=== PATIENT | female | born 1935 | race American Indian/Alaskan Native ===

== ENCOUNTER 2017-04-27 02:06 | Inpatient (IN) | payer MEDICARE, BC ==
--- NOTE | 2017-04-27 03:01 | ED PDOC ---
Arrival/HPI - General Chief Complaint: Syncope Time Seen by Provider: 04/27/17 02:50 Historian: Patient - History of Present Illness Narrative History of Present Illness (Text): 04/27/17 03:00 Estella Elizabeth is an 81 year old female, whose past medical history includes hypertension, diabetes, hypothyroidism, hyperlipidemia, and vertigo, who presents to the Emergency department brought in by EMS complaining of near- syncope tonight. Patient states she got up tonight when she began feeling near- syncopal and very dizzy. Patient states she fell and landed on her buttocks. Patient denies any fever, chills, chest pain, shortness of breath, headache, vision changes, focal neurological deficits, nausea, vomiting, diarrhea, back pain, neck pain, or any other complaints. PMD: Dr. Giles Time/Duration: Other (tonight) Symptom Onset: Gradual Symptom Course: Unchanged Activities at Onset: Rest, Light Context: Home Past Medical History - Provider Review Nursing Documentation Reviewed: Yes - Past History Past History: Non-Contributing - Infectious Disease Hx of Infectious Diseases: None - Tetanus Immunization Tetanus Immunization: Unknown - Reproductive Menopause: Yes - Cardiac Hx Hypertension: Yes - Pulmonary Hx Respiratory Disorders: No - Neurological Hx Neurological Disorder: Yes (SYNCOPE) Hx Dizziness: Yes - HEENT Hx HEENT Disorder: Yes (reading glasses) Hx Cataracts: Yes (b/l sx) Hx Glaucoma: Yes - Renal Hx Renal Disorder: No - Endocrine/Metabolic Hx Diabetes Mellitus Type 2: Yes Hx Hypothyroidism: Yes - Hematological/Oncological Hx Blood Disorders: No - Integumentary Hx Dermatological Disorder: No - Musculoskeletal/Rheumatological Hx Arthritis: Yes Hx Falls: Yes (2014) Hx Fractures: Yes (r hip fx, right shoulder 2014) Hx Unsteady Gait: Yes (walker) - Gastrointestinal Hx Gastrointestinal Disorders: Yes (constipation, hemorrhoids) Hx Gastroesophageal Reflux: Yes - Genitourinary/Gynecological Hx Genitourinary Disorders: Yes - Psychiatric Hx Psychophysiologic Disorder: No Hx Substance Use: No Other/Comment: ex-smoker - Surgical History Hx Appendectomy: Yes Hx Cardiac Catheterization: Yes Hx Hysterectomy: Yes Hx Orthopedic Surgery: Yes Other/Comment: r shoulder fx with sx, r hip fx with sx - Anesthesia Hx Anesthesia Reactions: No - Suicidal Assessment Feels Threatened In Home Enviroment: No Family/Social History - Physician Review Nursing Documentation Reviewed: Yes Family/Social History: No Known Family HX Smoking Status: Former Smoker Hx Alcohol Use: No Hx Substance Use: No Hx Substance Use Treatment: No Allergies/Home Meds Allergies/Adverse Reactions: Allergies No Known Allergies Allergy (Verified 12/21/15 15:53) Home Medications: Home Meds Medication Instructions Recorded Confirmed Isosorbide Mononitrate [Imdur] 60 mg PO DAILY 03/11/13 04/27/17 Pravastatin Sodium 80 mg PO DAILY 07/10/13 04/27/17 Losartan [Cozaar] 100 mg PO DAILY 05/28/14 04/27/17 Insulin Human (NPH)/Regular 30 units SC BID 07/20/14 04/27/17 [Novolin 70/30 (70/30 units/ml) 10 ml] cloNIDine 0.3 mg/24 hr 1 patch TOP QWK 07/20/14 04/27/17 [catapres-TTS3 0.3 mg/24 hr] Esomeprazole Magnesium [Nexium] 40 mg PO DAILY 11/14/14 04/27/17 Methimazole [Tapazole] 5 mg PO DAILY 11/14/14 04/27/17 Alprazolam 0.5 mg PO DAILY 12/21/15 04/27/17 Ascorbic Acid [C-500] 500 mg PO BID 12/21/15 04/27/17 Bisacodyl [Dulcolax] 5 mg PO HS PRN 12/21/15 04/27/17 Carvedilol [Coreg] 25 mg PO BID 12/21/15 04/27/17 Diltiazem HCl [Diltiazem 24Hr Cd] 240 mg PO DAILY 12/21/15 04/27/17 Docusate Sodium [Move It Along] 200 mg PO DAILY 12/21/15 04/27/17 Ezetimibe [Zetia] 10 mg PO DAILY 12/21/15 04/27/17 Hydralazine HCl 50 mg PO TID 12/21/15 04/27/17 Latanoprost [Xalatan] 1 drop OP DAILY 12/21/15 04/27/17 Metoclopramide HCl [Reglan] 5 mg PO QID 12/21/15 04/27/17 Review of Systems - Physician Review All systems were reviewed & negative as marked: Yes - Review of Systems Constitutional: Normal. absent: Fevers Eyes: Normal ENT: Normal Respiratory: Normal. absent: SOB, Cough Cardiovascular: Other (+near-syncopal). absent: Chest Pain Gastrointestinal: Normal Genitourinary Female: Normal. absent: Dysuria, Frequency, Hematuria, Urine Output Changes Musculoskeletal: Normal. absent: Back Pain, Neck Pain Skin: Normal. absent: Rash Neurological: Dizziness. absent: Headache, Focal Weakness, Gait Changes, Speech Changes Endocrine: Normal Hemo/Lymphatic: Normal Psychiatric: Normal Physical Exam Vital Signs Reviewed: Yes Vital Signs Temp Pulse Resp BP Pulse Ox 04/27/17 02:41 98 F 81 20 135/57 L 98 Temperature: Afebrile Blood Pressure: Normal Pulse: Regular Respiratory Rate: Normal Appearance: Positive for: Well-Appearing, Non-Toxic, Comfortable Pain Distress: None Mental Status: Positive for: Alert and Oriented X 3 - Systems Exam Head: Present: Atraumatic, Normocephalic Pupils: Present: PERRL Extroacular Muscles: Present: EOMI Conjunctiva: Present: Normal Ears: Present: Normal, NORMAL TM, Normal Canal. No: Erythema, TM Bulging, Fluid , TM Perf Mouth: Present: Moist Mucous Membranes Pharnyx: Present: Normal. No: ERYTHEMA, EXUDATE, TONSILS ENLARGED, Peritonsilar Swelling, Uvular Deviation, Strider, Soft Palate/Uvular Edema Nose (External): Present: Atraumatic Nose (Internal): Present: Normal Inspection Neck: Present: Normal Range of Motion. No: Meningeal Signs, MIDLINE TENDERNESS , Paraspinal Tenderness Respiratory/Chest: Present: Clear to Auscultation, Good Air Exchange. No: Respiratory Distress, Accessory Muscle Use Cardiovascular: Present: Regular Rate and Rhythm, Normal S1, S2. No: Murmurs Abdomen: Present: Normal Bowel Sounds. No: Tenderness, Distention, Peritoneal Signs Back: Present: Normal Inspection. No: CVA Tenderness, Midline Tenderness, Paraspinal Tenderness Upper Extremity: Present: Normal Inspection, Normal ROM, NORMAL PULSES, Neurovascularly Intact, Capillary Refill < 2s. No: Cyanosis, Edema, Tenderness , Swelling, Erythema, Temperature Abnormalties, Deformity Lower Extremity: Present: Normal Inspection, NORMAL PULSES, Normal ROM, Neurovascularly Intact, Capillary Refill < 2 s. No: Edema, Cyanosis, Tenderness , Swelling, Erythema, Deformity Neurological: Present: GCS=15, CN II-XII Intact, Speech Normal, Motor Func Grossly Intact, Normal Sensory Function, Normal Cerebellar Funct Skin: Present: Warm, Dry, Normal Color. No: Rashes Psychiatric: Present: Alert, Oriented x 3, Normal Insight, Normal Concentration Medical Decision Making ED Course and Treatment: 04/27/17 03:00 Impression: 81 year old female complaining of near-syncope and dizziness. Differential Diagnosis include but are not limited to: near-syncope Plan: -- CT Head w/o contrast -- EKG -- Chest X-ray -- Labs, cardiac enzymes -- Reassess and disposition Prior Visits: Notes and results from previous visits were reviewed. Progress Notes: Reviewed EKG, NSR at 78 bpm. Non-specific T wave changes. 04/27/17 04:44 Reviewed radiology, CT Head shows: No acute intracranial findings. Nonacute findings as above. 04/27/17 05:18 Reviewed Chest X-ray, shows no acute processes. 04/27/17 05:[address] Giles, who is aware and agrees with plan. Accepts pt in to her service. Pt will go to Telemetry observation for near-synope. - Lab Interpretations Lab Results: 04/27/17 03:20 Lab Results 04/27/17 03:20: WBC 11.3 H D, RBC 3.01 L, Hgb 9.6 L, Hct 27.5 L, MCV 91.4, MCH 31.9, MCHC 34.9, RDW 12.6, Plt Count 253, MPV 9.4 04/27/17 03:20: PT 11.8, INR 1.09 H, APTT 28.5 I have reviewed the lab results: Yes - RAD Interpretation Narrative RAD Interpretations (Text): CT Head shows: Brain: Mild volume loss. Mild chronic small vessel white matter ischemic change. No acute hemorrhage. No acute infarct. Ventricles: No hydrocephalus. Bones/joints: Unremarkable. No acute fracture. Soft tissues: Unremarkable. Vasculature: Calcification in the wall the distal internal carotid arteries. Sinuses: Unremarkable as visualized. No acute sinusitis. Mastoid air cells: Unremarkable as visualized. No mastoid effusion. Orbits: Bilateral proptosis. IMPRESSION: No acute intracranial findings. Nonacute findings as above. Radiology Orders: 04/27/17 02:50 HEAD W/O CONTRAST [CT] Stat CHEST PORTABLE [RAD] Stat Shear Helper: ED Physician, Radiologist - EKG Interpretation Interpreted by ED Physician: Yes Type: 12 lead EKG - Scribe Statement The provider has reviewed the documentation as recorded by the Abhishekibcierra Garcia All medical record entries made by the Abhishekibe were at my direction and personally dictated by me. I have reviewed the chart and agree that the record accurately reflects my personal performance of the history, physical exam, medical decision making, and the department course for this patient. I have also personally directed, reviewed, and agree with the discharge instructions and disposition. Disposition/Present on Arrival - Present on Arrival Any Indicators Present on Arrival: No History of DVT/PE: No History of Uncontrolled Diabetes: No Urinary Catheter: No History of Decub. Ulcer: No History Surgical Site Infection Following: None - Disposition Have Diagnosis and Disposition been Completed?: Yes Diagnosis: Near syncope Disposition: HOSPITALIZED Disposition Time: 06:05 Patient Plan: Observation Condition: STABLE
[2017-04-27 03:40] LABS: HEMATOCRIT 27.5 % (36.0-48.0); MEAN CELL VOLUME 91.4 fL (80.0-105.0); MEAN CORPUSCULAR HEMOGLOBIN 31.9 pg (25.0-35.0); MEAN CORPUSCULAR HGB CONC 34.9 g/dl (31.0-37.0); MEAN PLATELET VOLUME 9.4 fl (7.0-11.0); RED CELL DISTRIBUTION WIDTH 12.6 % (11.5-14.5); WHITE BLOOD COUNT 11.3 10^3/ul (4.5-11.0)
[2017-04-27 03:47] LABS: INR 1.09 (0.93-1.08); PARTIAL THROMBOPLASTIN TIME 28.5 Seconds (23.7-30.8)
--- NOTE | 2017-04-27 08:07 | CT ---
PROCEDURE: CT HEAD WITHOUT CONTRAST. HISTORY: Dizziness COMPARISON: 11/14/2014 TECHNIQUE: Axial computed tomography images were obtained through the head/brain without intravenous contrast. Radiation dose: Total exam DLP = 687.80 mGy-cm. This CT exam was performed using one or more of the following dose reduction techniques: Automated exposure control, adjustment of the mA and/or kV according to patient size, and/or use of iterative reconstruction technique. FINDINGS: HEMORRHAGE: No intracranial hemorrhage. BRAIN: Massey-white matter differentiation is preserved. There are mild chronic microangiopathic changes. There is no mass, mass effect or abnormal extra-axial fluid collection. There are coarse atherosclerotic calcifications in the cavernous carotid arteries. VENTRICLES: There is mild age-related global parenchymal volume loss and proportionate enlargement of the ventricles and cortical sulci. . CALVARIUM: The skull base and calvarium are normal. PARANASAL SINUSES: There is moderate polypoid mucosal thickening in the left sphenoid chamber and right frontal sinus. The remaining included paranasal sinuses are predominantly clear. MASTOID AIR CELLS: Predominantly clear. OTHER FINDINGS: There is bilateral proptosis. IMPRESSION: No acute intracranial abnormality. Mild age-related involutional changes. Mild chronic microangiopathic changes. A preliminary report was provided by [facility].
[2017-04-27 08:56] LABS: ALB/GLOB RATIO 1.1 (1.1-1.8); ALKALINE PHOSPHATASE 94 U/L (38-133); ALT/SGPT 78 U/L (7-56); AST/SGOT 59 U/L (15-39); BILIRUBIN,TOTAL 1.2 mg/dL (0.2-1.3); BLOOD UREA NITROGEN 38 mg/dL (7-21); CARBON DIOXIDE 24 mmol/L (21-33); CHLORIDE 99 mmol/L (98-107); GFR AFRICAN-AMERICAN 31; GLUCOSE,RANDOM 177 mg/dL (70-110); POTASSIUM 4.7 mmol/L (3.6-5.0); SODIUM 131 mmol/L (132-148); TOTAL PROTEIN 7.1 g/dL (5.8-8.3)
[2017-04-27 09:10] LABS: TROPONIN I < 0.01 ng/mL
[2017-04-27] MEDS ORDERED: Iohexol 240 (50 ml) ONE (09:36)
--- NOTE | 2017-04-27 09:49 | RAD ---
HISTORY: dizzy COMPARISON: 12/22/2015 FINDINGS: LUNGS: The lungs are clear. PLEURA: No significant pleural effusion identified, no pneumothorax apparent. CARDIOVASCULAR: Normal. Heart is normal in size. Atherosclerotic aortic arch calcifications are present. OSSEOUS STRUCTURES: No significant abnormalities. VISUALIZED UPPER ABDOMEN: Normal. OTHER FINDINGS: None. IMPRESSION: No active pulmonary disease.
[2017-04-27 13:16] LABS: URINE BILIRUBIN NEGATIVE (NEGATIVE); URINE BLOOD TRACE-INTACT (NEGATIVE); URINE GLUCOSE (UA) NEGATIVE (NEGATIVE); URINE KETONE NEGATIVE (NEGATIVE); URINE LEUKOCYTE ESTERASE MODERATE Leu/uL (NEGATIVE); URINE PROTEIN 30 mg/dL (<30 mg/dL); URINE UROBILINOGEN 0.2 E.U./dL (<1 E.U./dL)
[2017-04-27 13:23] LABS: URINE APPEARANCE SL CLOUDY (CLEAR); URINE COLOR YELLOW (YELLOW)
[2017-04-27 13:42] LABS: URINE BACTERIA MANY (NEG); URINE RBC 0 - 2 /hpf (0-2)
[2017-04-27 14:17] VITALS: BMI 31.6
[2017-04-27] MEDS ORDERED: Pneumococcal 23-Valent Vaccine IM ONE (14:18)
[2017-04-27] MEDS ORDERED: Insulin Regular 1 UNITS/0.01 ML ML ONE (15:54)
[2017-04-27] MEDS: Insulin Reg-LOW-Coverage SC SCH ×2 (15:55→22:00)
--- NOTE | 2017-04-27 16:31 | CT ---
PROCEDURE: CT Abdomen and Pelvis with Oral contrast. HISTORY: right lower abdominal pain COMPARISON: Comparison is made to the previous study dated 07/11/2013 TECHNIQUE: Contiguous axial images of the abdomen and pelvis. Oral contrast was administered. No IV contrast given. Coronal and Sagittal reformats generated. Radiation dose: Total exam DLP = 967.05 mGy-cm. This CT exam was performed using one or more of the following dose reduction techniques: Automated exposure control, adjustment of the mA and/or kV according to patient size, and/or use of iterative reconstruction technique. FINDINGS: LOWER THORAX: No evidence of acute pathology. LIVER: Heterogeneous attenuation of the liver is again noted. No evidence of significant interval change. GALLBLADDER AND BILE DUCTS: No evidence of cholecystitis. PANCREAS: Low-attenuation cystic lesion seen at or adjacent to the pancreas noted of uncertain etiology. The largest low-attenuation lesion seen adjacent to the pancreatic head measures 1.9 centimeter. The possibility of pancreatic cystic neoplasm is not totally excluded. The differential diagnosis includes enlarged peripancreatic lymph nodes. There is low-attenuation lesion at the pancreatic head measures 2 centimeter. SPLEEN: Unremarkable. No splenomegaly. ADRENALS: Unremarkable. KIDNEYS AND URETERS: Multiple low-attenuation lesions in the kidneys are again seen appear larger and more compared to the previous exam. No evidence of hydronephrosis or nephrolithiasis. BLADDER: Mild urinary bladder wall thickening. REPRODUCTIVE: Status post hysterectomy. APPENDIX: No evidence of appendicitis. BOWEL: Scattered colonic diverticulosis are seen. Mild inflammatory changes seen adjacent to the descending colon. The possibility of mild diverticulitis is not excluded. No evidence of bowel obstruction. PERITONEUM: Unremarkable. No fluid collection. No free air. LYMPH NODES: Prominent retroperitoneal lymph nodes are seen. VASCULATURE: Unremarkable. No aortic aneurysm. BONES: Diffuse osteopenia is seen. Hardware are seen at the right femur head and neck. OTHER FINDINGS: None. IMPRESSION: Scattered colonic diverticulosis. Mild inflammatory changes seen adjacent to the descending colon. Correlate clinically for diverticulitis. No evidence of abscess formation or free air. Interval appearance of multiple low-attenuation lesion at or adjacent to the pancreatic body and head of uncertain etiology. The possibility of multifocal cystic neoplasm of the pancreas is not totally excluded. The differential diagnosis includes enlarged peripancreatic lymph nodes. 2 centimeter low-attenuation lesion seen at the pancreatic head. Further assessment of the pancreas by ultrasound or MRI is suggested. Interval worsening of low-attenuation cystic lesions in the kidneys since the previous exam. Diffuse osteopenia.
[2017-04-27] MEDS: Sodium Chloride 0.9% 1,000 ML IV SCH (21:58)
[2017-04-27] MEDS: Latanoprost 2.5 ml Opht Soln OU SCH (22:00)
--- NOTE | 2017-04-27 22:03 | HP ---
CHIEF COMPLAINT: Lightheadedness and near syncope. HISTORY OF PRESENT ILLNESS: An 81-year-old female with history of hypertension , stage II chronic kidney disease, type 2 diabetes mellitus and hyperthyroidism who presented to Emergency Room with complaints of dizziness and near syncopal episode. The patient claims that she did get up from bed after lying at night. When went to the bathroom, she fell on the floor. She denies losing consciousness. She called the ambulance and came to the Emergency Room for evaluation. The patient denied any headache, blurry vision, weakness, chest pain or shortness of breath. PAST MEDICAL HISTORY: Significant for severe hypertension. The patient was hospitalized in the past for uncontrolled hypertension. She is on multiple medications to control her blood pressure. Type 2 diabetes mellitus, controlled with insulin. Hyperthyroidism, stage II chronic kidney disease, chronic constipation. PAST SURGICAL HISTORY: Status post hysterectomy, colonoscopy in 2013. Cardiac catheterization in 2014, significant for mild coronary artery disease. ALLERGIES: The patient has no known allergies. CURRENT MEDICATIONS: Insulin 70/30, 30 units twice a day. Catapres patch 0.3 mg once a week, Tapazole 5 mg daily, losartan 100 mg daily, Imdur 60 mg daily, hydralazine 50 mg 3 times a day, Zetia 10 mg daily, pravastatin 40 mg daily, Colace 200 mg daily, Coreg 25 mg twice a day and alprazolam 0.5 mg daily. The patient also takes Latanoprost eyedrops for her glaucoma. FAMILY HISTORY: Significant for hypertension and heart disease. SOCIAL HISTORY: The patient denies any smoking, alcohol or drug use. The patient is retired. She lives with her daughter. The patient is independent of activity of daily living. REVIEW OF SYSTEMS: The patient denies any fever, loss of appetite or weight loss. Denies any sore throat, dysphagia. Denies any nasal congestion, cough. Denies any chest pain, diaphoresis or heart palpitation. She complains of some lower abdominal discomfort and chronic constipation. Denies any nausea, vomiting, melena or hematemesis. The patient denies any dysuria, hematuria or flank pain. The patient denies any neurological symptoms as blurry vision, weakness or numbness. The patient complains of chronic low back pain. The patient denies any psychiatric symptoms. PHYSICAL EXAMINATION: VITAL SIGNS: Temperature on admission 98, blood pressure in the Emergency Room at first was 135/57, earlier during evaluation was low 107/49, her pulse rate was 60 per minute, and respiratory rate 18, oxygen saturation was 97% on room air. GENERAL: The patient was lying in bed, alert, awake, oriented. HEAD: Normocephalic, atraumatic. EYES: Pupils reactive to light. Oral mucosa was moist. NECK: Supple. No neck masses. There is prominent thyroid gland noted. LUNGS: Clear to auscultation. HEART: Regular rhythm, rate of 60 per minute. ABDOMEN: Soft with slight tenderness in the right lower quadrant. No muscle guarding. Bowel sounds are positive. EXTREMITIES: With no edema. NEUROLOGIC: Shows no sensorimotor deficits. Full range of motion. DIAGNOSTIC STUDIES: CBC with WBC 11.3, hemoglobin 9.6, hematocrit 27.5, platelet count 253. PT, PTT was normal. Chemistry showed hyponatremia with sodium 131. BUN 38, creatinine 1.9, and random glucose 177. She had slightly elevated liver enzymes. Her troponin was negative at 0.01. TSH was 0.91. EKG showed normal sinus rhythm with nonspecific T-wave abnormalities. No ST elevation. Chest x-ray showed no acute pathology. CT of the head showed no acute intracranial abnormality, chronic vascular changes. ASSESSMENT: 1. An 81-year-old female with history of hypertension and coronary artery disease, admitted for near syncope episode, possibly due to postural hypotension. 2. Type 2 diabetes mellitus. 3. Stage II chronic kidney disease. 4. Hyponatremia. 5. Abdominal pain with elevated liver enzymes. PLAN OF TREATMENT: The patient will be admitted for observation to telemetry. Will monitor blood pressure. I will hold blood pressure medication for now. Will ask tape rules printing machine operator and neurologist on consult. I will order CT scan of the abdomen and pelvis for evaluation of abdominal symptoms. Nelsy Cyr MD cc: [id number] TT: 04/27/2017 22:02:55 mn [id number]
--- NOTE | 2017-04-27 23:40 | CON ---
DATE: 04/27/2017 REASON FOR CONSULTATION: Recurrent near syncope. HISTORY OF PRESENT ILLNESS: The patient is an 81-year-old female who came to the Emergency Room with complaints of episode of almost passing out. Last night, the patient got up to go to the bathroom w hen she felt dizzy and fell and she was going to pass out. She did not pass out because she remember ed the events. She did not have any focal weakness in arms or legs. Did not have loss of her urine or had any tongue biting. She did not hit her head. That is why the patient was brought to the [facility] Room. At the moment, she just feels a little cold. Denies any other complaints. REVIEW OF SYSTEMS: Denies any headache, chest pain, shortness of breath, abdominal pain, constipatio n, diarrhea, dysuria, pyuria, cough, sputum production, palpitations, hallucinations, skin rash. PAST MEDICAL HISTORY: Includes hypertension, diabetes mellitus, hypothyroidism, hyperlipidemia. MEDICATIONS AT HOME: Included clonidine, pravastatin, metoclopramide, , losartan, Xalatan eyedr ops, Imdur, insulin, hydralazine, , Nexium, diltiazem, Coreg, Dulcolax, and Xanax. ALLERGIES: No known drug allergies. SOCIAL HISTORY: Denies smoking, use of alcohol or illicit drugs. FAMILY HISTORY: Noncontributory to the case. PHYSICAL EXAMINATION: GENERAL: The patient is an elderly pleasant female lying on the bed in no acute distress. VITAL SIGNS: Her blood pressure is 157/66, heart rate 71 per minute, breathing at a rate of 16 per m inute, temperature is 97.9 degrees Fahrenheit. HEENT: Head is normocephalic, atraumatic. NECK: Supple. There are no carotid bruits. LUNGS: Clear. CARDIOVASCULAR: S1, S2 audible. No murmurs. ABDOMEN: Soft, nontender, bowel sounds present. NEUROLOGIC EXAMINATION: MENTAL STATUS: The patient is awake, alert, oriented to time, place, person. Speech is fluent. Nam ing and repetition normal. Memory and cognition are intact. CRANIAL NERVE EXAMINATION: Pupils are 3 mm bilaterally reactive to light. Visual sifuentes are full. Extraocular movements are intact. There is no facial asymmetry. MOTOR: She is moving all 4 extremities symmetrically. Power appears to be 5/5 bilaterally in all ex tremities. Reflexes +2 and symmetrical. Plantars downgoing bilaterally. CEREBELLAR EXAMINATION: [id number] shows no dysmetria. Gait is deferred at the moment. SENSORY: Intact to soft touch and pinprick. LABORATORY DATA: Labs reviewed, shows WBC of 11.3, hemoglobin 9.6, hematocrit 27.5 and platelets of 253. INR is 1.09. Sodium is 131, potassium 4.7, chloride 99, carbon dioxide content 24, BUN of 38, creatinine 1.9 and glucose of 282. She had a CT scan of the head done which shows no acute intracran ial abnormality. Mild age-related involutional changes. Mild microangiopathic changes. IMPRESSION: Near syncope, rule out cardiac arrhythmias versus questionable seizure. RECOMMENDATIONS: 1. The patient to have an electroencephalogram. 2. The patient to have cardiac monitoring to rule out any cardiac arrhythmias. 3. The patient also to have orthostatic blood pressures checked every shift. 4. Please continue other treatment and supportive care. Thank you for the opportunity to participate in the care of this patient. Ezra Leach MD cc: [id number] TT: 04/27/2017 23:39:07 Confirmation # [id number] Dictation # [id number] mian
[2017-04-28] MEDS ORDERED: guaiFENesin DM 100 mg-10 mg/5 ml UD PO STA (05:17)
[2017-04-28 07:16] LABS: ADD MANUAL DIFF? NO
[2017-04-28] MEDS: Insulin Human NPH/Reg 70/30 Vial(3 ml) SC SCH ×2 (07:30→16:30)
[2017-04-28 07:33] LABS: BILIRUBIN,TOTAL 1.2 mg/dL (0.2-1.3); CALCIUM 8.9 mg/dL (8.4-10.5); MAGNESIUM 2.4 mg/dL (1.7-2.2); PHOSPHOROUS 2.3 mg/dL (2.5-4.5); POTASSIUM 4.3 mmol/L (3.6-5.0); TOTAL PROTEIN 7.3 g/dL (5.8-8.3)
[2017-04-28 07:37] LABS: BASO # 0.01 K/mm3 (0.0-2.0); BASO % 0.1 % (0.0-3.0); EOS # 0.1 (0.0-0.7); EOS % 0.4 % (1.5-5.0); GRAN # 8.83 (1.4-6.5); GRAN % 73.2 % (50.0-68.0); HEMATOCRIT 29.2 % (36.0-48.0); LYMPH # 1.2 (1.2-3.4); LYMPH % 10.1 % (22.0-35.0); MEAN CELL VOLUME 91.5 fL (80.0-105.0); MEAN CORPUSCULAR HEMOGLOBIN 30.4 pg (25.0-35.0); MEAN CORPUSCULAR HGB CONC 33.2 g/dl (31.0-37.0); MEAN PLATELET VOLUME 9.2 fl (7.0-11.0); MONO % 16.2 % (1.0-6.0); PLATELET COUNT 262 10^3/uL (120.0-450.0); RED CELL DISTRIBUTION WIDTH 12.4 % (11.5-14.5); WHITE BLOOD COUNT 12.1 10^3/ul (4.5-11.0)
--- NOTE | 2017-04-28 08:40 | CON ---
DATE: 04/27/2017 REASON FOR CONSULTATION: Dizziness, fell down, rule out syncope. BRIEF CLINICAL HISTORY: This is an 81-year-old female with past medical history significant for hype rtension, diabetes, hypothyroidism, hyperlipidemia, chronic vertigo, who was having vertigo the last 24 hours and patient feels shortness of breath. Yesterday went to the bathroom and fell down. Denie s any chest pain, but complaining of shortness of breath earlier a little bit, and patient was feelin g hot and cold feeling; alternate hot, cold, and then feeling hot, warm, and associated with some sh ortness of breath and then dizziness the last 24 hours, and then went to the bathroom and fell down. Denies any loss of consciousness. PAST MEDICAL HISTORY: Significant for hypertension, hyperlipidemia, hypothyroidism, obesity, history of chronic vertigo, history of obesity, history of hypertension, diabetes, hyperlipidemia. Past his tory significant for diabetes, hypertension, hyperlipidemia, thyrotoxicosis; hyperthyroidism, was on Tapazole; history of cardiac catheterization because of abnormal stress test that shows nonobstructiv e coronary artery disease. PREVIOUS CARDIAC WORKUP: As follows: The patient had a cardiac catheterization of 11/20/2014 after having abnormal stress test that revealed nonobstructive coronary artery disease limited only to smal l codominant RCA, mildly diffusely diseased 55%, but no focal flow-limiting stenosis noted. Preserve d LV function, ejection fraction 55%, EDP was in the range of 12-14. Medical treatment recommended. The patient had last echo on 04/10/2017 that showed left ventricle size is normal, normal LV functio n, diastolic dysfunction, moderate aortic sclerosis, ____ mitral regurgitation, ____ tricuspid regurg itation, mild pulmonary hypertension, RV systolic pressure 44, trace aortic regurgitation, dated 12/2016, beginning of the month. SOCIAL HISTORY: Denies any history of smoking. Denies any history of alcohol abuse. PAST SURGICAL HISTORY: Significant for right hip surgery in 07/2014. CURRENT MEDICATIONS: The patient is taking at home clonidine patch, Pravachol, metoclopramide, Jyoti n, Tapazole, Cozaar, Xalatan eyedrop, insulin, Zetia, hydralazine, Coreg 25 b.i.d., Dulcolax, Xanax. REVIEW OF SYSTEMS: As per HPI. PHYSICAL EXAMINATION: VITAL SIGNS: Temperature afebrile, heart rate 60, blood pressure 102/50. HEENT: PERRLA. Extraocular muscles intact. NECK: Supple. No carotid bruits. No thyromegaly. CHEST: Clear to auscultation. HEART: S1, S2 regular. ABDOMEN: Soft. EXTREMITIES: Clubbing and cyanosis negative. BLOOD WORKUP: WBC 11.3, hemoglobin 9.7, hematocrit 27.5, platelet count 253. Chemistry shows sodium 131, potassium 4.7, chloride 99, carbon dioxide 24, anion gap of 13, BUN 38, creatinine 1.9. IMPRESSION: Acute kidney injury, diabetes, hypertension, hyperlipidemia, hyperthyroidism, vertigo, t hyrotoxicosis, chronic vertigo, rule out arrhythmia. The patient's recent echocardiogram ____ preser case left ventricular function, ____ mitral regurgitation, ____ tricuspid regurgitation, mild ____. T he patient had a cardiac catheterization on 11/2014, nonobstructive coronary artery disease. RECOMMENDATION: Will get a Holter monitor, lipid profile, TSH, hemoglobin A1c. Thank you, Dr. Giles, for providing the opportunity in taking care of the patient. Isidro Maurice MD cc: [id number] TT: 04/27/2017 17:17:41 Confirmation # [id number] Dictation # [id number] mn
[2017-04-28] MEDS: Insulin Reg-LOW-Coverage SC SCH ×3 (08:57→22:12)
[2017-04-28] MEDS: Cefepime IV 2 gm in NS 2 GM/100 ML BAG IVPB SCH ×2 (10:00→22:12)
[2017-04-28] MEDS ORDERED: Vancomycin 1gm in NS 250ml 1 GM/250 ML BAG IVPB STA (10:12)
--- NOTE | 2017-04-28 11:08 | PN ---
DATE: 04/28/2017 The patient was seen at bedside. The patient developed a fever 101.1 this morning. She also complains of dry cough since last night. She denies any chest pain or shortness of breath. She was admitted for near syncope with episodes of hypotension in the Emergency Room. Her blood pressure improved since then. She denies any abdominal pain, nausea, or vomiting. PHYSICAL EXAMINATION: VITAL SIGNS: This morning temperature 101.1, pulse 83 regular, blood pressure 148/73, and respiratory rate 20. Her oxygen saturation is 96% on room air. GENERAL: She is comfortable, alert, awake, oriented. HEENT: Head is normocephalic, atraumatic. Oral mucosa is moist. NECK: Supple. There is an enlarged thyroid. LUNGS: Clear to auscultation. There is no wheezing, rales, or rhonchi. HEART: Regular rhythm and rate. ABDOMEN: Soft, nontender, nondistended. EXTREMITIES: With no edema. DIAGNOSTIC TESTS: This morning, CBC with persistent leukocytosis with WBC 12.1 , hemoglobin 9.7, hematocrit 29.2, platelet count 62. Chemistry with sodium 131. Her renal function slightly improved with hydration. BUN 29, creatinine 1.5 this morning. Her glucose remains elevated in the range of 200-280. She has borderline elevated liver enzymes. Her CT scan of abdomen and pelvis showed mild nonspecific inflammatory changes in descending colon and scattered diverticulosis. There are 2 cystic lesions in the pancreas - one around 2 cm. ASSESSMENT: 1. New onset of fever and dry cough with episode of hypotension yesterday, rule out sepsis. Possibly pneumonia. 2. Orthostatic hypotension with near syncope episode with improved blood pressure since yesterday. 3. Type 2 diabetes mellitus. 4. Pancreatic cyst, chronic. 5. Diverticulosis with nonspecific inflammatory changes, possibly mild diverticulitis. PLAN OF TREATMENT: Septic workup with blood and urine culture was done this morning. I will start azithromycin. I will ask ID consult for evaluation. We will monitor her blood pressure and continue IV fluids for now, continue losartan 50 mg. We will adjust her blood pressure medication if blood pressure increases. Continue current insulin coverage. Nelsy Cyr MD cc: [id number] TT: 04/28/2017 11:07:57 Confirmation # [id number] Dictation # [id number] jn MTDD
--- NOTE | 2017-04-28 11:16 | PN ---
DATE: 04/28/2017 SUBJECTIVE: The patient is lying on the bed, in no acute distress. Denies having any headache or di zziness. PHYSICAL EXAMINATION: VITAL SIGNS: Her blood pressure is 148/73, heart rate is 83 per minute, breathing at a rate of 16 pe r minute, temperature is 101.1 degrees Fahrenheit. HEENT: Normocephalic, atraumatic. NECK: Supple. There are no carotid bruits. LUNGS: Clear. CARDIOVASCULAR: S1, S2 audible. No murmurs. ABDOMEN: Soft, nontender. Bowel sounds present. NEUROLOGIC EXAMINATION: MENTAL STATUS: The patient is awake, alert, oriented to time, place, person. Speech is fluent. Nam ing and repetition normal. Memory and cognition are intact. CRANIAL NERVE EXAMINATION: Pupils are 3 mm bilaterally reactive to light. Visual sifuentes are full. Extraocular movements are intact. There is no facial asymmetry. Palate is upgoing bilaterally and t ongue is midline. MOTOR EXAMINATION: Tone is normal. Power is 4-5/5 all over. Plantars downgoing bilaterally. CEREBELLAR: [id number] shows no dysmetria. LABORATORY DATA: Labs reviewed, shows WBC of 12.1, hemoglobin 9.7, hematocrit 29.2 and platelets of 262. Sodium is 131, potassium 4.3, chloride 99, carbon dioxide content 24, BUN of 29, creatinine 1.5 , and glucose of 248. IMPRESSION: 1. Status post near syncope, possibly secondary to orthostatic hypotension, rule out any seizure or cardiac arrhythmia, although it is less likely. RECOMMENDATIONS: 1. The patient to have IV hydration. The patient's blood pressure seems to be better than when she came into the hospital. 2. The patient to have continued cardiac monitoring. 3. The patient agreed with the antibiotics as the patient does have increased white cell count. 4. Please continue other treatment and supportive care. Thank you for the opportunity to participate in the care of this patient. Ezra Leach MD cc: [id number] TT: 04/28/2017 11:16:17 Confirmation # [id number] Dictation # [id number] sarika
[2017-04-28] MEDS ORDERED: guaiFENesin-Codeine 100-10mg/5ml Syrup (5 ml) UD PO PRN (11:53)
--- NOTE | 2017-04-28 12:47 | PN ---
DATE: 04/28/2017 REASON FOR CONSULTATION AND FOLLOWUP: Dizziness, fell down, rule out syncope, complaining of cough n ow. BRIEF CLINICAL HISTORY: This is an 81-year-old female with past medical history significant for hype rtension, hyperthyroidism, hyperlipidemia, chronic vertigo, admitted because of fall after having diz ziness. The patient denies any chest pain, shortness of breath, any palpitation. PHYSICAL EXAMINATION: VITAL SIGNS: Temperature afebrile, heart rate 83, blood pressure 148/73. HEENT: PERRLA. Extraocular muscles intact. NECK: Supple. No carotid bruits. No thyromegaly. CHEST: Clear to auscultation. HEART: S1, S2 regular. ABDOMEN: Soft. EXTREMITIES: Clubbing and cyanosis negative. LABORATORY DATA: Blood workup as follows: WBC 12, hemoglobin 9, hematocrit 29.2, platelet count 262 . Chemistry shows sodium 131, potassium 4.3, chloride 99, carbon dioxide 24, anion gap of 12, BUN 29 , creatinine 1.5, total protein 7.3, albumin 3.6, albumin/globulin ratio 1. Triglycerides 157, sedrick sterol 105, LDL 45, HDL 22. TSH 3.66, hemoglobin A1c 7. IMPRESSION: Vertigo, dizziness, complaining of cough, history of cardiac catheterization done 2014 after having abnormal stress test, revealed nonobstructive coronary artery disease. A small cod ominant circumflex 55%, but no focal flow-limiting stenosis noted. Ejection fraction 55%. End-diast olic pressure was in the range of 12-14. The patient's last echo 04/10/2017 that shows left ventricula r size, normal function, diastolic dysfunction, moderate aortic stenosis, mild mitral regurgitation, tricuspid regurgitation, and mild pulmonary hypertension, right ventricular systolic pressure of 44. Trace aortic regurgitation dated 04/10/2017, mild mitral regurgitation, mild tricuspid regurgitation, mild pulmonary hypertension, calculated ejection fraction 72.5% and right ventricular systolic press ure 44. Diabetes, hypertension, hyperlipidemia, acute kidney injury, vertigo, thyrotoxicosis, chroni c vertigo, rule out arrhythmia. Recent echo did not show any significant structural heart disease. RECOMMENDATION: We will do orthostatic hypotension to rule out any orthostatic hypotension. Aggress sada medical treatment with cough suppressant. No cardiac workup is at this time warranted. Continue neuro workup. We will follow with you. Thank you, Dr. Giles, for providing the opportunity in taking care of the patient. We will follow with you. Needs adjustment of the medication. We will follow in telemetry to rule out arrhythmias, though unlikely. Isidro Maurice MD cc: [id number] TT: 04/28/2017 12:46:16 Confirmation # [id number] Dictation # [id number] tn
--- NOTE | 2017-04-28 13:09 | RAD ---
HISTORY: new cough and fever since last night COMPARISON: Comparison chest 04/27/2017 comparison [address] made with CT scan abdomen and pelvis 04/27/2017 which image both lung bases. TECHNIQUE: Chest PA and lateral FINDINGS: LUNGS: Poor inspiration with low lung volumes, mild crowded bronchovascular markings and suspected minor bibasilar atelectasis. PLEURA: No significant pleural effusion identified. No pneumothorax apparent. CARDIOVASCULAR: Normal. OSSEOUS STRUCTURES: No significant abnormalities. VISUALIZED UPPER ABDOMEN: Normal. OTHER FINDINGS: None. IMPRESSION: Poor inspiration with low lung volumes, mild crowded bronchovascular markings and suspected minor bibasilar atelectasis.
[2017-04-28] MEDS: Albuterol-Ipratrop 3 mg / 0.5 (3 ml) UD IH SCH ×2 (13:39→21:36)
[2017-04-28] MEDS: Azithromycin 500MG/NS 250ml 500 MG/250 ML BAG IVPB SCH (15:24)
--- NOTE | 2017-04-28 18:04 | CARD ---
APPROVED REPORT EKG Measurement Heart [id number] CO [id number] <Conclusion> Normal sinus rhythm Nonspecific T wave abnormality Abnormal ECG
[2017-04-28] MEDS: Latanoprost 2.5 ml Opht Soln OU SCH (22:13)
[2017-04-28] MEDS: Sodium Chloride 0.9% 1,000 ML IV SCH (22:14)
[2017-04-29] MEDS: Albuterol-Ipratrop 3 mg / 0.5 (3 ml) UD IH SCH ×4 (02:00→19:32)
[2017-04-29 07:34] LABS: HEMATOCRIT 29.2 % (36.0-48.0); MEAN CELL VOLUME 92.1 fL (80.0-105.0); MEAN CORPUSCULAR HEMOGLOBIN 30.6 pg (25.0-35.0); MEAN CORPUSCULAR HGB CONC 33.2 g/dl (31.0-37.0); MEAN PLATELET VOLUME 9.3 fl (7.0-11.0); RED CELL DISTRIBUTION WIDTH 12.6 % (11.5-14.5); WHITE BLOOD COUNT 15.6 10^3/ul (4.5-11.0)
[2017-04-29 07:55] LABS: ALB/GLOB RATIO 0.9 (1.1-1.8); BILIRUBIN,TOTAL 1.1 mg/dL (0.2-1.3); CALCIUM 8.4 mg/dL (8.4-10.5); MAGNESIUM 2.4 mg/dL (1.7-2.2); PHOSPHOROUS 2.5 mg/dL (2.5-4.5); POTASSIUM 4.2 mmol/L (3.6-5.0); TOTAL PROTEIN 7.1 g/dL (5.8-8.3)
[2017-04-29] MEDS: Insulin Human NPH/Reg 70/30 Vial(3 ml) SC SCH ×2 (08:06→17:58)
[2017-04-29] MEDS: Insulin Reg-LOW-Coverage SC SCH ×5 (08:06→21:48)
--- NOTE | 2017-04-29 08:25 | CON ---
DATE: 04/28/2017 HISTORY OF PRESENT ILLNESS: This patient was seen and evaluated earlier. This is an 81-year-old patient with past medical history of hypertension, coronary artery disease, hypothyroidism, chronic kidney disease, chronic constipation, was brought to the hospital for complaints of dizziness and syncopal episode. The patient denies any complaints of any abdominal discomfort now. The patient was found to have elevated LFTs. The patient had a CAT scan done, which showed a pancreatic cystic lesion. GI consult was requested to further evaluate. This patient is well known to our service for a long time. PAST MEDICAL HISTORY: Significant as above, history status post hysterectomy. PAST SURGICAL HISTORY: Significant for hysterectomy, EGD, colonoscopy, EGD/EUS examination. History of pancreatic cyst, ALLERGIES: No known drug allergy. REVIEW OF SYSTEMS: Positive as above. Other systems reviewed and negative, history of low back pain, history of constipation. PHYSICAL EXAMINATION: GENERAL: The patient is lying on the bed, not in acute distress. VITAL SIGNS: Temperature is 98.9, pulse 78, blood pressure 102/69, respirations 18, O2 saturation 98%. HEENT: Atraumatic, anicteric. NECK: Supple. HEART: S1, S2 heard. LUNGS: Bilateral air entry present. ABDOMEN: Soft. There is no tenderness. EXTREMITIES: No cyanosis, no clubbing. LABORATORY DATA: Hemoglobin is 9.7, hematocrit 29.2, WBC is 12.1, platelets 262. LFTs show total bilirubin 1.2, AST 47, ALT 74, alkaline phosphatase normal. BUN 28, creatinine 1.5. IMPRESSION: This 81-year-old patient with past medical history of . The patient is admitted with a near syncopal episode. The patient had a CAT scan done, which revealed cystic lesion in the pancreatic area. Also, found to have multiple cystic lesions hypoechoic lesions in the pancreas. Also noticed to have . into the pancreatic area down to the one, no diarrhea. The pancreatic head measuring about 2 cm seen. They also noted to have peripancreatic lymph nodes. Noticed to have small inflammatory changes in the right colon area. 1. Pancreatic cystic lesion. The patient is known to have cystic lesions in the pancreas. If the patient is known to have multiple pancreatic and renal cystic lesions. Has been evaluated at [facility] [place] [place] also. These pancreatic cystic lesions at bedtime appears to be simple CYST rather than IPMN. At that time, the patient had several MRIs done. The patient has not followed in our office for nearly [address] also reported as lymphadenopathy. We will review with the radiologist. We reviewed with radiologist all the previous MRI and with his MR. One reasonable thing probably to be done for this and also consider repeat MRI to evaluate this cystic lesion. The MRI and also consider the endoscopic ultrasound after review of the MRI. 2. There is a questionable diverticulitis. CT shows some natali-inflammatory changes in the left sigmoid colon area. Will Continue the antibiotics. 3. The patient is also followed by neurologist and also followed by the supervisor electron tube processing and also urologist. Consultations and followups reviewed. The present plan is to continue the antibiotics. The present plan is to continue that. We will review the previous CT scan and MRIs. and consider US after reviewing the scan, butt an 81-year-old patient with this pancreatic cystic lesion.53-year-old patient with this pancreatic cystic lesion. We will order for MRI. Will review that. Will continue to closely follow up her care and suggest further management based chronic constipation. The patient is on Colace. 4. Other comorbidities include diabetes mellitus, hypertension. Thank you very much for allowing us to participate in the care of the patient. Dominga Morrow MD cc: [id number] TT: 04/29/2017 02:51:33 Confirmation # [id number] Dictation # [id number] mian BECKER
--- NOTE | 2017-04-29 09:00 | PN ---
DATE: 04/29/2017 SUBJECTIVE: The patient complains of a dry cough. She complains of loss of appetite and epigastric pain with burning sensation since yesterday. She had some loose stools this morning. She denies any dizziness. ID consultation was reviewed, antibiotic regimen changed for wider range coverage. PHYSICAL EXAMINATION: VITAL SIGNS: Her temperature is normal 98.9, her pulse 81 regular, blood pressure 135/66. GENERAL: She is sitting in the chair, alert, awake, oriented. HEENT: Head is normocephalic, atraumatic. Oral mucosa is dry. NECK: Supple. LUNGS: Clear to auscultation. HEART: Regular rhythm and rate. ABDOMEN: Soft. There is some epigastric tenderness. No muscle guarding or rebound. Bowel sounds are positive. EXTREMITIES: With no edema. DIAGNOSTIC TESTS: Show significant increase of WBC to 15.6 this morning, hemoglobin stable at 9.7. Chemistry with improved electrolytes, sodium 133, potassium 4.2. Her renal function also stabilized with BUN 33 and creatinine 1.5. The patient has elevated liver enzymes, increased significantly since yesterday. Chest x-ray yesterday showed some bronchovascular markings and some atelectasis ; no acute pathology. Urine culture with positive gram negative rods. ASSESSMENT: 1. Acute bronchitis, rule out pneumonia. 2. Urinary tract infection with gram-negative rods in culture. 3. History of orthostatic hypotension with syncope. Currently, hemodynamically stable with good normal blood pressure. 4. Type 2 diabetes mellitus. 5. Elevated liver enzymes, possibly due to antibiotics. 6. Pancreatic cyst, chronic. PLAN OF TREATMENT: Continue current antibiotics. Follow up cultures. Stat Protonix IV for epigastric pain. Continue monitoring her blood pressure. Will hold off on the rest of her blood pressure medications unless blood pressure elevated. Nelsy Cyr MD cc: [id number] TT: 04/29/2017 09:00:25 Confirmation # [id number] Dictation # [id number] mian BECKER
[2017-04-29] MEDS ORDERED: Meropenem 1g/NS 100mL IVPB 1 GM/100 ML PIGGYBACK IVPB SCH (10:00)
[2017-04-29] MEDS: Azithromycin 500MG/NS 250ml 500 MG/250 ML BAG IVPB SCH (11:03)
--- NOTE | 2017-04-29 11:17 | CP.PCM.CON ---
History of Present Illness - History of Present Illness History of Present Illness: 81 year old female with PMH of HTN, DM, dyslipidemia, history of vertigo, obesity with BMI 32 was initially brought in to [facility] because of a near-syncopal episode. Yesterday the patient developed fevers as well and chills. She is complaining of some abdominal discomfort and nausea, as well as some urinary frequency which has since improved. She denies headache, no dysphagia, no sore throat, no rhinorrhea, no cough, no SOB, no chest pain, no diarrhea, no hematuria. She has underwent a CT scan of the abdomen and pelvis which showed cystic lesions in the pancreas for which GI is evaluating. Infectious diseases consult is requested to further evaluate and manage. Review of Systems - Review of Systems All systems: reviewed and no additional remarkable complaints except (as per HPI ) Past Patient History - Infectious Disease Hx of Infectious Diseases: None - Tetanus Immunizations Tetanus Immunization: Unknown - Past Social History Smoking Status: Former Smoker - CARDIAC Hx Hypercholesterolemia: Yes Hx Hypertension: Yes - PULMONARY Hx Respiratory Disorders: No - NEUROLOGICAL Hx Neurological Disorder: Yes (SYNCOPE) Hx Dizziness: Yes - HEENT Hx HEENT Problems: Yes (reading glasses) Hx Cataracts: Yes (b/l sx) Hx Glaucoma: Yes - RENAL Hx Chronic Kidney Disease: No - ENDOCRINE/METABOLIC Hx Diabetes Mellitus Type 2: Yes Hx Hypothyroidism: Yes - HEMATOLOGICAL/ONCOLOGICAL Hx Blood Disorders: No - INTEGUMENTARY Other/Comment: developed sacral wound post r hip fx/r shoulder fx 2014 which is now completely healed, dry discolored skin ble - MUSCULOSKELETAL/RHEUMATOLOGICAL Hx Falls: Yes (fell at home yesterday/dizzy/headache) - GASTROINTESTINAL Hx Gastrointestinal Disorders: Yes (constipation, hemorrhoids) Hx Gastroesophageal Reflux: Yes - GENITOURINARY/GYNECOLOGICAL Hx Genitourinary Disorders: Yes Other/Comment: uses pullups at night sometimes can't make it to the bathroom in time - PSYCHIATRIC Hx Substance Use: No - SURGICAL HISTORY Hx Appendectomy: Yes Hx Cardiac Catheterization: Yes Hx Hysterectomy: Yes Hx Orthopedic Surgery: Yes Other/Comment: r shoulder fx with sx, r hip fx with sx 2014 from a fall - ANESTHESIA Hx Anesthesia Reactions: No Meds Allergies/Adverse Reactions: Allergies Allergy/AdvReac Type Severity Reaction Status Date / Time No Known Allergies Allergy Verified 02/12/16 15:53 - Medications Medications: Current Medications Acetaminophen (Tylenol 325mg Tab) 650 mg PO Q4H PRN PRN Reason: Fever >100.4 F Last Admin: 04/28/17 09:40 Dose: 650 mg Albuterol/Ipratropium (Duoneb 3 Mg/0.5 Mg (3 Ml) Ud) 3 ml IH [id number] FAIZAN Docusate Sodium (Colace) 100 mg PO BID [facility] Last Admin: 04/27/17 18:49 Dose: Not Given Sodium Chloride (Sodium Chloride 0.9%) 1,000 mls @ 60 mls/hr IV .[id number] FAIZAN Last Admin: 04/27/17 21:58 Dose: 60 mls/hr Azithromycin (Zithromax 500mg In Ns) 500 mg in 250 mls @ 167 mls/hr IVPB DAILY FAIZAN PRN Reason: Protocol Cefepime HCl (Maxipime 2gm) 2 gm in 100 mls @ 100 mls/hr IVPB Q12 FAIZAN PRN Reason: Protocol Stop: 05/03/17 10:16 Vancomycin HCl (Vancomycin 1gm) 1 gm in 250 mls @ 167 mls/hr IVPB STAT STA PRN Reason: Protocol Stop: 04/28/17 11:41 Insulin Human Regular (Humulin R Low) 0 units SC ACHS FAIZAN PRN Reason: Protocol Last Admin: 04/28/17 08:57 Dose: 1 units Latanoprost (Xalatan Opht) 0 ml OU HS [facility] Last Admin: 04/27/17 22:00 Dose: 2.5 ml Losartan Potassium (Cozaar) 50 mg PO DAILY [facility] Last Admin: 04/27/17 12:14 Dose: Not Given Physical Exam - Constitutional Appears: Non-toxic, No Acute Distress - Head Exam Head Exam: NORMAL INSPECTION - ENT Exam ENT Exam: Mucous Membranes Moist - Neck Exam Neck exam: Negative for: Lymphadenopathy, Meningismus - Respiratory Exam Respiratory Exam: Decreased Breath Sounds - Cardiovascular Exam Cardiovascular Exam: +S1, +S2 - GI/Abdominal Exam GI & Abdominal Exam: Soft. absent: Tenderness Results - Vital Signs Recent Vital Signs: Last Vital Signs Temp 101.5 F H 04/28/17 09:40 Pulse 83 04/28/17 06:00 Resp 20 04/28/17 06:00 BP 148/73 06/20/17 06:00 Pulse Ox 96 04/28/17 06:00 - Labs Result Diagrams: 04/29/17 06:45 04/29/17 06:45 Labs: Laboratory Results - last 24 hr 04/27/17 04/27/17 04/27/17 10:02 15:21 21:58 WBC RBC Hgb Hct MCV MCH MCHC RDW Plt Count MPV Gran % Lymph % (Auto) [place] % (Auto) Eos % (Auto) Baso % (Auto) Gran # Lymph # [place] # Eos # Baso # Sodium Potassium Chloride Carbon Dioxide Anion Gap BUN Creatinine Est GFR ( Amer) Est GFR (Non-Af Amer) POC Glucose (mg/dL) 282 H 215 H Random Glucose Calcium Phosphorus Magnesium Total Bilirubin AST ALT Alkaline Phosphatase Total Protein Albumin Globulin Albumin/Globulin Ratio Triglycerides Cholesterol LDL Cholesterol Direct HDL Cholesterol TSH 3rd Generation Urine Color Yellow Urine Appearance Sl cloudy Urine pH 6.0 Ur Specific [place] 1.015 Urine Protein 30 H Urine Glucose (UA) Negative Urine Ketones Negative Urine Blood Trace-intact H Urine Nitrate Negative Urine Bilirubin Negative Urine Urobilinogen 0.2 Ur Leukocyte Esterase Moderate H Urine RBC 0 - 2 Urine WBC 10 - 15 Ur Epithelial Cells 1 - 3 Urine Bacteria Many 04/28/17 04/28/17 04/28/17 07:00 07:00 07:00 WBC 12.1 H RBC 3.19 L Hgb 9.7 L Hct 29.2 L MCV 91.5 MCH 30.4 MCHC 33.2 RDW 12.4 Plt Count 262 MPV 9.2 Gran % 73.2 H Lymph % (Auto) 10.1 L [place] % (Auto) 16.2 H Eos % (Auto) 0.4 L Baso % (Auto) 0.1 Gran # 8.83 H Lymph # 1.2 [place] # 2.0 H Eos # 0.1 Baso # 0.01 Sodium 131 L Potassium 4.3 Chloride 99 Carbon Dioxide 24 Anion Gap 12 BUN 29 H Creatinine 1.5 H Est GFR ( Amer) 40 Est GFR (Non-Af Amer) 33 POC Glucose (mg/dL) Random Glucose 208 H Calcium 8.9 Phosphorus 2.3 L Magnesium 2.4 H Total Bilirubin 1.2 AST 47 H ALT 74 H Alkaline Phosphatase 108 Total Protein 7.3 Albumin 3.6 Globulin 3.7 Albumin/Globulin Ratio 1.0 L Triglycerides 157 Cholesterol 105 L LDL Cholesterol Direct 45 HDL Cholesterol 22 L TSH 3rd Generation 3.66 Urine Color Urine Appearance Urine pH Ur Specific [place] Urine Protein Urine Glucose (UA) Urine Ketones Urine Blood Urine Nitrate Urine Bilirubin Urine Urobilinogen Ur Leukocyte Esterase Urine RBC Urine WBC Ur Epithelial Cells Urine Bacteria 04/28/17 07:15 WBC RBC Hgb Hct MCV MCH MCHC RDW Plt Count MPV Gran % Lymph % (Auto) [place] % (Auto) Eos % (Auto) Baso % (Auto) Gran # Lymph # [place] # Eos # Baso # Sodium Potassium Chloride Carbon Dioxide Anion Gap BUN Creatinine Est GFR ( Amer) Est GFR (Non-Af Amer) POC Glucose (mg/dL) 248 H Random Glucose Calcium Phosphorus Magnesium Total Bilirubin AST ALT Alkaline Phosphatase Total Protein Albumin Globulin Albumin/Globulin Ratio Triglycerides Cholesterol LDL Cholesterol Direct HDL Cholesterol TSH 3rd Generation Urine Color Urine Appearance Urine pH Ur Specific [place] Urine Protein Urine Glucose (UA) Urine Ketones Urine Blood Urine Nitrate Urine Bilirubin Urine Urobilinogen Ur Leukocyte Esterase Urine RBC Urine WBC Ur Epithelial Cells Urine Bacteria Assessment & Plan - Assessment and Plan (Free Text) Plan: Assessment Sepsis due to gram negative bacilli bacteremia, consider due to urinary tract infection pancreatic cysts, work up in progress HTN DM dyslipidemia history of vertigo obesity with BMI 32 Plan Started the patient on Cefepime yesterday but we have changed to MErrem pending identification and sensitivities of the gram negative bacilli in the blood and in the urine; Reviewed CT scan of the abdomen and pelvis follow up further GI recommendations will monitor clinically
--- NOTE | 2017-04-29 13:10 | PN ---
DATE: 04/29/2017 Seen and examined at the bedside earlier today. The patient complains of nausea this morning, but no episodes of vomiting. Denies any abdominal pain. No complaints of any shortness of breath or chest pain. The patient states that she had a formed BM today. No reports of any bleeding. VITAL SIGNS: Temperature 97, blood pressure was 139/53, pulse 81. LABORATORY DATA: Today, WBC is 15.6, H and H is 9.7 and 29.2, platelets are 282. Sodium 133, K is 4 .2, BUN is 33, creatinine is 1.5. Magnesium is 2.4. Her total bilirubin is 1.1, AST 126, ALT 137, a lkaline phosphatase is 135. Her enzymes are increased today. PHYSICAL EXAMINATION: HEENT: Sclerae are anicteric. NECK: Supple. CARDIAC: S1, S2. LUNGS: Decreased breath sounds at the bases, but good air entry. No rales or wheeze. ABDOMEN: With bowel sounds, soft. Positive tenderness near the epigastric area. No rebound, guardi ng, or organomegaly. EXTREMITIES: No edema. NEUROLOGIC: Awake, alert, and oriented. ASSESSMENT: The patient with elevated liver enzymes, may be secondary to medication induced. The pa amirah is on antibiotics. We request to hold on Zithromax for now. We will speak to medical team. H istory of pancreatic cyst. The patient status post CT scan, noted to have some lymphadenopathy and q uestionable diverticulitis. The patient also has history of chronic constipation, here for acute bro nchitis, urinary tract infection. Other comorbidities are diabetes mellitus and hypertension. PLAN: In lieu of elevated liver enzymes, consider it could be medication induced. Request to hold to day's dose of Zithromax. Talked to medical team. Will request for abdominal ultrasound to further e valuate. Continue GI prophylaxis. The patient is also being followed by ID. Her Zithromax I see no w has been discontinued as per ID. The patient is now started on meropenem. Cefepime was also disco ntinued. We will continue to monitor liver enzymes, follow up the ultrasound, continue bowel regimen . She is on stool softeners. Continue diet as tolerated. Will consider MRCP after review of abdomi nal ultrasound. The patient was seen and case discussed with Dr. Morrow. Marlena RODRIGUEZ cc: [id number] TT: 04/29/2017 13:09:37 Confirmation # [id number] Dictation # [id number] rn
--- NOTE | 2017-04-29 14:31 | US ---
HISTORY: elevated LFT COMPARISON: None. TECHNIQUE: Grayscale imaging was performed. FINDINGS: LIVER: Measures 18.1 cm. Normal echogenicity of the liver parenchyma. No mass. No intrahepatic bile duct dilatation. GALLBLADDER: There is layering sludge in the gallbladder. No gallstones. COMMON BILE DUCT: Measures 7.0 mm. No stones. No dilatation. PANCREAS: There is a 1.8 x 1.3 x 1.4 cm cystic lesion in the head of the pancreas. . No ductal dilatation. RIGHT KIDNEY: Measures 11.9cm. Normal echogenicity. No calculus, mass, or hydronephrosis. There are multiple simple cysts, the largest in the lower pole measures 6.6 cm. LEFT KIDNEY: Measures 13.2cm. Normal echogenicity. No calculus, mass, or hydronephrosis. There are multiple simple cysts, the largest in the lower pole measures 4.3 cm. SPLEEN: Normal in size and contour. No mass. AORTA: No aneurysmal dilatation. . IVC: Unremarkable. OTHER FINDINGS: None. IMPRESSION: 1. 1.8 cm cystic lesion in the head of the pancreas may represent a simple cyst, pseudocyst or nonspecific cystic neoplasm. A dedicated CT scan of the abdomen without and with intravenous contrast with pancreas protocol is recommended for complete evaluation. 2. Simple cysts in the kidneys, the largest in the right lower pole measures 6.6 cm. 3. Mild hepatomegaly.
--- NOTE | 2017-04-29 16:15 | PN ---
DATE: 04/29/2017 REASON FOR CONSULTATION AND FOLLOWUP: Dizziness, fell down, syncope, complaint of cough, now abnorma l LFTs. BRIEF CLINICAL HISTORY: This is an 81-year-old female with past medical history significant for hype rtension, hyperthyroidism, hyperlipidemia, chronic vertigo, admitted because of fall after having diz ziness. The patient denies any chest pain, shortness of breath, any palpitation. PHYSICAL EXAMINATION: VITAL SIGNS: Temperature afebrile, heart rate 81, blood pressure 139/53. Repeat blood pressure ____ negative, 131/65 on lying, on standing 139/59. HEENT: PERRLA. Extraocular muscles intact. NECK: Supple. No carotid bruits. No thyromegaly. CHEST: Clear to auscultation. HEART: S1, S2 regular. ABDOMEN: Soft. EXTREMITIES: Clubbing and cyanosis negative. LABORATORY DATA: Blood workup as follows: WBC 15.6, hemoglobin ____, hematocrit 29.2, platelet coun t 282. Chemistry shows sodium 133, potassium 4.0, chloride ____, carbon dioxide ____, anion gap of 1 4, BUN 33, creatinine 1.5. IMPRESSION: Acute kidney injury on chronic renal insufficiency, abnormal liver function tests, anemi a, leukocytosis, dizziness, fall, no evidence of orthostatic hypotension. On lying down pressure 131 /65, sitting 144/55, and standing 139/59. No evidence of orthostatic hypotension. Previous cardiac workup: The patient had cardiac catheterization 11/20/2014 after abnormal stress test revealed nonob structive coronary artery disease, small codominant ____ 55% stenosis, but no focal flow-limiting gordon nosis, ejection fraction 55%. EDP was in the range of 12-14. The patient's most recent echo 016 shows normal left ventricular size and function, diastolic dysfunction, moderate aortic stenosis, mild mitral regurgitation, mild tricuspid regurgitation, mild pulmonary hypertension, right ventricu lar systolic pressure 44, trace aortic regurgitation dated 04/10/2016, calculated ejection fraction 7 2.5%. Diabetes, hypertension, hyperlipidemia, acute kidney injury, chronic vertigo, thyrotoxicosis, rule out arrhythmia. Recent echo did not show any structural heart disease. RECOMMENDATION: No evidence of orthostatic hypotension, is negative. Continue Holter for 24 hours t o completely rule out arrhythmia. The patient is going for ultrasound of the abdomen because of abno rmal LFTs. Monitor H and H. We will follow with you. Thank you, Dr. Giles, for providing the opportunity in taking care of this patient. Isidro Maurice MD cc: [id number] TT: 04/29/2017 16:14:30 Confirmation # [id number] Dictation # [id number] rn
--- NOTE | 2017-04-29 18:46 | CP.PCM.PN ---
Subjective - Date & Time of Evaluation Date of Evaluation: 04/29/17 Time of Evaluation: 18:46 - Subjective Subjective: 20g angiocath inserted in left EJ with good flow and return for ivf and medications. Objective - Vital Signs/Intake and Output Vital Signs (last 24 hours): Temp Pulse Resp BP Pulse Ox 98 F 82 18 130/49 L 99 04/29/17 16:30 04/29/17 16:30 04/29/17 16:30 04/29/17 16:30 04/29/17 16:30 Intake and Output: 04/29/17 04/29/17 06:59 18:59 Intake Total 1080 Output Total 500 Balance 580 - Medications Medications: Current Medications Acetaminophen (Tylenol 325mg Tab) 650 mg PO Q4H PRN PRN Reason: Fever >100.4 F Last Admin: 04/28/17 09:40 Dose: 650 mg Albuterol/Ipratropium (Duoneb 3 Mg/0.5 Mg (3 Ml) Ud) 3 ml IH [id number] [facility] Last Admin: 04/29/17 13:33 Dose: Not Given Budesonide (Pulmicort Respules) 0.5 mg IH [id number] [facility] Docusate Sodium (Colace) 100 mg PO BID [facility] Last Admin: 04/29/17 18:00 Dose: 100 mg Sodium Chloride (Sodium Chloride 0.9%) 1,000 mls @ 60 mls/hr IV .[id number] [facility] Last Admin: 04/28/17 22:14 Dose: 60 mls/hr Meropenem 1g/NS 100mL IVPB (Meropenem 1g/Ns 100ml Ivpb) 1 gm in 100 mls @ 100 mls/hr IVPB Q12 [facility]IZAN PRN Reason: Protocol Stop: 05/07/17 22:01 Insulin Human Regular (Humulin R Low) 0 units SC ACHS FAIZAN PRN Reason: Protocol Last Admin: 04/29/17 17:57 Dose: 1 units Latanoprost (Xalatan Opht) 0 ml OU HS [facility] Last Admin: 04/28/17 22:13 Dose: 2.5 ml Losartan Potassium (Cozaar) 50 mg PO DAILY [facility] Last Admin: 04/29/17 10:01 Dose: 50 mg Ondansetron HCl (Zofran Inj) 4 mg IVP Q6H PRN PRN Reason: Nausea/Vomiting Last Admin: 04/28/17 18:37 Dose: 4 mg Pantoprazole Sodium (Protonix Inj) 40 mg IVP DAILY [facility] Last Admin: 04/29/17 10:01 Dose: 40 mg - Labs Labs: 04/29/17 06:45 04/29/17 06:45 PT 11.8 Seconds (9.9-11.8) 04/27/17 03:20 INR 1.09 (0.93-1.08) H 04/27/17 03:20 APTT 28.5 Seconds (23.7-30.8) 04/27/17 03:20
[2017-04-29] MEDS: Budesonide 0.5 mg/2 ml Inhal Susp UD IH SCH (19:32)
--- NOTE | 2017-04-29 19:47 | PN ---
DATE: 04/29/2017 The patient is sitting on the bed, in no acute distress. Her dizziness is better. Denies having any headache. PHYSICAL EXAMINATION: VITAL SIGNS: Her blood pressure is 130/49, heart rate is 82 per minute, breathing at a rate of 16 pe r minute, temperature is 98 degrees Fahrenheit. Her lying blood pressure is 141/63 and standing bloo d pressure is 115/52. HEENT: Normocephalic, atraumatic. NECK: Supple. There are no carotid bruits. LUNGS: Clear. CARDIOVASCULAR: S1, S2 audible. No murmurs. ABDOMEN: Soft, nontender. Bowel sounds present. NEUROLOGIC EXAMINATION: MENTAL STATUS: The patient is awake, alert, oriented to time, place, person. Speech is fluent. Nam ing and repetition normal. Memory and cognition are intact. CRANIAL NERVE EXAMINATION: Pupils are 3 mm bilaterally reactive to light. Visual sifuentes are full. Extraocular movements are intact. There is no facial asymmetry. Palate is upgoing bilaterally and t ongue is midline. MOTOR EXAMINATION: Tone is normal. Power is 5/5 bilaterally in all extremities. Reflexes 1+ and sy mmetrical. Plantars downgoing bilaterally. LABORATORY DATA: Labs reviewed, shows WBC of 15.6, hemoglobin 9.7, hematocrit 29.2 and platelets of 282. Her sodium is 133, potassium 4.2, chloride 102, carbon dioxide 21, BUN of 33, creatinine 1.5, a nd glucose of 82. IMPRESSION: Dizziness, which is secondary to orthostatic hypotension. RECOMMENDATIONS: 1. The patient had an electroencephalogram done which is normal. 2. The patient to be continued on IV hydration. 3. The patient also to be continued on IV antibiotics with her urinary tract infection and acute bro nchitis. 4. If patient remains orthostatic despite given IV fluids, then patient needs to be started on ProAm atine or Florinef. 5. Please continue other treatment and supportive care. Thank you for the opportunity to participate in the care of this patient. Ezra Leach MD cc: [id number] TT: 04/29/2017 19:47:00 Confirmation # [id number] Dictation # [id number] rn
[2017-04-29] MEDS: Sodium Chloride 0.9% 1,000 ML IV SCH (20:05)
[2017-04-29] MEDS: Latanoprost 2.5 ml Opht Soln OU SCH (21:48)
[2017-04-29] MEDS: Meropenem 1g/NS 100mL IVPB 1 GM/100 ML PIGGYBACK IVPB SCH (21:48)
[2017-04-30] MEDS: Albuterol-Ipratrop 3 mg / 0.5 (3 ml) UD IH SCH ×4 (02:21→21:09)
[2017-04-30 07:28] LABS: HEMATOCRIT 25.9 % (36.0-48.0); MEAN CELL VOLUME 91.8 fL (80.0-105.0); MEAN CORPUSCULAR HEMOGLOBIN 30.9 pg (25.0-35.0); MEAN CORPUSCULAR HGB CONC 33.6 g/dl (31.0-37.0); MEAN PLATELET VOLUME 8.8 fl (7.0-11.0); RED CELL DISTRIBUTION WIDTH 12.7 % (11.5-14.5)
[2017-04-30] MEDS: Insulin Reg-LOW-Coverage SC SCH ×4 (08:02→21:32)
[2017-04-30] MEDS: Insulin Human NPH/Reg 70/30 Vial(3 ml) SC SCH ×2 (08:02→17:42)
--- NOTE | 2017-04-30 08:27 | PN ---
DATE: 04/29/2017 ADDENDUM: This is an addendum to the GI progress report dictated by MICHAEL Merlos. The patient's ultrasound scan was reviewed. It showed pancreatic cystic lesions and also common bile duct is nondilated, found to have a small amount of sludge in the gallbladder. On examination abdom en soft. There is no tenderness. Would request for MRCP to further evaluate. We will continue to closely follow up her care and sugge st further management based on the clinical course. Close followup of the LFTs. Will compare to the previous MRIs done a few years ago. Thank you very much for allowing us to participate in the care of the patient. Dominga Morrow MD cc: [id number] TT: 04/29/2017 22:08:41 Confirmation # [id number] Dictation # [id number] sarika
[2017-04-30] MEDS: Budesonide 0.5 mg/2 ml Inhal Susp UD IH SCH ×2 (08:28→21:09)
[2017-04-30 08:41] LABS: BILIRUBIN,TOTAL 0.8 mg/dL (0.2-1.3); CALCIUM 7.7 mg/dL (8.4-10.5); POTASSIUM 4.1 mmol/L (3.6-5.0); TOTAL PROTEIN 5.8 g/dL (5.8-8.3)
[2017-04-30 09:01] VITALS: RESP 20
[2017-04-30] MEDS: methIMAzole 5 MG TAB PO SCH (09:47)
[2017-04-30] MEDS: Meropenem 1g/NS 100mL IVPB 1 GM/100 ML PIGGYBACK IVPB SCH ×2 (09:48→21:33)
--- NOTE | 2017-04-30 10:01 | PN ---
DATE: 04/30/2017 This patient is feeling better. She denies dizziness. The patient has less cough. She is afebrile. Her appetite is still poor. Denies any abdominal pain , diarrhea, nausea or vomiting. PHYSICAL EXAMINATION: VITAL SIGNS: Stable. Temperature 98.8, blood pressure 152/59, respiratory rate 20 and pulse 77 regular. GENERAL: She is comfortable, sitting on the edge of bed, alert, awake, oriented. HEENT: Head is normocephalic, atraumatic. Oral mucosa is moist. NECK: Supple. LUNGS: Clear to auscultation. HEART: With regular rhythm and rate. ABDOMEN: Soft, nontender, nondistended. EXTREMITIES: With trace of edema. DIAGNOSTIC TESTS: This morning, CBC with persistent elevation of WBC, slightly improved from yesterday at 14; hemoglobin dropped to 8.7, hematocrit 25.9 and platelet count 287. Her chemistry is stable with sodium 132, potassium 4.1. Her renal function improved - BUN 27, creatinine 1.3. Elevated liver enzymes are trending down. Her glucose remains stable. Abdominal ultrasound for reevaluation of the pancreatic lesion shows 1.8 cm cystic lesion in the head of the pancreas. There are also multiple simple cysts in the kidneys. There is mild hepatomegaly. Gallbladder showing some sludge, no gallstones, common bile duct normal. Microbiology showed E. coli in final urine culture. Her blood culture preliminary is showing gram-negative rods. ASSESSMENT: 1. Urinary tract infection with Escherichia coli in the urine and bacteremia with gram-negative rods in the blood. 2. Acute bronchitis, probably viral, improved. 3. Pancreatic cyst. Seems chronic with no significant changes. 4. Elevated liver enzymes, possibly iatrogenic due to medication; improving after stopping Zithromax. 5. Type 2 diabetes mellitus. PLAN OF TREATMENT: Will continue current antibiotic regimen. Will follow up the final blood cultures. Would discontinue IV fluids and encourage p.o. intake ; started on Glucerna for nutritional support. Case was discussed with labor service representative and patient should have final evaluation; however, MRI may not be suitable since patient had right hip surgery/replacement 2 years ago. Will continue monitoring her blood pressure. I add carvedilol to her regimen and restarted methimazole for thyrotoxicosis. Nelsy Cyr MD cc: [id number] TT: 04/30/2017 10:01:04 Confirmation # [id number] Dictation # [id number] mn [id number]
--- NOTE | 2017-04-30 16:57 | PN ---
DATE: 04/30/2017 HISTORY OF PRESENT ILLNESS: Seen and examined at the bedside earlier today. The patient with no acu te overnight events, so far tolerating oral intake. No complaints of any fever or chills. VITAL SIGNS: Temperature 98.8, blood pressure 152/59, pulse 77, respirations 20, 97% O2 saturation. LABORATORY DATA: WBC is 14.0, H and H are 8.7 and 25.9, platelets are 287. Chem: Sodium 132, K 4.1 , BUN 27, creatinine is 1.3. Total bilirubin 0.8, AST 76, ALT 108, alkaline phosphatase is 123. Thi s is actually improved compared to yesterday. The patient had stool for guaiac that was negative. U ltrasound was also done yesterday and there is positive layering sludge in the gallbladder, no galls tones. Common bile duct measures 7.0, no stones or dilatation. Pancreas has 1.8 x 1.3 cm x 1.4 cm c ystic lesion in the head of the pancreas, no ductal dilatation, and mild hepatomegaly. PHYSICAL EXAMINATION: HEENT: Sclerae are anicteric. NECK: Supple. CARDIAC: S1, S2. LUNGS: Decreased breath sounds at the bases but good air entry, no rales or wheeze. ABDOMEN: With bowel sounds, soft, nontender. No rebound or guarding. ASSESSMENT: The patient with a history of pancreatic cysts, likely chronic. The patient found to thakkar ve elevated liver enzymes yesterday. We sent for abdominal ultrasound, which showed some layering slu dge in the gallbladder but no gallstones. Common bile duct was okay. The patient is on antibiotics. Could be multifactorial between medication induced versus gallbladder sludge. We will continue to monitor her liver enzymes but it does show improvement this morning. We also will request for an MRC P, follow up this pancreatic cyst. The patient also was reported to have prominent retroperitoneal l ymph nodes on CT scan. She is also being treated for urinary tract infection, positive for Escherich ia coli, acute bronchitis, and she has a history of diabetes mellitus. PLAN: Continue her diet as tolerated. She was placed on a clear liquid diet in prep for MRCP. If MR CP cannot be done, we will resume her previous diet. Discussed with the patient. Continue stool sof teners, PPI and she is on meropenem IV antibiotic. Spoke to the nursing staff, spoke to PCP. The patient was seen and case discussed with Dr. Morrow. Marlena RODRIGUEZ cc: [id number] TT: 04/30/2017 16:56:26 Confirmation # [id number] Dictation # [id number]
--- NOTE | 2017-04-30 17:26 | PN ---
DATE: 04/30/2017 SUBJECTIVE: The patient is in bed and was seen in 376, bed 1. No fevers and no chills. PHYSICAL EXAMINATION: VITAL SIGNS: Temperature is 98, blood pressure is 150/50, respiratory rate of 16. HEENT: Unremarkable. NECK: Supple. LUNGS: Have decreased breath sounds. HEART: Normal S1, S2. ABDOMEN: Soft. LABORATORY DATA: Reveals a white count of 14,000, a hemoglobin of 8, and chemistries reveal the BUN of 27, creatinine of 1.3. Urinalysis and microbiology is noted to have gram-negative rods in the uri ne, identified as pansensitive E. coli and there is a gram-negative agustina in the blood. Identification and sensitivity pending. Currently, patient is on meropenem. MRCP is pending. Alk phos is normal with mild elevation of LFTs. The patient also had an abdominal ultrasound and it shows a cyst in the head of pancreas, and maybe a simple cyst, and sludge in the gallbladder, but no gallstones. ASSESSMENT AND PLAN: An 81-year-old female who was seen early this morning in room 376, bed 1, with sepsis with gram-negative agustina bacteremia with Escherichia coli in the urine, possibility as the sourc e. Gastrointestinal workup in progress in a patient with hypertension, diabetes, and currently on me ropenem pending identification and sensitivity of gram-negative agustina. The patient also had a CAT scan of the abdomen and pelvis. Dr. Morrow, facility planner, his note is reviewed. Will follow caty gallo. Zackery Connors MD cc: 350 TT: 04/30/2017 17:25:34 Confirmation # [id number] Dictation # [id number]
[2017-04-30] MEDS: Latanoprost 2.5 ml Opht Soln OU SCH (21:34)
--- NOTE | 2017-05-01 01:05 | PN ---
DATE: 04/30/2017 ADDENDUM: This is an addendum to the GI progress report dictated by Marlena Capone APN. Discussed als o with Dr. Giles. PHYSICAL EXAMINATION: ABDOMEN: Soft. There is no tenderness. RECOMMENDATIONS: Requested for an MRCP with MRI to further evaluate. Will continue to closely follo w up her care and followup of the LFTs. Thank you very much for allowing us to participate in the care of the patient. Dominga Morrow MD cc: [id number] TT: 05/01/2017 01:05:30 Confirmation # [id number] Dictation # [id number] mn
[2017-05-01 07:39] LABS: HEMATOCRIT 26.4 % (36.0-48.0); MEAN CORPUSCULAR HEMOGLOBIN 30.3 pg (25.0-35.0); MEAN CORPUSCULAR HGB CONC 33.3 g/dl (31.0-37.0); MEAN PLATELET VOLUME 8.7 fl (7.0-11.0); RED CELL DISTRIBUTION WIDTH 12.7 % (11.5-14.5); WHITE BLOOD COUNT 9.7 10^3/ul (4.5-11.0)
[2017-05-01 07:51] LABS: BILIRUBIN,TOTAL 0.6 mg/dL (0.2-1.3); CALCIUM 8.2 mg/dL (8.4-10.5); POTASSIUM 4.6 mmol/L (3.6-5.0); TOTAL PROTEIN 6.6 g/dL (5.8-8.3)
[2017-05-01] MEDS: Albuterol-Ipratrop 3 mg / 0.5 (3 ml) UD IH SCH ×2 (07:53→13:26)
[2017-05-01] MEDS: Budesonide 0.5 mg/2 ml Inhal Susp UD IH SCH (07:53)
[2017-05-01 09:30] VITALS: BP 171/83; PULSE 80; TEMP 98.2; O2SAT 97
[2017-05-01] MEDS ORDERED: Meropenem 1g/NS 100mL IVPB 1 GM/100 ML PIGGYBACK IVPB ONE (10:00)
[2017-05-01] MEDS ORDERED: methIMAzole 5 MG TAB PO ONE (10:03)
[2017-05-01] MEDS: Meropenem 1g/NS 100mL IVPB 1 GM/100 ML PIGGYBACK IVPB SCH (10:04)
[2017-05-01] MEDS: methIMAzole 5 MG TAB PO SCH (10:04)
[2017-05-01] MEDS: Insulin Reg-LOW-Coverage SC SCH ×2 (10:06→12:51)
[2017-05-01] MEDS: Insulin Human NPH/Reg 70/30 Vial(3 ml) SC SCH (10:07)
--- NOTE | 2017-05-01 10:11 | PN ---
DATE: 04/30/2017 REASON FOR CONSULTATION AND FOLLOWUP: Dizziness, fell down, near syncope, coming in with cough now, p gaby has abnormal LFTs. BRIEF CLINICAL HISTORY: This is an 81-year-old female with past medical history significant for hype rtension, hyperlipidemia, chronic vertigo, admitted after a fall, having dizziness. Denies any chest pain, shortness of breath, any palpitation. PHYSICAL EXAMINATION: VITAL SIGNS: Temperature afebrile, heart rate 77, blood pressure 152/59. HEENT: PERRLA. Extraocular muscles intact. NECK: Supple. No carotid bruits. No thyromegaly. CHEST: Clear to auscultation. HEART: S1, S2 regular. ABDOMEN: Soft. EXTREMITIES: Clubbing and cyanosis negative. LABORATORY DATA: Blood workup as follows: WBC 14, hemoglobin ____, hematocrit 25.9, platelet count 287. Chemistry shows sodium 130, potassium ____, chloride 101, carbon dioxide 21, anion gap of 14, B UN 27, creatinine 1.3. IMPRESSION: Acute kidney injury on admission, improved, no evidence of orthostatic hypotension. Lyi ng blood pressure 152/59, sitting 159/74, and standing 166/83, and dizziness, chronic. History of ca rdiac catheterization x 3. First in [place], second one by me in [facility] in 2012, and the recent done by Dr. Shaw 11/20/2011 of normal coronaries, ejection fraction 55%, end-diastolic pr essure of 12. The patient's most recent echo 04/10/2016 shows normal left ventricular size and funct ion, diastolic dysfunction, moderate aortic regurgitation, moderate aortic stenosis, mild mitral regu rgitation, mild tricuspid regurgitation, mild pulmonary insufficiency ____ systolic pressure 44, trac e aortic regurgitation dated 04/10/2016, diabetes, hypertension, hyperlipidemia, history of chronic v ertigo, thyrotoxicosis. Yesterday, patient had Holter monitor done that showed no evidence of arrhyt hmia, normal sinus rhythm, heart rate 72, 92, average is ____. No significant arrhythmia noted. No evidence of orthostatic hypotension, no evidence of acute myocardial infarction, no evidence of acute coronary syndrome and no evidence of arrhythmia by [place], abnormal liver function tests, low hemogl obin. RECOMMENDATION: Continue GI workup. We will follow. History of cardiac catheterization x 3, nonobs tructive coronary artery disease. No further cardiac workup is planned at this time. The patient knows that she had a cardiac catheterization x 3, first in [place], and then 2012, and 2014. As mentioned above, the patient mentioned that she had a cardiac catheterization 3 times, f irst was in [place], repeat catheterization was done in 2012, and then patient had in 2014 with a str ess test that was abnormal, so patient underwent cardiac catheterization on 11/20/2014 that shows non obstructive coronary artery disease, limited to small codominant RCA, mild diffuse disease. EDP was 12-14, ejection fraction 65%. So, in summary, no further cardiac workup is planned at this time or warranted. Thank you, Dr. Giles, for providing the opportunity in taking care of this patient. The patient is stable from cardiac point of view. Once GI workup is completed, the patient can be discharged home. Isidro Maurice MD cc: [id number] TT: 04/30/2017 15:29:43 Confirmation # [id number] Dictation # [id number] latanya
--- NOTE | 2017-05-01 10:12 | PN ---
DATE: 05/01/2017 The patient is in bed in no acute distress, nontoxic. PHYSICAL EXAMINATION: VITAL SIGNS: Temperature is 98, blood pressure is 170/80, respiratory rate of 18. HEENT: Unremarkable. NECK: Supple. LUNGS: Decreased breath sounds. HEART: Normal S1, S2. ABDOMEN: Soft, nontender. LABORATORY EXAMINATION: Reveals the white count is 9.7, hemoglobin of 8, platelets of 313. Chemistr ies are noted and procalcitonin is 5.7. Microbiology reveals E. coli in the urine. It is pansensiti ve and a gram-negative agustina in the blood. Identification and sensitivity of the gram-negative agustina in the blood is pending. The patient is currently on meropenem and the MRCP results are pending. ASSESSMENT AND PLAN: An 81-year-old female seen in [facility], bed 1, who was admitted with sepsis with gra m-negative agustina bacteremia with Escherichia coli in the urine as possible source. Gastroenterology wo rkup in progress in a patient with diabetes, hypertension, on meropenem. Once we have the identifica tion and sensitivity of the gram-negative agustina in the blood, may be able to switch. Waiting for gastr oenterology evaluation. Dr. Morrow's note from today states that he is following the LFTs and foll owing the MRCP results. The LFTs are mildly elevated with a normal alkaline phosphatase with AST of 67, ALT of 114. We will follow with you. Zackery Connors MD cc: 350 TT: 05/01/2017 09:57:14 Confirmation # [id number] Dictation # [id number] tn
--- NOTE | 2017-05-01 10:12 | MRI ---
PROCEDURE: Magnetic Resonance Cholangiopancreatography HISTORY: COMPARISON: 07/11/2013 CT scan abdomen pelvis. TECHNIQUE: Multiplanar, multisequence MR images of the abdomen were obtained, including heavily T2 weighted MRCP images of the biliary system. Rotating maximum intensity projection images of the biliary system were generated. FINDINGS: MRCP: The common bile duct is of a normal caliber. No evidence of choledocholithiasis. No intrahepatic biliary ductal dilatation. LIVER: Unremarkable. GALLBLADDER: Unremarkable. SPLEEN: Unremarkable. PANCREAS: Numerous intra pancreatic and peripancreatic cysts the largest in the pancreatic head measuring roughly 17 millimeters.. no pancreatic duct dilatation. ADRENALS: Unremarkable. KIDNEYS: Multiple bilateral renal cysts the largest in the lower pole of the right kidney measuring 6.1 centimeters.. AORTA: No aneurysm. ASCITES: None. OTHER FINDINGS: None. IMPRESSION: Innumerable pancreatic cysts. Numerous bilateral renal cysts.
--- NOTE | 2017-05-01 10:21 | PN ---
DATE: 05/01/2017 SUBJECTIVE: The patient was admitted for near syncope secondary to hypotension , found to have E. coli urinary tract infection and gram-negative bacteremia. She is feeling better. Her appetite improved. She denies any abdominal pain or dysuria. She still complains of a dry cough. PHYSICAL EXAMINATION: VITAL SIGNS: Stable. Temperature 97.6, pulse 72, regular, blood pressure 166/ 69 and respiratory rate 20. Oxygen saturation is 98% on room air. GENERAL: She is comfortable, sitting in bed, alert, awake, oriented. HEENT: Head is normocephalic, atraumatic. Oral mucosa is moist. NECK: Supple. LUNGS: Clear to auscultation. HEART: Regular rhythm and rate. ABDOMEN: Soft, nondistended, nontender. EXTREMITIES: With no edema. LABORATORY DATA: CBC this morning is significant for a drop of WBC to normal range. This morning, WBC is 9.7. Hemoglobin remains low 8.8, hematocrit 26.4. Chemistry is normal. Renal function improved with BUN 22 and creatinine 1.1. Glucose is stable. Urine culture positive for E. coli, sensitive to most of the antibiotics. Blood cultures with 2 occasions, both gram-negative rods, final reports are still pending. ASSESSMENT: 1. Sepsis with blood cultures with gram-negative rods. 2. Urinary tract infection with Escherichia coli. 3. Acute bronchitis, probably viral, clinically improved. 4. Pancreatic cyst, chronic, most probably stable with pending MRCP report for stability, follow up. 5. Elevated liver enzymes. 6. Type 2 diabetes mellitus. 7. Anemia of chronic disease, stable. PLAN OF TREATMENT: We will continue IV antibiotics. Follow up final blood cultures for a decision regarding antibiotic therapy. I will increase the dose of losartan and chronic blood pressure medications for control. We will monitor her hemoglobin. Presently stable with no signs of active bleeding. Nelsy Cyr MD cc: 154 TT: 05/01/2017 10:21:15 Confirmation # [id number] Dictation # [id number] latanya BECKER
[2017-05-01] MEDS ORDERED: Insulin Reg-LOW-Coverage ONE (12:40)
--- NOTE | 2017-05-01 14:00 | PN ---
DATE: 05/01/2017 Seen and examined at the bedside earlier today; had some loose bowel movement yesterday, but formed s tool now. No reports of bleeding, nausea, vomiting, or abdominal pain. Tolerating oral intake. VITAL SIGNS: Temperature is 98.2, blood pressure 171/83, pulse 80, respirations 20, 97 on room air. LABORATORY DATA: WBC 9.7. H and H is 8.8 and 26.4. Platelets are 313. Sodium 135, K 4.6, BUN 22. Creatinine is 1.1. Total bili 0.6, AST 67, ALT 114. Alk phos is 109. Stool for occult blood is ne gative. MRCP was done yesterday and that finding reported common bile duct was normal. No evidence of choledocholithiasis, no intrahepatic biliary ductal dilatation. Gallbladder and liver were unrema rkable. The pancreas: There are numerous intrapancreatic and peripancreatic cysts, the largest in t he pancreatic head measuring roughly 17 mm, no pancreatic duct dilatation. PHYSICAL EXAMINATION: HEENT: Sclerae are anicteric. NECK: Supple. CARDIAC: S1, S2. LUNGS: With decreased breath sounds at the bases, but good air entry. No rales or wheeze. ABDOMEN: With bowel sounds, soft, not distended, nontender on palpation. No rebound, guarding, or o rganomegaly. EXTREMITIES: No edema. NEUROLOGIC: Awake, alert, and oriented. ASSESSMENT: The patient with pancreatic cyst that is chronic, status post MRCP which does report num erable pancreatic cysts, largest at the pancreatic head at 17 mm with no pancreatic ductal dilatation . The patient with sepsis, urinary tract infection, positive Escherichia coli. Elevated liver enzym es likely may be secondary to maybe medication induced. There is some improvement. Acute bronchitis , history of diabetes mellitus. The patient had episode of loose stool. PLAN: We will request for stool for C. diff. The patient is on antibiotics, meropenem. Continue PP I and monitor LFTs. The patient was seen and case discussed with Dr. Morrow. Marlena RODRIGUEZ cc: 451 TT: 05/01/2017 13:59:01 Confirmation # [id number] Dictation # [id number] tn
--- NOTE | 2017-05-04 08:31 | PN ---
DATE: 05/01/2017 REASON FOR CONSULTATION: Dizziness fell down, near syncope, complaining of cough, abnormal LFTs. The patient denies any chest pain, shortness of breath, any palpitation. PHYSICAL EXAMINATION: VITAL SIGNS: Temperature afebrile, heart rate 80, blood pressure 170/80. HEENT: PERRLA. Extraocular muscles intact. NECK: Supple. No carotid bruits. No thyromegaly. CHEST: Clear to auscultation. HEART: S1, S2 regular. ABDOMEN: Soft. EXTREMITIES: Clubbing and cyanosis negative. LABORATORY DATA: Blood workup as follows: WBC 9.7, hemoglobin 8.8, hematocrit 26.4, platelet count 313. Chemistry shows sodium 13____, potassium 4.6, chloride 106, carbon dioxide 24, anion gap of 10, BUN ____, creatinine 1.1 IMPRESSION: This is an 81-year-old female with a past medical history significant for hypertension, hyperlipidemia, chronic vertigo and admitted for fall and dizziness. Denies any chest pain, shortnes s of breath, any palpitation. History of cardiac catheterization 3 times, ____ second by me in [facility], 2012, and then in [address] Shaw, nonobstructive coronary artery disease. The patient had echo cardiogram 04/10/2016, mild pulmonary insufficiency, mild tricuspid regurgitation and mild mitral reg urgitation, moderate aortic stenosis, moderate aortic regurgitation, ejection fraction 55%. No evide nce of orthostatic hypotension, no evidence of acute myocardial infarction. ____ No evidence of orthostatic hypotension, no evidence of acute coronary syndrome. No evidence of myocardial infarction, no evidence of arrhythmia by Holter. Holter monitor yesterday reviewed, t hat shows normal sinus. The minimum heart rate was 70, max was 92, average is 80 and no evidence of significant arrhythmia. RECOMMENDATION: Continue GI workup. Discontinue IV fluid. We will give some cough suppressant, his tory of cardiac catheterization x 3, nonobstructive coronary artery disease. Thank you Dr. Tran, jeronimo or providing the opportunity in taking care of this patient. No further cardiac workup is planned or warranted. Isidro Maurice MD cc: [id number] TT: 05/01/2017 19:24:48 Confirmation # [id number] Dictation # [id number] jn
== END 2017-05-01 17:35 | disposition home or self-care (01) | DRG 872 ==
LOC: ED 02:06 → ERH 05:59 → 3RSO 16:32 → OBSVTOIN 04-28 15:51
PROVIDERS: ADMIT Family Medicine; ATTEND Family Medicine
DX: A41.51 Sepsis due to Escherichia coli [E. coli] (principal); N17.9 Acute kidney failure, unspecified; K86.2 Cyst of pancreas; N39.0 Urinary tract infection, site not specified; E87.1 Hypo-osmolality and hyponatremia; I95.1 Orthostatic hypotension; E11.22 Type 2 diabetes mellitus with diabetic chronic kidney disease; I12.9 Hypertensive chronic kidney disease with stage 1 through stage 4 chronic kidney disease, or unspecified chronic kidney disease; N18.2 Chronic kidney disease, stage 2 (mild); E05.90 Thyrotoxicosis, unspecified without thyrotoxic crisis or storm; K59.09 Other constipation; I25.10 Atherosclerotic heart disease of native coronary artery without angina pectoris; I27.2 Other secondary pulmonary hypertension; K57.90 Diverticulosis of intestine, part unspecified, without perforation or abscess without bleeding; E78.5 Hyperlipidemia, unspecified; I08.3 Combined rheumatic disorders of mitral, aortic and tricuspid valves; J20.9 Acute bronchitis, unspecified; E66.9 Obesity, unspecified; Z68.32 Body mass index [BMI] 32.0-32.9, adult; Z87.891 Personal history of nicotine dependence; Z79.4 Long term (current) use of insulin

== ENCOUNTER 2017-05-09 22:19 | Observation (INO) | payer MEDICARE, BC ==
[2017-05-09 22:20] VITALS: BMI 31.6
--- NOTE | 2017-05-09 22:51 | ED PDOC ---
Arrival/HPI - General Chief Complaint: Syncope Time Seen by Provider: 05/09/17 22:42 Historian: Patient - History of Present Illness Narrative History of Present Illness (Text): 05/09/17 22:49 Estella Elizabeth is an 81 year old female, whose past medical history includes hypertension, diabetes, hypothyroidism, chronic kidney disease, and CAD, who presents to the emergency department complaining of near-syncope. Patient states she has been experiencing dizziness and generalized weakness since yesterday, worsening today. Patient also notes she felt near-syncopal today. Patient notes she was recently admitted to the hospital on 04/27/2017 and treated for a UTI with antibiotics. Patient denies any fever, chills, chest pain , shortness of breath, abdominal pain, nausea, vomiting, diarrhea, urinary symptoms, back pain, neck pain, or any other complaints. PMD: Dr. Giles Time/Duration: 24 hours (yesterday) Symptom Onset: Gradual Symptom Course: Worsening Activities at Onset: Rest, Light Context: Home Past Medical History - Provider Review Nursing Documentation Reviewed: Yes - Past History Past History: Non-Contributing - Infectious Disease Hx of Infectious Diseases: None - Tetanus Immunization Tetanus Immunization: Unknown - Cardiac Hx Hypertension: Yes - Pulmonary Hx Respiratory Disorders: No - Neurological Hx Neurological Disorder: Yes (SYNCOPE) Hx Dizziness: Yes - HEENT Hx HEENT Disorder: Yes (reading glasses) Hx Cataracts: Yes (b/l sx) Hx Glaucoma: Yes - Renal Hx Renal Disorder: No - Endocrine/Metabolic Hx Diabetes Mellitus Type 2: Yes Hx Hypothyroidism: Yes - Hematological/Oncological Hx Blood Disorders: No - Integumentary Other/Comment: developed sacral wound post r hip fx/r shoulder fx 2014 which is now completely healed, dry discolored skin ble - Musculoskeletal/Rheumatological Hx Falls: Yes (fell at home yesterday/dizzy/headache) - Gastrointestinal Hx Gastrointestinal Disorders: Yes (constipation, hemorrhoids) Hx Gastroesophageal Reflux: Yes - Genitourinary/Gynecological Hx Genitourinary Disorders: Yes Other/Comment: uses pullups at night sometimes can't make it to the bathroom in time - Psychiatric Hx Psychophysiologic Disorder: No Hx Substance Use: No Other/Comment: ex-smoker - Surgical History Hx Appendectomy: Yes Hx Cardiac Catheterization: Yes Hx Hysterectomy: Yes Hx Orthopedic Surgery: Yes Other/Comment: r shoulder fx with sx, r hip fx with sx 2015 from a fall - Anesthesia Hx Anesthesia Reactions: No - Suicidal Assessment Feels Threatened In Home Enviroment: No Family/Social History - Physician Review Nursing Documentation Reviewed: Yes Family/Social History: Unknown Family HX Smoking Status: Former Smoker Hx Alcohol Use: No Hx Substance Use: No Hx Substance Use Treatment: No Allergies/Home Meds Allergies/Adverse Reactions: Allergies No Known Allergies Allergy (Verified 12/21/15 15:53) Home Medications: Home Meds Medication Instructions Recorded Confirmed Isosorbide Mononitrate [Imdur] 60 mg PO DAILY 03/11/13 05/09/17 Pravastatin Sodium 80 mg PO DAILY 07/10/13 05/09/17 Losartan [Cozaar] 100 mg PO DAILY 05/28/14 05/09/17 Insulin Human (NPH)/Regular 30 units SC BID 07/20/14 05/09/17 [Novolin 70/30 (70/30 units/ml) 10 ml] cloNIDine 0.3 mg/24 hr 1 patch TOP QWK 07/20/14 05/09/17 [catapres-TTS3 0.3 mg/24 hr] Esomeprazole Magnesium [Nexium] 40 mg PO DAILY 11/14/14 05/09/17 Methimazole [Tapazole] 5 mg PO DAILY 11/14/14 05/09/17 Alprazolam 0.5 mg PO DAILY 12/21/15 05/09/17 Ascorbic Acid [C-500] 500 mg PO BID 12/21/15 05/09/17 Bisacodyl [Dulcolax] 5 mg PO HS PRN 12/21/15 05/09/17 Carvedilol [Coreg] 25 mg PO BID 12/21/15 05/09/17 Diltiazem HCl [Diltiazem 24Hr Cd] 240 mg PO DAILY 12/21/15 05/09/17 Docusate Sodium [Move It Along] 200 mg PO DAILY 12/21/15 05/09/17 Ezetimibe [Zetia] 10 mg PO DAILY 12/21/15 05/09/17 Hydralazine HCl 50 mg PO TID 12/21/15 05/09/17 Latanoprost [Xalatan] 1 drop OP DAILY 12/21/15 05/09/17 Metoclopramide HCl [Reglan] 5 mg PO QID 12/21/15 05/09/17 Albuterol HFA [Ventolin HFA 90 2 puff PO TID 05/09/17 05/09/17 mcg/actuation (8 g)] Ciprofloxacin HCl [Cipro] 500 mg PO BID 05/09/17 05/09/17 Mometasone/Formoterol [Dulera 200 2 puff PO HS 05/09/17 05/09/17 Mcg/5 Mcg Inhaler] Review of Systems - Physician Review All systems were reviewed & negative as marked: Yes - Review of Systems Constitutional: Other (+generalized weakness) Eyes: Normal ENT: Normal Respiratory: Normal. absent: SOB, Cough Cardiovascular: Other (+near-syncopal) Gastrointestinal: Normal. absent: Abdominal Pain, Diarrhea, Nausea, Vomiting Genitourinary Female: Normal. absent: Dysuria, Frequency, Hematuria, Urine Output Changes Musculoskeletal: Normal. absent: Back Pain, Neck Pain Skin: Normal. absent: Rash Neurological: Dizziness. absent: Headache Endocrine: Normal Hemo/Lymphatic: Normal Psychiatric: Normal Physical Exam Vital Signs Reviewed: Yes Vital Signs Temp Pulse Resp BP Pulse Ox 05/09/17 22:36 98.5 F 82 16 141/71 99 Temperature: Afebrile Blood Pressure: Normal Pulse: Regular Respiratory Rate: Normal Appearance: Positive for: Well-Appearing, Non-Toxic, Comfortable Pain Distress: None Mental Status: Positive for: Alert and Oriented X 3 - Systems Exam Head: Present: Atraumatic, Normocephalic Pupils: Present: PERRL Extroacular Muscles: Present: EOMI Conjunctiva: Present: Normal Ears: Present: Normal, NORMAL TM, Normal Canal. No: Erythema, TM Bulging, Fluid , TM Perf Mouth: Present: Moist Mucous Membranes Pharnyx: Present: Normal. No: ERYTHEMA, EXUDATE, TONSILS ENLARGED, Peritonsilar Swelling, Uvular Deviation, Muffled/Hoarse Voice, Strider, Soft Palate/Uvular Edema Neck: Present: Normal Range of Motion. No: Meningeal Signs, MIDLINE TENDERNESS , Paraspinal Tenderness Respiratory/Chest: Present: Clear to Auscultation, Good Air Exchange. No: Respiratory Distress, Accessory Muscle Use Cardiovascular: Present: Regular Rate and Rhythm, Normal S1, S2. No: Murmurs Abdomen: Present: Normal Bowel Sounds. No: Tenderness, Distention, Peritoneal Signs Back: Present: Normal Inspection. No: CVA Tenderness, Midline Tenderness, Paraspinal Tenderness Upper Extremity: Present: Normal Inspection. No: Cyanosis, Edema Lower Extremity: Present: Normal Inspection. No: Edema Neurological: Present: GCS=15, CN II-XII Intact, Speech Normal, Motor Func Grossly Intact, Normal Sensory Function, Normal Cerebellar Funct Skin: Present: Warm, Dry, Normal Color. No: Rashes Psychiatric: Present: Alert, Oriented x 3, Normal Insight, Normal Concentration Medical Decision Making ED Course and Treatment: 05/09/17 22:49 Impression: 81 year old female complaining of near-syncope, dizziness, and generalized weakness. Differential Diagnosis included but are not limited to: near-syncope Plan: -- CT Head w/o contrast -- EKG -- CXR -- Labs, cardiac enzymes -- UA -- Reassess and disposition Prior Visits: Notes and results from previous visits were reviewed. On 04/28/2017, pt as seen in the emergency department for near-syncope and dizziness. Pt was admitted to the hospital for further evaluation. Progress Notes: Reviewed EKG, NSR at 82 bpm[address] Non-specific ST/T wave changes. 05/10/17 00:07 Reviewed radiology, CXR shows no acute processes. CT Head shows: Stable CT examination of the head, without acute intracranial hemorrhage, or suspicious mass effect. 05/10/17 00:[address] Giles, who is aware and agrees with plan. Accepts pt in to her service. Pt will go to Telemetry observation for near-syncope. Pt is no acute distress. Discussed results and hospital observation with pt, who is aware and verbalizes understanding. - Lab Interpretations Lab Results: 05/09/17 22:40 05/09/17 22:40 Lab Results 05/09/17 22:40: WBC 8.0, RBC 3.10 L, Hgb 9.8 L, Hct 28.7 L, MCV 92.6, MCH 31.6, MCHC 34.1, RDW 12.7, Plt Count 585 H, MPV 8.5 05/09/17 22:40: Sodium 134, Potassium 4.4, Chloride 100, Carbon Dioxide 23, Anion Gap 15, BUN 20, Creatinine 1.5 H, Est GFR ( Amer) 40, Est GFR (Non- Af Amer) 33, Random Glucose 74, Calcium 9.8, Total Bilirubin 0.4, AST 42 H, ALT 53, Alkaline Phosphatase 86, Lactate Dehydrogenase 460, Total Creatine Kinase 134, Troponin I < 0.01, Total Protein 8.3, Albumin 4.1, Globulin 4.2, Albumin/ Globulin Ratio 1.0 L 05/09/17 22:40: PT 11.0, INR 1.02, APTT 26.4 I have reviewed the lab results: Yes - RAD Interpretation Narrative RAD Interpretations (Text): CXR shows no acute processes. CT Head shows: Brain: No acute intracranial hemorrhage. Age-appropriate periventricular white matter disease. No edema. Basal ganglia calcifications are identified bilaterally. Bilateral proptosis remains, unchanged from prior examination. Ventricles: Age-appropriate ventriculomegaly. Bones: No acute displaced fracture. Sinuses: Unremarkable as visualized. No acute sinusitis. Mastoid air cells: Unremarkable as visualized. No mastoid effusion. IMPRESSION: Stable CT examination of the head, without acute intracranial hemorrhage, or suspicious mass effect. Radiology Orders: 05/09/17 22:54 HEAD W/O CONTRAST [CT] Stat CHEST PORTABLE [RAD] Stat Zoogler: ED Physician, Radiologist - EKG Interpretation Interpreted by ED Physician: Yes Type: 12 lead EKG - Scribe Statement The provider has reviewed the documentation as recorded by the Scribcierra Garcia All medical record entries made by the Scribe were at my direction and personally dictated by me. I have reviewed the chart and agree that the record accurately reflects my personal performance of the history, physical exam, medical decision making, and the department course for this patient. I have also personally directed, reviewed, and agree with the discharge instructions and disposition. Disposition/Present on Arrival - Present on Arrival Any Indicators Present on Arrival: No History of DVT/PE: No History of Uncontrolled Diabetes: No Urinary Catheter: No History of Decub. Ulcer: No History Surgical Site Infection Following: None - Disposition Have Diagnosis and Disposition been Completed?: Yes Diagnosis: Near syncope Disposition: HOSPITALIZED Disposition Time: 00:28 Patient Plan: Observation Condition: STABLE Referrals: Nelsy Cyr MD [Primary Care Provider] - Follow up with primary
[2017-05-09 23:14] LABS: HEMOGLOBIN 9.8 gm/dL (12.0-16.0); MEAN CELL VOLUME 92.6 fL (80.0-105.0); MEAN CORPUSCULAR HEMOGLOBIN 31.6 pg (25.0-35.0); MEAN CORPUSCULAR HGB CONC 34.1 g/dl (31.0-37.0); MEAN PLATELET VOLUME 8.5 fl (7.0-11.0); RBC 3.1 10^6/uL (3.5-6.1); RED CELL DISTRIBUTION WIDTH 12.7 % (11.5-14.5)
[2017-05-09 23:21] LABS: INR 1.02 (0.93-1.08); PARTIAL THROMBOPLASTIN TIME 26.4 Seconds (23.7-30.8)
[2017-05-09 23:24] LABS: ALBUMIN 4.1 g/dL (3.0-4.8); ALT/SGPT 53 U/L (7-56); AST/SGOT 42 U/L (15-39); BLOOD UREA NITROGEN 20 mg/dL (7-21); CALCIUM 9.8 mg/dL (8.4-10.5); GFR AFRICAN-AMERICAN 40; GFR NON-AFRICAN AMERICAN 33
[2017-05-09 23:43] LABS: TROPONIN I < 0.01 ng/mL
[2017-05-10 00:38] LABS: PH,URINE 7.5 (4.7-8.0); URINE BILIRUBIN NEGATIVE (NEGATIVE); URINE BLOOD NEGATIVE (NEGATIVE); URINE GLUCOSE (UA) NEGATIVE (NEGATIVE); URINE LEUKOCYTE ESTERASE NEGATIVE Leu/uL (NEGATIVE); URINE NITRATE NEGATIVE (NEGATIVE); URINE PROTEIN NEGATIVE mg/dL (<30 mg/dL); URINE UROBILINOGEN 0.2 E.U./dL (<1 E.U./dL)
[2017-05-10 00:40] LABS: URINE APPEARANCE CLEAR (CLEAR); URINE COLOR YELLOW (YELLOW)
[2017-05-10 01:01] VITALS: O2SAT 97
[2017-05-10] MEDS ORDERED: Pneumococcal 23-Valent Vaccine IM ONE (04:23)
[2017-05-10] MEDS: Insulin Human NPH/Reg 70/30 Vial(3 ml) SC SCH (08:57)
--- NOTE | 2017-05-10 11:01 | CT ---
PROCEDURE: CT HEAD WITHOUT CONTRAST. HISTORY: near syncope COMPARISON: 04/27/2017. TECHNIQUE: Axial computed tomography images were obtained through the head/brain without intravenous contrast. Radiation dose: Total exam DLP = mGy-cm. This CT exam was performed using one or more of the following dose reduction techniques: Automated exposure control, adjustment of the mA and/or kV according to patient size, and/or use of iterative reconstruction technique. FINDINGS: HEMORRHAGE: No intracranial hemorrhage. BRAIN: No mass effect or edema. Age related senescent changePhysiological basal ganglia calcifications identified VENTRICLES: Unremarkable. No hydrocephalus. CALVARIUM: Unremarkable. PARANASAL SINUSES: Chronic sphenoid air cell changes. MASTOID AIR CELLS: Unremarkable as visualized. No inflammatory changes. OTHER FINDINGS: None. IMPRESSION: No acute intracranial abnormalities. No significant findings to account for the clinical presentation. No significant interval change compared to the prior examination(s).
--- NOTE | 2017-05-10 11:23 | CARD ---
APPROVED REPORT EKG Measurement Heart [id number] <Conclusion> Normal sinus rhythm Moderate voltage criteria for LVH, may be normal variant Borderline ECG
--- NOTE | 2017-05-10 11:31 | RAD ---
HISTORY: Near-syncope. Portable study 23:09. COMPARISON: 04/28/2017. FINDINGS: LUNGS: No active pulmonary disease. PLEURA: No significant pleural effusion identified, no pneumothorax apparent. CARDIOVASCULAR: No radiographic findings to suggest acute or significant cardiovascular disease. OSSEOUS STRUCTURES: No significant abnormalities. VISUALIZED UPPER ABDOMEN: Normal. OTHER FINDINGS: None. IMPRESSION: No active disease. No significant interval change compared to the prior examination(s).
[2017-05-10] MEDS: methIMAzole 5 MG TAB PO SCH (11:49)
[2017-05-10] MEDS: Insulin Lispro (humaLOG) LOW Coverage SC SCH ×3 (11:49→21:32)
[2017-05-10] MEDS ORDERED: Insulin Human NPH/Reg 70/30 Vial(3 ml) SC SCH ×2 (16:30)
--- NOTE | 2017-05-10 17:06 | CP.PCM.HP ---
History of Present Illness - History of Present Illness History of Present Illness: 81 yo female with history of hypertension ,Type II diabetes mellitus , hyperthyroidism ,hospitalized for urinary tract infection and E. coli bacteremia 10 days ago, presented to ER with c/o dizziness and lightheadedness associated with headache for two days. . She denies loosing consciousness, blurry vision, nausea , vomiting or weakness. She is taking Ciprofloxacin 500 mg for UTI. She has chronic hypertension requiring multidrug therapy. Present on Admission - Present on Admission Any Indicators Present on Admission: No Past Patient History - Infectious Disease Hx of Infectious Diseases: None - Tetanus Immunizations Tetanus Immunization: Unknown - Past Medical History & Family History Past Family History: Reviewed and not pertinent - Past Social History Smoking Status: Former Smoker Alcohol: None Drugs: Denies Home Situation {Lives}: Alone Domestic Violence: Negative - CARDIAC Hx Cardiac Disorders: Yes (Hyperlipidemia) Hx Hypercholesterolemia: Yes Hx Hypertension: Yes Hx Internal Defibrillator: No Hx Pacemaker: No Hx Peripheral Edema: No Hx Peripheral Vascular Disease: No - PULMONARY Hx Respiratory Disorders: No - NEUROLOGICAL Hx Neurological Disorder: Yes (Hx of Syncope.) HX Cerebrovascular Accident: No Hx Dizziness: Yes Hx Vertigo: No - HEENT Hx HEENT Problems: Yes (Wears reading glasses) Hx Cataracts: Yes (B/L Cataract sx.) Hx Glaucoma: Yes - RENAL Hx Chronic Kidney Disease: No - ENDOCRINE/METABOLIC Hx Endocrine Disorders: Yes Hx Diabetes Mellitus Type 2: Yes Hx Hypothyroidism: Yes - HEMATOLOGICAL/ONCOLOGICAL Hx Blood Disorders: No - INTEGUMENTARY Hx Dermatological Problems: Yes (Hx of Sacral wound; now healed.) Other/Comment: Hx of developing a sacral wound post Rt Hip and Rt Shoulder fx in 2014. Sacral area now healed. - MUSCULOSKELETAL/RHEUMATOLOGICAL Hx Musculoskeletal Disorders: Yes (Hx of Rt Hip Fx and Rt Shoulder Fx 2014.) Hx Arthritis: Yes Hx Falls: Yes (s/p Fall at home April 2017.) Hx Fractures: Yes (Rt Hip Fx and Rt Shoulder Fx 2014.) Hx Unsteady Gait: Yes (Uses a walker at home.) - GASTROINTESTINAL Hx Gastrointestinal Disorders: Yes (Hx of Constipation; Hemorrhoids.) Hx Constipation: Yes Hx Gastroesophageal Reflux: Yes - GENITOURINARY/GYNECOLOGICAL Hx Genitourinary Disorders: Yes Hx Incontinence: Yes (Occas use of adult incontinence garments at hs if unable to get to BR.) - PSYCHIATRIC Hx Psychophysiologic Disorder: No Hx Substance Use: No Other/Comment: Quit smoking 50 years ago. - SURGICAL HISTORY Hx Surgeries: Yes Hx Appendectomy: Yes Hx Cardiac Catheterization: Yes Hx Hysterectomy: Yes Hx Musculoskeletal Surgery: Yes Hx Orthopedic Surgery: Yes - ANESTHESIA Hx Anesthesia Reactions: No Meds Allergies/Adverse Reactions: Allergies Allergy/AdvReac Type Severity Reaction Status Date / Time No Known Allergies Allergy Verified 12/21/15 15:53 Physical Exam - Constitutional Appears: Well, No Acute Distress - Head Exam Head Exam: ATRAUMATIC, NORMOCEPHALIC - Eye Exam Eye Exam: Normal appearance, PERRL Pupil Exam: NORMAL ACCOMODATION, PERRL - ENT Exam ENT Exam: Mucous Membranes Moist, Normal Exam - Neck Exam Neck exam: Positive for: Full Rom, Thyromegaly - Respiratory Exam Respiratory Exam: Clear to Auscultation Bilateral, NORMAL BREATHING PATTERN. absent: Accessory Muscle Use, Chest Wall Tenderness, Decreased Breath Sounds, Prolonged Expiratory Phase, Rales, Rhonchi, Wheezes, Respiratory Distress, Stridor - Cardiovascular Exam Cardiovascular Exam: +S1, +S2. absent: Bradycardia, Tachycardia, Clicks, Diastolic murmur, Gallop, Irregular Rhythm, REGULAR RHYTHM, JVD, RRR, Rubs, +S4 , Systolic Murmur - GI/Abdominal Exam GI & Abdominal Exam: Normal Bowel Sounds, Soft. absent: Bruit, Diminished Bowel Sounds, Distended, Firm, Guarding, Hernia, Hyperactive Bowel Sounds, Hypoactive Bowel Sounds, Mass, Organomegaly, Pulsatile Mass, Rebound, Rigid, Tenderness - Rectal Exam Rectal Exam: Deferred - Extremities Exam Extremities exam: Positive for: normal inspection. Negative for: calf tenderness, full ROM, joint swelling, normal capillary refill, pedal edema, tenderness, pedal pulses present - Back Exam Back exam: FULL ROM, NORMAL INSPECTION - Neurological Exam Neurological exam: Alert, CN II-XII Intact, Normal Gait, Oriented x3, Reflexes Normal - Psychiatric Exam Psychiatric exam: Normal Affect, Normal Mood - Skin Skin Exam: Dry, Intact, Normal Color, Warm Results - Vital Signs Recent Vital Signs: Last Vital Signs Temp 98.2 F 05/10/17 12:00 Pulse 56 L 05/10/17 14:00 Resp 20 05/10/17 12:00 BP 122/51 L 05/10/17 12:00 Pulse Ox 97 05/10/17 02:00 - Labs Result Diagrams: 05/09/17 22:40 05/09/17 22:40 Labs: Laboratory Results - last 24 hr 05/10/17 05/10/17 00:27 02:02 POC Glucose (mg/dL) 57 L 129 H - EKG Data EKG Interpreted by: Other EKG shows normal: Sinus rhythm Rate: Normal - EKG Data EKG Specific Queries Voltage: C/W LVH - EKG Data When Compared to Previous EKG: No Significant Change - Imaging and Cardiology Chest x-ray Additional comment: no acute pathology Assessment & Plan (1) Near syncope Status: Acute Comment: possibly due to orthostatic changes (2) Hypertension, benign Status: Chronic (3) Diabetes mellitus Status: Chronic (4) Hyperthyroidism Status: Chronic (5) Anemia in chronic kidney disease Status: Chronic (6) 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 We will continue Insulin 70/30 , will monitor glucose . Add Protonix for gastric protection and GERD symptoms.
[2017-05-10] MEDS ORDERED: Latanoprost 2.5 ml Opht Soln OU SCH (22:00)
[2017-05-11] MEDS ORDERED: Pantoprazole 40 mg Susp UD PO SCH (06:00)
[2017-05-11 07:44] LABS: HEMOGLOBIN 10.3 gm/dL (12.0-16.0); MEAN CELL VOLUME 93.9 fL (80.0-105.0); MEAN CORPUSCULAR HEMOGLOBIN 31.5 pg (25.0-35.0); MEAN CORPUSCULAR HGB CONC 33.6 g/dl (31.0-37.0); MEAN PLATELET VOLUME 8.4 fl (7.0-11.0); RBC 3.27 10^6/uL (3.5-6.1); RED CELL DISTRIBUTION WIDTH 12.8 % (11.5-14.5); WHITE BLOOD COUNT 6.2 10^3/ul (4.5-11.0)
[2017-05-11 08:06] LABS: ALB/GLOB RATIO 1.1 (1.1-1.8); CALCIUM 9.4 mg/dL (8.4-10.5)
[2017-05-11] MEDS: Insulin Lispro (humaLOG) LOW Coverage SC SCH ×2 (08:15→11:54)
[2017-05-11] MEDS: Insulin Human NPH/Reg 70/30 Vial(3 ml) SC SCH (08:17)
[2017-05-11] MEDS: methIMAzole 5 MG TAB PO SCH (09:11)
[2017-05-11 12:05] VITALS: BP 138/78; PULSE 74; RESP 18; TEMP 98.3
--- NOTE | 2017-05-11 20:21 | CP.PCM.DIS ---
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 Status: Chronic Hospital Course - Lab Results Lab Results: Most Recent Lab Values WBC 6.2 10^3/ul (4.5-11.0) D 05/11/17 07:15 RBC 3.27 10^6/uL (3.5-6.1) L 05/11/17 07:15 Hgb 10.3 gm/dL (12.0-16.0) L 05/11/17 07:15 Hct 30.7 % (36.0-48.0) L 05/11/17 07:15 MCV 93.9 fL (80.0-105.0) 05/11/17 07:15 MCH 31.5 pg (25.0-35.0) 05/11/17 07:15 MCHC 33.6 g/dl (31.0-37.0) 05/11/17 07:15 RDW 12.8 % (11.5-14.5) 05/11/17 07:15 Plt Count 521 10^3/uL (120.0-450.0) H 05/11/17 07:15 MPV 8.4 fl (7.0-11.0) 05/11/17 07:15 PT 11.0 Seconds (9.9-11.8) 05/09/17 22:40 INR 1.02 (0.93-1.08) 05/09/17 22:40 APTT 26.4 Seconds (23.7-30.8) 05/09/17 22:40 Sodium 133 mmol/L (132-148) 05/11/17 07:15 Potassium 4.9 mmol/L (3.6-5.0) 05/11/17 07:15 Chloride 100 mmol/L (95-110) 05/11/17 07:15 Carbon Dioxide 23 mmol/L (21-33) 05/11/17 07:15 Anion Gap 15 (10-20) 05/11/17 07:15 BUN 19 mg/dL (7-21) 05/11/17 07:15 Creatinine 1.3 mg/dL (0.5-1.4) 05/11/17 07:15 Est GFR ( Amer) 48 05/11/17 07:15 Est GFR (Non-Af Amer) 39 05/11/17 07:15 POC Glucose (mg/dL) 129 mg/dL (65-110) H 05/10/17 02:02 Random Glucose 141 mg/dL (70-110) H 05/11/17 07:15 Calcium 9.4 mg/dL (8.4-10.5) 05/11/17 07:15 Total Bilirubin 0.6 mg/dL (0.2-1.3) 05/11/17 07:15 AST 33 U/L (15-39) 05/11/17 07:15 ALT 36 U/L (7-56) 05/11/17 07:15 Alkaline Phosphatase 77 U/L (38-133) 05/11/17 07:15 Lactate Dehydrogenase 460 U/L (333-699) 05/09/17 22:40 Total Creatine Kinase 134 U/L (35-230) 05/09/17 22:40 Troponin I < 0.01 ng/mL 05/09/17 22:40 Total Protein 7.5 g/dL (5.8-8.3) 05/11/17 07:15 Albumin 4.0 g/dL (3.0-4.8) 05/11/17 07:15 Globulin 3.5 gm/dL 05/11/17 07:15 Albumin/Globulin Ratio 1.1 (1.1-1.8) 05/11/17 07:15 Urine Color Yellow (YELLOW) 05/09/17 23:10 Urine Appearance Clear (CLEAR) 05/09/17 23:10 Urine pH 7.5 (4.7-8.0) 05/09/17 23:10 Ur Specific [place] 1.010 (1.005-1.035) 05/09/17 23:10 Urine Protein Negative mg/dL (<30 mg/dL) 05/09/17 23:10 Urine Glucose (UA) Negative mg/dL (NEGATIVE) 05/09/17 23:10 Urine Ketones Negative mg/dL (NEGATIVE) 05/09/17 23:10 Urine Blood Negative (NEGATIVE) 05/09/17 23:10 Urine Nitrate Negative (NEGATIVE) 05/09/17 23:10 Urine Bilirubin Negative (NEGATIVE) 05/09/17 23:10 Urine Urobilinogen 0.2 E.U./dL (<1 E.U./dL) 05/09/17 23:10 Ur Leukocyte Esterase Negative Pb/uL (NEGATIVE) 05/09/17 23:10 - Hospital Course Hospital Course: The patient was admitted for dizziness and near syncope. She was monitored in telemetry unit. Her hospital course was uneventful. BP was monitored , fluctuated between 105 to 160 systolic. She was asymptomatic.There was no significant orthostatic BP changes. She was treated with her chronic medications but Isosorbide and HCTZ were stopped. Discharge Exam - Head Exam Head Exam: ATRAUMATIC, NORMAL INSPECTION, NORMOCEPHALIC - Eye Exam Eye Exam: EOMI, Normal appearance Pupil Exam: PERRL - ENT Exam ENT Exam: Mucous Membranes Moist, Normal Oropharynx - Neck Exam Neck exam: Full Rom - Respiratory Exam Respiratory Exam: Clear to PA & Lateral. absent: Accessory Muscle Use, Chest Wall Tenderness, Decreased Breath Sounds, Prolonged Expiratory Phase, Rales, Rhonchi, Wheezes, Respiratory Distress, Stridor, NORMAL BREATHING PATTERN, UNREMARKABLE - Cardiovascular Exam Cardiovascular Exam: REGULAR RHYTHM. absent: Bradycardia, Tachycardia, Clicks, Diastolic murmur, Gallop, Irregular Rhythm, JVD, RRR, Rubs, +S1, +S2, +S4, Systolic Murmur - GI/Abdominal Exam GI & Abdominal Exam: Normal Bowel Sounds, Soft. absent: Bruit, Diminished Bowel Sounds, Distended, Firm, Guarding, Hernia, Hyperactive Bowel Sounds, Hypoactive Bowel Sounds, Mass, Organomegaly, Pulsatile Mass, Rebound, Rigid, Tenderness, Unremarkable - Extremities Exam Extremities exam: full ROM, normal inspection - Neurological Exam Neurological exam: Alert, Normal Gait, Oriented x3, Reflexes Normal - Psychiatric Exam Psychiatric exam: Normal Affect - Skin Skin Exam: Normal Color, Warm Discharge Plan - Follow Up Plan Instructions: Near Syncope (ED), Chest Pain (DC), Chest Pain (GEN)
== END 2017-05-11 15:03 | disposition home or self-care (01) ==
LOC: ED 22:19 → ERH 05-10 00:20 → 2RNO 05-10 02:23
PROVIDERS: ADMIT Family Medicine; ATTEND Family Medicine
DX: R55 Syncope and collapse (principal); E05.90 Thyrotoxicosis, unspecified without thyrotoxic crisis or storm; D63.1 Anemia in chronic kidney disease; N18.2 Chronic kidney disease, stage 2 (mild); I12.9 Hypertensive chronic kidney disease with stage 1 through stage 4 chronic kidney disease, or unspecified chronic kidney disease; E11.22 Type 2 diabetes mellitus with diabetic chronic kidney disease; R42 Dizziness and giddiness; I25.10 Atherosclerotic heart disease of native coronary artery without angina pectoris; K21.9 Gastro-esophageal reflux disease without esophagitis; Z87.891 Personal history of nicotine dependence
CPT/HCPCS: 36415; 70450; 71010; 80053; 81003; 82550; 82948; 83615; 84484; 85027; 85610; 85730; 93005; 99285; G0378

== ENCOUNTER 2018-01-18 00:57 | Observation (INO) | payer MEDICARE, BC ==
[2018-01-18 00:58] VITALS: BMI 31.6
--- NOTE | 2018-01-18 01:23 | ED PDOC ---
Arrival/HPI - General Chief Complaint: Chest Pain Time Seen by Provider: 01/18/18 01:01 Historian: Patient - History of Present Illness Narrative History of Present Illness (Text): 01/18/18 01:22 Estella Elizabeth is an 82 year old female, whose past medical history includes hypertension diabetes, hypothyroidism, hyperlipidemia, and chronic kidney disease, who presents to the Emergency department complaining of chest pain. Patient states she was sitting at home tonight when she began experiencing mid- sternal chest tightness. Patient states she has experienced similar symptoms in the past. Patient regularly takes baby aspirin. Patient denies any fever, chills , shortness of breath, nausea, vomiting, back pain, neck pain, headache, dizziness, any other complaints. PMD: Dr. Giles Symptom Onset: Gradual Symptom Course: Unchanged Quality: Tightness Activities at Onset: Light Context: Home Past Medical History - Provider Review Nursing Documentation Reviewed: Yes - Past History Past History: Non-Contributing - Infectious Disease Hx of Infectious Diseases: None - Tetanus Immunization Tetanus Immunization: Unknown - Cardiac Hx Cardiac Disorders: Yes (Hyperlipidemia) Hx Hypertension: Yes Hx Internal Defibrillator: No Hx Pacemaker: No Hx Peripheral Edema: No Hx Peripheral Vascular Disease: No - Pulmonary Hx Respiratory Disorders: No - Neurological Hx Neurological Disorder: Yes (Hx of Syncope.) HX Cerebrovascular Accident: No Hx Dizziness: Yes Hx Vertigo: No - HEENT Hx HEENT Disorder: Yes (Wears reading glasses) Hx Cataracts: Yes (B/L Cataract sx.) Hx Glaucoma: Yes - Renal Hx Renal Disorder: No - Endocrine/Metabolic Hx Endocrine Disorders: Yes Hx Diabetes Mellitus Type 2: Yes Hx Hypothyroidism: Yes - Hematological/Oncological Hx Blood Disorders: No - Integumentary Hx Dermatological Disorder: Yes (Hx of Sacral wound; now healed.) Other/Comment: Hx of developing a sacral wound post Rt Hip and Rt Shoulder fx in 2014. Sacral area now healed. - Musculoskeletal/Rheumatological Hx Musculoskeletal Disorders: Yes (Hx of Rt Hip Fx and Rt Shoulder Fx 2014.) Hx Arthritis: Yes Hx Falls: Yes (s/p Fall at home April 2017.) Hx Fractures: Yes (Rt Hip Fx and Rt Shoulder Fx 2014.) Hx Unsteady Gait: Yes (Uses a walker at home.) - Gastrointestinal Hx Gastrointestinal Disorders: Yes (Hx of Constipation; Hemorrhoids.) Hx Constipation: Yes Hx Gastroesophageal Reflux: Yes - Genitourinary/Gynecological Hx Genitourinary Disorders: Yes Hx Incontinence: Yes (Occas use of adult incontinence garments at hs if unable to get to BR.) - Psychiatric Hx Psychophysiologic Disorder: No Hx Substance Use: No Other/Comment: Quit smoking 50 years ago. - Surgical History Hx Appendectomy: Yes Hx Cardiac Catheterization: Yes Hx Hysterectomy: Yes Hx Musculoskeletal Surgery: Yes Hx Orthopedic Surgery: Yes - Anesthesia Hx Anesthesia Reactions: No - Suicidal Assessment Feels Threatened In Home Enviroment: No Family/Social History - Physician Review Nursing Documentation Reviewed: Yes Family/Social History: Unknown Family HX Smoking Status: Former Smoker Hx Alcohol Use: No Hx Substance Use: No Hx Substance Use Treatment: No Allergies/Home Meds Allergies/Adverse Reactions: Allergies No Known Allergies Allergy (Verified 12/21/15 15:53) Home Medications: Home Meds Medication Instructions Recorded Confirmed Isosorbide Mononitrate [Imdur] 60 mg PO DAILY 03/11/13 01/18/18 Pravastatin Sodium 80 mg PO DAILY 07/10/13 01/18/18 Losartan [Cozaar] 100 mg PO DAILY 05/28/14 01/18/18 Insulin Human (NPH)/Regular 30 units SC BID 07/20/14 01/18/18 [Novolin 70/30 (70/30 units/ml) 10 ml] cloNIDine 0.3 mg/24 hr 1 patch TOP QWK 07/20/14 01/18/18 [catapres-TTS3 0.3 mg/24 hr] Esomeprazole Magnesium [Nexium] 40 mg PO DAILY 11/14/14 01/18/18 Methimazole [Tapazole] 5 mg PO DAILY 11/14/14 01/18/18 Alprazolam 0.5 mg PO DAILY 12/21/15 01/18/18 Ascorbic Acid [C-500] 500 mg PO BID 12/21/15 01/18/18 Bisacodyl [Dulcolax] 5 mg PO HS PRN 12/21/15 01/18/18 Carvedilol [Coreg] 25 mg PO BID 12/21/15 01/18/18 Diltiazem HCl [Diltiazem 24Hr Cd] 240 mg PO DAILY 12/21/15 01/18/18 Docusate Sodium [Move It Along] 200 mg PO DAILY 12/21/15 01/18/18 Ezetimibe [Zetia] 10 mg PO DAILY 12/21/15 01/18/18 Hydralazine HCl 50 mg PO TID 12/21/15 01/18/18 Latanoprost [Xalatan] 1 drop OP DAILY 12/21/15 01/18/18 Metoclopramide HCl [Reglan] 5 mg PO QID 12/21/15 01/18/18 Albuterol HFA [Ventolin HFA 90 2 puff PO TID 05/09/17 01/18/18 mcg/actuation (8 g)] Ciprofloxacin HCl [Cipro] 500 mg PO BID 05/09/17 01/18/18 Mometasone/Formoterol [Dulera 200 2 puff PO HS 05/09/17 01/18/18 Mcg/5 Mcg Inhaler] Review of Systems - Physician Review All systems were reviewed & negative as marked: Yes - Review of Systems Constitutional: Normal. absent: Fevers Eyes: Normal ENT: Normal Respiratory: Normal. absent: SOB, Cough Cardiovascular: Chest Pain Gastrointestinal: Normal. absent: Abdominal Pain, Diarrhea, Nausea, Vomiting Genitourinary Female: Normal. absent: Dysuria, Frequency, Hematuria, Urine Output Changes Musculoskeletal: Normal. absent: Back Pain, Neck Pain Skin: Normal. absent: Rash Neurological: Normal. absent: Headache, Dizziness Endocrine: Normal Hemo/Lymphatic: Normal Psychiatric: Normal Physical Exam Vital Signs Reviewed: Yes Vital Signs Temp Pulse Resp BP Pulse Ox 01/18/18 01:42 71 155/87 H 01/18/18 01:09 97.5 F L 82 18 168/67 H 100 Temperature: Afebrile Blood Pressure: Hypertensive Pulse: Regular Respiratory Rate: Normal Appearance: Positive for: Well-Appearing, Non-Toxic, Comfortable Pain Distress: None Mental Status: Positive for: Alert and Oriented X 3 - Systems Exam Head: Present: Atraumatic, Normocephalic Pupils: Present: PERRL Extroacular Muscles: Present: EOMI Conjunctiva: Present: Normal Mouth: Present: Moist Mucous Membranes Neck: Present: Normal Range of Motion Respiratory/Chest: Present: Clear to Auscultation, Good Air Exchange. No: Respiratory Distress, Accessory Muscle Use Cardiovascular: Present: Regular Rate and Rhythm, Normal S1, S2. No: Murmurs Abdomen: Present: Normal Bowel Sounds. No: Tenderness, Distention, Peritoneal Signs Back: Present: Normal Inspection Upper Extremity: Present: Normal Inspection. No: Cyanosis, Edema Lower Extremity: Present: Normal Inspection. No: Edema Neurological: Present: GCS=15, CN II-XII Intact, Speech Normal Skin: Present: Warm, Dry, Normal Color. No: Rashes Psychiatric: Present: Alert, Oriented x 3, Normal Insight, Normal Concentration Medical Decision Making ED Course and Treatment: 01/18/18 01:23 Impression: 82 year old female complaining of mid-sternal chest tightness tonight. Plan: -- EKG -- Chest X-ray -- Labs, cardiac enzymes -- Aspirin -- Lopressor -- Nitroglycerin -- Reassess and disposition Prior Visits: Notes and results from previous visits were reviewed. On 05/09/2018, pt was seen in the Emergency department for near-syncope, dizziness, and generalized weakness. Pt was admitted to the hospital for further evaluation. Progress Notes: Reviewed EKG, NSR at 83 bpm. LVH. Non-specific ST/T wave changes. 01/18/18 02:57 Chest X-ray reviewed, shows no acute processes. 01/18/18 02:59 Case discussed with hospital medical biller software applications developer, who is aware and agrees with plan. 01/18/18 03:[address] Abernathy, who is aware and agrees with plan. Pt will go to Telemetry observation for chest pain and uncontrolled hypertension under the hospitalist service. - Lab Interpretations Lab Results: 01/18/18 01:15 01/18/18 01:15 Lab Results 01/18/18 01:15: WBC 7.2, RBC 3.68, Hgb 11.5 L, Hct 35.1 L, MCV 95.4, MCH 31.3, MCHC 32.8, RDW 12.4, Plt Count 348, MPV 9.5 01/18/18 01:15: Sodium 140, Potassium 4.6, Chloride 103, Carbon Dioxide 25, Anion Gap 16, BUN 20, Creatinine 1.4 H, Est GFR ( Amer) 44, Est GFR (Non- Af Amer) 36, Random Glucose 107, Calcium 10.6 H, Total Bilirubin 0.5, AST 41 H, ALT 48, Alkaline Phosphatase 52, Lactate Dehydrogenase 451, Total Creatine Kinase 153, Troponin I < 0.01, Total Protein 8.4 H, Albumin 4.6, Globulin 3.9, Albumin/Globulin Ratio 1.2 01/18/18 01:15: PT 11.0, INR 0.97, APTT 30.1 I have reviewed the lab results: Yes - RAD Interpretation Radiology Orders: 01/18/18 01:25 CHEST PORTABLE [RAD] Stat Commercial Trailer Truck Driver: ED Physician - EKG Interpretation Interpreted by ED Physician: Yes Type: 12 lead EKG - Medication Orders Current Medication Orders: Discontinued Medications Aspirin (Aspirin) 325 mg PO ONCE STA Stop: 01/18/18 01:27 Last Admin: 01/18/18 01:42 Dose: 325 mg Metoprolol Tartrate (Lopressor) 25 mg PO ONCE STA Stop: 01/18/18 01:27 Last Admin: 01/18/18 01:42 Dose: 25 mg MAR Pulse and Blood Pressure Document 01/18/18 01:42 JOL (Rec: 01/18/18 01:42 JOL [id number]) Pulse Pulse Rate (60-90 beats/min) 71 Blood Pressure Blood Pressure (100/60-150/90 mm Hg) 155/87 Nitroglycerin (Nitro-Bid 2% Oint) 1 ea TOP ONCE STA Stop: 01/18/18 01:27 Last Admin: 01/18/18 01:41 Dose: 1 ea - Scribe Statement The provider has reviewed the documentation as recorded by the Scribe Cari Garcia All medical record entries made by the Scribe were at my direction and personally dictated by me. I have reviewed the chart and agree that the record accurately reflects my personal performance of the history, physical exam, medical decision making, and the department course for this patient. I have also personally directed, reviewed, and agree with the discharge instructions and disposition. Disposition/Present on Arrival - Present on Arrival Any Indicators Present on Arrival: No History of DVT/PE: No History of Uncontrolled Diabetes: No Urinary Catheter: No History of Decub. Ulcer: No History Surgical Site Infection Following: None - Disposition Have Diagnosis and Disposition been Completed?: Yes Diagnosis: Chest pain, Uncontrolled hypertension Disposition: HOSPITALIZED Disposition Time: 03:06 Patient Plan: Observation Condition: STABLE Discharge Instructions (ExitCare): Chest Pain (ED) Forms: [employer] (Iranian)
[2018-01-18] MEDS ORDERED: Nitroglycerin 2% Ointment Foilpak UD TOP STA (01:26)
[2018-01-18] MEDS ORDERED: Nitroglycerin 2% Ointment Foilpak UD TOP ONE (01:34)
[2018-01-18 01:52] LABS: HEMOGLOBIN 11.5 g/dL (12.0-16.0); MEAN CELL VOLUME 95.4 fl (80.0-105.0); MEAN CORPUSCULAR HEMOGLOBIN 31.3 pg (25.0-35.0); MEAN CORPUSCULAR HGB CONC 32.8 g/dl (31.0-37.0); MEAN PLATELET VOLUME 9.5 fl (7.0-11.0); RBC 3.68 10^6/uL (3.5-6.1); RED CELL DISTRIBUTION WIDTH 12.4 % (11.5-14.5); WHITE BLOOD COUNT 7.2 10^3/ul (4.5-11.0)
[2018-01-18 01:55] LABS: INR 0.97 (0.93-1.08); PARTIAL THROMBOPLASTIN TIME 30.1 Seconds (25.1-36.5)
[2018-01-18 01:57] LABS: ALB/GLOB RATIO 1.2 (1.1-1.8); ALBUMIN 4.6 g/dL (3.0-4.8); ALT/SGPT 48 U/L (7-56); AST/SGOT 41 U/L (14-36); BLOOD UREA NITROGEN 20 mg/dL (7-21); CALCIUM 10.6 mg/dL (8.4-10.5); GFR AFRICAN-AMERICAN 44; GFR NON-AFRICAN AMERICAN 36
[2018-01-18 02:09] LABS: TROPONIN I < 0.01 ng/mL
[2018-01-18] MEDS ORDERED: Bisacodyl 5mg EC Tab PO PRN (03:38)
--- NOTE | 2018-01-18 03:49 | CP.PCM.HP ---
<Breanne Javier - Last Filed: 01/18/18 03:45> History of Present Illness - History of Present Illness History of Present Illness: CC: Mustaphacecilio chest pain Patient is an 82 y/o with pmh of htn, COPD, dyslipidemia, hyperthyroidism, IDDM2 , CAD presenting with substernal chest pain. Patient states the chest pain started all the sudden while she was seating, described as pressure like, radiating to the epigastric region. Denies radiation to the back or arms. Non reproducible, Patient states since being in the ed, the chest pain has improved. States she had similar problems few years ago, had cardiac cath 2 years ago with normal finding. Patient admits to occasional exertional dyspnea. Denies pillow orthopnea, denies cough, fever or chills. No dysurea, no abdominal pain, no nausea, vomiting or diarrhea. Patient denies palpitations. As per patient's daughter, patient 's BP was elevated with sbp in the 160s at home. In the ed, patient was giving nitro paste, and asa. PMHX: As stated above PSHx: right knee replacement FMHx: admits to h/o htn Social: former tobacco, denies alcohol or illicit drug use. Lives with family, can ambulate unassisted. Allergy: NKDA Home meds: as per chart. Present on Admission - Present on Admission Any Indicators Present on Admission: No History of DVT/PE: No History of Uncontrolled Diabetes: No Urinary Catheter: No Decubitus Ulcer Present: No History Surgical Site Infection Following: None Review of Systems - Review of Systems All systems: reviewed and no additional remarkable complaints except Review of Systems: 12 point ROS reviewed, all negative except as per HPI. Past Patient History - Infectious Disease Hx of Infectious Diseases: None - Tetanus Immunizations Tetanus Immunization: Unknown - Past Social History Smoking Status: Former Smoker Alcohol: None Drugs: Denies Home Situation {Lives}: With Family - CARDIAC Hx Cardiac Disorders: Yes (Hyperlipidemia) Hx Hypertension: Yes Hx Internal Defibrillator: No Hx Pacemaker: No Hx Peripheral Edema: No Hx Peripheral Vascular Disease: No - PULMONARY Hx Respiratory Disorders: No - NEUROLOGICAL Hx Neurological Disorder: Yes (Hx of Syncope.) HX Cerebrovascular Accident: No Hx Dizziness: Yes Hx Vertigo: No - HEENT Hx HEENT Problems: Yes (Wears reading glasses) Hx Cataracts: Yes (B/L Cataract sx.) Hx Glaucoma: Yes - RENAL Hx Chronic Kidney Disease: No - ENDOCRINE/METABOLIC Hx Endocrine Disorders: Yes Hx Diabetes Mellitus Type 2: Yes Hx Hypothyroidism: Yes - HEMATOLOGICAL/ONCOLOGICAL Hx Blood Disorders: No - INTEGUMENTARY Hx Dermatological Problems: Yes (Hx of Sacral wound; now healed.) Other/Comment: Hx of developing a sacral wound post Rt Hip and Rt Shoulder fx in 2014. Sacral area now healed. - MUSCULOSKELETAL/RHEUMATOLOGICAL Hx Musculoskeletal Disorders: Yes (Hx of Rt Hip Fx and Rt Shoulder Fx 2014.) Hx Arthritis: Yes Hx Falls: Yes (s/p Fall at home April 2017.) Hx Fractures: Yes (Rt Hip Fx and Rt Shoulder Fx 2014.) Hx Unsteady Gait: Yes (Uses a walker at home.) - GASTROINTESTINAL Hx Gastrointestinal Disorders: Yes (Hx of Constipation; Hemorrhoids.) Hx Constipation: Yes Hx Gastroesophageal Reflux: Yes - GENITOURINARY/GYNECOLOGICAL Hx Genitourinary Disorders: Yes Hx Incontinence: Yes (Occas use of adult incontinence garments at hs if unable to get to BR.) - PSYCHIATRIC Hx Psychophysiologic Disorder: No Hx Substance Use: No Other/Comment: Quit smoking 50 years ago. - SURGICAL HISTORY Hx Appendectomy: Yes Hx Cardiac Catheterization: Yes Hx Hysterectomy: Yes Hx Musculoskeletal Surgery: Yes Hx Orthopedic Surgery: Yes - ANESTHESIA Hx Anesthesia Reactions: No Meds Allergies/Adverse Reactions: Allergies Allergy/AdvReac Type Severity Reaction Status Date / Time No Known Allergies Allergy Verified 12/21/15 15:53 Results - Vital Signs Recent Vital Signs: Last Vital Signs Temp 97.5 F L 01/18/18 01:09 Pulse 71 01/18/18 01:42 Resp 18 01/18/18 01:09 BP 155/87 H 01/18/18 01:42 Pulse Ox 100 01/18/18 01:09 - Labs Result Diagrams: 01/18/18 01:15 01/18/18 01:15 Labs: Laboratory Results - last 24 hr 01/18/18 01/18/18 01/18/18 01:15 01:15 01:15 WBC 7.2 RBC 3.68 Hgb 11.5 L Hct 35.1 L MCV 95.4 MCH 31.3 MCHC 32.8 RDW 12.4 Plt Count 348 MPV 9.5 PT 11.0 INR 0.97 APTT 30.1 Sodium 140 Potassium 4.6 Chloride 103 Carbon Dioxide 25 Anion Gap 16 BUN 20 Creatinine 1.4 H Est GFR ( Amer) 44 Est GFR (Non-Af Amer) 36 Random Glucose 107 Calcium 10.6 H Total Bilirubin 0.5 AST 41 H ALT 48 Alkaline Phosphatase 52 Lactate Dehydrogenase 451 Total Creatine Kinase 153 Troponin I < 0.01 Total Protein 8.4 H Albumin 4.6 Globulin 3.9 Albumin/Globulin Ratio 1.2 - EKG Data EKG Interpreted by: Myself EKG shows normal: Sinus rhythm, Crawley (left axis) Rate: Normal (No acute st/t wave changes. + Pooible lvh) Assessment & Plan - Assessment and Plan (Free Text) Assessment: Patient is an 82 y/o with pmh of htn, COPD, dyslipidemia, hyperthyroidism, IDDM2 , CAD presenting with substernal chest pain which started at 9 pm yesterday. Plan: 1) Chest pain r/o ACS/unstable angina/gerd/esophageal spasm/versus muskuloskeletal pain - heart score of 3 - Trop negative x1, will trend - EKG with no acute st/t wave elevation - s/p a dose of asa, and nitro patch - will continue nitro patch and asa - will obtain tsh, free t3, lipid panel and hgba1c. - Last echo was 05/2017 with grade 1 diastolic dysfunction, normal LVEF. - Resume home meds for htn management - Cardiology is consulted 2) Mild hypercalcemia- will obtain lab, start gentle hydration if calcium still elevate, and consider work up. 3) CAD with grade 1 diastolic dysfunction - will continue coreg, losartan, lipitor, imduir, hydralazine. - Patient is also on Cardizem - started on asa - Last cardiac cath was 11/2014 with non obstructing CAD. 4) COPD: will continue with albuterol, and brovana. 5) HTN- continue with clonidine ptach qweekly, coreg, hydralazine/imduir, cardizem, cozaar. 6) Dyslipidemia- will change pravastatin to atorvastatin, obtain lipid panel. Resume zetia. 7) Hyperthyroidism- will resume methimazole. will obtain tsh, free t3 and t4. 8) GERD- Will change omeprazole to pantoprazole. 9) Anxiety- will resume xanax 10) Glaucoma- qill resume eye drop 11) DVT prophylaxis: heparin sc. 12) Constipation- resume colace and dulcolax. Patient seen, examined and case discussed with Dr Abernathy. - Date & Time Date: 01/18/18 Time: 16:05 <Darwin Abernathy - Last Filed: 01/18/18 04:50> Results - Vital Signs Recent Vital Signs: Last Vital Signs Temp 98.5 F 01/18/18 03:00 Pulse 71 01/18/18 04:15 Resp 18 01/18/18 04:15 BP 133/66 01/18/18 04:15 Pulse Ox 99 01/18/18 04:15 - Labs Result Diagrams: 01/18/18 01:15 01/18/18 01:15 Attending/Attestation - Attestation I have personally seen and examined this patient.: Yes I have fully participated in the care of the patient.: Yes I have reviewed all pertinent clinical information: Yes Notes (Text): 01/18/18 04:49 I agree with the above written note and exam by the resident with the addition/ exception of the followin82 y/o F with a pmhx Htn, DM, hyperthyroid presented to the ED with substernal CP concerning the ED Physician for ACS. Patient had a nonobstructive cardiac cath in 2014 with a normal EF. Placed on observation for CP r/o ACS; Heart Score - 6
[2018-01-18] MEDS: Pantoprazole 40 mg EC Tab PO SCH (05:38)
[2018-01-18] MEDS: Budesonide 0.25 mg/2 ml Inhal Susp UD IH SCH ×2 (07:33→19:57)
[2018-01-18] MEDS: Arformoterol 15 mcg/2 ml Inh Sol IH SCH ×2 (07:33→19:57)
[2018-01-18] MEDS ORDERED: Albuterol 0.083% Inhal Sol (2.5 mg/3 mL) UD IH SCH (08:00)
[2018-01-18] MEDS: Insulin Reg-LOW-Coverage SC SCH ×4 (08:12→22:47)
[2018-01-18 08:16] LABS: BASO # 0.02 K/mm3 (0.0-2.0); BASO % 0.2 % (0.0-3.0); EOS # 0.1 (0.0-0.7); EOS % 1.5 % (1.5-5.0); GRAN # 4.94 (1.4-6.5); GRAN % 58.1 % (50.0-68.0); HEMOGLOBIN 11.6 g/dL (12.0-16.0); LYMPH # 2.8 (1.2-3.4); LYMPH % 33.4 % (22.0-35.0); MEAN CELL VOLUME 95.7 fl (80.0-105.0); MEAN CORPUSCULAR HEMOGLOBIN 31.4 pg (25.0-35.0); MEAN CORPUSCULAR HGB CONC 32.9 g/dl (31.0-37.0); MEAN PLATELET VOLUME 9.2 fl (7.0-11.0); MONO # 0.6 (0.1-0.6); MONO % 6.8 % (1.0-6.0); RBC 3.69 10^6/uL (3.5-6.1); RED CELL DISTRIBUTION WIDTH 12.4 % (11.5-14.5); WHITE BLOOD COUNT 8.5 10^3/ul (4.5-11.0)
[2018-01-18] MEDS ORDERED: Albuterol 0.083% Inhal Sol (2.5 mg/3 mL) UD IH ONE (08:30)
[2018-01-18 09:03] LABS: ALB/GLOB RATIO 1.2 (1.1-1.8); ALBUMIN 4.3 g/dL (3.0-4.8); CALCIUM 10.6 mg/dL (8.4-10.5)
[2018-01-18 09:13] LABS: TROPONIN I 0.02 ng/mL
[2018-01-18] MEDS: Albuterol 0.083% Inhal Sol (2.5 mg/3 mL) UD IH SCH ×3 (09:46→19:56)
--- NOTE | 2018-01-18 10:07 | CARD ---
APPROVED REPORT EKG Measurement Heart [id number] <Conclusion> Normal sinus rhythm Minimal voltage criteria for LVH, may be normal variant NSSTW changes, new
--- NOTE | 2018-01-18 10:23 | RAD ---
HISTORY: fever COMPARISON: 05/09/2017 FINDINGS: LUNGS: No active pulmonary disease. PLEURA: No significant pleural effusion identified, no pneumothorax apparent. CARDIOVASCULAR: Normal. OSSEOUS STRUCTURES: No significant abnormalities. VISUALIZED UPPER ABDOMEN: Normal. OTHER FINDINGS: None. IMPRESSION: No active disease.
[2018-01-18] MEDS: diltiaZEM 240 mg/24 Hours CD Cap PO SCH (10:33)
[2018-01-18] MEDS: methIMAzole 5 MG TAB PO SCH (10:34)
[2018-01-18] MEDS ORDERED: Sod Polystyrene Sulf 15 gm/60 ml Susp PO ONE (10:42)
[2018-01-18] MEDS: Insulin Human NPH/Reg 70/30 Vial(3 ml) SC SCH ×3 (10:45→18:15)
[2018-01-18] MEDS ORDERED: Barium Sulfate Susp 2.1% w/v, 2.0% w/w 450 mL Bottle PO ONE (12:04)
--- NOTE | 2018-01-18 12:52 | CARD ---
APPROVED REPORT EKG Measurement Heart [id number] <Conclusion> Normal sinus rhythm Minimal voltage criteria for LVH, may be normal variant
--- NOTE | 2018-01-18 16:24 | CT ---
PROCEDURE: CT Abdomen and Pelvis with contrast HISTORY: abdominal pain COMPARISON: 04/27/2017. CT abdomen and pelvis. TECHNIQUE: Contrast dose: Oral contrast only. Below which Radiation dose: Total exam DLP = 963.83 mGy-cm. This CT exam was performed using one or more of the following dose reduction techniques: Automated exposure control, adjustment of the mA and/or kV according to patient size, and/or use of iterative reconstruction technique. FINDINGS: LOWER THORAX: Unremarkable. LIVER: Unremarkable. No gross lesion or ductal dilatation. GALLBLADDER AND BILE DUCTS: Unremarkable. PANCREAS: Unremarkable. No gross lesion or ductal dilatation. Multiple cysts primarily involving the head/uncinate process component of the pancreas. The largest measures 2.1 cm. SPLEEN: Unremarkable. ADRENALS: Unremarkable. No mass. KIDNEYS AND URETERS: Unremarkable. No hydronephrosis. No solid mass. Stable bilateral simple renal cysts. VASCULATURE: Unremarkable. No aortic aneurysm. BOWEL: Unremarkable. No obstruction. No gross mural thickening. Incidental finding(s): No evidence of diverticulitis, colitis, inflammatory bowel disease. APPENDIX: Normal appendix. PERITONEUM: Unremarkable. No free fluid. No free air. LYMPH NODES: Unremarkable. No enlarged lymph nodes. BLADDER: Unremarkable. REPRODUCTIVE: Prior hysterectomy BONES: No acute fracture. OTHER FINDINGS: None. IMPRESSION: No acute findings related to/accounting for the clinical presentation. No significant interval change compared to the prior examination(s). Additional benign and/or incidental findings described above. Stable pancreatic cysts the largest approximately 2 cm.
[2018-01-18] MEDS ORDERED: Latanoprost 2.5 ml Opht Soln OU SCH (22:00)
--- NOTE | 2018-01-18 22:44 | CON ---
DATE: 01/18/2018 LOCATION: The patient in room 373, bed 2. REASON FOR CONSULTATION: Chest and abdominal pain. HISTORY OF PRESENT ILLNESS: The patient, 82-year-old female. She is admitted to the hospital that on the day of admission she started having abdominal pain and lower sternal area pain. It is like burning sensation. Sometimes, she has difficulty swallowing and even difficulty drinking. She had also associated nausea. She also has tenderness in the upper abdomen associated with this pain. This pain has no relation with exertion. She states that off and on she has this type of pain for a few years and it goes away and then it comes back. The patient had cardiac catheterization on 11/20/2014. It was done because the patient had abnormal stress test, but it showed nonobstructive coronary artery disease, limited only to small codominant RCA, which was mildly diffuse, about 55% narrowing, but no focal flow-limiting stenosis, preserved LV function with LV ejection fraction of 55%. EDP was in the range of 12-14. The patient also known to have hypertension, diabetes, hyperlipidemia, obesity, hypothyroidism. Earlier, the patient had hyperthyroidism, was on Tapazole. Later on, the patient has hypothyroidism. The patient also had right hip surgery in 07/2014, also had appendectomy and a hysterectomy. PERSONAL HISTORY: The patient denies smoking. Denies alcohol abuse. PREVIOUS CARDIAC WORKUP: The patient had cardiac catheterization on 11/20/2014, which was followed because of abnormal stress test and it only showed nonobstructive coronary artery disease, limited to small codominant RCA. Mildly diffuse without any focal stenosis and LV ejection fraction was normal, 55%. The patient had echo on 04/10/2017. It showed normal-size LV. Normal LV ejection fraction of 72%. RVSP 44 mmHg suggestive of mild pulmonary hypertension, grade 1 abnormal diastolic relaxation. Aortic sclerosis. Mild MR, mild TR. REVIEW OF SYSTEMS: All the systems reviewed, positives mentioned in the history, others were negative. PHYSICAL EXAMINATION: VITAL SIGNS: Blood pressure 101/54, early pressure was 156/80; respirations 18; pulse 72; temperature 98.1. HEENT: Head is normocephalic. Eyes: Pupils normal. Conjunctivae slightly pale. NECK: JVP low. Carotids equal. THORAX: AP diameter normal. LUNGS: Clear. CARDIOVASCULAR: S1 and S2. Systolic murmur grade II/. No rub. ABDOMEN: Soft. Tenderness, upper abdomen. No organomegaly. Bowel sound normal. EXTREMITIES: No clubbing. No cyanosis. LABORATORY DATA: WBC 8.5, hemoglobin 11.6, hematocrit 35.3, platelets 324. Sodium 140, potassium 5.5, BUN 21, creatinine 1.4, random sugar 122. AST, ALT normal. Troponin 0.02. Total protein 8.0, albumin 4.3. Free T4 of 1.09, which is normal; TSH 4.90, which is slightly elevated, normal is up to 4.68. EKG showed regular sinus rhythm. The patient had repeat echocardiogram on 04/10/2017, findings were described above. DIAGNOSES: Abdominal and chest pain is gastrointestinal origin, hypertension, diabetes mellitus, obesity, hyperlipidemia, hypothyroidism. PLAN: The patient needs workup for the abdominal pain with GI. In the meantime, the patient is getting hydralazine 50 mg t.i.d., aspirin 81 mg daily, diltiazem CD 240 p.o. daily, clonidine 0.3 mg per 24 hours one patch once a week, Coreg 25 b.i.d., heparin 500 units subcu q. 8 hours, insulin as ordered daily, atorvastatin 80 mg daily, metoprolol was given 25 mg once in the emergency room, Protonix 40 daily, Zetia 10 mg daily. We will order lipid profile in the morning. From cardiac point of view, the patient if need any GI procedure, she can go as a moderate risk. We will follow. Isidro Kirkpatrick MD
[2018-01-19] MEDS: Pantoprazole 40 mg EC Tab PO SCH (05:42)
[2018-01-19 06:09] VITALS: TEMP 98.5
[2018-01-19 07:23] LABS: BASO # 0.02 K/mm3 (0.0-2.0); BASO % 0.3 % (0.0-3.0); EOS # 0.1 (0.0-0.7); GRAN # 2.66 (1.4-6.5); GRAN % 41.2 % (50.0-68.0); HEMOGLOBIN 10.5 g/dL (12.0-16.0); LYMPH # 3.1 (1.2-3.4); LYMPH % 47.2 % (22.0-35.0); MEAN CORPUSCULAR HEMOGLOBIN 31.1 pg (25.0-35.0); MEAN CORPUSCULAR HGB CONC 32.7 g/dl (31.0-37.0); MEAN PLATELET VOLUME 9.2 fl (7.0-11.0); MONO # 0.6 (0.1-0.6); MONO % 9.3 % (1.0-6.0); RBC 3.38 10^6/uL (3.5-6.1); RED CELL DISTRIBUTION WIDTH 12.5 % (11.5-14.5); WHITE BLOOD COUNT 6.5 10^3/ul (4.5-11.0)
[2018-01-19] MEDS: Budesonide 0.25 mg/2 ml Inhal Susp UD IH SCH (07:33)
[2018-01-19] MEDS: Albuterol 0.083% Inhal Sol (2.5 mg/3 mL) UD IH SCH ×2 (07:34→13:45)
[2018-01-19] MEDS: Arformoterol 15 mcg/2 ml Inh Sol IH SCH (07:34)
[2018-01-19 07:38] LABS: ALB/GLOB RATIO 1.1 (1.1-1.8); ALBUMIN 3.8 g/dL (3.0-4.8); CALCIUM 9.7 mg/dL (8.4-10.5)
[2018-01-19] MEDS: Insulin Reg-LOW-Coverage SC SCH ×2 (08:23→11:23)
[2018-01-19] MEDS: diltiaZEM 240 mg/24 Hours CD Cap PO SCH (09:07)
[2018-01-19] MEDS: Insulin Human NPH/Reg 70/30 Vial(3 ml) SC SCH (10:00)
[2018-01-19] MEDS: methIMAzole 5 MG TAB PO SCH (11:00)
[2018-01-19 12:11] VITALS: BP 109/70; PULSE 85; RESP 18; O2SAT 96
--- NOTE | 2018-01-19 14:56 | PN ---
DATE: 01/19/2018 LOCATION: Patient in room 373, bed 2. REASON FOR CONSULTATION: Chest and abdominal pain. SUBJECTIVE: The patient states that the chest pain is relieved now. She only has burning type of pain in the abdomen and she had multiple episodes of this type of pain in the past and she has been worked up. From cardiac point of view, she had stress test and echo done. She also had 3-time cardiac catheterization and it showed nonobstructive coronary artery disease. The patient also had CAT on 11/20/2014 and it showed some narrowing of the right coronary artery which is limited to the small codominant RCA. They did not show any significant obstruction, but preserved LV function. EDP was 12 to 14. The patient is a known case of hypertension, diabetes, hyperlipidemia, obesity, hypothyroidism. PHYSICAL EXAMINATION VITAL SIGNS: Blood pressure 144/76, respiratory rate 20, pulse 85, temperature 98.5. HEENT: Head is normocephalic. Eyes: Pupils normal. Conjunctivae slightly pale. NECK: JVP low. Carotids equal. THORAX: AP diameter normal. LUNGS: Clear. CARDIOVASCULAR: S1, S2. ABDOMEN: Soft, but she states she is complaining of burning pain. Bowel sounds normal. EXTREMITIES: No clubbing, no cyanosis. LABORATORY DATA: WBC 6.5, hemoglobin is 10.5, hematocrit 32.1, platelets 282,000. Sodium 137, potassium 4.4, BUN 19, creatinine 1.4. AST, ALT, total protein, albumin normal. Troponin negative. DIAGNOSES: The patient came with the chest pain and abdominal pain. Chest pain is relieved now. The patient still has abdominal pain, hypertension, diabetes, hyperlipidemia, obesity, hypothyroidism. PLAN: The patient's chest pain was related to the GI origin, it was not cardiac pain, but it has already relieved. The patient needs GI evaluation. The patient had echo on 04/10/2017, which showed normal LV ejection fraction of 72%. RVSP 44 mmHg suggestive of mild pulmonary hypertension, grade 1 abnormal diastolic relaxation, aortic sclerosis, mild MR, mild TR. The patient had cardiac catheterization three times in the past and it showed nonobstructive coronary artery disease. The patient also had CAT in 11/20/2014 as mentioned above. If the patient needs any GI procedure, she can go for cardiac point of view. We will continue hydralazine 50 mg t.i.d., aspirin 81 mg daily, clonidine 0.3 mg/24-hour patch once a week, carvedilol 25 mg b.i.d. The patient also getting heparin 5000 units subcu q. 8 hours, isosorbide 60 mg daily, atorvastatin 80 mg daily, daily, Tapazole 5 mg daily, Zetia 10 mg daily. We will follow with you. Isidro Kirkpatrick MD
== END 2018-01-19 15:50 | disposition home or self-care (01) ==
LOC: ED 00:57 → ERH 03:06 → 3RSO 04:34
PROVIDERS: ADMIT Internal Medicine; ATTEND Hospitalist
DX: R07.9 Chest pain, unspecified (principal); E78.5 Hyperlipidemia, unspecified; E66.9 Obesity, unspecified; R10.9 Unspecified abdominal pain; I25.10 Atherosclerotic heart disease of native coronary artery without angina pectoris; I12.9 Hypertensive chronic kidney disease with stage 1 through stage 4 chronic kidney disease, or unspecified chronic kidney disease; N18.9 Chronic kidney disease, unspecified; E11.22 Type 2 diabetes mellitus with diabetic chronic kidney disease; J44.9 Chronic obstructive pulmonary disease, unspecified; E05.90 Thyrotoxicosis, unspecified without thyrotoxic crisis or storm; K21.9 Gastro-esophageal reflux disease without esophagitis; Z79.4 Long term (current) use of insulin; Z96.651 Presence of right artificial knee joint; Z90.710 Acquired absence of both cervix and uterus; Z87.891 Personal history of nicotine dependence
CPT/HCPCS: 36415; 71045; 74176; 80053; 80061; 82550; 82948; 83036; 83615; 83690; 83735; 84439; 84443; 84481; 84484; 85025; 85027; 85610; 85730; 93005; 94640; 99285; G0378; J1644

== ENCOUNTER 2019-02-12 16:53 | Inpatient (IN) | payer MEDICARE, BC ==
--- NOTE | 2019-02-12 17:40 | RAD ---
HISTORY: chest pain COMPARISON: Chest x-ray performed 01/18/18 TECHNIQUE: Chest, one view. FINDINGS: LUNGS: No focal consolidation. Please note that chest x-ray has limited sensitivity for the detection of pulmonary masses. PLEURA: No significant pleural effusion identified. No definite pneumothorax . CARDIOVASCULAR: Heart size appears within normal limits. Atherosclerotic calcification of the aorta. OSSEOUS STRUCTURES: Degenerative changes of the spine and shoulders. Probable right-sided calcific tendinitis. VISUALIZED UPPER ABDOMEN: Unremarkable. OTHER FINDINGS: None. IMPRESSION: No focal consolidation.
[2019-02-12 17:56] LABS: ALB/GLOB RATIO 1.3 (1.1-1.8); ALBUMIN 4.5 g/dL (3.0-4.8); ALT/SGPT 30 U/L (7-56); AST/SGOT 35 U/L (14-36); BLOOD UREA NITROGEN 23 mg/dL (7-21); GFR NON-AFRICAN AMERICAN 36
--- NOTE | 2019-02-12 18:00 | ED PDOC ---
Arrival/HPI - General Chief Complaint: Chest Pain Time Seen by Provider: 02/12/19 17:16 Historian: Patient - History of Present Illness Narrative History of Present Illness (Text): 02/12/19 18:00 83 year old female, with past medical history of diabetes, anemia, hypothyroidism, hyperlipidemia, chronic kidney disease, and "poorly controlled hypertension" presents to emergency department for "sharp, pressure-like" chest pain since earlier today with associated sweats, shortness of breath, and nausea. She also states she was experiencing some palpitations this morning. Patient reports that she hasn't taken any medication or her aspirin today. She notes she has experienced this type of pain before and took nitroglycerin for it, but did not have any at home currently. Patient denies any syncope, fever, chills, vomiting, diarrhea, abdominal pain, headache, dizziness, cough, abdominal pain, back pain, neck pain, or any other complaints. Time/Duration: Other (earlier today ) Symptom Onset: Gradual Symptom Course: Unchanged Activities at Onset: Light Context: Home Past Medical History - Provider Review Nursing Documentation Reviewed: Yes - Past History Past History: Non-Contributing - Infectious Disease Hx of Infectious Diseases: None - Tetanus Immunization Tetanus Immunization: Unknown - Cardiac Hx Cardiac Disorders: Yes Hx Angina: Yes Hx Hypertension: Yes - Pulmonary Hx Respiratory Disorders: Yes Hx Asthma: Yes - Neurological Hx Neurological Disorder: No - HEENT Hx HEENT Disorder: No - Renal Hx Renal Disorder: No - Endocrine/Metabolic Hx Endocrine Disorders: Yes Hx Diabetes Mellitus Type 2: Yes - Hematological/Oncological Hx Blood Disorders: No - Integumentary Hx Dermatological Disorder: No - Musculoskeletal/Rheumatological Hx Musculoskeletal Disorders: Yes Hx Arthritis: Yes Hx Falls: No Other/Comment: scoliosis - Gastrointestinal Hx Gastrointestinal Disorders: No - Genitourinary/Gynecological Hx Genitourinary Disorders: No - Psychiatric Hx Psychophysiologic Disorder: Yes Hx Anxiety: Yes Hx Substance Use: No - Surgical History Hx Appendectomy: Yes Hx Hysterectomy: Yes - Anesthesia Hx Anesthesia Reactions: No - Suicidal Assessment Feels Threatened In Home Enviroment: No Family/Social History - Physician Review Nursing Documentation Reviewed: Yes Family/Social History: Unknown Family HX Smoking Status: Former Smoker Hx Alcohol Use: No Hx Substance Use: No Hx Substance Use Treatment: No Allergies/Home Meds Allergies/Adverse Reactions: Allergies No Known Allergies Allergy (Verified 12/21/15 15:53) Home Medications: Home Meds Medication Instructions Recorded Confirmed Isosorbide Mononitrate [Imdur] 60 mg PO DAILY 03/11/13 01/19/18 Pravastatin Sodium 80 mg PO DAILY 07/10/13 01/18/18 Losartan [Cozaar] 100 mg PO DAILY 05/28/14 01/19/18 Insulin Human (NPH)/Regular 30 units SC BID 07/20/14 01/18/18 [Novolin 70/30 (70/30 units/ml) 10 ml] cloNIDine 0.3 mg/24 hr 1 patch TOP QWK 07/20/14 01/19/18 [catapres-TTS3 0.3 mg/24 hr] Esomeprazole Magnesium [Nexium] 40 mg PO DAILY 11/14/14 01/18/18 Methimazole [Tapazole] 5 mg PO DAILY 11/14/14 01/19/18 Alprazolam 0.5 mg PO DAILY 12/21/15 01/19/18 Ascorbic Acid [C-500] 500 mg PO BID 12/21/15 01/19/18 Bisacodyl [Dulcolax] 5 mg PO HS PRN 12/21/15 01/18/18 Carvedilol [Coreg] 25 mg PO BID 12/21/15 01/19/18 Diltiazem HCl [Diltiazem 24Hr Cd] 240 mg PO DAILY 12/21/15 01/19/18 Docusate Sodium [Move It Along] 200 mg PO DAILY 12/21/15 01/19/18 Ezetimibe [Zetia] 10 mg PO DAILY 12/21/15 01/19/18 Hydralazine HCl 50 mg PO TID 12/21/15 01/19/18 Latanoprost [Xalatan] 1 drop OP DAILY 12/21/15 01/18/18 Metoclopramide HCl [Reglan] 5 mg PO QID 12/21/15 01/18/18 Albuterol HFA [Ventolin HFA 90 2 puff PO TID 05/09/17 01/18/18 mcg/actuation (8 g)] Ciprofloxacin HCl [Cipro] 500 mg PO BID 05/09/17 01/18/18 Mometasone/Formoterol [Dulera 200 2 puff PO HS 05/09/17 01/18/18 Mcg/5 Mcg Inhaler] Review of Systems - Physician Review All systems were reviewed & negative as marked: Yes - Review of Systems Constitutional: Other (sweats ). absent: Fevers Respiratory: SOB Cardiovascular: Chest Pain ("sharp, pressure-like" ), Palpitations Gastrointestinal: Nausea. absent: Abdominal Pain, Diarrhea, Vomiting Genitourinary Female: absent: Frequency, Hematuria, Urine Output Changes Musculoskeletal: absent: Back Pain, Neck Pain Skin: absent: Rash Neurological: absent: Headache, Dizziness Physical Exam Vital Signs Reviewed: Yes Vital Signs Temp Pulse Pulse Resp BP BP Pulse Ox 02/12/19 17:45 78 184/67 H 02/12/19 17:14 98.4 F 86 18 184/67 H 96 Temperature: Afebrile Blood Pressure: Normal Pulse: Regular Respiratory Rate: Normal Appearance: Positive for: Well-Appearing, Non-Toxic, Comfortable Pain Distress: None Mental Status: Positive for: Alert and Oriented X 3 - Systems Exam Head: Present: Atraumatic, Normocephalic Pupils: Present: PERRL Extroacular Muscles: Present: EOMI Conjunctiva: Present: Normal Mouth: Present: Moist Mucous Membranes Neck: Present: Normal Range of Motion Respiratory/Chest: Present: Good Air Exchange, Rhonchi. No: Respiratory Distress Cardiovascular: Present: Murmurs (systolic murmur ) Abdomen: No: Tenderness, Distention, Peritoneal Signs Back: Present: Normal Inspection Upper Extremity: Present: Normal Inspection. No: Cyanosis, Edema Lower Extremity: Present: Edema (mild ) Neurological: Present: GCS=15, CN II-XII Intact, Speech Normal Skin: Present: Warm, Dry, Normal Color. No: Rashes Psychiatric: Present: Alert, Oriented x 3, Normal Insight, Normal Concentration Medical Decision Making ED Course and Treatment: 02/12/19 18:15 Impression: 83 year old female presents to emergency department with complaints of "sharp, pressure-like" chest pain, shortness of breath, and nausea since earlier today and palpitations this morning. Plan: -- EKG -- Labs -- Chest X-ray -- Urinalysis -- Reassess and disposition Prior Visits: Notes and results from previous visits were reviewed. Progress Notes: 02/12/19 18:19 EKG: Ordered, reviewed, and independently interpreted the EKG. Rate : 87 BPM Rhythm : NSR Interpretation : No ST-segment elevations or depressions, no T-wave inversions, normal intervals, normal axis 02/12/19 18:47 Patient reassessed. Patient states pain has decreased from 8 to 5 after NTG SL x 1. Plan is additional NTG. Results of w/u d/w patient. Given patient's multiple risk factors and presenting symptoms, plan is admit for further evaluation and management. Patient is agreeable w/POC. 02/12/19 18:48 Case discussed with , who accepts patient and will transfer pt to , [facility] at 7 pm, about patient's admission. - Lab Interpretations Lab Results: Total Bilirubin 0.4 mg/dL (0.2-1.3) 02/12/19 17:36 AST 35 U/L (14-36) 02/12/19 17:36 ALT 30 U/L (7-56) 02/12/19 17:36 Alkaline Phosphatase 59 U/L (38-126) 02/12/19 17:36 Total Protein 8.2 g/dL (5.8-8.3) 02/12/19 17:36 Albumin 4.5 g/dL (3.0-4.8) 02/12/19 17:36 Globulin 3.6 gm/dL 02/12/19 17:36 Albumin/Globulin Ratio 1.3 (1.1-1.8) 02/12/19 17:36 - RAD Interpretation Radiology Orders: 02/12/19 17:18 CHEST PORTABLE [RAD] Stat - Scribe Statement The provider has reviewed the documentation as recorded by the Scribe Audelia Sherman All medical record entries made by the Scribe were at my direction and personally dictated by me. I have reviewed the chart and agree that the record accurately reflects my personal performance of the history, physical exam, medical decision making, and the department course for this patient. I have also personally directed, reviewed, and agree with the discharge instructions and disposition. Disposition/Present on Arrival - Present on Arrival Any Indicators Present on Arrival: No History of DVT/PE: No History of Uncontrolled Diabetes: No Urinary Catheter: No History of Decub. Ulcer: No History Surgical Site Infection Following: None - Disposition Have Diagnosis and Disposition been Completed?: Yes Diagnosis: Chest pain Disposition: HOSPITALIZED Disposition Time: 18:48 Patient Plan: Admission Condition: IMPROVED
[2019-02-12 18:08] LABS: B-TYPE NATRIURETIC PEPTIDE 74.6 pg/mL (0-450); TROPONIN I < 0.01 ng/mL
[2019-02-12 18:12] LABS: CK-MB 1.3 ng/mL (0.0-3.6)
[2019-02-12 18:15] LABS: BASO # 0.03 K/mm3 (0.0-2.0); BASO % 0.5 % (0.0-3.0); EOS # 0.2 (0.0-0.7); EOS % 2.3 % (1.5-5.0); HEMOGLOBIN 11.3 g/dL (12.0-16.0); LYMPH # 2.4 (1.2-3.4); LYMPH % 36.6 % (22.0-35.0); MEAN CELL VOLUME 92.8 fl (80.0-105.0); MEAN CORPUSCULAR HEMOGLOBIN 31.2 pg (25.0-35.0); MEAN CORPUSCULAR HGB CONC 33.6 g/dl (31.0-37.0); MONO # 0.7 (0.1-0.6); MONO % 10.7 % (1.0-6.0); RBC 3.62 10^6/uL (3.5-6.1); RED CELL DISTRIBUTION WIDTH 12.4 % (11.5-14.5); WHITE BLOOD COUNT 6.6 10^3/uL (4.5-11.0)
--- NOTE | 2019-02-12 19:29 | CP.PCM.HP ---
<Helena Díaz - Last Filed: 02/12/19 20:03> History of Present Illness - History of Present Illness History of Present Illness: Helena Díaz, PGY-1, Internal Medicine History and Physical for Dr. Partida 83 year old female with past medical history of hypertension, hyperlipidemia, diabetes mellitus type II, anemia, CKD, hepatic steatosis presents with uncontrolled hypertension and chest pain. Patient reports that she woke up this morning and was found to have a blood pressure of 126/65. Patient went to the store with her granddaughter and once returning, started to have heart palp itations and repeat blood pressure was 189/90. Repeat systolic blood pressure was 202. Patient subsequently started to have bleeding from her right eye and blurry vision. Patient reported chest pressure, shortness of breath with cough, and a headache. Patient was subsequently brought to the emergency department. Right eye bleed had ceased, chest pain and shortness of breath had improved, but patient feels nauseous at this time. Patient reports taking her home medications daily, however, medication reconciliation is conflicting upon observation of medications she has brought to the hospital. 12-point ROS was unremarkable except for what was mentioned above. PMH: hypertension, hyperlipidemia, diabetes mellitus type II, anemia, CKD, hepatic steatosis PSH: hysterectomy, appendectomy FMHx: Mother and Father: hypertension SHx: denies history of alcohol, tobacco, and recreational use Allergies: NKDA PMD: Dr. Haque Medications: methimazole 5 mg BID, zetia 10 mg daily, hydralazine 50 mg TID, Coreg 25 mg BID, cardizem 240 mg daily and 120 mg daily, amitiza 24 mcg BID, spironolactone 25 mg BID, pepcid 20 mg BID PRN, xanax 0.25 mg daily, pravastatin 80 mg daily, hydrochlorothiazide 12.5 mg BID [facility]acy: [facility] [place] Present on Admission - Present on Admission Any Indicators Present on Admission: No Review of Systems - Review of Systems Review of Systems: except as mentioned in HPI Past Patient History - Infectious Disease Hx of Infectious Diseases: None - Tetanus Immunizations Tetanus Immunization: Unknown - Past Social History Smoking Status: Former Smoker - CARDIAC Hx Cardiac Disorders: Yes Hx Angina: Yes Hx Hypertension: Yes - PULMONARY Hx Respiratory Disorders: Yes Hx Asthma: Yes - NEUROLOGICAL Hx Neurological Disorder: No - HEENT Hx HEENT Problems: No - RENAL Hx Chronic Kidney Disease: No - ENDOCRINE/METABOLIC Hx Endocrine Disorders: Yes Hx Diabetes Mellitus Type 2: Yes - HEMATOLOGICAL/ONCOLOGICAL Hx Blood Disorders: No - INTEGUMENTARY Hx Dermatological Problems: No - MUSCULOSKELETAL/RHEUMATOLOGICAL Hx Musculoskeletal Disorders: Yes Hx Arthritis: Yes Hx Falls: No Other/Comment: scoliosis - GASTROINTESTINAL Hx Gastrointestinal Disorders: No - GENITOURINARY/GYNECOLOGICAL Hx Genitourinary Disorders: No - PSYCHIATRIC Hx Psychophysiologic Disorder: Yes Hx Anxiety: Yes Hx Substance Use: No - SURGICAL HISTORY Hx Appendectomy: Yes Hx Hysterectomy: Yes - ANESTHESIA Hx Anesthesia Reactions: No Meds Allergies/Adverse Reactions: Allergies Allergy/AdvReac Type Severity Reaction Status Date / Time No Known Allergies Allergy Verified 12/21/15 15:53 Physical Exam - Constitutional Appears: Well, Non-toxic, No Acute Distress - Head Exam Head Exam: ATRAUMATIC, NORMAL INSPECTION, NORMOCEPHALIC - Eye Exam Eye Exam: EOMI, PERRL Pupil Exam: NORMAL ACCOMODATION - ENT Exam ENT Exam: Mucous Membranes Moist - Respiratory Exam Respiratory Exam: Clear to Auscultation Bilateral, NORMAL BREATHING PATTERN - Cardiovascular Exam Cardiovascular Exam: REGULAR RHYTHM, RRR, +S1, +S2, Systolic Murmur (systolic ejection murmur at RUSB) - GI/Abdominal Exam GI & Abdominal Exam: Normal Bowel Sounds, Soft. absent: Tenderness - Extremities Exam Extremities exam: Positive for: full ROM, pedal pulses present. Negative for: tenderness - Neurological Exam Neurological exam: Alert, CN II-XII Intact, Oriented x3 - Skin Skin Exam: Dry, Intact, Normal Color Results - Vital Signs Recent Vital Signs: Last Vital Signs Temp 98.4 F 02/12/19 17:14 Pulse 78 02/12/19 17:45 Resp 18 02/12/19 17:14 BP 184/67 H 02/12/19 17:45 Pulse Ox 96 02/12/19 17:14 - Labs Result Diagrams: 02/12/19 17:36 02/12/19 17:36 Labs: Laboratory Results - last 24 hr 02/12/19 02/12/19 17:36 17:36 WBC 6.6 RBC 3.62 Hgb 11.3 L Hct 33.6 L MCV 92.8 MCH 31.2 MCHC 33.6 RDW 12.4 Plt Count 362 MPV 9.0 Neut % (Auto) 49.9 L Lymph % (Auto) 36.6 H Ritchie % (Auto) 10.7 H Eos % (Auto) 2.3 Baso % (Auto) 0.5 Lymph # (Auto) 2.4 Ritchie # (Auto) 0.7 H Eos # (Auto) 0.2 Baso # (Auto) 0.03 Absolute Neuts (auto) 3.30 Sodium 137 Potassium 5.0 Chloride 104 Carbon Dioxide 21 Anion Gap 17 BUN 23 H Creatinine 1.4 H Est GFR ( Amer) 44 Est GFR (Non-Af Amer) 36 Random Glucose 95 Calcium 10.0 Magnesium 1.9 Total Bilirubin 0.4 AST 35 ALT 30 Alkaline Phosphatase 59 Lactate Dehydrogenase 543 Total Creatine Kinase 255 H CK-MB (CK-2) 1.3 CK-MB (CK-2) % Cancelled Troponin I < 0.01 NT-Pro-B Natriuret Pep 74.6 Total Protein 8.2 Albumin 4.5 Globulin 3.6 Albumin/Globulin Ratio 1.3 Assessment & Plan - Assessment and Plan (Free Text) Assessment: 83 year old female with past medical history of hypertension, hyperlipidemia, diabetes mellitus type II, anemia, CKD, hepatic steatosis presents with uncontrolled hypertension and chest pain. Plan: Hypertensive Urgency -Blood pressure was 189/90 increased to systolic blood pressure of 202 -Blood pressure upon presentation to ED was 184/67 -Will restart home coreg, cardizem, spironolactone, hydrochlorothiazide -Will restart home hydralazine but make it PRN with holding parameters of <160/1 10 Chest pain with ACS rule out -EKG: NSR with HR: 87 -Tropx1: unremarkable. Will obtain tropx2 -Will start aspirin 81 mg daily, pravastatin, coreg. Will consult with Dr. Dewey galeana regarding why Losartan was discontinued. Diabetes mellitus type II -Will obtain HgbA1c -Accucheck ACHS -Will start sliding scale insulin Hyperthyroidism -Will obtain TSH, T4, free T4 -Continue home methimazole Hyperlipidemia -Will obtain lipid panel -Continue home statin and zetia CKD stage IIIB -BUN/Cr: 23/1.4 -At baseline at this time -Would recommend low dose ACEI or ARB for renal protective effect. Will consult with Dr. Giles regarding why Losartan was discontinued. -Continue to monitor Constipation -Will start dulcolax PRN for constipation History of Hepatic steatosis -LFTs unremarkable at this time -Continue to monitor GI prophylaxis: pepcid 20 mg BID DVT prophylaxis: heparin 5000 U Q8 Patient plan discussed with Dr. Partida. - Date & Time Date: 02/12/19 Time: 19:32 <Marvin Partida - Last Filed: 02/12/19 20:35> Results - Vital Signs Recent Vital Signs: Last Vital Signs Temp 98.4 F 02/12/19 17:14 Pulse 78 02/12/19 17:45 Resp 18 02/12/19 17:14 BP 149/65 02/12/19 19:43 Pulse Ox 96 02/12/19 17:14 - Labs Result Diagrams: 02/12/19 17:36 02/12/19 17:36 Labs: Laboratory Results - last 24 hr 02/12/19 02/12/19 02/12/19 17:35 17:35 17:36 WBC 6.6 RBC 3.62 Hgb 11.3 L Hct 33.6 L MCV 92.8 MCH 31.2 MCHC 33.6 RDW 12.4 Plt Count 362 MPV 9.0 Neut % (Auto) 49.9 L Lymph % (Auto) 36.6 H Ritchie % (Auto) 10.7 H Eos % (Auto) 2.3 Baso % (Auto) 0.5 Lymph # (Auto) 2.4 Ritchie # (Auto) 0.7 H Eos # (Auto) 0.2 Baso # (Auto) 0.03 Absolute Neuts (auto) 3.30 Sodium Potassium Chloride Carbon Dioxide Anion Gap BUN Creatinine Est GFR ( Amer) Est GFR (Non-Af Amer) Random Glucose Calcium Magnesium Total Bilirubin AST ALT Alkaline Phosphatase Lactate Dehydrogenase Total Creatine Kinase CK-MB (CK-2) CK-MB (CK-2) % Troponin I NT-Pro-B Natriuret Pep Total Protein Albumin Globulin Albumin/Globulin Ratio Triglycerides Cholesterol LDL Cholesterol Direct HDL Cholesterol Free T4 0.99 Thyroxine (T4) 8.3 TSH 3rd Generation 3.61 02/12/19 02/12/19 17:36 17:36 WBC RBC Hgb Hct MCV MCH MCHC RDW Plt Count MPV Neut % (Auto) Lymph % (Auto) Ritchie % (Auto) Eos % (Auto) Baso % (Auto) Lymph # (Auto) Ritchie # (Auto) Eos # (Auto) Baso # (Auto) Absolute Neuts (auto) Sodium 137 Potassium 5.0 Chloride 104 Carbon Dioxide 21 Anion Gap 17 BUN 23 H Creatinine 1.4 H Est GFR ( Amer) 44 Est GFR (Non-Af Amer) 36 Random Glucose 95 Calcium 10.0 Magnesium 1.9 Total Bilirubin 0.4 AST 35 ALT 30 Alkaline Phosphatase 59 Lactate Dehydrogenase 543 Total Creatine Kinase 255 H CK-MB (CK-2) 1.3 CK-MB (CK-2) % Cancelled Troponin I < 0.01 NT-Pro-B Natriuret Pep 74.6 Total Protein 8.2 Albumin 4.5 Globulin 3.6 Albumin/Globulin Ratio 1.3 Triglycerides 102 Cholesterol 128 L LDL Cholesterol Direct 60 HDL Cholesterol 40 Free T4 Thyroxine (T4) TSH 3rd Generation Attending/Attestation - Attestation I have personally seen and examined this patient.: Yes I have fully participated in the care of the patient.: Yes I have reviewed all pertinent clinical information: Yes Notes (Text): 02/12/19 20:33 Seen and examined. Discussed with resident. C/O chest pressure. Exam significant for holosystolic murmur. A&P as above.
[2019-02-12 19:47] LABS: HDL CHOLESTEROL 40 mg/dL (29-60)
[2019-02-12 19:57] LABS: LDL CHOLESTEROL 60 mg/dL (0-129)
[2019-02-12] MEDS ORDERED: Bisacodyl 5mg EC Tab PO PRN (20:03)
[2019-02-12 20:30] LABS: FREE T4 0.99 ng/dL (0.78-2.19)
[2019-02-12] MEDS ORDERED: Dextrose 50% SYRINGE Inj (50 ml) IV PRN (21:18)
[2019-02-12] MEDS: Insulin Reg-LOW-Coverage SC SCH (22:21)
[2019-02-13] MEDS: Pantoprazole 40 mg EC Tab PO SCH (05:53)
--- NOTE | 2019-02-13 06:57 | CP.PCM.CON ---
History of Present Illness - History of Present Illness History of Present Illness: Awake, no distress, chest discomfort left side of chest Reason for consultation: Cardiac evaluation of chest pain Brief history of present illness: An 83 year old female obese who came in to the ER due to uncontrolled blood pressure and chest pressure on left side of chest non radiating. History of hypertension, hyperlipidemia, diabetes mellitus , anemia, CKD, hepatic steatosis,hysterectomy, appendectomy Seen and examined by me and Dr. Kirkpatrick Review of Systems - Review of Systems All systems: reviewed and no additional remarkable complaints except Review of Systems: as per HPI Past Patient History - Infectious Disease Hx of Infectious Diseases: None - Tetanus Immunizations Tetanus Immunization: Unknown - Past Social History Smoking Status: Never Smoked - CARDIAC Hx Cardiac Disorders: Yes Hx Angina: Yes Hx Hypertension: Yes - PULMONARY Hx Respiratory Disorders: Yes Hx Asthma: Yes - NEUROLOGICAL Hx Neurological Disorder: No - HEENT Hx HEENT Problems: No - RENAL Hx Chronic Kidney Disease: No - ENDOCRINE/METABOLIC Hx Endocrine Disorders: Yes Hx Diabetes Mellitus Type 2: Yes - HEMATOLOGICAL/ONCOLOGICAL Hx Blood Disorders: No - INTEGUMENTARY Hx Dermatological Problems: No - MUSCULOSKELETAL/RHEUMATOLOGICAL Hx Falls: No - GASTROINTESTINAL Hx Gastrointestinal Disorders: No - GENITOURINARY/GYNECOLOGICAL Hx Genitourinary Disorders: No - PSYCHIATRIC Hx Psychophysiologic Disorder: Yes Hx Anxiety: Yes - SURGICAL HISTORY Hx Appendectomy: Yes Hx Hysterectomy: Yes - ANESTHESIA Hx Anesthesia Reactions: No Meds Allergies/Adverse Reactions: Allergies Allergy/AdvReac Type Severity Reaction Status Date / Time No Known Allergies Allergy Verified 12/21/15 15:53 - Medications Medications: Current Medications Alprazolam (Xanax) 0.25 mg PO DAILY [facility]; Protocol Ascorbic Acid (Vitamin C 500 Mg Tab) 500 mg PO BID [facility] Aspirin (Aspirin Chewable) 81 mg PO DAILY [facility] Atorvastatin Calcium (Lipitor) 20 mg PO DIN [facility] Bisacodyl (Dulcolax) 5 mg PO DAILY PRN PRN Reason: Constipation Carvedilol (Coreg) 25 mg PO BID [facility] Dextrose (Dextrose 50% Inj) 0 ml IV STAT PRN; Protocol PRN Reason: Hypoglycemia Protocol Diltiazem HCl (Cardizem Cd) 240 mg PO DAILY [facility] Ezetimibe (Zetia) 10 mg PO DAILY [facility] Hydralazine HCl (Apresoline) 50 mg PO TID PRN PRN Reason: Systolic Blood Pressure Last Admin: 02/13/19 05:53 Dose: 50 mg Hydrochlorothiazide (Microzide) 12.5 mg PO DAILY [facility] Dextrose (Dextrose 5% In Water 1000 Ml) 1,000 mls @ 0 mls/hr IV .Q0M PRN; Protocol PRN Reason: Hypoglycemia Protocol Insulin Human Regular (Humulin R Low) 0 units SC ACHS [facility]; Protocol Last Admin: 02/12/19 22:21 Dose: Not Given Isosorbide Mononitrate (Imdur) 60 mg PO DAILY [facility] Methimazole (Tapazole) 5 mg PO BID [facility] Pantoprazole Sodium (Protonix Ec Tab) 40 mg PO 0600 [facility] Last Admin: 02/13/19 05:53 Dose: 40 mg Spironolactone (Aldactone) 25 mg PO BID [facility] Physical Exam - Constitutional Appears: Non-toxic, No Acute Distress - Head Exam Head Exam: NORMAL INSPECTION, NORMOCEPHALIC - Eye Exam Eye Exam: Normal appearance Pupil Exam: NORMAL ACCOMODATION - ENT Exam ENT Exam: Mucous Membranes Moist, Normal Exam - Respiratory Exam Respiratory Exam: Decreased Breath Sounds, Clear to Auscultation Bilateral, NORMAL BREATHING PATTERN - Cardiovascular Exam Cardiovascular Exam: REGULAR RHYTHM, +S1, +S2 Additional comments: left chest discomfort - GI/Abdominal Exam GI & Abdominal Exam: Normal Bowel Sounds, Soft - Extremities Exam Extremities exam: Positive for: full ROM, normal capillary refill - Neurological Exam Neurological exam: Alert, Oriented x3 - Psychiatric Exam Psychiatric exam: Normal Affect, Normal Mood - Skin Skin Exam: Dry, Normal Color, Warm Results - Vital Signs Recent Vital Signs: Last Vital Signs Temp 98 F 02/13/19 00:56 Pulse 84 02/13/19 05:53 Resp 19 02/13/19 00:56 BP 191/91 H 02/13/19 05:53 Pulse Ox 97 02/13/19 00:56 - Labs Result Diagrams: 02/13/19 07:50 02/13/19 07:50 Labs: Laboratory Results - last 24 hr 02/12/19 02/12/19 02/12/19 17:35 17:35 17:36 WBC 6.6 RBC 3.62 Hgb 11.3 L Hct 33.6 L MCV 92.8 MCH 31.2 MCHC 33.6 RDW 12.4 Plt Count 362 MPV 9.0 Neut % (Auto) 49.9 L Lymph % (Auto) 36.6 H Saline % (Auto) 10.7 H Eos % (Auto) 2.3 Baso % (Auto) 0.5 Lymph # (Auto) 2.4 Saline # (Auto) 0.7 H Eos # (Auto) 0.2 Baso # (Auto) 0.03 Absolute Neuts (auto) 3.30 Sodium Potassium Chloride Carbon Dioxide Anion Gap BUN Creatinine Est GFR ( Amer) Est GFR (Non-Af Amer) POC Glucose (mg/dL) Random Glucose Calcium Magnesium Total Bilirubin AST ALT Alkaline Phosphatase Lactate Dehydrogenase Total Creatine Kinase CK-MB (CK-2) CK-MB (CK-2) % Troponin I NT-Pro-B Natriuret Pep Total Protein Albumin Globulin Albumin/Globulin Ratio Triglycerides Cholesterol LDL Cholesterol Direct HDL Cholesterol Free T4 0.99 Thyroxine (T4) 8.3 TSH 3rd Generation 3.61 02/12/19 02/12/19 02/12/19 17:36 17:36 21:36 WBC RBC Hgb Hct MCV MCH MCHC RDW Plt Count MPV Neut % (Auto) Lymph % (Auto) Saline % (Auto) Eos % (Auto) Baso % (Auto) Lymph # (Auto) Saline # (Auto) Eos # (Auto) Baso # (Auto) Absolute Neuts (auto) Sodium 137 Potassium 5.0 Chloride 104 Carbon Dioxide 21 Anion Gap 17 BUN 23 H Creatinine 1.4 H Est GFR ( Amer) 44 Est GFR (Non-Af Amer) 36 POC Glucose (mg/dL) 116 H Random Glucose 95 Calcium 10.0 Magnesium 1.9 Total Bilirubin 0.4 AST 35 ALT 30 Alkaline Phosphatase 59 Lactate Dehydrogenase 543 Total Creatine Kinase 255 H CK-MB (CK-2) 1.3 CK-MB (CK-2) % Cancelled Troponin I < 0.01 NT-Pro-B Natriuret Pep 74.6 Total Protein 8.2 Albumin 4.5 Globulin 3.6 Albumin/Globulin Ratio 1.3 Triglycerides 102 Cholesterol 128 L LDL Cholesterol Direct 60 HDL Cholesterol 40 Free T4 Thyroxine (T4) TSH 3rd Generation 02/12/19 23:25 WBC RBC Hgb Hct MCV MCH MCHC RDW Plt Count MPV Neut % (Auto) Lymph % (Auto) Saline % (Auto) Eos % (Auto) Baso % (Auto) Lymph # (Auto) Saline # (Auto) Eos # (Auto) Baso # (Auto) Absolute Neuts (auto) Sodium Potassium Chloride Carbon Dioxide Anion Gap BUN Creatinine Est GFR ( Amer) Est GFR (Non-Af Amer) POC Glucose (mg/dL) Random Glucose Calcium Magnesium Total Bilirubin AST ALT Alkaline Phosphatase Lactate Dehydrogenase Total Creatine Kinase CK-MB (CK-2) CK-MB (CK-2) % Troponin I 0.01 NT-Pro-B Natriuret Pep Total Protein Albumin Globulin Albumin/Globulin Ratio Triglycerides Cholesterol LDL Cholesterol Direct HDL Cholesterol Free T4 Thyroxine (T4) TSH 3rd Generation Assessment & Plan - Assessment and Plan (Free Text) Assessment: An 83 year old female obese who came in to the ER due to uncontrolled blood pressure and chest pressure on left side of chest non radiating. History of hypertension,angina,asthma, hyperlipidemia, diabetes mellitus , anemia, CKD,anxiety, hepatic steatosis, hysterectomy, appendectomy. elevated blood pressure in ER (184/67) and was given Nitro sublingual and hydralazine and blood pressure came down. EKG showed normal sinus rhythm, no ischemia. Stress test done on 11/15/14 and showed mild reversible, apical/distal inferolateral defect suspicious of ischemia. Cardiac cath was done on 11/20/14 due to positive stress test and showed non obstructive coronary artery disease, co dominant RCA mid diffusely diseased 55% focal flow limiting stenosis. LVEF 65%. Echo done on 04/10/17 showed normal LV function, transmitral flow Grade I, moderately sclerotic aortic valve, mild mitral & tricuspid regurgitation, mild pulmonary hypertension. Troponin normal x 3. Atypical chest pain, uncontrolled hypertension. Will repeat echocardiogram to evaluate LV function. Stress test in am, NPO excepts meds after midnight. Plan: No distress, still with left chest discomfort Troponin normal x 3 Will order Echo to evaluate LV function Stress test in AM NPO except meds after midnight Blood pressure controlled On ASA 81 mg daily, Lipitor 20 mg daily, Coreg 25 mg BID, Cardizem 240 mg daily, Hydralazine 50 mg TID PRN, Microzide 12.5 mg daily, Imdur 60 mg daily, Aldactone 25 mg BID Tapazole 5 mg BID Continue current treatment Continue current medications Lipid profile, TSH and HgbA1c level Further recommendations during hospital course Weight reduction/Lifestyle modifications Glucose control Will follow up Plan and treatment discussed with Dr. Kirkpatrick Thank you Dr. Puri for the opportunity of taking care of Estella Elizabeth - Date & Time Date: 02/13/19 Time: 06:25
[2019-02-13] MEDS: Insulin Reg-LOW-Coverage SC SCH ×4 (08:02→22:18)
[2019-02-13 08:04] LABS: BASO # 0.01 K/mm3 (0.0-2.0); BASO % 0.2 % (0.0-3.0); EOS # 0.1 (0.0-0.7); EOS % 2.3 % (1.5-5.0); HEMOGLOBIN 11.1 g/dL (12.0-16.0); LYMPH # 2.2 (1.2-3.4); LYMPH % 36.4 % (22.0-35.0); MEAN CORPUSCULAR HEMOGLOBIN 30.4 pg (25.0-35.0); MEAN CORPUSCULAR HGB CONC 32.4 g/dl (31.0-37.0); MEAN PLATELET VOLUME 8.7 fl (7.0-11.0); MONO # 0.5 (0.1-0.6); MONO % 8.7 % (1.0-6.0); RBC 3.65 10^6/uL (3.5-6.1); RED CELL DISTRIBUTION WIDTH 12.5 % (11.5-14.5)
[2019-02-13 08:24] LABS: TROPONIN I 0.01 ng/mL
[2019-02-13 08:29] LABS: ALB/GLOB RATIO 1.2 (1.1-1.8); ALBUMIN 4.2 g/dL (3.0-4.8); CALCIUM 9.9 mg/dL (8.4-10.5)
[2019-02-13] MEDS: diltiaZEM 240 mg/24 Hours CD Cap PO SCH (09:03)
[2019-02-13] MEDS: methIMAzole 5 MG TAB PO SCH ×2 (09:03→17:49)
--- NOTE | 2019-02-13 10:15 | CARD ---
APPROVED REPORT Date of service: 02/12/2019 EKG Measurement Heart [id number] MI [id number] <Conclusion> Normal sinus rhythm Normal ECG
--- NOTE | 2019-02-13 12:13 | CP.PCM.PN ---
<Helena Díaz - Last Filed: 02/13/19 12:09> Subjective - Date & Time of Evaluation Date of Evaluation: 02/13/19 Time of Evaluation: 12:10 - Subjective Subjective: Helena Díaz, PGY-1, Internal Medicine Progress Note for Dr. Velazquez Patient seen and evaluated at bedside. Patient had no acute overnight events. Patient reports resolution of chest pain, shortness of breath and nausea today. Patient denies any other symptoms at this time. 12-point ROS was unremarkable except for what was mentioned above. Objective - Vital Signs/Intake and Output Vital Signs (last 24 hours): Temp Pulse Resp BP Pulse Ox 98.4 F 83 19 182/79 H 97 02/13/19 06:00 02/13/19 09:03 02/13/19 06:00 02/13/19 09:03 02/13/19 06:00 Intake and Output: 02/13/19 02/13/19 06:59 18:59 Intake Total 360 Balance 360 - Medications Medications: Current Medications Acetaminophen (Tylenol 325mg Tab) 650 mg PO Q6H PRN PRN Reason: headache Last Admin: 02/13/19 10:53 Dose: 650 mg Alprazolam (Xanax) 0.25 mg PO DAILY [facility]; Protocol Last Admin: 02/13/19 09:03 Dose: 0.25 mg Ascorbic Acid (Vitamin C 500 Mg Tab) 500 mg PO BID [facility] Last Admin: 02/13/19 10:52 Dose: 500 mg Aspirin (Aspirin Chewable) 81 mg PO DAILY [facility] Last Admin: 02/13/19 09:03 Dose: 81 mg Atorvastatin Calcium (Lipitor) 20 mg PO DIN [facility] Bisacodyl (Dulcolax) 5 mg PO DAILY PRN PRN Reason: Constipation Carvedilol (Coreg) 25 mg PO BID [facility] Dextrose (Dextrose 50% Inj) 0 ml IV STAT PRN; Protocol PRN Reason: Hypoglycemia Protocol Diltiazem HCl (Cardizem Cd) 240 mg PO DAILY [facility] Last Admin: 02/13/19 09:03 Dose: 240 mg Ezetimibe (Zetia) 10 mg PO DAILY [facility] Last Admin: 02/13/19 09:02 Dose: 10 mg Hydralazine HCl (Apresoline) 50 mg PO TID PRN PRN Reason: Systolic Blood Pressure Last Admin: 02/13/19 05:53 Dose: 50 mg Hydrochlorothiazide (Microzide) 12.5 mg PO DAILY [facility] Last Admin: 02/13/19 09:03 Dose: 12.5 mg Dextrose (Dextrose 5% In Water 1000 Ml) 1,000 mls @ 0 mls/hr IV .Q0M PRN; Protocol PRN Reason: Hypoglycemia Protocol Insulin Human Regular (Humulin R Low) 0 units SC ACHS [facility]; Protocol Last Admin: 02/13/19 08:02 Dose: 1 unit Isosorbide Mononitrate (Imdur) 60 mg PO DAILY [facility] Last Admin: 02/13/19 09:02 Dose: 60 mg Methimazole (Tapazole) 5 mg PO BID [facility] Last Admin: 02/13/19 09:03 Dose: 5 mg Minoxidil (Minoxidil) 2.5 mg PO BID [facility] Last Admin: 02/13/19 10:52 Dose: 2.5 mg Pantoprazole Sodium (Protonix Ec Tab) 40 mg PO 0600 [facility] Last Admin: 02/13/19 05:53 Dose: 40 mg Patiromer (Veltassa) 8.4 gm PO DAILY [facility] Stop: 02/17/19 10:01 Last Admin: 02/13/19 10:53 Dose: 8.4 gm Spironolactone (Aldactone) 25 mg PO BID [facility] Last Admin: 02/13/19 09:03 Dose: 25 mg - Labs Labs: 02/13/19 07:50 02/13/19 07:50 - Constitutional Appears: Well, Non-toxic, No Acute Distress - Head Exam Head Exam: ATRAUMATIC, NORMAL INSPECTION, NORMOCEPHALIC - Eye Exam Eye Exam: EOMI, PERRL Pupil Exam: NORMAL ACCOMODATION - ENT Exam ENT Exam: Mucous Membranes Moist - Respiratory Exam Respiratory Exam: Clear to Auscultation Bilateral, NORMAL BREATHING PATTERN, negative for rales or wheezes - Cardiovascular Exam Cardiovascular Exam: REGULAR RHYTHM, RRR, +S1, +S2, Systolic Murmur (systolic ejection murmur at RUSB) - GI/Abdominal Exam GI & Abdominal Exam: Normal Bowel Sounds, Soft. absent: Tenderness - Extremities Exam Extremities exam: Positive for: full ROM, pedal pulses present. Negative for: tenderness - Neurological Exam Neurological exam: Alert, CN II-XII Intact, Oriented x3 - Skin Skin Exam: Dry, Intact, Normal Color Assessment and Plan - Assessment and Plan (Free Text) Assessment: 83 year old female with past medical history of hypertension, hyperlipidemia, diabetes mellitus type II, anemia, CKD, hepatic steatosis presents with uncontrolled hypertension and chest pain. Plan: Hypertensive Emergency -Blood pressure was 189/90 increased to systolic blood pressure of 202 -Blood pressure upon presentation to ED was 184/67 -Last BP was 182/79 -Follow up metanephrine to evaluate for etiology of pheochromocytoma -Follow up renal artery duplex to rule out renal artery stenosis -Continue home coreg, cardizem, spironolactone, hydrochlorothiazide -Continue home hydralazine but made it PRN with holding parameters of <160/110 -Started on minoxidil by Nephrology Chest pain with ACS rule out -EKG: NSR with HR: 87 -Tropx4: unremarkable -Continue aspirin 81 mg daily, pravastatin, coreg -Echocardiogram ordered to evaluate LV function and will have stress test in the AM Diabetes mellitus type II -HgbA1c: 6.8 -Accucheck ACHS -Will continue sliding scale insulin Hyperthyroidism -TSH: 3.61 -T4: 8.3 -Free T4: 0.99 -Continue home methimazole Hyperlipidemia -Lipid panel unremarkable -Continue home statin and zetia CKD stage IIIB -BUN/Cr: 20/1.2 -Follow up random sodium and creatinine of urine. -At baseline at this time -Continue to monitor Constipation -Will continue dulcolax PRN for constipation History of Hepatic steatosis -LFTs unremarkable at this time -Continue to monitor Hyperkalemia -K: 5.2 on presentation -Patiromer Calcium Sorbitex GI prophylaxis: pepcid 20 mg BID DVT prophylaxis: heparin 5000 U Q8 Patient plan discussed with Dr. Velazquez. <Joss Velazquez - Last Filed: 02/13/19 13:37> Objective - Vital Signs/Intake and Output Vital Signs (last 24 hours): Temp Pulse Resp BP Pulse Ox 98.5 F 80 18 143/69 97 02/13/19 12:00 02/13/19 12:00 02/13/19 12:00 02/13/19 12:00 02/13/19 06:00 Intake and Output: 02/13/19 02/13/19 06:59 18:59 Intake Total 360 Balance 360 - Medications Medications: Current Medications Acetaminophen (Tylenol 325mg Tab) 650 mg PO Q6H PRN PRN Reason: headache Last Admin: 02/13/19 10:53 Dose: 650 mg Alprazolam (Xanax) 0.25 mg PO DAILY [facility]; Protocol Last Admin: 02/13/19 09:03 Dose: 0.25 mg Ascorbic Acid (Vitamin C 500 Mg Tab) 500 mg PO BID [facility] Last Admin: 02/13/19 10:52 Dose: 500 mg Aspirin (Aspirin Chewable) 81 mg PO DAILY [facility] Last Admin: 02/13/19 09:03 Dose: 81 mg Atorvastatin Calcium (Lipitor) 20 mg PO DIN [facility] Bisacodyl (Dulcolax) 5 mg PO DAILY PRN PRN Reason: Constipation Carvedilol (Coreg) 25 mg PO BID [facility] Dextrose (Dextrose 50% Inj) 0 ml IV STAT PRN; Protocol PRN Reason: Hypoglycemia Protocol Diltiazem HCl (Cardizem Cd) 240 mg PO DAILY [facility] Last Admin: 02/13/19 09:03 Dose: 240 mg Ezetimibe (Zetia) 10 mg PO DAILY [facility] Last Admin: 02/13/19 09:02 Dose: 10 mg Hydralazine HCl (Apresoline) 50 mg PO TID PRN PRN Reason: Systolic Blood Pressure Last Admin: 02/13/19 05:53 Dose: 50 mg Hydrochlorothiazide (Microzide) 12.5 mg PO DAILY [facility] Last Admin: 02/13/19 09:03 Dose: 12.5 mg Dextrose (Dextrose 5% In Water 1000 Ml) 1,000 mls @ 0 mls/hr IV .Q0M PRN; Protocol PRN Reason: Hypoglycemia Protocol Insulin Human Regular (Humulin R Low) 0 units SC [facility]; Protocol Last Admin: 02/13/19 12:10 Dose: 5 unit Isosorbide Mononitrate (Imdur) 60 mg PO DAILY [facility] Last Admin: 02/13/19 09:02 Dose: 60 mg Methimazole (Tapazole) 5 mg PO BID [facility] Last Admin: 02/13/19 09:03 Dose: 5 mg Minoxidil (Minoxidil) 2.5 mg PO BID [facility] Last Admin: 02/13/19 10:52 Dose: 2.5 mg Pantoprazole Sodium (Protonix Ec Tab) 40 mg PO 0600 [facility] Last Admin: 02/13/19 05:53 Dose: 40 mg Patiromer (Veltassa) 8.4 gm PO DAILY [facility] Stop: 02/17/19 10:01 Last Admin: 02/13/19 10:53 Dose: 8.4 gm Spironolactone (Aldactone) 25 mg PO BID [facility] Last Admin: 02/13/19 09:03 Dose: 25 mg - Labs Labs: 02/13/19 07:50 02/13/19 07:50 Attending/Attestation - Attestation I have personally seen and examined this patient.: Yes I have fully participated in the care of the patient.: Yes I have reviewed all pertinent clinical information, including history, physical exam and plan: Yes Notes (Text): 02/13/19 13:34 83 year old female with past medical history of hypertension, diabetes, hyperthyroidism and CKD who presented with complaint of chest pain and elevated blood pressure. Serial cardiac enzymes have been negative so far. Cardiology is following and planning for stress test tomorrow. Nephrology evaluation was requested as well for poorly controlled hypertension on multiple medications; added minoxidil and ordered workup as above. Joss Velazquez MD Hospitalist.
--- NOTE | 2019-02-13 13:50 | CP.PCM.CON ---
History of Present Illness - History of Present Illness History of Present Illness: Nephrology Consultation Note: Assessment: Stable HTN emergency with chest pain Diabetic chronic Kidney Disease (E11.22) Hypertensive Chronic Kidney Disease (I12.9) Chronic Kidney Disease (N18.3) Stage 3 with ? mg proteinuria (R80.9) likely due to DM/HTN mild Anemia (D64.9), obesity hyperlipidemia hyperthyroidism hyperkalemia Plan No acute need for renal replacement therapy at this time. Hypertension control with meds as ordered. Maintain hemodynamics stable. Avoid hypotension. Patient on aldactone. hold losartan for now due to high K. will resume once K better. ordered for veltassa in meantime. low K diet will add minoxidil 2.5 mg bid for HTN control and hopefully taper off from clonidine/hydralazine. Monitor Input/Output, daily weights and renal function with basic metabolic panel Check urine analysis, spot protein/creatinine, albumin/creatinine ratio, Na/Cr Check for 25-OH vitamin D, iPTH Secondary HTN work up with plasma metanephrine and renal artery Doppler to r/o renal artery stenosis Dose meds/antibiotics for reduced GFR. Avoid fleets enema/magnesium based laxatives. Avoid nephrotoxins/NSAIDs/ iodinated contrast (unless needed emergently) Glycemic control Further work up/management as per primary team Thanks for allowing me to participate in care of your patient. Will follow patient with you. Please call if any Qs. had d/w team Dr Leoncio Aj Office: [phone] Chief Complaint; high BP Reason for consult: HTn management HPI: Pt is a 83 F with hx of diabetes Mellitus (20 years), hypertension (>20 years) obesity hyperlipidemia hyperthyroidism presented with complaints of high BP and chest pain with SOB which are better now Denies OTC/herbal meds or NSAIDs No recent iodinated contrast exposure. No obvious episodes of low BP. denies smoking/etoh/licorice/decongestants says BP usually okay (on many meds) but gets high intermittently without any known reasons not aware about CKD. baseline cr 1.4 ROS: Cardiovascular: No chest pain. improved Pulmonary: No shortness of breath now. improved Gastrointestinal: denies abdominal pain No nausea. No vomiting. Genitourinary: No pain while urinating. Denies blood in urine. All other negative except as mentioned in HPI Physical Examination: General Appearance: Comfortable, in no acute respiratory distress, co-operative . Vitals reviewed and noted as below Head; Atraumatic, normocephalic ENT: no ulcers no thrush. Tongue is midline. Oropharynx: no rash or ulcers. EYES: Pupils are equal, round and reactive to light accommodation. Eye muscles and extraocular movement intact. Sclera is anicteric. Neck; supple no lymphadenopathy, noted thyromegaly Lungs: Normal respiratory rate/effort. Breath sounds bilateral somwehat reduced at bases Heart: Normal rate. s1s2 normal. No rub or gallop. Extremities: no edema. No varicose veins Neurological: Patient is alert, awake and oriented to person, place and time. No focal deficit. Strength bilateral appropriate and equal Skin: Warm and dry. Normal turgor. No rash. Palpitation: Normal elasticity for age Abdomen: Abdomen is soft. Bowel sounds +. There is no abdominal tenderness, no guarding/rigidity no organomegaly Psych: normal insight and normal affect/mood MSK: no joint tenderness or swelling. Digits and nails normal, no deformity : kidney or bladder not palpable Labs/imaging reviewed. Past medical history, past surgical history, family history, social history, allergy reviewed and noted as below Family hx: no hx of CKD. Rest non-contributory renal imaging: b/l cysts adrenal wnl TSh 3.6 Past Patient History - Infectious Disease Hx of Infectious Diseases: None - Tetanus Immunizations Tetanus Immunization: Unknown - Past Social History Smoking Status: Former Smoker - CARDIAC Hx Cardiac Disorders: Yes Hx Angina: Yes Hx Hypertension: Yes - PULMONARY Hx Respiratory Disorders: Yes Hx Asthma: Yes - NEUROLOGICAL Hx Neurological Disorder: No - HEENT Hx HEENT Problems: No - RENAL Hx Chronic Kidney Disease: No - ENDOCRINE/METABOLIC Hx Endocrine Disorders: Yes Hx Diabetes Mellitus Type 2: Yes - HEMATOLOGICAL/ONCOLOGICAL Hx Blood Disorders: No - INTEGUMENTARY Hx Dermatological Problems: No - MUSCULOSKELETAL/RHEUMATOLOGICAL Hx Musculoskeletal Disorders: Yes Hx Arthritis: Yes Hx Falls: No Other/Comment: scoliosis - GASTROINTESTINAL Hx Gastrointestinal Disorders: No - GENITOURINARY/GYNECOLOGICAL Hx Genitourinary Disorders: No - PSYCHIATRIC Hx Psychophysiologic Disorder: Yes Hx Anxiety: Yes Hx Substance Use: No - SURGICAL HISTORY Hx Appendectomy: Yes Hx Hysterectomy: Yes - ANESTHESIA Hx Anesthesia Reactions: No Meds Allergies/Adverse Reactions: Allergies Allergy/AdvReac Type Severity Reaction Status Date / Time No Known Allergies Allergy Verified 12/21/15 15:53 - Medications Medications: Current Medications Acetaminophen (Tylenol 325mg Tab) 650 mg PO Q6H PRN PRN Reason: headache Last Admin: 02/13/19 10:53 Dose: 650 mg Alprazolam (Xanax) 0.25 mg PO DAILY [facility]; Protocol Last Admin: 02/13/19 09:03 Dose: 0.25 mg Ascorbic Acid (Vitamin C 500 Mg Tab) 500 mg PO BID [facility] Last Admin: 02/13/19 10:52 Dose: 500 mg Aspirin (Aspirin Chewable) 81 mg PO DAILY [facility] Last Admin: 02/13/19 09:03 Dose: 81 mg Atorvastatin Calcium (Lipitor) 20 mg PO DIN [facility] Bisacodyl (Dulcolax) 5 mg PO DAILY PRN PRN Reason: Constipation Carvedilol (Coreg) 25 mg PO BID [facility] Dextrose (Dextrose 50% Inj) 0 ml IV STAT PRN; Protocol PRN Reason: Hypoglycemia Protocol Diltiazem HCl (Cardizem Cd) 240 mg PO DAILY [facility] Last Admin: 02/13/19 09:03 Dose: 240 mg Ezetimibe (Zetia) 10 mg PO DAILY [facility] Last Admin: 02/13/19 09:02 Dose: 10 mg Hydralazine HCl (Apresoline) 50 mg PO TID PRN PRN Reason: Systolic Blood Pressure Last Admin: 02/13/19 05:53 Dose: 50 mg Hydrochlorothiazide (Microzide) 12.5 mg PO DAILY [facility] Last Admin: 02/13/19 09:03 Dose: 12.5 mg Dextrose (Dextrose 5% In Water 1000 Ml) 1,000 mls @ 0 mls/hr IV .Q0M PRN; Protocol PRN Reason: Hypoglycemia Protocol Insulin Human Regular (Humulin R Low) 0 units SC [facility]; Protocol Last Admin: 02/13/19 12:10 Dose: 5 unit Isosorbide Mononitrate (Imdur) 60 mg PO DAILY [facility] Last Admin: 02/13/19 09:02 Dose: 60 mg Methimazole (Tapazole) 5 mg PO BID [facility] Last Admin: 02/13/19 09:03 Dose: 5 mg Minoxidil (Minoxidil) 2.5 mg PO BID [facility] Last Admin: 02/13/19 10:52 Dose: 2.5 mg Pantoprazole Sodium (Protonix Ec Tab) 40 mg PO 0600 [facility] Last Admin: 02/13/19 05:53 Dose: 40 mg Patiromer (Veltassa) 8.4 gm PO DAILY [facility] Stop: 02/17/19 10:01 Last Admin: 02/13/19 10:53 Dose: 8.4 gm Spironolactone (Aldactone) 25 mg PO BID [facility] Last Admin: 02/13/19 09:03 Dose: 25 mg Results - Vital Signs Recent Vital Signs: Last Vital Signs Temp 98.5 F 02/13/19 12:00 Pulse 80 02/13/19 12:00 Resp 18 02/13/19 12:00 BP 143/69 02/13/19 12:00 Pulse Ox 97 02/13/19 06:00 - Labs Result Diagrams: 02/13/19 07:50 02/13/19 07:50 Labs: Laboratory Results - last 24 hr 02/12/19 02/12/19 02/12/19 17:35 17:35 17:36 WBC 6.6 RBC 3.62 Hgb 11.3 L Hct 33.6 L MCV 92.8 MCH 31.2 MCHC 33.6 RDW 12.4 Plt Count 362 MPV 9.0 Neut % (Auto) 49.9 L Lymph % (Auto) 36.6 H [place] % (Auto) 10.7 H Eos % (Auto) 2.3 Baso % (Auto) 0.5 Lymph # (Auto) 2.4 [place] # (Auto) 0.7 H Eos # (Auto) 0.2 Baso # (Auto) 0.03 Absolute Neuts (auto) 3.30 Sodium Potassium Chloride Carbon Dioxide Anion Gap BUN Creatinine Est GFR ( Amer) Est GFR (Non-Af Amer) POC Glucose (mg/dL) Random Glucose Hemoglobin A1c Calcium Phosphorus Magnesium Total Bilirubin AST ALT Alkaline Phosphatase Lactate Dehydrogenase Total Creatine Kinase CK-MB (CK-2) CK-MB (CK-2) % Troponin I NT-Pro-B Natriuret Pep Total Protein Albumin Globulin Albumin/Globulin Ratio Triglycerides Cholesterol LDL Cholesterol Direct HDL Cholesterol Free T4 0.99 Thyroxine (T4) 8.3 TSH 3rd Generation 3.61 02/12/19 02/12/19 02/12/19 17:36 17:36 21:36 WBC RBC Hgb Hct MCV MCH MCHC RDW Plt Count MPV Neut % (Auto) Lymph % (Auto) [place] % (Auto) Eos % (Auto) Baso % (Auto) Lymph # (Auto) [place] # (Auto) Eos # (Auto) Baso # (Auto) Absolute Neuts (auto) Sodium 137 Potassium 5.0 Chloride 104 Carbon Dioxide 21 Anion Gap 17 BUN 23 H Creatinine 1.4 H Est GFR ( Amer) 44 Est GFR (Non-Af Amer) 36 POC Glucose (mg/dL) 116 H Random Glucose 95 Hemoglobin A1c Calcium 10.0 Phosphorus Magnesium 1.9 Total Bilirubin 0.4 AST 35 ALT 30 Alkaline Phosphatase 59 Lactate Dehydrogenase 543 Total Creatine Kinase 255 H CK-MB (CK-2) 1.3 CK-MB (CK-2) % Cancelled Troponin I < 0.01 NT-Pro-B Natriuret Pep 74.6 Total Protein 8.2 Albumin 4.5 Globulin 3.6 Albumin/Globulin Ratio 1.3 Triglycerides 102 Cholesterol 128 L LDL Cholesterol Direct 60 HDL Cholesterol 40 Free T4 Thyroxine (T4) TSH 3rd Generation 02/12/19 02/13/19 02/13/19 23:25 07:29 07:50 WBC RBC Hgb Hct MCV MCH MCHC RDW Plt Count MPV Neut % (Auto) Lymph % (Auto) [place] % (Auto) Eos % (Auto) Baso % (Auto) Lymph # (Auto) [place] # (Auto) Eos # (Auto) Baso # (Auto) Absolute Neuts (auto) Sodium Potassium Chloride Carbon Dioxide Anion Gap BUN Creatinine Est GFR ( Amer) Est GFR (Non-Af Amer) POC Glucose (mg/dL) 153 H Random Glucose Hemoglobin A1c 6.8 H Calcium Phosphorus Magnesium Total Bilirubin AST ALT Alkaline Phosphatase Lactate Dehydrogenase Total Creatine Kinase CK-MB (CK-2) CK-MB (CK-2) % Troponin I 0.01 NT-Pro-B Natriuret Pep Total Protein Albumin Globulin Albumin/Globulin Ratio Triglycerides Cholesterol LDL Cholesterol Direct HDL Cholesterol Free T4 Thyroxine (T4) TSH 3rd Generation 02/13/19 02/13/19 02/13/19 07:50 07:50 11:30 WBC 6.0 RBC 3.65 Hgb 11.1 L Hct 34.3 L MCV 94.0 MCH 30.4 MCHC 32.4 RDW 12.5 Plt Count 326 MPV 8.7 Neut % (Auto) 52.4 Lymph % (Auto) 36.4 H [place] % (Auto) 8.7 H Eos % (Auto) 2.3 Baso % (Auto) 0.2 Lymph # (Auto) 2.2 [place] # (Auto) 0.5 Eos # (Auto) 0.1 Baso # (Auto) 0.01 Absolute Neuts (auto) 3.14 Sodium 137 Potassium 5.2 H Chloride 105 Carbon Dioxide 21 Anion Gap 15 BUN 20 Creatinine 1.2 Est GFR ( Amer) 52 Est GFR (Non-Af Amer) 43 POC Glucose (mg/dL) Random Glucose 163 H Hemoglobin A1c Calcium 9.9 Phosphorus 3.5 Magnesium 1.9 Total Bilirubin 0.6 AST 30 ALT 25 Alkaline Phosphatase 64 Lactate Dehydrogenase Total Creatine Kinase CK-MB (CK-2) CK-MB (CK-2) % Troponin I 0.01 < 0.01 NT-Pro-B Natriuret Pep Total Protein 7.8 Albumin 4.2 Globulin 3.6 Albumin/Globulin Ratio 1.2 Triglycerides Cholesterol LDL Cholesterol Direct HDL Cholesterol Free T4 Thyroxine (T4) TSH 3rd Generation 02/13/19 11:34 WBC RBC Hgb Hct MCV MCH MCHC RDW Plt Count MPV Neut % (Auto) Lymph % (Auto) [place] % (Auto) Eos % (Auto) Baso % (Auto) Lymph # (Auto) [place] # (Auto) Eos # (Auto) Baso # (Auto) Absolute Neuts (auto) Sodium Potassium Chloride Carbon Dioxide Anion Gap BUN Creatinine Est GFR ( Amer) Est GFR (Non-Af Amer) POC Glucose (mg/dL) 387 H Random Glucose Hemoglobin A1c Calcium Phosphorus Magnesium Total Bilirubin AST ALT Alkaline Phosphatase Lactate Dehydrogenase Total Creatine Kinase CK-MB (CK-2) CK-MB (CK-2) % Troponin I NT-Pro-B Natriuret Pep Total Protein Albumin Globulin Albumin/Globulin Ratio Triglycerides Cholesterol LDL Cholesterol Direct HDL Cholesterol Free T4 Thyroxine (T4) TSH 3rd Generation
[2019-02-13 19:48] LABS: URINE BILIRUBIN NEGATIVE (NEGATIVE); URINE BLOOD NEGATIVE (NEGATIVE); URINE GLUCOSE (UA) NEGATIVE (NEGATIVE); URINE LEUKOCYTE ESTERASE NEGATIVE Leu/uL (NEGATIVE); URINE PROTEIN NEGATIVE mg/dL (<30 mg/dL); URINE UROBILINOGEN 0.2 E.U./dL (<1 E.U./dL)
[2019-02-13 19:51] LABS: URINE APPEARANCE CLEAR (CLEAR); URINE COLOR YELLOW (YELLOW)
[2019-02-14] MEDS: Pantoprazole 40 mg EC Tab PO SCH (05:18)
[2019-02-14 06:00] LABS: BARBITURATES, UR NEGATIVE (NEGATIVE); BENZODIAZEPINES, UR NEGATIVE (NEGATIVE); OPIATES, UR NEGATIVE (NEGATIVE); PHENCYCLIDINE, UR NEGATIVE (NEGATIVE)
[2019-02-14 07:07] LABS: ALB/GLOB RATIO 1.1 (1.1-1.8); ALBUMIN 3.5 g/dL (3.0-4.8); CALCIUM 9.2 mg/dL (8.4-10.5)
[2019-02-14 07:15] LABS: BASO # 0.01 K/mm3 (0.0-2.0); BASO % 0.2 % (0.0-3.0); EOS # 0.1 (0.0-0.7); EOS % 2.3 % (1.5-5.0); HEMOGLOBIN 9.6 g/dL (12.0-16.0); LYMPH # 2.1 (1.2-3.4); LYMPH % 36.3 % (22.0-35.0); MEAN CELL VOLUME 92.7 fl (80.0-105.0); MEAN CORPUSCULAR HEMOGLOBIN 30.6 pg (25.0-35.0); MEAN PLATELET VOLUME 8.7 fl (7.0-11.0); MONO # 0.7 (0.1-0.6); MONO % 11.4 % (1.0-6.0); RBC 3.14 10^6/uL (3.5-6.1); RED CELL DISTRIBUTION WIDTH 12.3 % (11.5-14.5); WHITE BLOOD COUNT 5.7 10^3/uL (4.5-11.0)
--- NOTE | 2019-02-14 11:57 | CP.PCM.PN ---
<Anibal Bhatt - Last Filed: 02/14/19 11:54> Subjective - Date & Time of Evaluation Date of Evaluation: 02/14/19 Time of Evaluation: 07:20 - Subjective Subjective: Anibal Bhatt PGY-1 Progress Note for Hospitalist Service Patient seen and evaluated at bedside. No acute events reported overnight per nursing. Denies any complaints at this time. Currently NPO in advance of stress test planned for today. Objective - Vital Signs/Intake and Output Vital Signs (last 24 hours): Temp Pulse Resp BP Pulse Ox 98.5 F 69 20 127/72 97 02/14/19 06:00 02/14/19 06:00 02/14/19 06:00 02/14/19 06:00 02/14/19 06:00 Intake and Output: 02/14/19 02/14/19 06:59 18:59 Intake Total 2080 Balance 2080 - Medications Medications: Current Medications Acetaminophen (Tylenol 325mg Tab) 650 mg PO Q6H PRN PRN Reason: headache Last Admin: 02/13/19 10:53 Dose: 650 mg Alprazolam (Xanax) 0.25 mg PO DAILY [facility]; Protocol Last Admin: 02/13/19 09:03 Dose: 0.25 mg Ascorbic Acid (Vitamin C 500 Mg Tab) 500 mg PO BID [facility] Last Admin: 02/13/19 17:49 Dose: 500 mg Aspirin (Aspirin Chewable) 81 mg PO DAILY [facility] Last Admin: 02/13/19 09:03 Dose: 81 mg Atorvastatin Calcium (Lipitor) 20 mg PO DIN [facility] Last Admin: 02/13/19 17:49 Dose: 20 mg Bisacodyl (Dulcolax) 5 mg PO DAILY PRN PRN Reason: Constipation Carvedilol (Coreg) 25 mg PO BID [facility] Last Admin: 02/13/19 22:26 Dose: 25 mg Dextrose (Dextrose 50% Inj) 0 ml IV STAT PRN; Protocol PRN Reason: Hypoglycemia Protocol Diltiazem HCl (Cardizem Cd) 240 mg PO DAILY [facility] Last Admin: 02/13/19 09:03 Dose: 240 mg Ezetimibe (Zetia) 10 mg PO DAILY [facility] Last Admin: 02/13/19 09:02 Dose: 10 mg Hydralazine HCl (Apresoline) 50 mg PO TID PRN PRN Reason: Systolic Blood Pressure Last Admin: 02/13/19 05:53 Dose: 50 mg Hydrochlorothiazide (Microzide) 12.5 mg PO DAILY [facility] Last Admin: 02/13/19 09:03 Dose: 12.5 mg Dextrose (Dextrose 5% In Water 1000 Ml) 1,000 mls @ 0 mls/hr IV .Q0M PRN; Protocol PRN Reason: Hypoglycemia Protocol Insulin Human Regular (Humulin R Low) 0 units SC [facility]; Protocol Last Admin: 02/13/19 22:18 Dose: Not Given Isosorbide Mononitrate (Imdur) 60 mg PO DAILY [facility] Last Admin: 02/13/19 09:02 Dose: 60 mg Methimazole (Tapazole) 5 mg PO BID [facility] Last Admin: 02/13/19 17:49 Dose: 5 mg Minoxidil (Minoxidil) 2.5 mg PO DAILY [facility] Pantoprazole Sodium (Protonix Ec Tab) 40 mg PO 0600 [facility] Last Admin: 02/14/19 05:18 Dose: 40 mg Patiromer (Veltassa) 8.4 gm PO DAILY [facility] Stop: 02/17/19 10:01 Last Admin: 02/13/19 10:53 Dose: 8.4 gm Spironolactone (Aldactone) 25 mg PO BID [facility] Last Admin: 02/13/19 17:49 Dose: 25 mg - Labs Labs: 02/14/19 06:30 02/14/19 06:30 - Additional Findings Additional findings: - Constitutional Appears: Well, Non-toxic, No Acute Distress - Head Exam Head Exam: ATRAUMATIC, NORMAL INSPECTION, NORMOCEPHALIC - Eye Exam Eye Exam: EOMI, PERRL Pupil Exam: NORMAL ACCOMODATION - ENT Exam ENT Exam: Mucous Membranes Moist - Respiratory Exam Respiratory Exam: Clear to Auscultation Bilateral, NORMAL BREATHING PATTERN, negative for rales or wheezes - Cardiovascular Exam Cardiovascular Exam: REGULAR RHYTHM, RRR, +S1, +S2, Systolic Murmur (systolic ejection murmur) - GI/Abdominal Exam GI & Abdominal Exam: Normal Bowel Sounds, Soft. absent: Tenderness - Extremities Exam Extremities exam: Positive for: full ROM, pedal pulses present. Negative for: tenderness - Neurological Exam Neurological exam: Alert, CN II-XII Intact, Oriented x3 - Skin Skin Exam: Dry, Intact, Normal Color Assessment and Plan - Assessment and Plan (Free Text) Assessment: 83 year old female with past medical history of hypertension, hyperlipidemia, diabetes mellitus type II, anemia, CKD, hepatic steatosis presents with uncontrolled hypertension and chest pain. Plan: Hypertensive Emergency -Blood pressure was 189/90 increased to systolic blood pressure of 202 -Blood pressure upon presentation to ED was 184/67 -Last BP was 127/72 -Follow up stress test results -Follow up metanephrine to evaluate for etiology of pheochromocytoma -Follow up renal artery duplex results to rule out renal artery stenosis -Continue home coreg, cardizem, hydrochlorothiazide -Spironolactone and Losartan on hold due to hyperkalemia -Continue home hydralazine PRN with holding parameters of <160/110 -C/w minoxidil per Nephrology Normocytic Anemia - Hgb 9.6 this AM - Continue to monitor in AM Chest pain with ACS rule out -EKG: NSR with HR: 87 -Trop x4: unremarkable -Continue aspirin 81 mg daily, pravastatin, coreg -F/U Echocardiogram ordered to evaluate LV function and stress test results Diabetes mellitus type II -HgbA1c: 6.8 -Accucheck ACHS -Will continue sliding scale insulin Hyperthyroidism -TSH: 3.61 -T4: 8.3 -Free T4: 0.99 -Continue home methimazole Hyperlipidemia -Lipid panel unremarkable -Continue home statin and zetia Acute on CKD stage IIIB -BUN/Cr: 21/1.4 -Random urine sodium 42 and creatinine 51 -F/u metanephrines and renal artery duplex results -Cr baseline at this time -Continue to monitor Constipation -Will continue dulcolax PRN for constipation History of Hepatic steatosis -LFTs unremarkable at this time -Continue to monitor Hyperkalemia -K: 5.2 on presentation -Patiromer Calcium Sorbitex -Spironolactone and Losartan on hold due to hyperkalemia Dispo: PT recs appreciated GI prophylaxis: pepcid 20 mg BID DVT prophylaxis: heparin 5000 U Q8 Patient seen, case reviewed and plan approved by Dr. Velazquez. Anibal Bhatt, PGY-1 <Joss Velazquez - Last Filed: 02/14/19 12:27> Objective - Vital Signs/Intake and Output Vital Signs (last 24 hours): Temp Pulse Resp BP Pulse Ox 98.5 F 69 20 127/72 97 02/14/19 06:00 02/14/19 06:00 02/14/19 06:00 02/14/19 06:00 02/14/19 06:00 Intake and Output: 02/14/19 02/14/19 06:59 18:59 Intake Total 2080 Balance 2080 - Medications Medications: Current Medications Acetaminophen (Tylenol 325mg Tab) 650 mg PO Q6H PRN PRN Reason: headache Last Admin: 02/13/19 10:53 Dose: 650 mg Alprazolam (Xanax) 0.25 mg PO DAILY [facility]; Protocol Last Admin: 02/13/19 09:03 Dose: 0.25 mg Ascorbic Acid (Vitamin C 500 Mg Tab) 500 mg PO BID [facility] Last Admin: 02/13/19 17:49 Dose: 500 mg Aspirin (Aspirin Chewable) 81 mg PO DAILY [facility] Last Admin: 02/13/19 09:03 Dose: 81 mg Atorvastatin Calcium (Lipitor) 20 mg PO DIN [facility] Last Admin: 02/13/19 17:49 Dose: 20 mg Bisacodyl (Dulcolax) 5 mg PO DAILY PRN PRN Reason: Constipation Carvedilol (Coreg) 25 mg PO BID [facility] Last Admin: 02/13/19 22:26 Dose: 25 mg Dextrose (Dextrose 50% Inj) 0 ml IV STAT PRN; Protocol PRN Reason: Hypoglycemia Protocol Diltiazem HCl (Cardizem Cd) 240 mg PO DAILY [facility] Last Admin: 02/13/19 09:03 Dose: 240 mg Ezetimibe (Zetia) 10 mg PO DAILY [facility] Last Admin: 02/13/19 09:02 Dose: 10 mg Hydralazine HCl (Apresoline) 50 mg PO TID PRN PRN Reason: Systolic Blood Pressure Last Admin: 02/13/19 05:53 Dose: 50 mg Hydrochlorothiazide (Microzide) 12.5 mg PO DAILY [facility] Last Admin: 02/13/19 09:03 Dose: 12.5 mg Dextrose (Dextrose 5% In Water 1000 Ml) 1,000 mls @ 0 mls/hr IV .Q0M PRN; Protocol PRN Reason: Hypoglycemia Protocol Insulin Human Regular (Humulin R Low) 0 units SC [facility]; Protocol Last Admin: 02/13/19 22:18 Dose: Not Given Isosorbide Mononitrate (Imdur) 60 mg PO DAILY [facility] Last Admin: 02/13/19 09:02 Dose: 60 mg Methimazole (Tapazole) 5 mg PO BID [facility] Last Admin: 02/13/19 17:49 Dose: 5 mg Minoxidil (Minoxidil) 2.5 mg PO DAILY [facility] Pantoprazole Sodium (Protonix Ec Tab) 40 mg PO 0600 [facility] Last Admin: 02/14/19 05:18 Dose: 40 mg Patiromer (Veltassa) 8.4 gm PO DAILY [facility] Stop: 02/17/19 10:01 Last Admin: 02/13/19 10:53 Dose: 8.4 gm Spironolactone (Aldactone) 25 mg PO BID [facility] Last Admin: 02/13/19 17:49 Dose: 25 mg - Labs Labs: 02/14/19 06:30 02/14/19 06:30 Attending/Attestation - Attestation I have personally seen and examined this patient.: Yes I have fully participated in the care of the patient.: Yes I have reviewed all pertinent clinical information, including history, physical exam and plan: Yes Notes (Text): 02/14/19 12:21 83 year old female with past medical history of hypertension, diabetes, hyperthyroidism and CKD who presented with complaint of chest pain and elevated blood pressure. Serial cardiac enzymes have been negative so far. Cardiology is following and plan is for stress test today. Nephrology evaluation also appreciated for poorly controlled hypertension on multiple medications; added minoxidil with improvement of blood pressure. Joss Velazquez MD Hospitalist.
--- NOTE | 2019-02-14 13:50 | CP.PCM.PCO ---
Physician Communication Note - Physician Communication Note Physician Communication Note: chest pain, stress test results pending, PT eval pending
[2019-02-14] MEDS: Insulin Reg-LOW-Coverage SC SCH ×3 (13:53→22:21)
[2019-02-14] MEDS: diltiaZEM 240 mg/24 Hours CD Cap PO SCH (14:13)
[2019-02-14] MEDS: methIMAzole 5 MG TAB PO SCH ×2 (14:15→18:12)
--- NOTE | 2019-02-14 15:26 | PN ---
DATE: 02/14/2019 REASON FOR CONSULTATION AND FOLLOWUP: Cardiac evaluation and chest pain, n.p.o. for a stress test today. SUBJECTIVE: The patient denies any chest pain, shortness of breath or any palpitation. OBJECTIVE: GENERAL: Not in apparent distress. VITAL SIGNS: Temperature afebrile. Heart rate 69 and blood pressure 127/72. HEENT: PERRLA. Extraocular muscles intact. NECK: Supple. No carotid bruits. No thyromegaly. CHEST: Clear to auscultation. HEART: S1 and S2, regular. ABDOMEN: Soft. EXTREMITIES: Clubbing and cyanosis is negative. LABORATORY DATA: Blood workup as follows; WBC 5.6, hemoglobin 9.6, hematocrit 29.1 and platelet count 282. Chemistry shows sodium 134, potassium 5.0, chloride 101, carbon dioxide 23, anion gap of 14, BUN 21 and creatinine 1.4. Troponin remains negative 0.01. IMPRESSION: An 83-year-old obese female with past medical history significant for hypertension, hyperlipidemia, chronic kidney disease, anxiety disorder, diabetes and anemia admitted with uncontrolled hypertension and some chest discomfort. So far troponin remains negative. No evidence of acute myocardial infarction. The patient had a cardiac catheterization done in 2014 after having abnormal stress test it shows non-obstructive coronary artery disease, codominant right coronary artery, mildly diffused 65% nonfocal stenosis, ejection fraction 65%. RECOMMENDATIONS: So far troponin remains negative, aggressive control of her blood pressure. Monitor renal function closely and we will schedule for a stress test and echo today. Further recommendation after the stress test. We will follow with you. Thank you Dr. Velazquez for providing us opportunity in taking care of the patient, Estella Elizabeth. Isidro Maurice MD
--- NOTE | 2019-02-14 15:58 | CARD ---
APPROVED REPORT Date of service: 02/14/2019 Protocol: LEXISCAN Test Type: Lexiscan Sestamibi Stress Test Attending Physician: Dr. Isidro Kirkpatrick Referring Physician: Dr. Joss Velazquez Test Indications: Chest Pain Height:5 ft 4 in Weight:175lbs Medications: Tylenol,Alprazolam, Vit. C, Lipitor, Dulcolax, Coreg, Diltiazem HCl, Zetia, Hydralazine HCl, HCTZ, Humulin, Imdur,Tapazole, Protonix, Veltassa, Aldactone, vit. c Medical History: 83 y/o female. Hx of asthma, hypertension, high cholesterol, diabetic. Target HR: 138 bpm Resting ECG: RSR, Poor R Progression V1-V4. Resting Heart Rate: 80 bpm Resting Blood Pressure: 148/66mmHg Submaximum (85%): 117 bpm PROCEDURE Pharmacologic stress testing was performed using 0.4mg per 5ml of regadenoson given intravenously over 7-10 seconds. POST EXERCISE Reason for Termination: Protocol completed Target HR: No Max HR: 83 bpm 72% of Maximum Predicted HR: 138 bpm Exercise duration: 00:31 min:sec, 0 Stage Exercise capacity: 1.0METs Max Blood Pressure: 148/66mmHg Blood Pressure response to exercise: resting hypertension - appropriate response Heart Rate response to exercise: appropriate Chest Pain: No, none Angina index: 0 Arrhythmia: No, none ST Change: No, none Deviation: 0 mm INTERPRETATION Stress EKG Conclusion: IV LEXISCAN NUCLEAR STRESS TEST NEGATIVE FOR CHEST PAIN AND NEGATIVE FOR ST-T CHANGES. NUCLEAR SCAN REPORT PENDING. Signed by Isidro Kirkpatrick Electronically Approved: 02/14/2019 13:46:40 EXAM: Myocardial Perfusion STRESS/REST Stress Test Type: Pharmacologic Imaging Protocol The imaging protocol used to acquire images was Rest Tc-99m Rest Spect myocardial perfusion imaging was performed in supine position 60 minutes following the injection of 30.2 mCi of Tc-99 Myoview. At peak stress, the patient was injected intravenously with 10.3mCi of Tc-99 tetrofosmin after an infusion time of 0 minutes and 10 seconds. Gated Stress Spect was performed 65 minutes after intravenous Tc-99 Myoview injection. The images were gated to evaluate regional wall motion and calculate ventricular ejection fraction.Images were reconstructed using backfilter projection method in short horizontal and verticle long axis. Spect slices were generated. LV Perfusion The quality of the study is good. The left ventricle is normal in size. The right ventricle is unremarkable. The lung uptake is within normal limits. The distribution of tracer reveals normal uptake pattern throughout the LV myocardium on the stress study. The rest myocardial perfusion study shows no significant change. Wall Motion Wall motion study shows good contractility of the left ventricle. LVEF = 76%. Conclusion 1. Normal SPECT myocardial perfusion study. 2. Normal gated wall motion of the left ventricle. 3. In comparison with the last study of 11/15/2014, previously noted questionable apical defect is not apparent in the current study.
--- NOTE | 2019-02-14 16:02 | CP.PCM.PN ---
Subjective - Date & Time of Evaluation Date of Evaluation: 02/14/19 Time of Evaluation: 16:02 - Subjective Subjective: Nephrology Consultation Note: Assessment: Stable HTN emergency with chest pain Diabetic chronic Kidney Disease (E11.22) Hypertensive Chronic Kidney Disease (I12.9) Chronic Kidney Disease (N18.3) Stage 3 with ? mg proteinuria (R80.9) likely due to DM/HTN mild Anemia (D64.9), obesity hyperlipidemia hyperthyroidism hyperkalemia Plan No acute need for renal replacement therapy at this time. Hypertension control with meds as ordered. Maintain hemodynamics stable. Avoid hypotension. Patient on aldactone. hold losartan for now due to high K. will resume once K better. ordered for veltassa in meantime. low K diet will add minoxidil 2.5 mg /day for HTN control and hopefully taper off from clonidine/hydralazine. Monitor Input/Output, daily weights and renal function with basic metabolic panel had stress florencio Check urine analysis, spot protein/creatinine, albumin/creatinine ratio, Na/Cr Check for 25-OH vitamin D, iPTH Secondary HTN work up with plasma metanephrine and renal artery Doppler to r/o renal artery stenosis Dose meds/antibiotics for reduced GFR. Avoid fleets enema/magnesium based laxatives. Avoid nephrotoxins/NSAIDs/ iodinated contrast (unless needed emergently) Glycemic control Further work up/management as per primary team Thanks for allowing me to participate in care of your patient. Will follow patie nt with you. Please call if any Qs. had d/w team Dr Leoncio Aj Office: [phone] Chief Complaint; high BP Reason for consult: HTn management HPI: Pt is a 83 F with hx of diabetes Mellitus (20 years), hypertension (>20 years) obesity hyperlipidemia hyperthyroidism presented with complaints of high BP and chest pain with SOB which are better now Denies OTC/herbal meds or NSAIDs No recent iodinated contrast exposure. No obvious episodes of low BP. denies smoking/etoh/licorice/decongestants says BP usually okay (on many meds) but gets high intermittently without any known reasons not aware about CKD. baseline cr 1.4 ROS: feel dizzy today Cardiovascular: No chest pain. improved Pulmonary: No shortness of breath now. improved Gastrointestinal: denies abdominal pain No nausea. No vomiting. Genitourinary: No pain while urinating. Denies blood in urine. All other negative except as mentioned in HPI Physical Examination: General Appearance: Comfortable, in no acute respiratory distress, co-operative . Vitals reviewed and noted as below Head; Atraumatic, normocephalic ENT: no ulcers no thrush. Tongue is midline. Oropharynx: no rash or ulcers. EYES: Pupils are equal, round and reactive to light accommodation. Eye muscles and extraocular movement intact. Sclera is anicteric. Neck; supple no lymphadenopathy, noted thyromegaly Lungs: Normal respiratory rate/effort. Breath sounds bilateral somwehat reduced at bases Heart: Normal rate. s1s2 normal. No rub or gallop. Extremities: no edema. No varicose veins Neurological: Patient is alert, awake and oriented to person, place and time. No focal deficit. Strength bilateral appropriate and equal Skin: Warm and dry. Normal turgor. No rash. Palpitation: Normal elasticity for age Abdomen: Abdomen is soft. Bowel sounds +. There is no abdominal tenderness, no guarding/rigidity no organomegaly Psych: normal insight and normal affect/mood MSK: no joint tenderness or swelling. Digits and nails normal, no deformity : kidney or bladder not palpable Labs/imaging reviewed. Past medical history, past surgical history, family history, social history, allergy reviewed and noted as below Family hx: no hx of CKD. Rest non-contributory renal imaging: b/l cysts adrenal wnl TSh 3.6 Objective - Vital Signs/Intake and Output Vital Signs (last 24 hours): Temp Pulse Resp BP Pulse Ox 98.5 F 88 20 123/66 97 02/14/19 06:00 02/14/19 14:15 02/14/19 06:00 02/14/19 15:01 02/14/19 06:00 Intake and Output: 02/14/19 02/14/19 06:59 18:59 Intake Total 2079 Balance 2079 - Medications Medications: Current Medications Acetaminophen (Tylenol 325mg Tab) 650 mg PO Q6H PRN PRN Reason: headache Last Admin: 02/14/19 14:13 Dose: 650 mg Alprazolam (Xanax) 0.25 mg PO DAILY [facility]; Protocol Last Admin: 02/14/19 14:26 Dose: Not Given Ascorbic Acid (Vitamin C 500 Mg Tab) 500 mg PO BID [facility] Last Admin: 02/14/19 14:15 Dose: 500 mg Aspirin (Aspirin Chewable) 81 mg PO DAILY [facility] Last Admin: 02/14/19 14:15 Dose: 81 mg Atorvastatin Calcium (Lipitor) 20 mg PO DIN [facility] Last Admin: 02/13/19 17:49 Dose: 20 mg Bisacodyl (Dulcolax) 5 mg PO DAILY PRN PRN Reason: Constipation Last Admin: 02/14/19 14:14 Dose: 5 mg Carvedilol (Coreg) 25 mg PO BID [facility] Last Admin: 02/14/19 14:15 Dose: 25 mg Dextrose (Dextrose 50% Inj) 0 ml IV STAT PRN; Protocol PRN Reason: Hypoglycemia Protocol Diltiazem HCl (Cardizem Cd) 240 mg PO DAILY [facility] Last Admin: 02/14/19 14:13 Dose: 240 mg Ezetimibe (Zetia) 10 mg PO DAILY [facility] Last Admin: 02/14/19 14:14 Dose: 10 mg Hydralazine HCl (Apresoline) 50 mg PO TID PRN PRN Reason: Systolic Blood Pressure Last Admin: 02/14/19 14:14 Dose: 50 mg Hydrochlorothiazide (Microzide) 12.5 mg PO DAILY [facility] Last Admin: 02/14/19 14:14 Dose: 12.5 mg Dextrose (Dextrose 5% In Water 1000 Ml) 1,000 mls @ 0 mls/hr IV .Q0M PRN; Protocol PRN Reason: Hypoglycemia Protocol Insulin Human Regular (Humulin R Low) 0 units SC [facility]; Protocol Last Admin: 02/14/19 13:53 Dose: Not Given Isosorbide Mononitrate (Imdur) 60 mg PO DAILY [facility] Last Admin: 02/14/19 14:13 Dose: 60 mg Methimazole (Tapazole) 5 mg PO BID [facility] Last Admin: 02/14/19 14:15 Dose: 5 mg Minoxidil (Minoxidil) 2.5 mg PO DAILY [facility] Last Admin: 02/14/19 14:15 Dose: 2.5 mg Pantoprazole Sodium (Protonix Ec Tab) 40 mg PO 0600 [facility] Last Admin: 02/14/19 05:18 Dose: 40 mg Patiromer (Veltassa) 8.4 gm PO DAILY [facility] Stop: 02/17/19 10:01 Last Admin: 02/14/19 14:25 Dose: Not Given Spironolactone (Aldactone) 25 mg PO BID [facility] Last Admin: 02/14/19 14:14 Dose: 25 mg - Labs Labs: 02/14/19 06:30 02/14/19 06:30
--- NOTE | 2019-02-14 17:01 | US ---
PROCEDURE: Bilateral renal artery duplex ultrasound. CLINICAL HISTORY: Renal artery stenosis. Uncontrolled hypertension. Evaluate for renovascular hypertension. PHYSICIAN(S): Blanco Junior M.D. TECHNIQUE: Duplex sonography with color-flow Doppler was used to evaluate the visualized segments of the main renal arteries. The patient was evaluated in a fasting state. Imaging in a supine and decubitus position was performed. Limited evaluation of the arcuate waveforms and resistive indices were performed. FINDINGS: The overall quality of the study is limited. The renal parenchyma is thin and echogenic with prominent sinus fat. Multiple moderate to large simple renal cysts are noted bilaterally.. The right kidney measures 10.7cm in length and the left kidney measures 10.6cm in length. No solid renal masses, abnormal calcifications, or hydronephrosis is seen. The main right renal artery is somewhat tortuous from the origin to the hilum. The peak systolic velocity in the right main renal artery is 92 cm/sec. This is consistent with a 0 to 49% stenosis in the main right renal artery. The main left renal artery is also tortuous. The peak systolic velocity in the main left renal artery is 141cm/sec. This corresponds to a 0 to 49% stenosis in the main left renal artery. IMPRESSION: 1. The main renal arteries are tortuous and not well visualized 2. No sonographically significant stenosis is identified. 3. The renal parenchyma is somewhat thin and echogenic bilaterally. There are no solid renal masses, abnormal calcifications or hydronephrosis noted. Multiple moderate to large simple cysts are noted bilaterally
--- NOTE | 2019-02-14 17:43 | CARD ---
APPROVED REPORT Date of service: 02/14/2019 EXAM: Two-dimensional and M-mode echocardiogram with Doppler and color Doppler. INDICATION LV Function:SystolicDiastolic Chest Pain 2D DIMENSIONS Left Atrium (2D)3.7 (1.6-4.0cm)IVSd1.3 (0.7-1.1cm) LVDd4.4 (3.9-5.9cm)PWd1.0 (0.7-1.1cm) LVDs2.9 (2.5-4.0cm)FS (%) 34.7 % LVEF (%)64.2 (>50%) M-Mode DIMENSIONS Aortic Root2.00 (2.2-3.7cm)Aortic Cusp Exc.1.30 (1.5-2.0cm) Aortic Valve AoV Peak Oyoyjzso360.0cm/Isaiah Peak GR.18mmHg Mitral Valve MV E Amznzvih17.4cm/sMV A Tyynotjp623.0cm/sE/A ratio0.7 TDI E/Lateral E'0.0E/Medial E'0.0 Tricuspid Valve TR Peak [id number]/sRAP [id number] Peak Gr.25mmHg [id number] LEFT VENTRICLE The left ventricle is normal size. Proximal septal thickening is noted.Asymmetrical septal Hypertrophy with IHSS physiology with mild resting gradient ( 18 mm) The left ventricular function is normal.EF-60-65% There is normal LV segmental wall motion. Transmitral Doppler flow pattern is Grade III-reversible restrictive diastolic dysfunction. No left ventricle thrombus noted on this study. There is no ventricular septal defect visualized. There is no left ventricular aneurysm. There is no mass noted in the left ventricle. RIGHT VENTRICLE The right ventricle is normal size. There is normal right ventricular wall thickness. The right ventricular systolic function is normal. ATRIA The left atrium size is normal. The right atrium size is normal. The interatrial septum is intact with no evidence for an atrial septal defect. AORTIC VALVE The aortic valve is thickened but opens well. The aortic valve is mildly to moderately thickened. There is trace aortic regurgitation. Aortc Sclerosis but No Significant . There is no aortic valvular vegetation. MITRAL VALVE The mitral valve is thickened but opens well. Mitral annular calcification is moderate. Mitral regurgitation is mild. There is no mitral valve stenosis. There is no evidence of mitral valve prolapse. TRICUSPID VALVE The tricuspid valve leaflets are thickened , but open well. There is mild tricuspid regurgitation.RVSP-35 mmof Hg. There is no tricuspid valve stenosis. There is no tricuspid valve prolapse or vegetation. PULMONIC VALVE The pulmonary valve is normal in structure. There is trace pulmonic valvular regurgitation. There is no pulmonic valvular stenosis. GREAT VESSELS The aortic root is normal in size. The ascending aorta is normal in size. The pulmonary artery is normal. The IVC is normal in size and collapses >50% with inspiration. PERICARDIAL EFFUSION There is no pleural effusion. There is no pericardial effusion. <Conclusion> The left ventricle is normal size. Proximal septal thickening is noted.Asymmetrical septal Hypertrophy with IHSS physiology with mild resting gradient ( 18 mm) The left ventricular function is normal.EF-60-65% There is trace aortic regurgitation. Mitral regurgitation is mild. There is mild tricuspid regurgitation.RVSP-35 mmof Hg. There is trace pulmonic valvular regurgitation. The IVC is normal in size and collapses >50% with inspiration. There is no pericardial effusion.
[2019-02-15] MEDS: Pantoprazole 40 mg EC Tab PO SCH (06:25)
[2019-02-15 07:12] LABS: BASO # 0.01 K/mm3 (0.0-2.0); BASO % 0.2 % (0.0-3.0); EOS # 0.1 (0.0-0.7); EOS % 1.7 % (1.5-5.0); HEMOGLOBIN 9.8 g/dL (12.0-16.0); LYMPH # 2.3 (1.2-3.4); LYMPH % 35.1 % (22.0-35.0); MEAN CELL VOLUME 91.1 fl (80.0-105.0); MEAN CORPUSCULAR HEMOGLOBIN 30.2 pg (25.0-35.0); MEAN CORPUSCULAR HGB CONC 33.1 g/dl (31.0-37.0); MONO # 0.8 (0.1-0.6); MONO % 11.6 % (1.0-6.0); RBC 3.25 10^6/uL (3.5-6.1); WHITE BLOOD COUNT 6.5 10^3/uL (4.5-11.0)
[2019-02-15 07:33] LABS: ALB/GLOB RATIO 1.2 (1.1-1.8); ALBUMIN 4.2 g/dL (3.0-4.8); CALCIUM 9.2 mg/dL (8.4-10.5)
[2019-02-15] MEDS: Insulin Reg-LOW-Coverage SC SCH ×4 (08:10→21:42)
[2019-02-15] MEDS ORDERED: Sodium Chloride 0.9% 1,000 ML IV SCH (09:00)
[2019-02-15] MEDS: diltiaZEM 240 mg/24 Hours CD Cap PO SCH (09:39)
[2019-02-15] MEDS: methIMAzole 5 MG TAB PO SCH ×2 (09:39→18:18)
[2019-02-15] MEDS ORDERED: Lidocaine 5% Patch TD SCH (10:00)
--- NOTE | 2019-02-15 10:46 | RAD ---
Date of service: 02/15/2019 PROCEDURE: Pelvis and right hip HISTORY: hip pain, h/o pin COMPARISON: 11/20/2014 TECHNIQUE: Three views FINDINGS: There is internal fixation of the right hip that is unchanged. There is minimal joint space narrowing in both hips IMPRESSION: Negative study
--- NOTE | 2019-02-15 11:54 | CP.PCM.PN ---
<Anibal Bhatt - Last Filed: 02/15/19 11:37> Subjective - Date & Time of Evaluation Date of Evaluation: 02/15/19 Time of Evaluation: 07:20 - Subjective Subjective: Anibal Bhatt PGY-1 Progress Note for Hospitalist Service Patient seen and evaluated at bedside. No acute events reported overnight per nursing. Denies any complaints at this time. Currently tolerating heart healthy diet s/p Lexiscan stress test yesterday. Objective - Vital Signs/Intake and Output Vital Signs (last 24 hours): Temp Pulse Resp BP Pulse Ox 97.8 F 62 18 153/69 H 96 02/15/19 05:56 02/15/19 10:00 02/15/19 05:56 02/15/19 09:39 02/15/19 00:01 Intake and Output: 02/15/19 02/15/19 06:59 18:59 Intake Total 1200 Balance 1200 - Medications Medications: Current Medications Acetaminophen (Tylenol 325mg Tab) 650 mg PO Q6H PRN PRN Reason: headache Last Admin: 02/15/19 06:25 Dose: 650 mg Alprazolam (Xanax) 0.25 mg PO DAILY [facility]; Protocol Last Admin: 02/15/19 09:39 Dose: 0.25 mg Ascorbic Acid (Vitamin C 500 Mg Tab) 500 mg PO BID [facility] Last Admin: 02/15/19 09:38 Dose: 500 mg Aspirin (Aspirin Chewable) 81 mg PO DAILY [facility] Last Admin: 02/15/19 09:40 Dose: 81 mg Atorvastatin Calcium (Lipitor) 20 mg PO DIN [facility] Last Admin: 02/14/19 16:52 Dose: 20 mg Bisacodyl (Dulcolax) 5 mg PO DAILY PRN PRN Reason: Constipation Last Admin: 02/14/19 14:14 Dose: 5 mg Carvedilol (Coreg) 25 mg PO BID [facility] Last Admin: 02/15/19 09:40 Dose: 25 mg Dextrose (Dextrose 50% Inj) 0 ml IV STAT PRN; Protocol PRN Reason: Hypoglycemia Protocol Diltiazem HCl (Cardizem Cd) 240 mg PO DAILY [facility] Last Admin: 02/15/19 09:39 Dose: 240 mg Ezetimibe (Zetia) 10 mg PO DAILY [facility] Last Admin: 02/15/19 09:39 Dose: 10 mg Hydralazine HCl (Apresoline) 50 mg PO TID PRN PRN Reason: Systolic Blood Pressure Last Admin: 02/14/19 14:14 Dose: 50 mg Hydrochlorothiazide (Microzide) 12.5 mg PO DAILY [facility] Last Admin: 02/15/19 09:38 Dose: 12.5 mg Dextrose (Dextrose 5% In Water 1000 Ml) 1,000 mls @ 0 mls/hr IV .Q0M PRN; Protocol PRN Reason: Hypoglycemia Protocol Sodium Chloride (Sodium Chloride 0.9%) 1,000 mls @ 100 mls/hr IV .Q10H [facility] Insulin Human Regular (Humulin R Low) 0 units SC ACHS [facility]; Protocol Last Admin: 02/15/19 08:10 Dose: 1 unit Isosorbide Mononitrate (Imdur) 60 mg PO DAILY [facility] Last Admin: 02/15/19 09:39 Dose: 60 mg Lidocaine (Lidoderm) 1 ea TD DAILY [facility] Last Admin: 02/15/19 09:41 Dose: 1 ea Methimazole (Tapazole) 5 mg PO BID [facility] Last Admin: 02/15/19 09:39 Dose: 5 mg Minoxidil (Minoxidil) 2.5 mg PO DAILY [facility] Last Admin: 02/15/19 09:40 Dose: 2.5 mg Pantoprazole Sodium (Protonix Ec Tab) 40 mg PO 0600 [facility] Last Admin: 02/15/19 06:25 Dose: 40 mg Patiromer (Veltassa) 8.4 gm PO DAILY [facility] Stop: 02/17/19 10:01 Last Admin: 02/14/19 14:25 Dose: Not Given Spironolactone (Aldactone) 25 mg PO BID [facility] Last Admin: 02/15/19 09:40 Dose: 25 mg - Labs Labs: 02/15/19 06:45 02/15/19 06:45 - Additional Findings Additional findings: - Constitutional Appears: Well, Non-toxic, No Acute Distress - Head Exam Head Exam: ATRAUMATIC, NORMAL INSPECTION, NORMOCEPHALIC - Eye Exam Eye Exam: EOMI, PERRL Pupil Exam: NORMAL ACCOMODATION - ENT Exam ENT Exam: Mucous Membranes Moist - Respiratory Exam Respiratory Exam: Clear to Auscultation Bilateral, NORMAL BREATHING PATTERN, negative for rales or wheezes - Cardiovascular Exam Cardiovascular Exam: REGULAR RHYTHM, RRR, +S1, +S2, Systolic Murmur (systolic ejection murmur) - GI/Abdominal Exam GI & Abdominal Exam: Normal Bowel Sounds, Soft. absent: Tenderness - Extremities Exam Extremities exam: Positive for: full ROM, pedal pulses present. Negative for: tenderness - Neurological Exam Neurological exam: Alert, CN II-XII Intact, Oriented x3 - Skin Skin Exam: Dry, Intact, Normal Color Assessment and Plan - Assessment and Plan (Free Text) Assessment: 83 year old female with past medical history of hypertension, hyperlipidemia, diabetes mellitus type II, anemia, CKD, hepatic steatosis presents with uncontrolled hypertension and chest pain. Plan: Hypertensive Emergency - improved -Blood pressure was 189/90 increased to systolic blood pressure of 202 -Blood pressure upon presentation to ED was 184/67 -Recent BP controlled -Stress test results: negative Lexiscan, david apical defect not visualized; final nuclear scan report pending -Echocardiogram shows LVEF 64%, RVSP 35, trace AR and mild MR. -Follow up metanephrine to evaluate for etiology of pheochromocytoma -Renal artery duplex shows tortuous main renal arteries, no evidence of stenosis, multiple moderate large cysts bilaterally -Continue home coreg, cardizem, hydrochlorothiazide for now -Losartan on hold due to hyperkalemia -Continue home hydralazine PRN with holding parameters of <160/110 -C/w minoxidil per Nephrology -Discontinue telemetry Acute on Chronic kidney disease -BUN/Cr: 25/1.7 -Started NS @ 100 cc/hr -Random urine sodium 42 and creatinine 51 -Renal artery duplex shows tortuous main renal arteries, no evidence of stenosis, multiple moderate large cysts bilaterally -F/u metanephrines and further urine studies -Dr. Aj recsharee appreciated regarding holding nephrotoxic meds in light of prior hypertension -Cysts to be followed up as outpatient R hip pain -R hip Xray ordered = negative for acute process, past fixation -Lidoderm patch applied Hyperkalemia- improved -K: 5.0 today -Patiromer Calcium Sorbitex -Losartan on hold due to hyperkalemia Normocytic Anemia -Hgb 9.8 this AM -Continue to monitor in AM Chest pain -EKG: NSR with HR: 87 -Trop x4: unremarkable -Continue aspirin 81 mg daily, statin, coreg Diabetes mellitus type II -HgbA1c: 6.8 -Accucheck ACHS -Will continue sliding scale insulin Hyperthyroidism -TSH: 3.61 -T4: 8.3 -Free T4: 0.99 -Continue home methimazole Hyperlipidemia -Lipid panel unremarkable -Continue home statin and zetia Constipation-resolved -Will continue dulcolax PRN for constipation History of Hepatic steatosis -LFTs unremarkable at this time -Continue to monitor Dispo: TCU eval appreciated GI prophylaxis: Pepcid 20 mg BID DVT prophylaxis: Heparin 5000 U Q8 Patient seen, case reviewed and plan approved by Dr. Velazquez. Anibal Bhatt, PGY-1 <Joss Velazquez - Last Filed: 02/15/19 12:06> Objective - Vital Signs/Intake and Output Vital Signs (last 24 hours): Temp Pulse Resp BP Pulse Ox 97.8 F 62 18 153/69 H 96 02/15/19 05:56 02/15/19 10:00 02/15/19 05:56 02/15/19 09:39 02/15/19 00:01 Intake and Output: 02/15/19 02/15/19 06:59 18:59 Intake Total 1200 Balance 1200 - Medications Medications: Current Medications Acetaminophen (Tylenol 325mg Tab) 650 mg PO Q6H PRN PRN Reason: headache Last Admin: 02/15/19 06:25 Dose: 650 mg Alprazolam (Xanax) 0.25 mg PO DAILY [facility]; Protocol Last Admin: 02/15/19 09:39 Dose: 0.25 mg Ascorbic Acid (Vitamin C 500 Mg Tab) 500 mg PO BID [facility] Last Admin: 02/15/19 09:38 Dose: 500 mg Aspirin (Aspirin Chewable) 81 mg PO DAILY [facility] Last Admin: 02/15/19 09:40 Dose: 81 mg Atorvastatin Calcium (Lipitor) 20 mg PO DIN [facility] Last Admin: 02/14/19 16:52 Dose: 20 mg Bisacodyl (Dulcolax) 5 mg PO DAILY PRN PRN Reason: Constipation Last Admin: 02/14/19 14:14 Dose: 5 mg Carvedilol (Coreg) 25 mg PO BID [facility] Last Admin: 02/15/19 09:40 Dose: 25 mg Dextrose (Dextrose 50% Inj) 0 ml IV STAT PRN; Protocol PRN Reason: Hypoglycemia Protocol Diltiazem HCl (Cardizem Cd) 240 mg PO DAILY [facility] Last Admin: 02/15/19 09:39 Dose: 240 mg Ezetimibe (Zetia) 10 mg PO DAILY [facility] Last Admin: 02/15/19 09:39 Dose: 10 mg Hydralazine HCl (Apresoline) 50 mg PO TID PRN PRN Reason: Systolic Blood Pressure Last Admin: 02/14/19 14:14 Dose: 50 mg Hydrochlorothiazide (Microzide) 12.5 mg PO DAILY [facility] Last Admin: 02/15/19 09:38 Dose: 12.5 mg Dextrose (Dextrose 5% In Water 1000 Ml) 1,000 mls @ 0 mls/hr IV .Q0M PRN; Protocol PRN Reason: Hypoglycemia Protocol Sodium Chloride (Sodium Chloride 0.9%) 1,000 mls @ 100 mls/hr IV .Q10H [facility] Last Admin: 02/15/19 11:45 Dose: 100 mls/hr Insulin Human Regular (Humulin R Low) 0 units SC [facility]; Protocol Last Admin: 02/15/19 11:45 Dose: 4 unit Isosorbide Mononitrate (Imdur) 60 mg PO DAILY [facility] Last Admin: 02/15/19 09:39 Dose: 60 mg Lidocaine (Lidoderm) 1 ea TD DAILY [facility] Last Admin: 02/15/19 09:41 Dose: 1 ea Methimazole (Tapazole) 5 mg PO BID [facility] Last Admin: 02/15/19 09:39 Dose: 5 mg Minoxidil (Minoxidil) 2.5 mg PO DAILY [facility] Last Admin: 02/15/19 09:40 Dose: 2.5 mg Pantoprazole Sodium (Protonix Ec Tab) 40 mg PO 0600 [facility] Last Admin: 02/15/19 06:25 Dose: 40 mg Patiromer (Veltassa) 8.4 gm PO DAILY [facility] Stop: 02/17/19 10:01 Last Admin: 02/14/19 14:25 Dose: Not Given Spironolactone (Aldactone) 25 mg PO BID [facility] Last Admin: 02/15/19 09:40 Dose: 25 mg - Labs Labs: 02/15/19 06:45 02/15/19 06:45 Attending/Attestation - Attestation I have personally seen and examined this patient.: Yes I have fully participated in the care of the patient.: Yes I have reviewed all pertinent clinical information, including history, physical exam and plan: Yes Notes (Text): 02/15/19 12:00 83 year old female with past medical history of hypertension, diabetes, hyperthyroidism and CKD who presented with complaint of chest pain and elevated blood pressure. Serial cardiac enzymes have been negative. Stress test was done yesterday which was negative. Chest pain has resolved. Cardiology is foll owing. Nephrology is following as well for poorly controlled hypertension on multiple medications which improved after minoxidil was added. Creatinine is slowly trending up. Continue to monitor creatinine closely; consider holding HCTZ and spironalactone if creatinine continues to increase. Will discuss with nephrology. Today she continues to complain of chronic hip pain. Xray is negative for acute findings. She is started on lidoderm patch. Continue with PT as tolerated who is currently recommending TCU. Will follow up with CMx/Sw. Joss Velazquez MD Hospitalist.
--- NOTE | 2019-02-15 12:27 | CP.PCM.PN ---
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 mg proteinuria (R80.9) likely due to DM/HTN mild Anemia (D64.9), obesity hyperlipidemia hyperthyroidism hyperkalemia Plan No acute need for renal replacement therapy at this time. mild rise in serum cr likely hemodynamic Hypertension control with meds as ordered. Maintain hemodynamics stable. Avoid hypotension. Patient on aldactone. hold losartan for now due to high K. will resume once K better. ordered for veltassa in meantime. low K diet c/w minoxidil 2.5 mg /day for HTN control and hopefully taper off from clonidine/hydralazine. Monitor Input/Output, daily weights and renal function with basic metabolic panel had stress florencio Check urine analysis, spot protein/creatinine, albumin/creatinine ratio, Na/Cr Check for 25-OH vitamin D, iPTH Secondary HTN work up with plasma metanephrine and renal artery Doppler to r/o renal artery stenosis Dose meds/antibiotics for reduced GFR. Avoid fleets enema/magnesium based laxatives. Avoid nephrotoxins/NSAIDs/ iodinated contrast (unless needed emergently) Glycemic control Further work up/management as per primary team Thanks for allowing me to participate in care of your patient. Will follow patient with you. Please call if any Qs. had d/w team Dr Leoncio Aj Office: [phone] Chief Complaint; high BP Reason for consult: HTn management HPI: Pt is a 83 F with hx of diabetes Mellitus (20 years), hypertension (>20 years) obesity hyperlipidemia hyperthyroidism presented with complaints of high BP and chest pain with SOB which are better now Denies OTC/herbal meds or NSAIDs No recent iodinated contrast exposure. No obvious episodes of low BP. denies smoking/etoh/licorice/decongestants says BP usually okay (on many meds) but gets high intermittently without any known reasons not aware about CKD. baseline cr 1.4 ROS: feel dizzy today Cardiovascular: No chest pain. improved Pulmonary: No shortness of breath now. improved Gastrointestinal: denies abdominal pain No nausea. No vomiting. Genitourinary: No pain while urinating. Denies blood in urine. All other negative except as mentioned in HPI Physical Examination: General Appearance: Comfortable, in no acute respiratory distress, co-operative . Vitals reviewed and noted as below Head; Atraumatic, normocephalic ENT: no ulcers no thrush. Tongue is midline. Oropharynx: no rash or ulcers. EYES: Pupils are equal, round and reactive to light accommodation. Eye muscles and extraocular movement intact. Sclera is anicteric. Neck; supple no lymphadenopathy, noted thyromegaly Lungs: Normal respiratory rate/effort. Breath sounds bilateral somwehat reduced at bases Heart: Normal rate. s1s2 normal. No rub or gallop. Extremities: no edema. No varicose veins Neurological: Patient is alert, awake and oriented to person, place and time. No focal deficit. Strength bilateral appropriate and equal Skin: Warm and dry. Normal turgor. No rash. Palpitation: Normal elasticity for age Abdomen: Abdomen is soft. Bowel sounds +. There is no abdominal tenderness, no guarding/rigidity no organomegaly Psych: normal insight and normal affect/mood MSK: no joint tenderness or swelling. Digits and nails normal, no deformity : kidney or bladder not palpable Labs/imaging reviewed. Past medical history, past surgical history, family history, social history, allergy reviewed and noted as below Family hx: no hx of CKD. Rest non-contributory renal imaging: b/l cysts adrenal wnl TSH 3.6 Objective - Vital Signs/Intake and Output Vital Signs (last 24 hours): Temp Pulse Resp BP Pulse Ox 97.8 F 62 18 153/69 H 96 02/15/19 05:56 02/15/19 10:00 02/15/19 05:56 02/15/19 09:39 02/15/19 00:01 Intake and Output: 02/15/19 02/15/19 06:59 18:59 Intake Total 1200 Balance 1200 - Medications Medications: Current Medications Acetaminophen (Tylenol 325mg Tab) 650 mg PO Q6H PRN PRN Reason: headache Last Admin: 02/15/19 06:25 Dose: 650 mg Alprazolam (Xanax) 0.25 mg PO DAILY [facility]; Protocol Last Admin: 02/15/19 09:39 Dose: 0.25 mg Ascorbic Acid (Vitamin C 500 Mg Tab) 500 mg PO BID [facility] Last Admin: 02/15/19 09:38 Dose: 500 mg Aspirin (Aspirin Chewable) 81 mg PO DAILY [facility] Last Admin: 02/15/19 09:40 Dose: 81 mg Atorvastatin Calcium (Lipitor) 20 mg PO DIN [facility] Last Admin: 02/14/19 16:52 Dose: 20 mg Bisacodyl (Dulcolax) 5 mg PO DAILY PRN PRN Reason: Constipation Last Admin: 02/14/19 14:14 Dose: 5 mg Carvedilol (Coreg) 25 mg PO BID [facility] Last Admin: 02/15/19 09:40 Dose: 25 mg Dextrose (Dextrose 50% Inj) 0 ml IV STAT PRN; Protocol PRN Reason: Hypoglycemia Protocol Diltiazem HCl (Cardizem Cd) 240 mg PO DAILY [facility] Last Admin: 02/15/19 09:39 Dose: 240 mg Ezetimibe (Zetia) 10 mg PO DAILY [facility] Last Admin: 02/15/19 09:39 Dose: 10 mg Hydralazine HCl (Apresoline) 50 mg PO TID PRN PRN Reason: Systolic Blood Pressure Last Admin: 02/14/19 14:14 Dose: 50 mg Hydrochlorothiazide (Microzide) 12.5 mg PO DAILY [facility] Last Admin: 02/15/19 09:38 Dose: 12.5 mg Dextrose (Dextrose 5% In Water 1000 Ml) 1,000 mls @ 0 mls/hr IV .Q0M PRN; Protocol PRN Reason: Hypoglycemia Protocol Sodium Chloride (Sodium Chloride 0.9%) 1,000 mls @ 100 mls/hr IV .Q10H [facility] Last Admin: 02/15/19 11:45 Dose: 100 mls/hr Insulin Human Regular (Humulin R Low) 0 units SC ACHS [facility]; Protocol Last Admin: 02/15/19 11:45 Dose: 4 unit Isosorbide Mononitrate (Imdur) 60 mg PO DAILY [facility] Last Admin: 02/15/19 09:39 Dose: 60 mg Lidocaine (Lidoderm) 1 ea TD DAILY [facility] Last Admin: 02/15/19 09:41 Dose: 1 ea Methimazole (Tapazole) 5 mg PO BID [facility] Last Admin: 02/15/19 09:39 Dose: 5 mg Minoxidil (Minoxidil) 2.5 mg PO DAILY [facility] Last Admin: 02/15/19 09:40 Dose: 2.5 mg Pantoprazole Sodium (Protonix Ec Tab) 40 mg PO 0600 [facility] Last Admin: 02/15/19 06:25 Dose: 40 mg Patiromer (Veltassa) 8.4 gm PO DAILY [facility] Stop: 02/17/19 10:01 Last Admin: 02/14/19 14:25 Dose: Not Given Spironolactone (Aldactone) 25 mg PO BID [facility] Last Admin: 02/15/19 09:40 Dose: 25 mg - Labs Labs: 02/15/19 06:45 02/15/19 06:45
[2019-02-16] MEDS: Pantoprazole 40 mg EC Tab PO SCH (05:35)
[2019-02-16 05:44] VITALS: RESP 18; O2SAT 98
[2019-02-16 07:16] LABS: BASO # 0.02 K/mm3 (0.0-2.0); BASO % 0.4 % (0.0-3.0); EOS # 0.1 (0.0-0.7); HEMOGLOBIN 9.1 g/dL (12.0-16.0); LYMPH % 41.6 % (22.0-35.0); MEAN CELL VOLUME 89.8 fl (80.0-105.0); MEAN CORPUSCULAR HGB CONC 34.5 g/dl (31.0-37.0); MEAN PLATELET VOLUME 8.7 fl (7.0-11.0); MONO # 0.5 (0.1-0.6); RBC 2.94 10^6/uL (3.5-6.1); WHITE BLOOD COUNT 4.9 10^3/uL (4.5-11.0)
[2019-02-16 07:26] LABS: ALB/GLOB RATIO 1.2 (1.1-1.8); ALBUMIN 3.6 g/dL (3.0-4.8); CALCIUM 9.1 mg/dL (8.4-10.5)
[2019-02-16] MEDS: Insulin Reg-LOW-Coverage SC SCH (07:55)
--- NOTE | 2019-02-16 08:22 | PN ---
DATE: 02/15/2019 REASON FOR CONSULTATION AND FOLLOWUP: Cardiac evaluation and status post stress test normal. SUBJECTIVE: The patient denies any chest pain, shortness of breath, any palpitation, complaining of right hip pain. OBJECTIVE: GENERAL: Not in apparent distress. VITAL SIGNS: Temperature afebrile. Heart rate 62 and blood pressure 133/74. HEENT: PERRLA. Extraocular muscles intact. NECK: Supple. No carotid bruit. No thyromegaly. CHEST: Clear to auscultation. HEART: S1 and S2, regular. ABDOMEN: Soft. EXTREMITIES: Clubbing and cyanosis negative. LABORATORY DATA: Blood workup as follows, WBC 6.5, hemoglobin 9.8, hematocrit 29.6 and platelet count 318. Chemistry shows sodium 130, potassium 5, chloride 98, carbon dioxide 22, anion gap of 15, BUN 25 and creatinine 1.7. IMPRESSION: An 83-year-old female, obese, with past medical history significant for hypertension, hyperlipidemia, chronic kidney disease, anxiety disorder, diabetes mellitus admitted with uncontrolled hypertension, and some chest discomfort. The patient underwent a stress test that shows normal myocardial perfusion study. The patient had a cardiac catheterization in 2014 after having an abnormal stress which showed nonobstructive coronary artery disease, codominant right artery, mild diffuse 65% nonfocal flow-limiting stenosis. The patient had an echocardiography done yesterday that revealed 60%-65% ejection fraction, proximal septal thickening noted, asymmetric septal hypertrophy , mild resting gradient 18 mmHg, ejection fraction 60-65%, trace aortic with mild mitral, mild tricuspid regurgitation. Stress test shows normal myocardial perfusion, ejection fraction 76%. The patient is complaining of right hip pain. RECOMMENDATION: We will get x-ray of right hip. Also continue beta-tammi for . The patient was on Cardizem already and Carvedilol. We will discontinue telemetry discharge planning. We will follow with you. Thank you Dr. Velazquez for providing us opportunity in taking care of the patient, . As mentioned, the patient has by echo very minimal resting gradient and asymptomatic. We will treat with beta-blockers and the patient is already on Cardizem and beta-tammi. We will follow with you. Stress test negative 4 years ago. The patient had a cardiac catheterization coronary artery disease. We will follow the x-ray of hip when it is done; if remains stable, I will discharge planning. Isidro Maurice MD
[2019-02-16] MEDS: methIMAzole 5 MG TAB PO SCH (10:46)
[2019-02-16] MEDS: diltiaZEM 240 mg/24 Hours CD Cap PO SCH (10:47)
[2019-02-16] MEDS ORDERED: Insulin Lispro (HUMAlog) HIGH Coverage SC SCH (11:30)
[2019-02-16] MEDS ORDERED: Insulin Lispro (humaLOG) MEDIUM Coverage SC SCH (11:30)
[2019-02-16 12:41] VITALS: BP 118/62; PULSE 66; TEMP 98
--- NOTE | 2019-02-16 13:26 | CP.PCM.DIS ---
<Anibal Bhatt - Last Filed: 02/16/19 12:58> Provider - Provider Date of Admission: 02/12/19 19:03 Attending physician: Joss Velazquez MD Primary care physician: Nelsy Giles MD Consults: 02/12/19 20:09 Cardiology Consult Routine Comment: Consulting Provider: Isidro Kirkpatrick Consulting Physician: Isidro Kirkpatrick Reason for Consult: hypertension emergency and CP 02/13/19 00:49 Social Work Referral Routine Comment: Tanja score 8 Physician Instructions: Reason For Exam: Protocol 02/13/19 00:52 Transition In Care/Readmission Reduction Routine Comment: Chest pain Physician Instructions: Reason For Exam: Protocol 02/13/19 07:44 Consult [Physician Consult] Routine Comment: Consulting Provider: Leoncio Aj Consulting Physician: Leoncio Aj Reason for Consult: HTN urgency; CKD 02/13/19 08:00 Nephrology Consult Routine Comment: Consulting Provider: Leoncio Aj Consulting Physician: Leoncio Aj Reason for Consult: uncontrolled HTN and CKD 02/15/19 06:36 TCU [Evaluation for TRCU] Routine Comment: Physician Instructions: Reason For Exam: PT Time Spent in preparation of Discharge (in minutes): 30 Hospital Course - Lab Results Lab Results: Most Recent Lab Values WBC 4.9 10^3/uL (4.5-11.0) D 02/16/19 06:40 RBC 2.94 10^6/uL (3.5-6.1) L 02/16/19 06:40 Hgb 9.1 g/dL (12.0-16.0) L 02/16/19 06:40 Hct 26.4 % (36.0-48.0) L 02/16/19 06:40 MCV 89.8 fl (80.0-105.0) 02/16/19 06:40 MCH 31.0 pg (25.0-35.0) 02/16/19 06:40 MCHC 34.5 g/dl (31.0-37.0) 02/16/19 06:40 RDW 12.0 % (11.5-14.5) 02/16/19 06:40 Plt Count 271 10^3/uL (120.0-450.0) 02/16/19 06:40 MPV 8.7 fl (7.0-11.0) 02/16/19 06:40 Neut % (Auto) 45.0 % (50.0-68.0) L 02/16/19 06:40 Lymph % (Auto) 41.6 % (22.0-35.0) H 02/16/19 06:40 Clay % (Auto) 11.0 % (1.0-6.0) H 02/16/19 06:40 Eos % (Auto) 2.0 % (1.5-5.0) 02/16/19 06:40 Baso % (Auto) 0.4 % (0.0-3.0) 02/16/19 06:40 Lymph # (Auto) 2.0 (1.2-3.4) 02/16/19 06:40 Clay # (Auto) 0.5 (0.1-0.6) 02/16/19 06:40 Eos # (Auto) 0.1 (0.0-0.7) 02/16/19 06:40 Baso # (Auto) 0.02 K/mm3 (0.0-2.0) 02/16/19 06:40 Absolute Neuts (auto) 2.20 (1.4-6.5) 02/16/19 06:40 Sodium 132 mmol/L (132-148) 02/16/19 06:40 Potassium 4.9 mmol/L (3.6-5.0) 02/16/19 06:40 Chloride 101 mmol/L (98-107) 02/16/19 06:40 Carbon Dioxide 22 mmol/L (21-33) 02/16/19 06:40 Anion Gap 14 (10-20) 02/16/19 06:40 BUN 23 mg/dL (7-21) H 02/16/19 06:40 Creatinine 1.4 mg/dl (0.7-1.2) H 02/16/19 06:40 Est GFR ( Amer) 44 02/16/19 06:40 Est GFR (Non-Af Amer) 36 02/16/19 06:40 POC Glucose (mg/dL) 210 mg/dL (65-110) H 02/16/19 07:36 Random Glucose 176 mg/dL (70-110) H 02/16/19 06:40 Hemoglobin A1c 6.8 % (4.2-6.5) H 02/13/19 07:50 Calcium 9.1 mg/dL (8.4-10.5) 02/16/19 06:40 Phosphorus 4.1 mg/dL (2.5-4.5) 02/15/19 06:45 Magnesium 1.8 mg/dL (1.7-2.2) 02/15/19 06:45 Total Bilirubin 0.4 mg/dL (0.2-1.3) 02/16/19 06:40 AST 29 U/L (14-36) 02/16/19 06:40 ALT 23 U/L (7-56) 02/16/19 06:40 Alkaline Phosphatase 56 U/L (38-126) 02/16/19 06:40 Lactate Dehydrogenase 543 U/L (333-699) 02/12/19 17:36 Total Creatine Kinase 255 U/L (35-230) H 02/12/19 17:36 CK-MB (CK-2) 1.3 ng/mL (0.0-3.6) 02/12/19 17:36 CK-MB (CK-2) % Cancelled 02/12/19 17:36 Troponin I < 0.01 ng/mL 02/13/19 11:30 NT-Pro-B Natriuret Pep 74.6 pg/mL (0-450) 02/12/19 17:36 Total Protein 6.7 g/dL (5.8-8.3) 02/16/19 06:40 Albumin 3.6 g/dL (3.0-4.8) 02/16/19 06:40 Globulin 3.1 gm/dL 02/16/19 06:40 Albumin/Globulin Ratio 1.2 (1.1-1.8) 02/16/19 06:40 Triglycerides 102 mg/dL (35-160) 02/12/19 17:36 Cholesterol 128 mg/dL (130-200) L 02/12/19 17:36 LDL Cholesterol Direct 60 mg/dL (0-129) 02/12/19 17:36 HDL Cholesterol 40 mg/dL (29-60) 02/12/19 17:36 25-OH Vitamin D Total 30.8 NG/ML (30.0-100.0) 02/14/19 06:30 Free T4 0.99 ng/dL (0.78-2.19) 02/12/19 17:35 Thyroxine (T4) 8.3 ug/dL (5.5-11.0) 02/12/19 17:35 TSH 3rd Generation 3.61 mIU/mL (0.46-4.68) 02/12/19 17:35 PTH Intact Whole Molec 84 pg/mL (14-64) H 02/13/19 07:50 Urine Color Yellow (YELLOW) 02/13/19 17:45 Urine Appearance Clear (CLEAR) 02/13/19 17:45 Urine pH 6.0 (4.7-8.0) 02/13/19 17:45 Ur Specific [place] <= 1.005 (1.005-1.035) 02/13/19 17:45 Urine Protein Negative mg/dL (<30 mg/dL) 02/13/19 17:45 Urine Glucose (UA) Negative mg/dL (NEGATIVE) 02/13/19 17:45 Urine Ketones Negative mg/dL (NEGATIVE) 02/13/19 17:45 Urine Blood Negative (NEGATIVE) 02/13/19 17:45 Urine Nitrate Negative (NEGATIVE) 02/13/19 17:45 Urine Bilirubin Negative (NEGATIVE) 02/13/19 17:45 Urine Urobilinogen 0.2 E.U./dL (<1 E.U./dL) 02/13/19 17:45 Ur Leukocyte Esterase Negative Pb/uL (NEGATIVE) 02/13/19 17:45 Ur Random Creatinine 48 mg/dL (20-275) 02/13/19 17:50 U Random Total Protein 122 mg/g creat (21-161) 02/13/19 17:50 Ur Random Sodium 42 meq/L 02/13/19 17:50 Urine Total Volume 1.1 mg/dL 02/13/19 17:50 Microalb/Creat Ratio 24 (<30) 02/13/19 17:50 Urine Opiates Screen Negative (NEGATIVE) 02/14/19 04:00 Urine Methadone Screen Negative (NEGATIVE) 02/14/19 04:00 Ur Barbiturates Screen Negative (NEGATIVE) 02/14/19 04:00 Ur Phencyclidine Scrn Negative (NEGATIVE) 02/14/19 04:00 Ur Amphetamines Screen Negative (NEGATIVE) 02/14/19 04:00 U Benzodiazepines Scrn Negative (NEGATIVE) 02/14/19 04:00 U Oth Cocaine Metabols Negative (NEGATIVE) 02/14/19 04:00 U Cannabinoids Screen Negative (NEGATIVE) 02/14/19 04:00 - Hospital Course Hospital Course: Anibal Bhatt, PGY-1 Discharge Summary for Hospitalist Service 83 year old female with past medical history of hypertension, diabetes, hyperthyroidism and CKD who presented with complaint of chest pain and elevated blood pressure. Cardiology - Dr. Kirkpatrick - was consulted. Serial cardiac enzymes have been negative. Lexiscan stress testwas ordered and results were negative. Previous apical defect was not visualized. Echocardiogram was ordered and shows LVEF 64%, RVSP 35, trace AR and mild MR. Chest pain has resolved without further palpitations or shortness of breath. Cardiology recommended continuing patient on Carvedilol, ASA, Lipitor, Cardizem, Imdur. Nephrology was consulted - Dr. Aj - for poorly controlled hypertension on multiple medications, including HCTZ, Aldactone, Hydralazine, Losartan. BP improved after beginning Minoxidil 2.5 mg BID, which was subsequently decreased to daily. Creatinine was initially trending up but then returned to baseline. Patient had hyperkalemia up to 5.2, at which point Losartan was held. Hyperkalemia resolved. Nephrology recommended discontinuing hydralazine, clonidine and Losartan at time of transfer. Patient has also endorsed complaint of chronic hip pain. Xray is negative for acute findings. She was started on lidoderm patch and then subsequently on Tramadol for pain control. Physical therapy recommended TCU, which patient initially refused. Daughter was at bedside, and patient was amenable to go to TCU on day of discharge. Blood pressure was controlled and patient states Ultram has helped RLE pain. Patient was seen at bedside and all follow up questions were answered in detail and to patient satisfaction. Patient seen, case reviewed and plan approved by Dr. Velazquez. Discharge Exam - Additional Findings Additional findings: - Constitutional Appears: Well, Non-toxic, No Acute Distress - Head Exam Head Exam: ATRAUMATIC, NORMAL INSPECTION, NORMOCEPHALIC - Eye Exam Eye Exam: EOMI, PERRL Pupil Exam: NORMAL ACCOMODATION - ENT Exam ENT Exam: Mucous Membranes Moist - Respiratory Exam Respiratory Exam: Clear to Auscultation Bilateral, NORMAL BREATHING PATTERN, negative for rales or wheezes - Cardiovascular Exam Cardiovascular Exam: REGULAR RHYTHM, RRR, +S1, +S2, Systolic Murmur (systolic ejection murmur) - GI/Abdominal Exam GI & Abdominal Exam: Normal Bowel Sounds, Soft. absent: Tenderness - Extremities Exam Extremities exam: Positive for: full ROM, pedal pulses present. Negative for: tenderness - Neurological Exam Neurological exam: Alert, CN II-XII Intact, Oriented x3 - Skin Skin Exam: Dry, Intact, Normal Color Discharge Plan - Discharge Medications Prescriptions: Carvedilol [Coreg] 25 mg PO BID #30 tab [id number] CD [Cardizem CD] 240 mg PO DAILY #15 cap hydroCHLOROthiazide [Microzide] 12.5 mg PO DAILY #15 cap Minoxidil 2.5 mg PO DAILY #15 tab Spironolactone [Aldactone] 25 mg PO BID #30 tab - Follow Up Plan Condition: IMPROVED Disposition: REHAB FACILITY/REHAB UNIT Instructions: High Blood Pressure in Adults, Diabetic Meal Planning , Chest Pain (DC) Additional Instructions: Follow up with orthopedist within one week regarding RLE pain. Follow up license examiner outpatient for renal cysts Referrals: Nelsy Cyr MD [Primary Care Provider] - <Joss Velazquez - Last Filed: 02/16/19 13:44> Provider - Provider Date of Admission: 02/12/19 19:03 Attending physician: Joss Velazquez MD Primary care physician: Nelsy Giles MD Consults: 02/12/19 20:09 Cardiology Consult Routine Comment: Consulting Provider: Isidro Kirkpatrick Consulting Physician: Isidro Kirkpatrick Reason for Consult: hypertension emergency and CP 02/13/19 00:49 Social Work Referral Routine Comment: Tanja score 8 Physician Instructions: Reason For Exam: Protocol 02/13/19 00:52 Transition In Care/Readmission Reduction Routine Comment: Chest pain Physician Instructions: Reason For Exam: Protocol 02/13/19 07:44 Consult [Physician Consult] Routine Comment: Consulting Provider: Leoncio Aj Consulting Physician: Leoncio Aj Reason for Consult: HTN urgency; CKD 02/13/19 08:00 Nephrology Consult Routine Comment: Consulting Provider: Leoncio Aj Consulting Physician: Leoncio Aj Reason for Consult: uncontrolled HTN and CKD 02/15/19 06:36 TCU [Evaluation for TRCU] Routine Comment: Physician Instructions: Reason For Exam: PT Time Spent in preparation of Discharge (in minutes): 35 Hospital Course - Lab Results Lab Results: Most Recent Lab Values WBC 4.9 10^3/uL (4.5-11.0) D 02/16/19 06:40 RBC 2.94 10^6/uL (3.5-6.1) L 02/16/19 06:40 Hgb 9.1 g/dL (12.0-16.0) L 02/16/19 06:40 Hct 26.4 % (36.0-48.0) L 02/16/19 06:40 MCV 89.8 fl (80.0-105.0) 02/16/19 06:40 MCH 31.0 pg (25.0-35.0) 02/16/19 06:40 MCHC 34.5 g/dl (31.0-37.0) 02/16/19 06:40 RDW 12.0 % (11.5-14.5) 02/16/19 06:40 Plt Count 271 10^3/uL (120.0-450.0) 02/16/19 06:40 MPV 8.7 fl (7.0-11.0) 02/16/19 06:40 Neut % (Auto) 45.0 % (50.0-68.0) L 02/16/19 06:40 Lymph % (Auto) 41.6 % (22.0-35.0) H 02/16/19 06:40 Clay % (Auto) 11.0 % (1.0-6.0) H 02/16/19 06:40 Eos % (Auto) 2.0 % (1.5-5.0) 02/16/19 06:40 Baso % (Auto) 0.4 % (0.0-3.0) 02/16/19 06:40 Lymph # (Auto) 2.0 (1.2-3.4) 02/16/19 06:40 Clay # (Auto) 0.5 (0.1-0.6) 02/16/19 06:40 Eos # (Auto) 0.1 (0.0-0.7) 02/16/19 06:40 Baso # (Auto) 0.02 K/mm3 (0.0-2.0) 02/16/19 06:40 Absolute Neuts (auto) 2.20 (1.4-6.5) 02/16/19 06:40 Sodium 132 mmol/L (132-148) 02/16/19 06:40 Potassium 4.9 mmol/L (3.6-5.0) 02/16/19 06:40 Chloride 101 mmol/L (98-107) 02/16/19 06:40 Carbon Dioxide 22 mmol/L (21-33) 02/16/19 06:40 Anion Gap 14 (10-20) 02/16/19 06:40 BUN 23 mg/dL (7-21) H 02/16/19 06:40 Creatinine 1.4 mg/dl (0.7-1.2) H 02/16/19 06:40 Est GFR ( Amer) 44 02/16/19 06:40 Est GFR (Non-Af Amer) 36 02/16/19 06:40 POC Glucose (mg/dL) 210 mg/dL (65-110) H 02/16/19 07:36 Random Glucose 176 mg/dL (70-110) H 02/16/19 06:40 Hemoglobin A1c 6.8 % (4.2-6.5) H 02/13/19 07:50 Calcium 9.1 mg/dL (8.4-10.5) 02/16/19 06:40 Phosphorus 4.1 mg/dL (2.5-4.5) 02/15/19 06:45 Magnesium 1.8 mg/dL (1.7-2.2) 02/15/19 06:45 Total Bilirubin 0.4 mg/dL (0.2-1.3) 02/16/19 06:40 AST 29 U/L (14-36) 02/16/19 06:40 ALT 23 U/L (7-56) 02/16/19 06:40 Alkaline Phosphatase 56 U/L (38-126) 02/16/19 06:40 Lactate Dehydrogenase 543 U/L (333-699) 02/12/19 17:36 Total Creatine Kinase 255 U/L (35-230) H 02/12/19 17:36 CK-MB (CK-2) 1.3 ng/mL (0.0-3.6) 02/12/19 17:36 CK-MB (CK-2) % Cancelled 02/12/19 17:36 Troponin I < 0.01 ng/mL 02/13/19 11:30 NT-Pro-B Natriuret Pep 74.6 pg/mL (0-450) 02/12/19 17:36 Total Protein 6.7 g/dL (5.8-8.3) 02/16/19 06:40 Albumin 3.6 g/dL (3.0-4.8) 02/16/19 06:40 Globulin 3.1 gm/dL 02/16/19 06:40 Albumin/Globulin Ratio 1.2 (1.1-1.8) 02/16/19 06:40 Triglycerides 102 mg/dL (35-160) 02/12/19 17:36 Cholesterol 128 mg/dL (130-200) L 02/12/19 17:36 LDL Cholesterol Direct 60 mg/dL (0-129) 02/12/19 17:36 HDL Cholesterol 40 mg/dL (29-60) 02/12/19 17:36 25-OH Vitamin D Total 30.8 NG/ML (30.0-100.0) 02/14/19 06:30 Free T4 0.99 ng/dL (0.78-2.19) 02/12/19 17:35 Thyroxine (T4) 8.3 ug/dL (5.5-11.0) 02/12/19 17:35 TSH 3rd Generation 3.61 mIU/mL (0.46-4.68) 02/12/19 17:35 PTH Intact Whole Molec 84 pg/mL (14-64) H 02/13/19 07:50 Urine Color Yellow (YELLOW) 02/13/19 17:45 Urine Appearance Clear (CLEAR) 02/13/19 17:45 Urine pH 6.0 (4.7-8.0) 02/13/19 17:45 Ur Specific [place] <= 1.005 (1.005-1.035) 02/13/19 17:45 Urine Protein Negative mg/dL (<30 mg/dL) 02/13/19 17:45 Urine Glucose (UA) Negative mg/dL (NEGATIVE) 02/13/19 17:45 Urine Ketones Negative mg/dL (NEGATIVE) 02/13/19 17:45 Urine Blood Negative (NEGATIVE) 02/13/19 17:45 Urine Nitrate Negative (NEGATIVE) 02/13/19 17:45 Urine Bilirubin Negative (NEGATIVE) 02/13/19 17:45 Urine Urobilinogen 0.2 E.U./dL (<1 E.U./dL) 02/13/19 17:45 Ur Leukocyte Esterase Negative Pb/uL (NEGATIVE) 02/13/19 17:45 Ur Random Creatinine 48 mg/dL (20-275) 02/13/19 17:50 U Random Total Protein 122 mg/g creat (21-161) 02/13/19 17:50 Ur Random Sodium 42 meq/L 02/13/19 17:50 Urine Total Volume 1.1 mg/dL 02/13/19 17:50 Microalb/Creat Ratio 24 (<30) 02/13/19 17:50 Urine Opiates Screen Negative (NEGATIVE) 02/14/19 04:00 Urine Methadone Screen Negative (NEGATIVE) 02/14/19 04:00 Ur Barbiturates Screen Negative (NEGATIVE) 02/14/19 04:00 Ur Phencyclidine Scrn Negative (NEGATIVE) 02/14/19 04:00 Ur Amphetamines Screen Negative (NEGATIVE) 02/14/19 04:00 U Benzodiazepines Scrn Negative (NEGATIVE) 02/14/19 04:00 U Oth Cocaine Metabols Negative (NEGATIVE) 02/14/19 04:00 U Cannabinoids Screen Negative (NEGATIVE) 02/14/19 04:00 Attending/Attestation - Attestation I have personally seen and examined this patient.: Yes I have fully participated in the care of the patient.: Yes I have reviewed all pertinent clinical information, including history, physical exam and plan: Yes Notes (Text): 02/16/19 13:41 83 year old female with past medical history of hypertension, diabetes, hyperthyroidism and CKD who presented with complaint of chest pain and elevated blood pressure. Serial cardiac enzymes have been negative. Stress test was done which was negative. Chest pain has resolved. Cardiology has been following. Nephrology was following as well for poorly controlled hypertension on multiple medications. BP improved after minoxidil was added. Creatinine slowly trending up but also improved today after IVF. Patient complains of chronic hip pain. She reports history of hip surgery in the past. Xray was negative for acute findings. She was started on lidoderm patch and tramadol for pain. She was seen by PT who recommended TCU. She initially refused but is now agreeable. Patient will be transferred to TCU. Joss Velazquez MD Hospitalist.
--- NOTE | 2019-02-16 22:07 | PN ---
DATE: 02/16/2019 REASON FOR CONSULTATION: Followup, cardiac evaluation, status post normal stress test. SUBJECTIVE: The patient denies any chest pain, shortness of breath, or any palpitation. Complaining of right hip pain. PHYSICAL EXAMINATION: GENERAL: Not in apparent distress. VITAL SIGNS: As follow: Temperature afebrile, heart rate 86, and blood pressure 101/86. HEENT: PERRLA. Extraocular muscles intact. NECK: Supple. No carotid bruits. No thyromegaly. CHEST: Clear to auscultation. HEART: S1 and S2, regular. ABDOMEN: Soft. EXTREMITIES: Clubbing and cyanosis are negative. LABORATORY DATA: Blood workup as follows: WBC 4.8, hemoglobin 9, hematocrit 26.4, and platelet count 271. Chemistry shows sodium 130, potassium 4.9, chloride 101, carbon dioxide of 22, anion gap of 14, BUN 23, and creatinine 1.1. Complaining of right hip pain. Hip x-ray reviewed, done yesterday, essentially normal. IMPRESSION: An 83-year-old female, obese with past medical history significant for hypertension, hyperlipidemia, chronic kidney disease, anxiety, history of diabetes. Admitted with chest discomfort. The patient has a stress test which is essentially normal. The patient had a cardiac catheterization in 2014 after having abnormal stress test at that time showed nonobstructive coronary artery disease, codominant right coronary artery, mildly diffuse, non-flow limiting disease. The patient had a recent stress test that is normal. The patient had an echocardiography done day before which showed an ejection fraction of 60% to 65%, proximal septal thickening, asymmetric septal hypertrophy with idiopathic hypertrophic subaortic stenosis etiology, resting gradient 18 mm. RECOMMENDATIONS: Continue beta tammi. We will sign off and glad to follow p.r.n. Thank you Dr. Velazquez for providing us the opportunity in taking care of the patient. Isidro Maurice MD
== END 2019-02-16 14:24 | DRG 305 ==
LOC: ED 16:53 → ERH 19:03 → 2RSO 20:27
PROVIDERS: ADMIT Internal Medicine; ATTEND Internal Medicine
DX: I16.1 Hypertensive emergency (principal); R07.89 Other chest pain; I12.9 Hypertensive chronic kidney disease with stage 1 through stage 4 chronic kidney disease, or unspecified chronic kidney disease; E11.22 Type 2 diabetes mellitus with diabetic chronic kidney disease; N18.3 Chronic kidney disease, stage 3 (moderate); D63.1 Anemia in chronic kidney disease; I25.10 Atherosclerotic heart disease of native coronary artery without angina pectoris; E87.5 Hyperkalemia; E05.90 Thyrotoxicosis, unspecified without thyrotoxic crisis or storm; E78.5 Hyperlipidemia, unspecified; J45.909 Unspecified asthma, uncomplicated; K76.0 Fatty (change of) liver, not elsewhere classified; G89.29 Other chronic pain; M25.559 Pain in unspecified hip; E66.9 Obesity, unspecified; Z68.30 Body mass index [BMI] 30.0-30.9, adult; M41.9 Scoliosis, unspecified; K59.00 Constipation, unspecified; Z79.899 Other long term (current) drug therapy; Z79.51 Long term (current) use of inhaled steroids; Z87.891 Personal history of nicotine dependence

== ENCOUNTER 2019-02-16 14:29 | Inpatient (IN) | payer OTHER, BC ==
[2019-02-16 15:50] VITALS: BMI 31.2
--- NOTE | 2019-02-16 17:08 | CP.PCM.CON ---
History of Present Illness - History of Present Illness History of Present Illness: Nephrology Consultation Note: Assessment: Stable uncontrolled HTN: improved chest pain resolved. 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 mild fluctuation in serum cr likely hemodynamic Hypertension control with meds as ordered. Maintain hemodynamics stable. Avoid hypotension. Patient on aldactone. also on coreg, CCB, nirates and thiazide. continue same held losartan for now due to high K. will resume once K better. low K diet Also will continue with minoxidil 2.5 mg /day for better HTN control Monitor Input/Output, daily weights and renal function with basic metabolic panel orthostatic vitals signs Secondary HTN work up with plasma metanephrine pending. doppler neg. didn't check bo level as already on aldactone. Dose meds/antibiotics for reduced GFR. Avoid fleets enema/magnesium based laxatives. Avoid nephrotoxins/NSAIDs/ iodinated contrast (unless needed emergently) Glycemic control Further work up/management as per primary team Thanks for allowing me to participate in care of your patient. Will follow patient with you. Please call if any Qs. had d/w team Dr Leoncio Aj Office: [phone] Chief Complaint; high BP Reason for consult: HTN management HPI: Pt is a 83 F with hx of diabetes Mellitus (20 years), hypertension (>20 years) obesity hyperlipidemia hyperthyroidism admitted to hospital initially with complaints of high BP and chest pain with SOB which are better now Denies OTC/herbal meds or NSAIDs No recent iodinated contrast exposure. denies smoking/etoh/licorice/decongestants says BP usually okay (on many meds) but gets high intermittently without any known reasons not aware about CKD. baseline cr 1.4 pt got d/c to [facility] and seen for HTN and CKD management ROS: feel dizzy intermittently Cardiovascular: No chest pain. improved Pulmonary: No shortness of breath now. improved Gastrointestinal: denies abdominal pain No nausea. No vomiting. Genitourinary: No pain while urinating. Denies blood in urine. All other negative except as mentioned in HPI Physical Examination: General Appearance: Comfortable, in no acute respiratory distress, co-operative . Vitals reviewed and noted as below Head; Atraumatic, normocephalic ENT: no ulcers no thrush. Tongue is midline. Oropharynx: no rash or ulcers. EYES: Pupils are equal, round and reactive to light accommodation. Eye muscles and extraocular movement intact. Sclera is anicteric. Neck; supple no lymphadenopathy, noted thyromegaly Lungs: Normal respiratory rate/effort. Breath sounds bilateral somwehat reduced at bases Heart: Normal rate. s1s2 normal. No rub or gallop. Extremities: no edema. No varicose veins Neurological: Patient is alert, awake and oriented to person, place and time. No focal deficit. Strength bilateral appropriate and equal Skin: Warm and dry. Normal turgor. No rash. Palpitation: Normal elasticity for age Abdomen: Abdomen is soft. Bowel sounds +. There is no abdominal tenderness, no guarding/rigidity no organomegaly Psych: normal insight and normal affect/mood MSK: no joint tenderness or swelling. Digits and nails normal, no deformity : kidney or bladder not palpable Labs/imaging reviewed. Past medical history, past surgical history, family history, social history, allergy reviewed and noted as below Family hx: no hx of CKD. Rest non-contributory renal imaging: b/l cysts. doppler neg for SHERIF adrenal wnl TSH 3.6 Past Patient History - Infectious Disease Hx of Infectious Diseases: None - Tetanus Immunizations Tetanus Immunization: Unknown - Past Social History Smoking Status: Former Smoker - CARDIAC Hx Hypercholesterolemia: Yes (HLD) - PULMONARY Hx Asthma: Yes - NEUROLOGICAL Hx Neurological Disorder: No - HEENT Hx HEENT Problems: No - RENAL Hx Chronic Kidney Disease: No - ENDOCRINE/METABOLIC Hx Diabetes Mellitus Type 2: Yes - HEMATOLOGICAL/ONCOLOGICAL Hx Blood Disorders: No - INTEGUMENTARY Hx Dermatological Problems: No - MUSCULOSKELETAL/RHEUMATOLOGICAL Hx Arthritis: Yes - GASTROINTESTINAL Hx Gastrointestinal Disorders: No - GENITOURINARY/GYNECOLOGICAL Hx Genitourinary Disorders: No - PSYCHIATRIC Hx Psychophysiologic Disorder: Yes Hx Anxiety: Yes Hx Substance Use: No - SURGICAL HISTORY Hx Appendectomy: Yes Hx Hysterectomy: Yes - ANESTHESIA Hx Anesthesia Reactions: No Meds Allergies/Adverse Reactions: Allergies Allergy/AdvReac Type Severity Reaction Status Date / Time No Known Allergies Allergy Verified 02/12/16 15:53 - Medications Medications: Current Medications Acetaminophen (Tylenol 325mg Tab) 650 mg PO Q6H PRN PRN Reason: Headache Alprazolam (Xanax) 0.25 mg PO DAILY [facility]; Protocol Aspirin (Aspirin Chewable) 81 mg PO DAILY [facility] Atorvastatin Calcium (Lipitor) 20 mg PO DIN [facility] Bisacodyl (Dulcolax) 5 mg PO DAILY PRN PRN Reason: Constipation Carvedilol (Coreg) 25 mg PO BID [facility] Diltiazem HCl (Cardizem Cd) 240 mg PO DAILY [facility] Ezetimibe (Zetia) 10 mg PO DAILY [facility] Famotidine (Pepcid) 20 mg PO DAILY [facility] Heparin Sodium (Porcine) (Heparin) 5,000 units SC Q8 [facility]; Protocol Hydrochlorothiazide (Microzide) 12.5 mg PO DAILY [facility] Insulin Human Lispro (Humalog Med) 0 units SC ACHS [facility]; Protocol Isosorbide Mononitrate (Imdur) 60 mg PO 1400 [facility] Latanoprost (Xalatan Opht) 0 ml OU DAILY [facility] Methimazole (Tapazole) 5 mg PO DAILY [facility] Minoxidil (Minoxidil) 2.5 mg PO DAILY [facility] Non-Formulary Medication (Mometasone/Formoterol [Dulera 200 Mcg/5 Mcg Inhaler]) 2 puff PO HS [facility] Spironolactone (Aldactone) 25 mg PO BID [facility] Tramadol HCl (Ultram) 50 mg PO TID PRN PRN Reason: Pain, moderate (4-7) Results - Vital Signs Recent Vital Signs: Last Vital Signs Temp 97.4 F L 02/16/19 16:57 Pulse 84 02/16/19 16:57 Resp 18 02/16/19 16:57 BP 129/82 02/16/19 16:57 Pulse Ox 95 02/16/19 16:57
[2019-02-16] MEDS: Insulin Lispro (humaLOG) MEDIUM Coverage SC SCH ×2 (17:41→21:37)
[2019-02-16] MEDS ORDERED: Influenza Vaccine 60 mcg/0.5 mL SYR (4YR UP) IM ONE (19:02)
[2019-02-16] MEDS ORDERED: Pneumococcal 23-Valent Vaccine IM ONE (19:02)
[2019-02-16] MEDS ORDERED: Arformoterol 15 mcg/2 ml Inh Sol IH SCH (20:00)
[2019-02-16] MEDS: Budesonide 0.5 mg/2 ml Inhal Susp UD IH SCH (20:51)
[2019-02-16] MEDS: Arformoterol 15 mcg/2 ml Inh Sol IH SCH (20:51)
[2019-02-16] MEDS ORDERED: MOMETASONE PO SCH (22:00)
[2019-02-16] MEDS ORDERED: FORMOTEROL PO SCH (22:00)
[2019-02-17] MEDS: Insulin Lispro (humaLOG) MEDIUM Coverage SC SCH ×4 (06:29→22:05)
[2019-02-17] MEDS: Budesonide 0.5 mg/2 ml Inhal Susp UD IH SCH ×2 (07:27→20:11)
[2019-02-17] MEDS: Arformoterol 15 mcg/2 ml Inh Sol IH SCH ×2 (07:27→20:11)
[2019-02-17 07:54] LABS: CALCIUM 8.6 mg/dL (8.4-10.5)
[2019-02-17 07:57] LABS: BASO # 0.01 K/mm3 (0.0-2.0); BASO % 0.2 % (0.0-3.0); EOS # 0.1 (0.0-0.7); EOS % 1.9 % (1.5-5.0); HEMOGLOBIN 9.5 g/dL (12.0-16.0); LYMPH # 2.2 (1.2-3.4); LYMPH % 41.9 % (22.0-35.0); MEAN CELL VOLUME 90.5 fl (80.0-105.0); MEAN CORPUSCULAR HEMOGLOBIN 31.3 pg (25.0-35.0); MEAN CORPUSCULAR HGB CONC 34.5 g/dl (31.0-37.0); MONO # 0.6 (0.1-0.6); MONO % 11.4 % (1.0-6.0); RBC 3.04 10^6/uL (3.5-6.1); RED CELL DISTRIBUTION WIDTH 12.1 % (11.5-14.5); WHITE BLOOD COUNT 5.2 10^3/uL (4.5-11.0)
[2019-02-17] MEDS ORDERED: methIMAzole 5 MG TAB PO SCH (10:00)
[2019-02-17] MEDS ORDERED: Ergocalciferol 50,000 Intl Units Cap PO ONE (10:00)
[2019-02-17] MEDS: diltiaZEM 240 mg/24 Hours CD Cap PO SCH (10:35)
[2019-02-17] MEDS: Latanoprost 2.5 ml Opht Soln OU SCH ×3 (10:41→21:05)
--- NOTE | 2019-02-17 12:44 | CP.PCM.HP ---
<Anibal Bhatt - Last Filed: 02/17/19 12:40> History of Present Illness - History of Present Illness History of Present Illness: Anibal Bhatt, PGY-1 History and Physical for Hospitalist Service 83 year old female with past medical history of hypertension, hyperlipidemia, diabetes mellitus type II, anemia, CKD, hyperthyroidism who presents with uncontrolled hypertension and chest pain. Patient was recently on the medical floors for evaluation of R hip pain and uncontrolled hypertension. Cardiology was consulted. Serial cardiac enzymes were negative. Lexiscan stress test was negative. Previous apical defect was not visualized. Echocardiogram was ordered and shows LVEF 64%, RVSP 35, trace AR and mild MR. Chest pain has resolved without further palpitations or shortness of breath. Cardiology recommended continuing patient on Carvedilol, ASA, Lipitor, Cardizem, Imdur. Nephrology was also consulted - Dr. Aj - for poorly controlled hypertension on multiple medications, including HCTZ, Aldactone, Hydralazine, Losartan. BP improved after beginning Minoxidil 2.5 mg BID, which was subsequently decreased to daily. Creatinine was initially trending up but then returned to baseline. Patient had hyperkalemia up to 5.2, at which point Losartan was held. Hyperkalemia resolved. Patient has also endorsed complaint of chronic hip pain. Xray is negative for acute findings. She was started on lidoderm patch and then subsequently on Tramadol for pain control. PMH: hypertension, hyperlipidemia, diabetes mellitus type II, anemia, CKD, hepatic steatosis PSH: hysterectomy, appendectomy FMHx: Mother and Father: hypertension SHx: denies history of alcohol, tobacco, and recreational use Allergies: NKDA PMD: Dr. Haque Medications: methimazole 5 mg BID, zetia 10 mg daily, hydralazine 50 mg TID, Coreg 25 mg BID, cardizem 240 mg daily and 120 mg daily, amitiza 24 mcg BID, sp ironolactone 25 mg BID, pepcid 20 mg BID PRN, xanax 0.25 mg daily, pravastatin 80 mg daily, hydrochlorothiazide 12.5 mg BID Pharmacy: [facility] in [place] Present on Admission - Present on Admission Any Indicators Present on Admission: No Review of Systems - Review of Systems Review of Systems: 12 point ROS completed and negative except as described in HPI. Past Patient History - Infectious Disease Hx of Infectious Diseases: None - Tetanus Immunizations Tetanus Immunization: Unknown - Past Social History Smoking Status: Former Smoker - CARDIAC Hx Hypercholesterolemia: Yes Hx Hypertension: Yes - PULMONARY Hx Asthma: Yes - NEUROLOGICAL Hx Neurological Disorder: No - HEENT Hx HEENT Problems: No - RENAL Hx Chronic Kidney Disease: No - ENDOCRINE/METABOLIC Hx Diabetes Mellitus Type 2: Yes Hx Hypothyroidism: Yes - HEMATOLOGICAL/ONCOLOGICAL Hx Blood Disorders: No - INTEGUMENTARY Hx Dermatological Problems: No - MUSCULOSKELETAL/RHEUMATOLOGICAL Hx Arthritis: Yes - GASTROINTESTINAL Hx Gastrointestinal Disorders: Yes (reflux constipation) - GENITOURINARY/GYNECOLOGICAL Hx Genitourinary Disorders: Yes (uses diaper if unable to get to bathroom) Hx Reproductive Disorders: No - PSYCHIATRIC Hx Psychophysiologic Disorder: Yes Hx Anxiety: Yes Hx Substance Use: No - SURGICAL HISTORY Hx Appendectomy: Yes Hx Hysterectomy: Yes - ANESTHESIA Hx Anesthesia Reactions: No Meds Allergies/Adverse Reactions: Allergies Allergy/AdvReac Type Severity Reaction Status Date / Time No Known Allergies Allergy Verified 12/21/15 15:53 Physical Exam - Additional Findings Additional findings: - Constitutional Appears: Well, Non-toxic, No Acute Distress - Head Exam Head Exam: ATRAUMATIC, NORMAL INSPECTION, NORMOCEPHALIC - Eye Exam Eye Exam: EOMI, PERRL Pupil Exam: NORMAL ACCOMODATION - ENT Exam ENT Exam: Mucous Membranes Moist - Respiratory Exam Respiratory Exam: Clear to Auscultation Bilateral, NORMAL BREATHING PATTERN, negative for rales or wheezes - Cardiovascular Exam Cardiovascular Exam: REGULAR RHYTHM, RRR, +S1, +S2, Systolic Murmur (systolic ejection murmur) - GI/Abdominal Exam GI & Abdominal Exam: Normal Bowel Sounds, Soft. absent: Tenderness - Extremities Exam Extremities exam: Positive for: full ROM, pedal pulses present. Negative for: tenderness - Neurological Exam Neurological exam: Alert, CN II-XII Intact, Oriented x3 - Skin Skin Exam: Dry, Intact, Normal Color Results - Vital Signs Recent Vital Signs: Last Vital Signs Temp 97.8 F 02/17/19 10:00 Pulse 67 02/17/19 10:36 Resp 16 02/17/19 10:00 BP 137/66 02/17/19 10:36 Pulse Ox 100 02/17/19 10:00 - Labs Result Diagrams: 02/17/19 07:00 02/17/19 07:00 Labs: Laboratory Results - last 24 hr 02/16/19 02/17/19 02/17/19 21:28 04:52 07:00 WBC 5.2 RBC 3.04 L Hgb 9.5 L Hct 27.5 L MCV 90.5 MCH 31.3 MCHC 34.5 RDW 12.1 Plt Count 252 MPV 10.0 Neut % (Auto) 44.6 L Lymph % (Auto) 41.9 H [place] % (Auto) 11.4 H Eos % (Auto) 1.9 Baso % (Auto) 0.2 Lymph # (Auto) 2.2 [place] # (Auto) 0.6 Eos # (Auto) 0.1 Baso # (Auto) 0.01 Absolute Neuts (auto) 2.31 Sodium Potassium Chloride Carbon Dioxide Anion Gap BUN Creatinine Est GFR ( Amer) Est GFR (Non-Af Amer) POC Glucose (mg/dL) 158 H 162 H Random Glucose Calcium 02/17/19 02/17/19 07:00 11:33 WBC RBC Hgb Hct MCV MCH MCHC RDW Plt Count MPV Neut % (Auto) Lymph % (Auto) [place] % (Auto) Eos % (Auto) Baso % (Auto) Lymph # (Auto) [place] # (Auto) Eos # (Auto) Baso # (Auto) Absolute Neuts (auto) Sodium 131 L Potassium 5.2 H Chloride 102 Carbon Dioxide 21 Anion Gap 14 BUN 22 H Creatinine 1.3 H Est GFR ( Amer) 47 Est GFR (Non-Af Amer) 39 POC Glucose (mg/dL) 214 H Random Glucose 153 H Calcium 8.6 Assessment & Plan - Assessment and Plan (Free Text) Assessment: 83 year old female with past medical history of hypertension, hyperlipidemia, diabetes mellitus type II, anemia, CKD, hepatic steatosis presents with uncontrolled hypertension and chest pain. Patient transferred 02/16 to TCU for further rehab. Plan: Hypertensive Emergency - improved -Recent BP controlled -Stress test results: negative Lexiscan, david apical defect not visualized; final nuclear scan report pending -Echocardiogram shows LVEF 64%, RVSP 35, trace AR and mild MR. -Follow up metanephrine to evaluate for etiology of pheochromocytoma -Renal artery duplex shows tortuous main renal arteries, no evidence of stenosis, multiple moderate large cysts bilaterally -Continue home coreg, cardizem for now -Losartan and HCTZ on hold. Imdur moved to afternoon to avoid dizziness when given concomitantly with other meds -Continue home hydralazine PRN with holding parameters of <160/110 -C/w minoxidil per Nephrology Acute on Chronic kidney disease -BUN/Cr: 22/1.3 improved s/p IVF -Random urine sodium 42 and creatinine 51 -Renal artery duplex shows tortuous main renal arteries, no evidence of stenosis, multiple moderate large cysts bilaterally -F/u metanephrines and further urine studies -Dr. Madai tolentino appreciated regarding holding nephrotoxic meds in light of prior hypertension -Cysts to be followed up as outpatient R hip pain -R hip Xray negative for acute process, past fixation -C/W Tramadol 50 TID Hyperkalemia -K: 5.2 today -Patiromer Calcium Sorbitex -Losartan and HCTZ on hold due to hyperkalemia -Dr Madai tolentino appreciated Normocytic Anemia- stable -Hgb 9.5 this AM Chest pain -EKG: NSR with HR: 87 -Trop x4: unremarkable -Continue aspirin 81 mg daily, statin, coreg Diabetes mellitus type II -HgbA1c: 6.8 -Accucheck ACHS -Will continue sliding scale insulin Hyperthyroidism -TSH: 3.61 -T4: 8.3 -Free T4: 0.99 -Continue home methimazole Hyperlipidemia -Lipid panel unremarkable -Continue home statin and zetia Constipation-resolved -Will continue dulcolax PRN for constipation GI prophylaxis: Pepcid 20 mg daily DVT prophylaxis: Heparin 5000 U Q8 Patient seen, case reviewed and plan approved by Dr. Velazquez. Anibal Bhatt, PGY-1 <Joss Velazquez - Last Filed: 02/17/19 13:43> Results - Vital Signs Recent Vital Signs: Last Vital Signs Temp 97.8 F 02/17/19 10:00 Pulse 67 02/17/19 10:36 Resp 16 02/17/19 10:00 BP 137/66 02/17/19 10:36 Pulse Ox 100 02/17/19 10:00 - Labs Result Diagrams: 02/17/19 07:00 02/17/19 07:00 Labs: Laboratory Results - last 24 hr 02/16/19 02/17/19 02/17/19 21:28 04:52 07:00 WBC 5.2 RBC 3.04 L Hgb 9.5 L Hct 27.5 L MCV 90.5 MCH 31.3 MCHC 34.5 RDW 12.1 Plt Count 252 MPV 10.0 Neut % (Auto) 44.6 L Lymph % (Auto) 41.9 H [place] % (Auto) 11.4 H Eos % (Auto) 1.9 Baso % (Auto) 0.2 Lymph # (Auto) 2.2 [place] # (Auto) 0.6 Eos # (Auto) 0.1 Baso # (Auto) 0.01 Absolute Neuts (auto) 2.31 Sodium Potassium Chloride Carbon Dioxide Anion Gap BUN Creatinine Est GFR ( Amer) Est GFR (Non-Af Amer) POC Glucose (mg/dL) 158 H 162 H Random Glucose Calcium 02/17/19 02/17/19 07:00 11:33 WBC RBC Hgb Hct MCV MCH MCHC RDW Plt Count MPV Neut % (Auto) Lymph % (Auto) [place] % (Auto) Eos % (Auto) Baso % (Auto) Lymph # (Auto) [place] # (Auto) Eos # (Auto) Baso # (Auto) Absolute Neuts (auto) Sodium 131 L Potassium 5.2 H Chloride 102 Carbon Dioxide 21 Anion Gap 14 BUN 22 H Creatinine 1.3 H Est GFR ( Amer) 47 Est GFR (Non-Af Amer) 39 POC Glucose (mg/dL) 214 H Random Glucose 153 H Calcium 8.6 Attending/Attestation - Attestation I have personally seen and examined this patient.: Yes I have fully participated in the care of the patient.: Yes I have reviewed all pertinent clinical information: Yes Notes (Text): 02/17/19 13:42 83 year old female with past medical history of hypertension, diabetes, hyperthyroidism and CKD who presented with complaint of chest pain and elevated blood pressure. Serial cardiac enzymes have been negative. Stress test was done which was negative. Chest pain has resolved. Nephrology was following as well for poorly controlled hypertension on multiple medications. BP improved after minoxidil was added. Continue to monitor CKD closely. Patient complains of chronic hip pain. Xray was negative for acute findings. Pain has improved with tramadol. Continue with physical therapy as tolerated while in TCU. Joss Velazquez MD Hospitalist.
[2019-02-17] MEDS: Bisacodyl 5mg EC Tab PO PRN (14:29)
--- NOTE | 2019-02-17 14:48 | CP.PCM.PN ---
Subjective - Date & Time of Evaluation Date of Evaluation: 02/17/19 Time of Evaluation: 14:47 - Subjective Subjective: Nephrology Consultation Note: Assessment: Stable uncontrolled HTN: improved chest pain resolved. 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 mild fluctuation in serum cr likely hemodynamic, now stable Hypertension control with meds as ordered. Maintain hemodynamics stable. Avoid hypotension. Patient on aldactone (change to 25 mg/d). also on coreg, CCB, nirates and thiazide.(switch to lasix 20 mg q2 day as with hyponatremia) held losartan for now due to high K. will resume once K better. low K diet Also will continue with minoxidil 2.5 mg /day for better HTN control Monitor Input/Output, daily weights and renal function with basic metabolic panel orthostatic vitals signs added iron and MVI Secondary HTN work up with plasma metanephrine pending. doppler neg. didn't check bo level as already on aldactone. Dose meds/antibiotics for reduced GFR. Avoid fleets enema/magnesium based laxatives. Avoid nephrotoxins/NSAIDs/ iodinated contrast (unless needed yani gently) Glycemic control Further work up/management as per primary team Thanks for allowing me to participate in care of your patient. Will follow patient with you. Please call if any Qs. had d/w team Dr Leoncio Aj Office: [phone] Chief Complaint; high BP Reason for consult: HTN management HPI: Pt is a 83 F with hx of diabetes Mellitus (20 years), hypertension (>20 years) obesity hyperlipidemia hyperthyroidism admitted to hospital initially with complaints of high BP and chest pain with SOB which are better now Denies OTC/herbal meds or NSAIDs No recent iodinated contrast exposure. denies smoking/etoh/licorice/decongestants says BP usually okay (on many meds) but gets high intermittently without any known reasons not aware about CKD. baseline cr 1.4 pt got d/c to [facility] and seen for HTN and CKD management ROS: feel dizzy intermittently Cardiovascular: No chest pain. improved Pulmonary: No shortness of breath now. improved Gastrointestinal: denies abdominal pain No nausea. No vomiting. Genitourinary: No pain while urinating. Denies blood in urine. All other negative except as mentioned in HPI Physical Examination: General Appearance: Comfortable, in no acute respiratory distress, co-operative . Vitals reviewed and noted as below Head; Atraumatic, normocephalic ENT: no ulcers no thrush. Tongue is midline. Oropharynx: no rash or ulcers. EYES: Pupils are equal, round and reactive to light accommodation. Eye muscles and extraocular movement intact. Sclera is anicteric. Neck; supple no lymphadenopathy, noted thyromegaly Lungs: Normal respiratory rate/effort. Breath sounds bilateral somwehat reduced at bases Heart: Normal rate. s1s2 normal. No rub or gallop. Extremities: trace to 1+ edema. No varicose veins Neurological: Patient is alert, awake and oriented to person, place and time. No focal deficit. Strength bilateral appropriate and equal Skin: Warm and dry. Normal turgor. No rash. Palpitation: Normal elasticity for a ge Abdomen: Abdomen is soft. Bowel sounds +. There is no abdominal tenderness, no guarding/rigidity no organomegaly Psych: normal insight and normal affect/mood MSK: no joint tenderness or swelling. Digits and nails normal, no deformity : kidney or bladder not palpable Labs/imaging reviewed. Past medical history, past surgical history, family history, social history, allergy reviewed and noted as below Family hx: no hx of CKD. Rest non-contributory renal imaging: b/l cysts. doppler neg for SHERIF adrenal wnl TSH 3.6 Objective - Vital Signs/Intake and Output Vital Signs (last 24 hours): Temp Pulse Resp BP Pulse Ox 97.8 F 67 16 137/66 100 02/17/19 10:00 02/17/19 10:36 02/17/19 10:00 02/17/19 10:36 02/17/19 10:00 - Medications Medications: Current Medications Acetaminophen (Tylenol 325mg Tab) 650 mg PO Q6H PRN PRN Reason: Headache Alprazolam (Xanax) 0.25 mg PO DAILY [facility]; Protocol Last Admin: 02/17/19 10:45 Dose: 0.25 mg Arformoterol Tartrate (Brovana) 15 mcg IH [id number] [facility] Last Admin: 02/17/19 07:27 Dose: 15 mcg Aspirin (Aspirin Chewable) 81 mg PO DAILY [facility] Last Admin: 02/17/19 10:35 Dose: 81 mg Atorvastatin Calcium (Lipitor) 20 mg PO DIN [facility] Last Admin: 02/16/19 17:43 Dose: 20 mg Bisacodyl (Dulcolax) 5 mg PO DAILY PRN PRN Reason: Constipation Last Admin: 02/17/19 14:29 Dose: 5 mg Budesonide (Pulmicort Respules) 0.5 mg IH [id number] [facility] Last Admin: 02/17/19 07:27 Dose: 0.5 mg Carvedilol (Coreg) 25 mg PO BID [facility] Last Admin: 02/17/19 10:36 Dose: 25 mg Diltiazem HCl (Cardizem Cd) 240 mg PO DAILY [facility] Last Admin: 02/17/19 10:35 Dose: 240 mg Ezetimibe (Zetia) 10 mg PO DAILY [facility] Last Admin: 02/17/19 10:43 Dose: 10 mg Famotidine (Pepcid) 20 mg PO DAILY [facility] Last Admin: 02/17/19 10:40 Dose: 20 mg Ferrous Gluconate (Fergon) 324 mg PO TID [facility] Last Admin: 02/17/19 14:30 Dose: 324 mg Heparin Sodium (Porcine) (Heparin) 5,000 units SC Q8 [facility]; Protocol Last Admin: 02/17/19 14:30 Dose: 5,000 units Insulin Human Lispro (Humalog Med) 0 units SC ACHS [facility]; Protocol Last Admin: 02/17/19 12:27 Dose: 3 units Isosorbide Mononitrate (Imdur) 60 mg PO 1400 [facility] Last Admin: 02/17/19 14:32 Dose: 60 mg Latanoprost (Xalatan Opht) 0 ml OU DAILY [facility] Last Admin: 02/17/19 10:41 Dose: 2.5 ml Methimazole (Tapazole) 5 mg PO DAILY [facility] Last Admin: 02/17/19 10:40 Dose: 5 mg Minoxidil (Minoxidil) 2.5 mg PO DAILY [facility] Last Admin: 02/17/19 10:39 Dose: 2.5 mg Patiromer (Veltassa) 8.4 gm PO DAILY [facility] Stop: 02/20/19 10:01 Last Admin: 02/17/19 10:46 Dose: 8.4 gm Spironolactone (Aldactone) 25 mg PO DAILY [facility] Last Admin: 02/17/19 10:34 Dose: 25 mg Tramadol HCl (Ultram) 50 mg PO TID PRN PRN Reason: Pain, moderate (4-7) Last Admin: 02/16/19 21:30 Dose: 50 mg Vitamin B Complex/Vit C/Folic Acid (Nephro-Yousuf) 1 tab PO 0800 [facility] - Labs Labs: 02/17/19 07:00 02/17/19 07:00
[2019-02-18 00:02] LABS: PH,URINE 5.5 (4.7-8.0); URINE BILIRUBIN NEGATIVE (NEGATIVE); URINE BLOOD NEGATIVE (NEGATIVE); URINE GLUCOSE (UA) NEGATIVE (NEGATIVE); URINE LEUKOCYTE ESTERASE SMALL Leu/uL (NEGATIVE); URINE PROTEIN NEGATIVE mg/dL (<30 mg/dL); URINE UROBILINOGEN 0.2 E.U./dL (<1 E.U./dL)
[2019-02-18 00:11] LABS: URINE APPEARANCE SL CLOUDY (CLEAR); URINE COLOR YELLOW (YELLOW)
[2019-02-18 00:24] LABS: URINE RBC 0 - 2 /hpf (0-2)
[2019-02-18 00:25] LABS: URINE BACTERIA FEW /hpf
[2019-02-18] MEDS: Insulin Lispro (humaLOG) MEDIUM Coverage SC SCH ×4 (06:54→21:23)
[2019-02-18 07:13] LABS: CALCIUM 9.2 mg/dL (8.4-10.5)
[2019-02-18] MEDS: Budesonide 0.5 mg/2 ml Inhal Susp UD IH SCH ×2 (07:34→19:39)
[2019-02-18] MEDS: Arformoterol 15 mcg/2 ml Inh Sol IH SCH ×2 (07:34→19:39)
[2019-02-18] MEDS: Multivitamin Vitamin B Complex (Nephro-Vite) Tab PO SCH (08:00)
[2019-02-18] MEDS: diltiaZEM 240 mg/24 Hours CD Cap PO SCH (09:59)
--- NOTE | 2019-02-18 12:18 | CP.PCM.PN ---
Subjective - Date & Time of Evaluation Date of Evaluation: 02/18/19 Time of Evaluation: 12:16 - Subjective Subjective: Nephrology Consultation Note: Assessment: Stable uncontrolled HTN: improved chest pain resolved. 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 mild fluctuation in serum cr likely hemodynamic, now stable Hypertension control with meds as ordered. Maintain hemodynamics stable. Avoid hypotension. Patient on aldactone (change to 25 mg/d). also on coreg, CCB, nirates and off thiazide.(switch to lasix 20 mg per day as with hyponatremia) held losartan for now due to high K. will resume once K better. low K diet Also will continue with minoxidil 2.5 mg /day for better HTN control Monitor Input/Output, daily weights and renal function with basic metabolic panel orthostatic vitals signs oral fluid restriction 1200 mL/day. pt with dilute urine Secondary HTN work up with plasma metanephrine pending. doppler neg. didn't check bo level as already on aldactone. Dose meds/antibiotics for reduced GFR. Avoid fleets enema/magnesium based laxatives. Avoid nephrotoxins/NSAIDs/ iodinated contrast (unless needed emergently) Glycemic control Further work up/management as per primary team Thanks for allowing me to participate in care of your patient. Will follow patient with you. Please call if any Qs. had d/w team Dr Leoncio Aj Office: [phone] Chief Complaint; high BP Reason for consult: HTN management HPI: Pt is a 83 F with hx of diabetes Mellitus (20 years), hypertension (>20 years) obesity hyperlipidemia hyperthyroidism admitted to hospital initially with complaints of high BP and chest pain with SOB which are better now Denies OTC/herbal meds or NSAIDs No recent iodinated contrast exposure. denies smoking/etoh/licorice/decongestants says BP usually okay (on many meds) but gets high intermittently without any known reasons not aware about CKD. baseline cr 1.4 pt got d/c to [facility] and seen for HTN and CKD management ROS: feel dizzy intermittently Cardiovascular: No chest pain. improved Pulmonary: No shortness of breath now. improved Gastrointestinal: denies abdominal pain No nausea. No vomiting. has constipation Genitourinary: No pain while urinating. Denies blood in urine. All other negative except as mentioned in HPI Physical Examination: General Appearance: Comfortable, in no acute respiratory distress, co-operative . Vitals reviewed and noted as below Head; Atraumatic, normocephalic ENT: no ulcers no thrush. Tongue is midline. Oropharynx: no rash or ulcers. EYES: Pupils are equal, round and reactive to light accommodation. Eye muscles and extraocular movement intact. Sclera is anicteric. Neck; supple no lymphadenopathy, noted thyromegaly Lungs: Normal respiratory rate/effort. Breath sounds bilateral somwehat reduced at bases Heart: Normal rate. s1s2 normal. No rub or gallop. Extremities: trace to 1+ edema. No varicose veins Neurological: Patient is alert, awake and oriented to person, place and time. No focal deficit. Strength bilateral appropriate and equal Skin: Warm and dry. Normal turgor. No rash. Palpitation: Normal elasticity for age Abdomen: Abdomen is soft. Bowel sounds +. There is no abdominal tenderness, no guarding/rigidity no organomegaly Psych: normal insight and normal affect/mood MSK: no joint tenderness or swelling. Digits and nails normal, no deformity : kidney or bladder not palpable Labs/imaging reviewed. Past medical history, past surgical history, family history, social history, allergy reviewed and noted as below Family hx: no hx of CKD. Rest non-contributory renal imaging: b/l cysts. doppler neg for SHERIF adrenal wnl TSH 3.6 Objective - Vital Signs/Intake and Output Vital Signs (last 24 hours): Temp Pulse Resp BP Pulse Ox 97.8 F 68 16 127/67 100 02/17/19 10:00 02/18/19 09:59 02/17/19 10:00 02/18/19 09:59 02/17/19 10:00 - Medications Medications: Current Medications Acetaminophen (Tylenol 325mg Tab) 650 mg PO Q6H PRN PRN Reason: Headache Alprazolam (Xanax) 0.25 mg PO DAILY [facility]; Protocol Last Admin: 02/18/19 10:07 Dose: 0.25 mg Arformoterol Tartrate (Brovana) 15 mcg IH [id number] [facility] Last Admin: 02/18/19 07:34 Dose: 15 mcg Aspirin (Aspirin Chewable) 81 mg PO 0800 [facility]; Protocol Atorvastatin Calcium (Lipitor) 20 mg PO DIN [facility] Last Admin: 02/17/19 17:53 Dose: 20 mg Bisacodyl (Dulcolax) 5 mg PO DAILY PRN PRN Reason: Constipation Last Admin: 02/17/19 14:29 Dose: 5 mg Budesonide (Pulmicort Respules) 0.5 mg IH [id number] [facility] Last Admin: 02/18/19 07:34 Dose: 0.5 mg Carvedilol (Coreg) 25 mg PO 0800,1800 [facility]; Protocol Diltiazem HCl (Cardizem Cd) 240 mg PO DAILY [facility] Last Admin: 02/18/19 09:59 Dose: 240 mg Ezetimibe (Zetia) 10 mg PO DAILY [facility] Last Admin: 02/18/19 10:04 Dose: 10 mg Famotidine (Pepcid) 20 mg PO HS [facility]; Protocol Ferrous Gluconate (Fergon) 324 mg PO DAILY [facility] Last Admin: 02/18/19 10:00 Dose: Not Given Furosemide (Lasix) 20 mg PO Q2D [facility] Stop: 02/23/19 15:01 Last Admin: 02/17/19 16:00 Dose: 20 mg Heparin Sodium (Porcine) (Heparin) 5,000 units SC Q8 [facility]; Protocol Last Admin: 02/18/19 05:39 Dose: 5,000 units Insulin Human Lispro (Humalog Med) 0 units SC ACHS [facility]; Protocol Last Admin: 02/18/19 06:54 Dose: 1 units Isosorbide Mononitrate (Imdur) 60 mg PO 1400 [facility] Last Admin: 02/17/19 14:32 Dose: 60 mg Latanoprost (Xalatan Opht) 0 ml OU HS [facility] Last Admin: 02/17/19 21:05 Dose: 2.5 ml Methimazole (Tapazole) 5 mg PO 0730 [facility]; Protocol Minoxidil (Minoxidil) 2.5 mg PO DAILY [facility] Last Admin: 02/18/19 10:02 Dose: 2.5 mg Patiromer (Veltassa) 8.4 gm PO DAILY [facility] Stop: 02/20/19 10:01 Last Admin: 02/18/19 10:04 Dose: 8.4 gm Spironolactone (Aldactone) 25 mg PO DAILY [facility] Last Admin: 02/18/19 09:59 Dose: 25 mg Tramadol HCl (Ultram) 50 mg PO TID PRN PRN Reason: Pain, moderate (4-7) Last Admin: 02/17/19 21:17 Dose: 50 mg Vitamin B Complex/Vit C/Folic Acid (Nephro-Yousuf) 1 tab PO 0800 [facility] Last Admin: 02/18/19 08:00 Dose: 1 tab - Labs Labs: 02/17/19 07:00 02/18/19 06:20
[2019-02-18] MEDS: Latanoprost 2.5 ml Opht Soln OU SCH (21:05)
[2019-02-19] MEDS: Insulin Lispro (humaLOG) MEDIUM Coverage SC SCH ×4 (06:50→21:34)
[2019-02-19] MEDS: Budesonide 0.5 mg/2 ml Inhal Susp UD IH SCH ×2 (07:40→21:33)
[2019-02-19] MEDS: Arformoterol 15 mcg/2 ml Inh Sol IH SCH ×2 (07:40→21:32)
[2019-02-19 08:10] LABS: CALCIUM 9.8 mg/dL (8.4-10.5)
[2019-02-19] MEDS: methIMAzole 5 MG TAB PO SCH (08:19)
[2019-02-19] MEDS: Multivitamin Vitamin B Complex (Nephro-Vite) Tab PO SCH (08:20)
[2019-02-19] MEDS: diltiaZEM 240 mg/24 Hours CD Cap PO SCH (09:42)
--- NOTE | 2019-02-19 11:56 | CP.PCM.PN ---
<Anibal Bhatt - Last Filed: 02/19/19 12:25> Subjective - Date & Time of Evaluation Date of Evaluation: 02/19/19 Time of Evaluation: 08:00 - Subjective Subjective: Anibal Bhatt PGY-1 Progress Note for Hospitalist Service Patient seen and evaluated at bedside. No acute events reported overnight. Patient reports improved pain of the R hip with ambulation. Blood pressures have remained stable. Reports episode of vomiting yesterday and this morning, but denies other complaints at this time, including chest pain, shortness of breath palpitations and headache. Objective - Vital Signs/Intake and Output Vital Signs (last 24 hours): Temp Pulse Resp BP Pulse Ox 97.9 F 59 L 18 144/74 97 02/18/19 16:00 02/19/19 09:42 02/18/19 16:00 02/19/19 09:42 02/18/19 16:00 - Medications Medications: Current Medications Acetaminophen (Tylenol 325mg Tab) 650 mg PO Q6H PRN PRN Reason: Headache Alprazolam (Xanax) 0.25 mg PO DAILY [facility]; Protocol Last Admin: 02/19/19 09:50 Dose: 0.25 mg Arformoterol Tartrate (Brovana) 15 mcg IH [id number] [facility] Last Admin: 02/19/19 07:40 Dose: 15 mcg Aspirin (Aspirin Chewable) 81 mg PO 0800 [facility]; Protocol Last Admin: 02/19/19 08:20 Dose: 81 mg Atorvastatin Calcium (Lipitor) 20 mg PO DIN [facility] Last Admin: 02/18/19 17:18 Dose: 20 mg Bisacodyl (Dulcolax) 5 mg PO DAILY PRN PRN Reason: Constipation Last Admin: 02/17/19 14:29 Dose: 5 mg Budesonide (Pulmicort Respules) 0.5 mg IH [id number] [facility] Last Admin: 02/19/19 07:40 Dose: 0.5 mg Carvedilol (Coreg) 25 mg PO 0800,1800 [facility]; Protocol Last Admin: 02/19/19 08:20 Dose: 25 mg Diltiazem HCl (Cardizem Cd) 240 mg PO DAILY [facility] Last Admin: 02/19/19 09:42 Dose: 240 mg Ezetimibe (Zetia) 10 mg PO DAILY [facility] Last Admin: 02/19/19 09:43 Dose: 10 mg Famotidine (Pepcid) 20 mg PO HS [facility]; Protocol Last Admin: 02/18/19 21:05 Dose: 20 mg Furosemide (Lasix) 20 mg PO DAILY [facility] Stop: 02/22/19 10:01 Last Admin: 02/19/19 09:42 Dose: 20 mg Heparin Sodium (Porcine) (Heparin) 5,000 units SC Q8 [facility]; Protocol Last Admin: 02/19/19 05:12 Dose: 5,000 units Insulin Human Lispro (Humalog Med) 0 units SC ACHS [facility]; Protocol Last Admin: 02/19/19 06:50 Dose: 1 units Isosorbide Mononitrate (Imdur) 60 mg PO 1400 [facility] Last Admin: 02/18/19 13:31 Dose: 60 mg Latanoprost (Xalatan Opht) 0 ml OU HS [facility] Last Admin: 02/18/19 21:05 Dose: 2.5 ml Methimazole (Tapazole) 5 mg PO 0730 [facility]; Protocol Last Admin: 02/19/19 08:19 Dose: 5 mg Minoxidil (Minoxidil) 2.5 mg PO DAILY [facility] Last Admin: 02/19/19 09:42 Dose: 2.5 mg Patiromer (Veltassa) 8.4 gm PO DAILY [facility] Stop: 02/20/19 10:01 Last Admin: 02/19/19 09:43 Dose: 8.4 gm Spironolactone (Aldactone) 25 mg PO DAILY [facility] Last Admin: 02/19/19 09:41 Dose: 25 mg Tramadol HCl (Ultram) 50 mg PO TID PRN PRN Reason: Pain, moderate (4-7) Last Admin: 02/18/19 20:38 Dose: 50 mg Vitamin B Complex/Vit C/Folic Acid (Nephro-Yousuf) 1 tab PO 0800 [facility] Last Admin: 02/19/19 08:20 Dose: 1 tab - Labs Labs: 02/17/19 07:00 02/19/19 06:30 - Additional Findings Additional findings: - Constitutional Appears: Well, Non-toxic, No Acute Distress - Head Exam Head Exam: ATRAUMATIC, NORMAL INSPECTION, NORMOCEPHALIC - Eye Exam Eye Exam: EOMI, PERRL Pupil Exam: NORMAL ACCOMODATION - ENT Exam ENT Exam: Mucous Membranes Moist - Respiratory Exam Respiratory Exam: Clear to Auscultation Bilateral, NORMAL BREATHING PATTERN, negative for rales or wheezes - Cardiovascular Exam Cardiovascular Exam: REGULAR RHYTHM, RRR, +S1, +S2, Systolic Murmur (systolic ejection murmur) - GI/Abdominal Exam GI & Abdominal Exam: Normal Bowel Sounds, Soft. absent: Tenderness - Extremities Exam Extremities exam: Positive for: full ROM, pedal pulses present. Negative for: tenderness - Neurological Exam Neurological exam: Alert, CN II-XII Intact, Oriented x3 - Skin Skin Exam: Dry, Intact, Normal Color Assessment and Plan - Assessment and Plan (Free Text) Assessment: 83 year old female with past medical history of hypertension, hyperlipidemia, diabetes mellitus type II, anemia, CKD, hepatic steatosis presents with uncontrolled hypertension and chest pain. Patient currently in TCU for further rehab. Plan: Hypertensive Emergency - improved -Recent BP controlled -Stress test results: negative Lexiscan, david apical defect not visualized -Echocardiogram shows LVEF 64%, RVSP 35, trace AR and mild MR. -Follow up metanephrine to evaluate for etiology of pheochromocytoma -Renal artery duplex shows tortuous main renal arteries, no evidence of stenosis, multiple moderate large cysts bilaterally -Continue home coreg, cardizem -Losartan and HCTZ on hold. Imdur moved to afternoon to avoid dizziness when given concomitantly with other meds -Continue home hydralazine PRN with holding parameters of <160/110 -C/w minoxidil per Nephrology Acute on Chronic kidney disease -BUN/Cr: 20/1.4 improved s/p IVF -Random urine sodium 42 and creatinine 51 -Renal artery duplex shows tortuous main renal arteries, no evidence of stenosis, multiple moderate large cysts bilaterally -F/u metanephrines and further urine studies -Dr. Madai tolentino appreciated -Cysts to be followed up as outpatient Nausea/Vomiting -May be 2/2 Tramadol -Zofran 4 mg PO q8 -Continue to monitor R hip pain -R hip Xray negative for acute process, past fixation -C/W Tramadol 50 TID. Please give along with food. Hyperkalemia -K: 4.6 today, improved -Patiromer Calcium Sorbitex -HCTZ and Lisinopril was on hold due to hyperkalemia -Dr Madai recs appreciated - c/w Lasix 20 mg PO Normocytic Anemia- stable -Hgb 9.5 this AM Chest pain-resolved -EKG: NSR with HR: 87 -Trop x4: unremarkable -Continue aspirin 81 mg daily, statin, coreg Diabetes mellitus type II -HgbA1c: 6.8 -Accucheck ACHS -Will continue sliding scale insulin Hyperthyroidism -TSH: 3.61 -T4: 8.3 -Free T4: 0.99 -Continue home methimazole Hyperlipidemia -Lipid panel unremarkable -Continue home statin and zetia GI prophylaxis: Pepcid 20 mg daily DVT prophylaxis: Heparin 5000 U Q8 Patient seen, case reviewed and plan approved by Dr. Velazquez. Anibal Bhatt, PGY-1 <Joss Velazquez - Last Filed: 02/19/19 12:41> Objective - Vital Signs/Intake and Output Vital Signs (last 24 hours): Temp Pulse Resp BP Pulse Ox 97.9 F 67 18 144/74 96 02/18/19 16:00 02/19/19 12:15 02/18/19 16:00 02/19/19 09:42 02/19/19 12:15 - Medications Medications: Current Medications Acetaminophen (Tylenol 325mg Tab) 650 mg PO Q6H PRN PRN Reason: Headache Alprazolam (Xanax) 0.25 mg PO DAILY [facility]; Protocol Last Admin: 02/19/19 09:50 Dose: 0.25 mg Arformoterol Tartrate (Brovana) 15 mcg IH [id number] [facility] Last Admin: 02/19/19 07:40 Dose: 15 mcg Aspirin (Aspirin Chewable) 81 mg PO 0800 [facility]; Protocol Last Admin: 02/19/19 08:20 Dose: 81 mg Atorvastatin Calcium (Lipitor) 20 mg PO DIN [facility] Last Admin: 02/18/19 17:18 Dose: 20 mg Bisacodyl (Dulcolax) 5 mg PO DAILY PRN PRN Reason: Constipation Last Admin: 02/17/19 14:29 Dose: 5 mg Budesonide (Pulmicort Respules) 0.5 mg IH [id number] [facility] Last Admin: 02/19/19 07:40 Dose: 0.5 mg Carvedilol (Coreg) 25 mg PO 0800,1800 [facility]; Protocol Last Admin: 02/19/19 08:20 Dose: 25 mg Diltiazem HCl (Cardizem Cd) 240 mg PO DAILY [facility] Last Admin: 02/19/19 09:42 Dose: 240 mg Ezetimibe (Zetia) 10 mg PO DAILY [facility] Last Admin: 02/19/19 09:43 Dose: 10 mg Famotidine (Pepcid) 20 mg PO HS [facility]; Protocol Last Admin: 02/18/19 21:05 Dose: 20 mg Furosemide (Lasix) 20 mg PO DAILY [facility] Stop: 02/22/19 10:01 Last Admin: 02/19/19 09:42 Dose: 20 mg Heparin Sodium (Porcine) (Heparin) 5,000 units SC Q8 [facility]; Protocol Last Admin: 02/19/19 05:12 Dose: 5,000 units Insulin Human Lispro (Humalog Med) 0 units SC ACHS [facility]; Protocol Last Admin: 02/19/19 12:01 Dose: 3 units Isosorbide Mononitrate (Imdur) 60 mg PO 1400 [facility] Last Admin: 02/18/19 13:31 Dose: 60 mg Latanoprost (Xalatan Opht) 0 ml OU HS [facility] Last Admin: 02/18/19 21:05 Dose: 2.5 ml Methimazole (Tapazole) 5 mg PO 0730 [facility]; Protocol Last Admin: 02/19/19 08:19 Dose: 5 mg Minoxidil (Minoxidil) 2.5 mg PO DAILY [facility] Last Admin: 02/19/19 09:42 Dose: 2.5 mg Ondansetron HCl (Zofran Tab) 4 mg PO Q8H PRN PRN Reason: Nausea/Vomiting Patiromer (Veltassa) 8.4 gm PO DAILY [facility] Stop: 02/20/19 10:01 Last Admin: 02/19/19 09:43 Dose: 8.4 gm Spironolactone (Aldactone) 25 mg PO DAILY [facility] Last Admin: 02/19/19 09:41 Dose: 25 mg Tramadol HCl (Ultram) 50 mg PO TID PRN PRN Reason: Pain, moderate (4-7) Last Admin: 02/18/19 20:38 Dose: 50 mg Vitamin B Complex/Vit C/Folic Acid (Nephro-Yousuf) 1 tab PO 0800 [facility] Last Admin: 02/19/19 08:20 Dose: 1 tab - Labs Labs: 02/17/19 07:00 02/19/19 06:30 Attending/Attestation - Attestation I have personally seen and examined this patient.: Yes I have fully participated in the care of the patient.: Yes I have reviewed all pertinent clinical information, including history, physical exam and plan: Yes Notes (Text): 02/19/19 12:39 83 year old female with past medical history of hypertension, diabetes, hyper thyroidism and CKD who presented with complaint of chest pain and elevated blood pressure. Serial cardiac enzymes have been negative. Stress test was done which was negative. Chest pain has resolved. She also had poorly controlled hypertension on multiple medications. BP improved after minoxidil was added. Nephrology is also following for CKD which is stable. Hyponatremia is improving. Will continue to monitor. Patient complains of chronic hip pain. Xray was negative for acute findings. Pain has improved with tramadol. She reports one episode of vomiting this morning. Started on zofran prn. Continue with diet as tolerated. Continue with physical therapy as tolerated while in TCU. Joss Velazquez MD Hospitalist.
--- NOTE | 2019-02-19 14:07 | CP.PCM.PN ---
Subjective - Date & Time of Evaluation Date of Evaluation: 02/19/19 Time of Evaluation: 14:06 - Subjective Subjective: Nephrology Consultation Note: Assessment: Stable uncontrolled HTN: improved chest pain resolved. Diabetic chronic Kidney Disease (E11.22) Hypertensive Chronic Kidney Disease (I12.9) Chronic Kidney Disease (N18.3) Stage 3 with 24 mg albuminnuria (R80.9) likely due to DM/HTN mild Anemia (D64.9), obesity hyperlipidemia hyperthyroidism hypo-osmolar hyponatremia Plan cr stable bp reasonably controlled 1.2 L fluid restriction for hyponatremia Secondary HTN work up with plasma metanephrine pending. doppler neg. didn't check bo level as already on aldactone. s: seen and examined denies n/v Physical Examination: General Appearance: Comfortable, in no acute respiratory distress, co-operative . Vitals reviewed and noted as below Head; Atraumatic, normocephalic ENT: no ulcers no thrush. Tongue is midline. Oropharynx: no rash or ulcers. EYES: Pupils are equal, round and reactive to light accommodation. Eye muscles and extraocular movement intact. Sclera is anicteric. Neck; supple no lymphadenopathy, noted thyromegaly Lungs: Normal respiratory rate/effort. Breath sounds bilateral somwehat reduced at bases Heart: Normal rate. s1s2 normal. No rub or gallop. Extremities: trace to 1+ edema. No varicose veins Neurological: Patient is alert, awake and oriented to person, place and time. No focal deficit. Strength bilateral appropriate and equal Skin: Warm and dry. Normal turgor. No rash. Palpitation: Normal elasticity for age Abdomen: Abdomen is soft. Bowel sounds +. There is no abdominal tenderness, no guarding/rigidity no organomegaly Psych: normal insight and normal affect/mood MSK: no joint tenderness or swelling. Digits and nails normal, no deformity : kidney or bladder not palpable Labs/imaging reviewed. Past medical history, past surgical history, family history, social history, allergy reviewed and noted as below Family hx: no hx of CKD. Rest non-contributory renal imaging: b/l cysts. doppler neg for SHERIF adrenal wnl TSH 3.6 Objective - Vital Signs/Intake and Output Vital Signs (last 24 hours): Temp Pulse Resp BP Pulse Ox 98.1 F 67 18 144/74 96 02/19/19 10:00 02/19/19 12:15 02/19/19 10:00 02/19/19 10:00 02/19/19 12:15 - Medications Medications: Current Medications Acetaminophen (Tylenol 325mg Tab) 650 mg PO Q6H PRN PRN Reason: Headache Alprazolam (Xanax) 0.25 mg PO DAILY [facility]; Protocol Last Admin: 02/19/19 09:50 Dose: 0.25 mg Arformoterol Tartrate (Brovana) 15 mcg IH [id number] [facility] Last Admin: 02/19/19 07:40 Dose: 15 mcg Aspirin (Aspirin Chewable) 81 mg PO 0800 [facility]; Protocol Last Admin: 02/19/19 08:20 Dose: 81 mg Atorvastatin Calcium (Lipitor) 20 mg PO DIN [facility] Last Admin: 02/18/19 17:18 Dose: 20 mg Bisacodyl (Dulcolax) 5 mg PO DAILY PRN PRN Reason: Constipation Last Admin: 02/17/19 14:29 Dose: 5 mg Budesonide (Pulmicort Respules) 0.5 mg IH [id number] [facility] Last Admin: 02/19/19 07:40 Dose: 0.5 mg Carvedilol (Coreg) 25 mg PO 0800,1800 [facility]; Protocol Last Admin: 02/19/19 08:20 Dose: 25 mg Diltiazem HCl (Cardizem Cd) 240 mg PO DAILY [facility] Last Admin: 02/19/19 09:42 Dose: 240 mg Ezetimibe (Zetia) 10 mg PO DAILY [facility] Last Admin: 02/19/19 09:43 Dose: 10 mg Famotidine (Pepcid) 20 mg PO HS [facility]; Protocol Last Admin: 02/18/19 21:05 Dose: 20 mg Furosemide (Lasix) 20 mg PO DAILY [facility] Stop: 02/22/19 10:01 Last Admin: 02/19/19 09:42 Dose: 20 mg Heparin Sodium (Porcine) (Heparin) 5,000 units SC Q8 [facility]; Protocol Last Admin: 02/19/19 13:34 Dose: 5,000 units Insulin Human Lispro (Humalog Med) 0 units SC ACHS [facility]; Protocol Last Admin: 02/19/19 12:01 Dose: 3 units Isosorbide Mononitrate (Imdur) 60 mg PO 1400 [facility] Last Admin: 02/19/19 13:34 Dose: 60 mg Latanoprost (Xalatan Opht) 0 ml OU HS [facility] Last Admin: 02/18/19 21:05 Dose: 2.5 ml Methimazole (Tapazole) 5 mg PO 0730 [facility]; Protocol Last Admin: 02/19/19 08:19 Dose: 5 mg Minoxidil (Minoxidil) 2.5 mg PO DAILY [facility] Last Admin: 02/19/19 09:42 Dose: 2.5 mg Ondansetron HCl (Zofran Tab) 4 mg PO Q8H PRN PRN Reason: Nausea/Vomiting Patiromer (Veltassa) 8.4 gm PO DAILY [facility] Stop: 02/20/19 10:01 Last Admin: 02/19/19 09:43 Dose: 8.4 gm Spironolactone (Aldactone) 25 mg PO DAILY [facility] Last Admin: 02/19/19 09:41 Dose: 25 mg Tramadol HCl (Ultram) 50 mg PO TID PRN PRN Reason: Pain, moderate (4-7) Last Admin: 02/18/19 20:38 Dose: 50 mg Vitamin B Complex/Vit C/Folic Acid (Nephro-Yousuf) 1 tab PO 0800 [facility] Last Admin: 02/19/19 08:20 Dose: 1 tab - Labs Labs: 02/17/19 07:00 02/19/19 06:30
[2019-02-19] MEDS: Latanoprost 2.5 ml Opht Soln OU SCH (21:10)
[2019-02-20] MEDS: Insulin Lispro (humaLOG) MEDIUM Coverage SC SCH ×3 (06:47→17:19)
[2019-02-20] MEDS: Arformoterol 15 mcg/2 ml Inh Sol IH SCH ×2 (07:20→20:08)
[2019-02-20] MEDS: Budesonide 0.5 mg/2 ml Inhal Susp UD IH SCH ×2 (07:20→20:08)
[2019-02-20 07:56] LABS: CALCIUM 9.7 mg/dL (8.4-10.5)
[2019-02-20] MEDS: methIMAzole 5 MG TAB PO SCH (08:00)
[2019-02-20] MEDS: Multivitamin Vitamin B Complex (Nephro-Vite) Tab PO SCH (08:00)
[2019-02-20] MEDS: diltiaZEM 240 mg/24 Hours CD Cap PO SCH (10:42)
--- NOTE | 2019-02-20 19:00 | CP.PCM.PN ---
Subjective - Date & Time of Evaluation Date of Evaluation: 02/20/19 Time of Evaluation: 18:58 - Subjective Subjective: Nephrology Consultation Note: Assessment: Stable uncontrolled HTN: improved chest pain resolved. Diabetic chronic Kidney Disease (E11.22) Hypertensive Chronic Kidney Disease (I12.9) Chronic Kidney Disease (N18.3) Stage 3 with 24 mg albuminnuria (R80.9) likely due to DM/HTN mild Anemia (D64.9), obesity hyperlipidemia hyperthyroidism hypo-osmolar hyponatremia Plan cr stable bp reasonably controlled 1.2 L fluid restriction for hyponatremia - discussed w/ nursing to make sure to enforce. will d/c lasix Secondary HTN work up with plasma metanephrine pending. doppler neg. didn't check bo level as already on aldactone. s: seen and examined denies n/v found w/ tray full of fluids Physical Examination: General Appearance: Comfortable, in no acute respiratory distress, co-operative . Vitals reviewed and noted as below Head; Atraumatic, normocephalic ENT: no ulcers no thrush. Tongue is midline. Oropharynx: no rash or ulcers. EYES: Pupils are equal, round and reactive to light accommodation. Eye muscles and extraocular movement intact. Sclera is anicteric. Neck; supple no lymphadenopathy, noted thyromegaly Lungs: Normal respiratory rate/effort. Breath sounds bilateral somwehat reduced at bases Heart: Normal rate. s1s2 normal. No rub or gallop. Extremities: trace to 1+ edema. No varicose veins Neurological: Patient is alert, awake and oriented to person, place and time. No focal deficit. Strength bilateral appropriate and equal Skin: Warm and dry. Normal turgor. No rash. Palpitation: Normal elasticity for age Abdomen: Abdomen is soft. Bowel sounds +. There is no abdominal tenderness, no guarding/rigidity no organomegaly Psych: normal insight and normal affect/mood MSK: no joint tenderness or swelling. Digits and nails normal, no deformity : kidney or bladder not palpable Labs/imaging reviewed. Past medical history, past surgical history, family history, social history, allergy reviewed and noted as below Family hx: no hx of CKD. Rest non-contributory renal imaging: b/l cysts. doppler neg for SHERIF adrenal wnl TSH 3.6 Objective - Vital Signs/Intake and Output Vital Signs (last 24 hours): Temp Pulse Resp BP Pulse Ox 98.1 F 52 L 18 112/65 96 02/19/19 10:00 02/20/19 17:19 02/19/19 10:00 02/20/19 17:19 02/19/19 12:15 - Medications Medications: Current Medications Acetaminophen (Tylenol 325mg Tab) 650 mg PO Q6H PRN PRN Reason: Headache Alprazolam (Xanax) 0.25 mg PO DAILY [facility]; Protocol Last Admin: 02/20/19 10:43 Dose: 0.25 mg Arformoterol Tartrate (Brovana) 15 mcg IH [id number] [facility] Last Admin: 02/20/19 07:20 Dose: 15 mcg Aspirin (Aspirin Chewable) 81 mg PO 0800 [facility]; Protocol Last Admin: 02/20/19 08:00 Dose: 81 mg Atorvastatin Calcium (Lipitor) 20 mg PO DIN [facility] Last Admin: 02/20/19 17:19 Dose: 20 mg Bisacodyl (Dulcolax) 5 mg PO DAILY PRN PRN Reason: Constipation Last Admin: 02/17/19 14:29 Dose: 5 mg Budesonide (Pulmicort Respules) 0.5 mg IH [id number] [facility] Last Admin: 02/20/19 07:20 Dose: 0.5 mg Carvedilol (Coreg) 25 mg PO 0800,1800 [facility]; Protocol Last Admin: 02/20/19 17:19 Dose: 25 mg Diltiazem HCl (Cardizem Cd) 240 mg PO DAILY [facility] Last Admin: 02/20/19 10:42 Dose: 240 mg Ezetimibe (Zetia) 10 mg PO DAILY [facility] Last Admin: 02/20/19 10:43 Dose: 10 mg Enoxaparin Sodium (Lovenox) 40 mg SC 0600 [facility]; Protocol Famotidine (Pepcid) 20 mg PO HS [facility]; Protocol Last Admin: 02/19/19 21:10 Dose: 20 mg Furosemide (Lasix) 20 mg PO DAILY [facility] Stop: 02/22/19 10:01 Last Admin: 02/20/19 10:42 Dose: 20 mg Insulin Human Lispro (Humalog Med) 0 units SC ACHS [facility]; Protocol Last Admin: 02/20/19 17:19 Dose: 1 units Isosorbide Mononitrate (Imdur) 60 mg PO 1400 [facility] Last Admin: 02/20/19 14:15 Dose: 60 mg Latanoprost (Xalatan Opht) 0 ml OU HS [facility] Last Admin: 02/19/19 21:10 Dose: 2.5 ml Methimazole (Tapazole) 5 mg PO 0730 [facility]; Protocol Last Admin: 02/20/19 08:00 Dose: 5 mg Minoxidil (Minoxidil) 2.5 mg PO DAILY [facility] Last Admin: 02/20/19 10:42 Dose: 2.5 mg Ondansetron HCl (Zofran Tab) 4 mg PO Q8H PRN PRN Reason: Nausea/Vomiting Spironolactone (Aldactone) 25 mg PO DAILY [facility] Last Admin: 02/20/19 10:42 Dose: 25 mg Tramadol HCl (Ultram) 50 mg PO TID PRN PRN Reason: Pain, moderate (4-7) Last Admin: 02/19/19 21:22 Dose: 50 mg Vitamin B Complex/Vit C/Folic Acid (Nephro-Yousuf) 1 tab PO 0800 [facility] Last Admin: 02/20/19 08:00 Dose: 1 tab - Labs Labs: 02/17/19 07:00 02/20/19 07:00
[2019-02-20] MEDS: Latanoprost 2.5 ml Opht Soln OU SCH (21:18)
[2019-02-21] MEDS: Insulin Lispro (humaLOG) MEDIUM Coverage SC SCH ×4 (00:16→17:47)
[2019-02-21] MEDS ORDERED: Alum-Mag Hydrox-Simethicone Susp (30 mL) PO ONE (02:39)
[2019-02-21] MEDS ORDERED: Enoxaparin 40 mg Syringe SC SCH (06:00)
[2019-02-21] MEDS: Bisacodyl 5mg EC Tab PO PRN (06:56)
[2019-02-21 07:18] LABS: CALCIUM 10.2 mg/dL (8.4-10.5)
[2019-02-21] MEDS: Budesonide 0.5 mg/2 ml Inhal Susp UD IH SCH ×2 (07:36→22:35)
[2019-02-21] MEDS: Arformoterol 15 mcg/2 ml Inh Sol IH SCH ×2 (07:36→22:35)
[2019-02-21] MEDS: methIMAzole 5 MG TAB PO SCH (08:21)
[2019-02-21] MEDS: Multivitamin Vitamin B Complex (Nephro-Vite) Tab PO SCH (08:23)
[2019-02-21] MEDS: diltiaZEM 240 mg/24 Hours CD Cap PO SCH (09:46)
--- NOTE | 2019-02-21 11:49 | CP.PCM.PN ---
<Anibal Bhatt - Last Filed: 02/21/19 11:43> Subjective - Date & Time of Evaluation Date of Evaluation: 02/21/19 Time of Evaluation: 09:00 - Subjective Subjective: Anibal Bhatt PGY-1 Progress Note for Hospitalist Service Patient seen and evaluated at bedside. Episode of nausea yesterday. Patient reports improved pain of the R hip with ambulation. Blood pressures have remained stable. Patient denies other complaints at this time, including chest pain, shortness of breath, palpitations and headache. Objective - Vital Signs/Intake and Output Vital Signs (last 24 hours): Temp Pulse Resp BP Pulse Ox 98.1 F 55 L 18 129/63 96 02/19/19 10:00 02/21/19 09:46 02/19/19 10:00 02/21/19 09:46 02/19/19 12:15 - Medications Medications: Current Medications Acetaminophen (Tylenol 325mg Tab) 650 mg PO Q6H PRN PRN Reason: Headache Alprazolam (Xanax) 0.25 mg PO DAILY [facility]; Protocol Last Admin: 02/21/19 09:49 Dose: 0.25 mg Arformoterol Tartrate (Brovana) 15 mcg IH [id number] [facility] Last Admin: 02/21/19 07:36 Dose: 15 mcg Aspirin (Ecotrin) 81 mg PO 0800 [facility] Atorvastatin Calcium (Lipitor) 20 mg PO DIN [facility] Last Admin: 02/20/19 17:19 Dose: 20 mg Bisacodyl (Dulcolax) 5 mg PO DAILY PRN PRN Reason: Constipation Last Admin: 02/21/19 06:56 Dose: 5 mg Budesonide (Pulmicort Respules) 0.5 mg IH [id number] [facility] Last Admin: 02/21/19 07:36 Dose: 0.5 mg Carvedilol (Coreg) 25 mg PO 0800,1800 [facility]; Protocol Last Admin: 02/21/19 08:22 Dose: Not Given Diltiazem HCl (Cardizem Cd) 240 mg PO DAILY [facility] Last Admin: 02/21/19 09:46 Dose: Not Given Ezetimibe (Zetia) 10 mg PO DAILY [facility] Last Admin: 02/21/19 09:49 Dose: 10 mg Enoxaparin Sodium (Lovenox) 40 mg SC 0600 [facility]; Protocol Last Admin: 02/21/19 05:42 Dose: 40 mg Insulin Human Lispro (Humalog Med) 0 units SC ACHS [facility]; Protocol Last Admin: 02/21/19 06:53 Dose: 1 units Isosorbide Mononitrate (Imdur) 60 mg PO 1400 [facility] Last Admin: 02/20/19 14:15 Dose: 60 mg Latanoprost (Xalatan Opht) 0 ml OU HS [facility] Last Admin: 02/20/19 21:18 Dose: 2.5 ml Methimazole (Tapazole) 5 mg PO 0730 [facility]; Protocol Last Admin: 02/21/19 08:21 Dose: 5 mg Minoxidil (Minoxidil) 2.5 mg PO DAILY [facility] Last Admin: 02/21/19 09:49 Dose: 2.5 mg Ondansetron HCl (Zofran Tab) 4 mg PO Q6H PRN PRN Reason: Nausea/Vomiting Pantoprazole Sodium (Protonix Ec Tab) 40 mg PO 0600 [facility] Spironolactone (Aldactone) 25 mg PO DAILY [facility] Last Admin: 02/21/19 09:48 Dose: 25 mg Sucralfate (Carafate Oral Susp) 1 gm PO 0600,1600 [facility] Tramadol HCl (Ultram) 50 mg PO TID PRN PRN Reason: Pain, moderate (4-7) Last Admin: 02/20/19 21:18 Dose: 50 mg Vitamin B Complex/Vit C/Folic Acid (Nephro-Yousuf) 1 tab PO 0800 [facility] Last Admin: 02/21/19 08:23 Dose: 1 tab - Labs Labs: 02/17/19 07:00 02/21/19 06:30 - Additional Findings Additional findings: - Constitutional Appears: Well, Non-toxic, No Acute Distress - Head Exam Head Exam: ATRAUMATIC, NORMAL INSPECTION, NORMOCEPHALIC - Eye Exam Eye Exam: EOMI, PERRL Pupil Exam: NORMAL ACCOMODATION - ENT Exam ENT Exam: Mucous Membranes Moist - Respiratory Exam Respiratory Exam: Clear to Auscultation Bilateral, NORMAL BREATHING PATTERN, negative for rales or wheezes. Chest tender to palpation - Cardiovascular Exam Cardiovascular Exam: REGULAR RHYTHM, RRR, +S1, +S2, Systolic Murmur (systolic ejection murmur) - GI/Abdominal Exam GI & Abdominal Exam: Normal Bowel Sounds, Soft. absent: Tenderness - Extremities Exam Extremities exam: Positive for: full ROM, pedal pulses present. Negative for: tenderness - Neurological Exam Neurological exam: Alert, CN II-XII Intact, Oriented x3 - Skin Skin Exam: Dry, Intact, Normal Color Assessment and Plan - Assessment and Plan (Free Text) Assessment: 83 year old female with past medical history of hypertension, hyperlipidemia, diabetes mellitus type II, anemia, CKD, hepatic steatosis presents with uncontrolled hypertension and chest pain. Patient currently in TCU for further rehab. Plan: Hypertensive Emergency - improved -Recent BP controlled -Stress test results: negative Lexiscan, david apical defect not visualized -Echocardiogram shows LVEF 64%, RVSP 35, trace AR and mild MR. -Follow up metanephrine to evaluate for etiology of pheochromocytoma -Renal artery duplex shows tortuous main renal arteries, no evidence of stenosis, multiple moderate large cysts bilaterally -Continue home coreg, cardizem -Losartan and HCTZ on hold. Imdur moved to afternoon to avoid dizziness when given concomitantly with other meds -Continue home hydralazine PRN with holding parameters of <160/110 -C/w minoxidil per Nephrology Acute on Chronic kidney disease -BUN/Cr: 21/1.5 improved -Random urine sodium 42 and creatinine 51 -Renal artery duplex shows tortuous main renal arteries, no evidence of stenosis, multiple moderate large cysts bilaterally -F/u metanephrines and further urine studies and SPEP -Dr. Madai tolentino appreciated -Cysts to be followed up as outpatient Nausea/Vomiting -May be 2/2 Tramadol -Protonix and Sucralfate added -Zofran increased 4 mg PO q6 -Continue to monitor R hip pain -R hip Xray negative for acute process, past fixation -C/W Tramadol 50 TID. Please give along with food. Hyperkalemia -K: 4.5 today, improved -Patiromer Calcium Sorbitex -HCTZ and Lisinopril was on hold due to hyperkalemia -Dr Madai tolentino appreciated - Lasix discontinued Chest pain-resolved -EKG: NSR with HR: 87 -Trop x4: unremarkable -Continue aspirin 81 mg daily, statin, coreg. ASA changed to enteric coated Diabetes mellitus type II -HgbA1c: 6.8 -Accucheck ACHS -Will continue sliding scale insulin Hyperthyroidism -TSH: 3.61 -T4: 8.3 -Free T4: 0.99 -Continue home methimazole Hyperlipidemia -Lipid panel unremarkable -Continue home statin and zetia GI prophylaxis: PTX DVT prophylaxis: Heparin 5000 U Q8 Patient seen, case reviewed and plan approved by Dr. Puri. Anibal Bhatt, PGY-1 <Isidro Puri - Last Filed: 02/22/19 17:32> Objective - Vital Signs/Intake and Output Vital Signs (last 24 hours): Temp Pulse Resp BP Pulse Ox 98 F 60 18 128/60 98 02/22/19 16:00 02/22/19 16:00 02/22/19 16:00 02/22/19 16:00 02/22/19 16:00 Intake and Output: 02/22/19 02/22/19 06:59 18:59 Intake Total 420 Balance 420 - Medications Medications: Current Medications Acetaminophen (Tylenol 325mg Tab) 650 mg PO Q6H PRN PRN Reason: Headache Alprazolam (Xanax) 0.25 mg PO DAILY [facility]; Protocol Last Admin: 02/22/19 09:56 Dose: 0.25 mg Arformoterol Tartrate (Brovana) 15 mcg IH [id number] [facility] Last Admin: 02/22/19 07:28 Dose: 15 mcg Aspirin (Ecotrin) 81 mg PO 0800 [facility] Last Admin: 02/22/19 08:08 Dose: 81 mg Atorvastatin Calcium (Lipitor) 20 mg PO DIN [facility] Last Admin: 02/21/19 17:18 Dose: 20 mg Bisacodyl (Dulcolax) 5 mg PO DAILY PRN PRN Reason: Constipation Last Admin: 02/21/19 06:56 Dose: 5 mg Budesonide (Pulmicort Respules) 0.5 mg IH [id number] [facility] Last Admin: 02/22/19 07:28 Dose: 0.5 mg Carvedilol (Coreg) 25 mg PO 0800,1800 [facility]; Protocol Last Admin: 02/22/19 08:07 Dose: 25 mg Diltiazem HCl (Cardizem Cd) 240 mg PO DAILY [facility] Last Admin: 02/22/19 09:54 Dose: 240 mg Ezetimibe (Zetia) 10 mg PO DAILY [facility] Last Admin: 02/22/19 09:54 Dose: 10 mg Enoxaparin Sodium (Lovenox) 30 mg SC 0600 [facility]; Protocol Last Admin: 02/22/19 05:25 Dose: 30 mg Insulin Human Lispro (Humalog Med) 0 units SC ACHS [facility]; Protocol Last Admin: 02/22/19 12:12 Dose: 3 units Isosorbide Mononitrate (Imdur) 60 mg PO 1400 [facility] Last Admin: 02/22/19 13:42 Dose: 60 mg Latanoprost (Xalatan Opht) 0 ml OU HS [facility] Last Admin: 02/21/19 21:38 Dose: 2.5 ml Methimazole (Tapazole) 5 mg PO 0730 [facility]; Protocol Last Admin: 02/22/19 08:08 Dose: 5 mg Minoxidil (Minoxidil) 2.5 mg PO DAILY [facility] Last Admin: 02/22/19 09:54 Dose: 2.5 mg Ondansetron HCl (Zofran Tab) 4 mg PO Q6H PRN PRN Reason: Nausea/Vomiting Last Admin: 02/22/19 13:43 Dose: 4 mg Pantoprazole Sodium (Protonix Ec Tab) 40 mg PO 0600 [facility] Last Admin: 02/22/19 05:25 Dose: 40 mg Spironolactone (Aldactone) 25 mg PO DAILY [facility] Last Admin: 02/22/19 09:53 Dose: 25 mg Sucralfate (Carafate Oral Susp) 1 gm PO 0600,1600 [facility] Last Admin: 02/22/19 05:25 Dose: 1 gm Tramadol HCl (Ultram) 50 mg PO TID PRN PRN Reason: Pain, moderate (4-7) Last Admin: 02/21/19 21:37 Dose: 50 mg Vitamin B Complex/Vit C/Folic Acid (Nephro-Yousuf) 1 tab PO 0800 [facility] Last Admin: 02/22/19 08:08 Dose: 1 tab - Labs Labs: 02/17/19 07:00 02/22/19 06:20 Attending/Attestation - Attestation I have personally seen and examined this patient.: Yes I have fully participated in the care of the patient.: Yes I have reviewed all pertinent clinical information, including history, physical exam and plan: Yes Notes (Text): 02/22/19 17:30 Medical record note made by the resident after discussion with my direction and input after the patient was personally seen and examined by me. I have reviewed the chart and agree that the record accurately reflects by personal performance of the history, physical exam, data review, and medical decision-making, in the course for the patient. I have also personally directed the plan of care. 83 year old female with past medical history of hypertension, diabetes, hyperthyroidism and CKD was initailly admitted to [facility] Inpatient with H/O of chest pain and elevated blood pressure. Serial cardiac enzymes were negative. Stress test was done which was negative. Chest pain has resolved. She also had poorly controlled hypertension on multiple medications. BP improved after minoxidil was added. Nephrology is also following for CKD which is stable. Hyponatremia is improving. Patient is asymptomatic. . Continue with physical therapy as tolerated while in TCU.
--- NOTE | 2019-02-21 13:41 | CP.PCM.PN ---
Subjective - Date & Time of Evaluation Date of Evaluation: 02/21/19 Time of Evaluation: 13:39 - Subjective Subjective: Nephrology Consultation Note: Assessment: Stable uncontrolled HTN: improved chest pain resolved. 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 mild fluctuation in serum cr likely hemodynamic, now stable Hypertension control with meds as ordered. Maintain hemodynamics stable. Avoid hypotension. Patient on aldactone 25 mg/d, also on coreg, CCB, nirates. [off thiazid due to hyponatremia). Also will continue with minoxidil 2.5 mg /day for better HTN control Monitor Input/Output, daily weights and renal function with basic metabolic panel oral fluid restriction 1200 mL/day. recheck urine Na/Osmol ,serum Osmol, uric acid. also with mild hype rcalcemia/anemia. will check SPEP/MIKEY and serum FLC assay Secondary HTN work up with plasma metanephrine and renal artery doppler neg. didn't check bo level as already on aldactone. Dose meds/antibiotics for reduced GFR. Avoid fleets enema/magnesium based laxatives. Avoid nephrotoxins/NSAIDs/ iodinated contrast (unless needed emergently) Glycemic control Further work up/management as per primary team Thanks for allowing me to participate in care of your patient. Will follow patient with you. Please call if any Qs. had d/w team Dr Leoncio Aj Office: [phone] Reason for consult: HTN management HPI: Pt is a 83 F with hx of diabetes Mellitus (20 years), hypertension (>20 years) obesity hyperlipidemia hyperthyroidism admitted to hospital initially with complaints of high BP and chest pain with SOB which are better now Denies OTC/herbal meds or NSAIDs No recent iodinated contrast exposure. denies smoking/etoh/licorice/decongestants says BP usually okay (on many meds) but gets high intermittently without any known reasons not aware about CKD. baseline cr 1.4 pt got d/c to [facility] and seen for HTN and CKD management ROS: c/o heartburn Cardiovascular: No chest pain. improved Pulmonary: No shortness of breath now. improved Gastrointestinal: denies abdominal pain No nausea. No vomiting. Genitourinary: No pain while urinating. Denies blood in urine. All other negative except as mentioned in HPI Physical Examination: General Appearance: Comfortable, in no acute respiratory distress, co-operative . Vitals reviewed and noted as below Head; Atraumatic, normocephalic ENT: no ulcers no thrush. Tongue is midline. Oropharynx: no rash or ulcers. EYES: Pupils are equal, round and reactive to light accommodation. Eye muscles and extraocular movement intact. Sclera is anicteric. Neck; supple no lymphadenopathy, noted thyromegaly Lungs: Normal respiratory rate/effort. Breath sounds bilateral somwehat reduced at bases Heart: Normal rate. s1s2 normal. No rub or gallop. Extremities: no edema. No varicose veins Neurological: Patient is alert, awake and oriented to person, place and time. No focal deficit. Strength bilateral appropriate and equal Skin: Warm and dry. Normal turgor. No rash. Palpitation: Normal elasticity for age Abdomen: Abdomen is soft. Bowel sounds +. There is no abdominal tenderness, no guarding/rigidity no organomegaly Psych: normal insight and normal affect/mood MSK: no joint tenderness or swelling. Digits and nails normal, no deformity : kidney or bladder not palpable Labs/imaging reviewed. Past medical history, past surgical history, family history, social history, allergy reviewed and noted as below Family hx: no hx of CKD. Rest non-contributory renal imaging: b/l cysts. doppler neg for SHERIF adrenal wnl TSH 3.6 Objective - Vital Signs/Intake and Output Vital Signs (last 24 hours): Temp Pulse Resp BP Pulse Ox 98.1 F 55 L 18 129/63 96 02/19/19 10:00 02/21/19 09:46 02/19/19 10:00 02/21/19 09:46 02/19/19 12:15 Intake and Output: 02/21/19 02/21/19 06:59 18:59 Intake Total 420 Balance 420 - Medications Medications: Current Medications Acetaminophen (Tylenol 325mg Tab) 650 mg PO Q6H PRN PRN Reason: Headache Alprazolam (Xanax) 0.25 mg PO DAILY [facility]; Protocol Last Admin: 02/21/19 09:49 Dose: 0.25 mg Arformoterol Tartrate (Brovana) 15 mcg IH [id number] [facility] Last Admin: 02/21/19 07:36 Dose: 15 mcg Aspirin (Ecotrin) 81 mg PO 0800 [facility] Atorvastatin Calcium (Lipitor) 20 mg PO DIN [facility] Last Admin: 02/20/19 17:19 Dose: 20 mg Bisacodyl (Dulcolax) 5 mg PO DAILY PRN PRN Reason: Constipation Last Admin: 02/21/19 06:56 Dose: 5 mg Budesonide (Pulmicort Respules) 0.5 mg IH [id number] [facility] Last Admin: 02/21/19 07:36 Dose: 0.5 mg Carvedilol (Coreg) 25 mg PO 0800,1800 [facility]; Protocol Last Admin: 02/21/19 08:22 Dose: Not Given Diltiazem HCl (Cardizem Cd) 240 mg PO DAILY [facility] Last Admin: 02/21/19 09:46 Dose: Not Given Ezetimibe (Zetia) 10 mg PO DAILY [facility] Last Admin: 02/21/19 09:49 Dose: 10 mg Enoxaparin Sodium (Lovenox) 30 mg SC 0600 [facility]; Protocol Insulin Human Lispro (Humalog Med) 0 units SC ACHS [facility]; Protocol Last Admin: 02/21/19 12:02 Dose: 3 units Isosorbide Mononitrate (Imdur) 60 mg PO 1400 [facility] Last Admin: 02/20/19 14:15 Dose: 60 mg Latanoprost (Xalatan Opht) 0 ml OU HS [facility] Last Admin: 02/20/19 21:18 Dose: 2.5 ml Methimazole (Tapazole) 5 mg PO 0730 [facility]; Protocol Last Admin: 02/21/19 08:21 Dose: 5 mg Minoxidil (Minoxidil) 2.5 mg PO DAILY [facility] Last Admin: 02/21/19 09:49 Dose: 2.5 mg Ondansetron HCl (Zofran Tab) 4 mg PO Q6H PRN PRN Reason: Nausea/Vomiting Pantoprazole Sodium (Protonix Ec Tab) 40 mg PO 0600 [facility] Spironolactone (Aldactone) 25 mg PO DAILY [facility] Last Admin: 02/21/19 09:48 Dose: 25 mg Sucralfate (Carafate Oral Susp) 1 gm PO 0600,1600 [facility] Tramadol HCl (Ultram) 50 mg PO TID PRN PRN Reason: Pain, moderate (4-7) Last Admin: 02/20/19 21:18 Dose: 50 mg Vitamin B Complex/Vit C/Folic Acid (Nephro-Yousuf) 1 tab PO 0800 [facility] Last Admin: 02/21/19 08:23 Dose: 1 tab - Labs Labs: 02/17/19 07:00 02/21/19 06:30
[2019-02-21 14:30] LABS: URINE BILIRUBIN NEGATIVE (NEGATIVE); URINE BLOOD NEGATIVE (NEGATIVE); URINE GLUCOSE (UA) NEGATIVE (NEGATIVE); URINE LEUKOCYTE ESTERASE SMALL Leu/uL (NEGATIVE); URINE PROTEIN NEGATIVE mg/dL (<30 mg/dL); URINE UROBILINOGEN 0.2 E.U./dL (<1 E.U./dL)
[2019-02-21 14:34] LABS: URINE APPEARANCE CLEAR (CLEAR); URINE COLOR YELLOW (YELLOW)
[2019-02-21 14:43] LABS: URINE AMORPHOUS SEDIMENT FEW /hpf; URINE BACTERIA MANY /hpf
[2019-02-21 16:45] LABS: OSMOLALITY,URINE 180 mosm/kg (300-1000)
[2019-02-21 16:46] LABS: CREATININE,RANDOM URINE 61 mg/dL
[2019-02-21] MEDS: Sucralfate 1 gm/10 ml Oral Susp UD PO SCH (17:18)
[2019-02-21] MEDS: Latanoprost 2.5 ml Opht Soln OU SCH (21:38)
[2019-02-22] MEDS: Insulin Lispro (humaLOG) MEDIUM Coverage SC SCH ×5 (00:10→21:57)
[2019-02-22] MEDS: Pantoprazole 40 mg EC Tab PO SCH (05:25)
[2019-02-22] MEDS: Enoxaparin 30 mg Syringe SC SCH (05:25)
[2019-02-22] MEDS: Sucralfate 1 gm/10 ml Oral Susp UD PO SCH ×2 (05:25→17:26)
[2019-02-22] MEDS: Budesonide 0.5 mg/2 ml Inhal Susp UD IH SCH ×2 (07:28→19:46)
[2019-02-22] MEDS: Arformoterol 15 mcg/2 ml Inh Sol IH SCH ×2 (07:28→19:46)
[2019-02-22] MEDS: methIMAzole 5 MG TAB PO SCH (08:08)
[2019-02-22] MEDS: Multivitamin Vitamin B Complex (Nephro-Vite) Tab PO SCH (08:08)
[2019-02-22] MEDS: diltiaZEM 240 mg/24 Hours CD Cap PO SCH (09:54)
--- NOTE | 2019-02-22 12:12 | CP.PCM.PN ---
Subjective - Date & Time of Evaluation Date of Evaluation: 02/22/19 Time of Evaluation: 12:10 - Subjective Subjective: Nephrology Consultation Note: Assessment: Stable uncontrolled HTN: improved chest pain resolved. 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 mild fluctuation in serum cr likely hemodynamic, now stable Hypertension control with meds as ordered. Maintain hemodynamics stable. Avoid h ypotension. Patient on aldactone 25 mg/d, also on coreg, CCB, nirates. [off thiazid due to hyponatremia). Also will continue with minoxidil 2.5 mg /day for better HTN control Monitor Input/Output, daily weights and Na. avoid correction in serum Na >6-8 meq/24 hrs. no need for samsca or hypertonic saline at present oral fluid restriction 1200 mL/day reinforced with pt. sent SPEP/MIKEY and serum FLC assay Secondary HTN work up with plasma metanephrine and renal artery doppler neg. didn't check bo level as already on aldactone. Dose meds/antibiotics for reduced GFR. Avoid fleets enema/magnesium based laxatives. Avoid nephrotoxins/NSAIDs/ iodinated contrast (unless needed emergently) Glycemic control Further work up/management as per primary team Thanks for allowing me to participate in care of your patient. Will follow patient with you. Please call if any Qs. had d/w team Dr Leoncio Aj Office: [phone] Reason for consult: HTN management HPI: Pt is a 83 F with hx of diabetes Mellitus (20 years), hypertension (>20 years) obesity hyperlipidemia hyperthyroidism admitted to hospital initially with complaints of high BP and chest pain with SOB which are better now Denies OTC/herbal meds or NSAIDs No recent iodinated contrast exposure. denies smoking/etoh/licorice/decongestants says BP usually okay (on many meds) but gets high intermittently without any known reasons not aware about CKD. baseline cr 1.4 pt got d/c to [facility] and seen for HTN and CKD management ROS: c/o heartburn Cardiovascular: No chest pain. improved Pulmonary: No shortness of breath now. improved Gastrointestinal: denies abdominal pain No nausea. No vomiting. Genitourinary: No pain while urinating. Denies blood in urine. All other negative except as mentioned in HPI Physical Examination: General Appearance: Comfortable, in no acute respiratory distress, co-operative . Vitals reviewed and noted as below Head; Atraumatic, normocephalic ENT: no ulcers no thrush. Tongue is midline. Oropharynx: no rash or ulcers. EYES: Pupils are equal, round and reactive to light accommodation. Eye muscles and extraocular movement intact. Sclera is anicteric. Neck; supple no lymphadenopathy, noted thyromegaly Lungs: Normal respiratory rate/effort. Breath sounds bilateral clear Heart: Normal rate. s1s2 normal. No rub or gallop. Extremities: no edema. No varicose veins Neurological: Patient is alert, awake and oriented to person, place and time. No focal deficit. Strength bilateral appropriate and equal Skin: Warm and dry. Normal turgor. No rash. Palpitation: Normal elasticity for age Abdomen: Abdomen is soft. Bowel sounds +. There is no abdominal tenderness, no guarding/rigidity no organomegaly Psych: normal insight and normal affect/mood MSK: no joint tenderness or swelling. Digits and nails normal, no deformity : kidney or bladder not palpable Labs/imaging reviewed. Past medical history, past surgical history, family history, social history, allergy reviewed and noted as below Family hx: no hx of CKD. Rest non-contributory renal imaging: b/l cysts. doppler neg for SHERIF adrenal wnl TSH 3.6 Objective - Vital Signs/Intake and Output Vital Signs (last 24 hours): Temp Pulse Resp BP Pulse Ox 97.6 F 68 14 124/63 96 02/21/19 10:00 02/22/19 09:54 02/21/19 10:00 02/22/19 09:54 02/21/19 10:00 Intake and Output: 02/22/19 02/22/19 06:59 18:59 Intake Total 420 Balance 420 - Medications Medications: Current Medications Acetaminophen (Tylenol 325mg Tab) 650 mg PO Q6H PRN PRN Reason: Headache Alprazolam (Xanax) 0.25 mg PO DAILY [facility]; Protocol Last Admin: 02/22/19 09:56 Dose: 0.25 mg Arformoterol Tartrate (Brovana) 15 mcg IH [id number] [facility] Last Admin: 02/22/19 07:28 Dose: 15 mcg Aspirin (Ecotrin) 81 mg PO 0800 [facility] Last Admin: 02/22/19 08:08 Dose: 81 mg Atorvastatin Calcium (Lipitor) 20 mg PO DIN [facility] Last Admin: 02/21/19 17:18 Dose: 20 mg Bisacodyl (Dulcolax) 5 mg PO DAILY PRN PRN Reason: Constipation Last Admin: 02/21/19 06:56 Dose: 5 mg Budesonide (Pulmicort Respules) 0.5 mg IH [id number] [facility] Last Admin: 02/22/19 07:28 Dose: 0.5 mg Carvedilol (Coreg) 25 mg PO 0800,1800 [facility]; Protocol Last Admin: 02/22/19 08:07 Dose: 25 mg Diltiazem HCl (Cardizem Cd) 240 mg PO DAILY [facility] Last Admin: 02/22/19 09:54 Dose: 240 mg Ezetimibe (Zetia) 10 mg PO DAILY [facility] Last Admin: 02/22/19 09:54 Dose: 10 mg Enoxaparin Sodium (Lovenox) 30 mg SC 0600 [facility]; Protocol Last Admin: 02/22/19 05:25 Dose: 30 mg Insulin Human Lispro (Humalog Med) 0 units SC ACHS [facility]; Protocol Last Admin: 02/22/19 06:47 Dose: 1 units Isosorbide Mononitrate (Imdur) 60 mg PO 1400 [facility] Last Admin: 02/21/19 13:40 Dose: 60 mg Latanoprost (Xalatan Opht) 0 ml OU HS [facility] Last Admin: 02/21/19 21:38 Dose: 2.5 ml Methimazole (Tapazole) 5 mg PO 0730 [facility]; Protocol Last Admin: 02/22/19 08:08 Dose: 5 mg Minoxidil (Minoxidil) 2.5 mg PO DAILY [facility] Last Admin: 02/22/19 09:54 Dose: 2.5 mg Ondansetron HCl (Zofran Tab) 4 mg PO Q6H PRN PRN Reason: Nausea/Vomiting Pantoprazole Sodium (Protonix Ec Tab) 40 mg PO 0600 [facility] Last Admin: 02/22/19 05:25 Dose: 40 mg Spironolactone (Aldactone) 25 mg PO DAILY [facility] Last Admin: 02/22/19 09:53 Dose: 25 mg Sucralfate (Carafate Oral Susp) 1 gm PO 0600,1600 [facility] Last Admin: 02/22/19 05:25 Dose: 1 gm Tramadol HCl (Ultram) 50 mg PO TID PRN PRN Reason: Pain, moderate (4-7) Last Admin: 02/21/19 21:37 Dose: 50 mg Vitamin B Complex/Vit C/Folic Acid (Nephro-Yousuf) 1 tab PO 0800 [facility] Last Admin: 02/22/19 08:08 Dose: 1 tab - Labs Labs: 02/17/19 07:00 02/22/19 06:20
[2019-02-22] MEDS: Bisacodyl 5mg EC Tab PO PRN (17:33)
[2019-02-22] MEDS: Latanoprost 2.5 ml Opht Soln OU SCH (21:58)
[2019-02-23] MEDS: Sucralfate 1 gm/10 ml Oral Susp UD PO SCH ×2 (06:04→15:45)
[2019-02-23] MEDS: Pantoprazole 40 mg EC Tab PO SCH (06:04)
[2019-02-23] MEDS: Enoxaparin 30 mg Syringe SC SCH (06:04)
[2019-02-23] MEDS: Bisacodyl 5mg EC Tab PO PRN (06:16)
[2019-02-23] MEDS: Insulin Lispro (humaLOG) MEDIUM Coverage SC SCH ×4 (06:48→21:32)
[2019-02-23 07:04] LABS: BASO # 0.01 K/mm3 (0.0-2.0); BASO % 0.2 % (0.0-3.0); EOS # 0.1 (0.0-0.7); EOS % 1.9 % (1.5-5.0); HEMOGLOBIN 9.6 g/dL (12.0-16.0); LYMPH # 2.1 (1.2-3.4); LYMPH % 39.2 % (22.0-35.0); MEAN CELL VOLUME 88.1 fl (80.0-105.0); MEAN CORPUSCULAR HEMOGLOBIN 30.8 pg (25.0-35.0); MEAN CORPUSCULAR HGB CONC 34.9 g/dl (31.0-37.0); MEAN PLATELET VOLUME 8.6 fl (7.0-11.0); MONO # 0.7 (0.1-0.6); MONO % 12.4 % (1.0-6.0); RBC 3.12 10^6/uL (3.5-6.1); RED CELL DISTRIBUTION WIDTH 12.2 % (11.5-14.5); WHITE BLOOD COUNT 5.3 10^3/uL (4.5-11.0)
[2019-02-23 08:04] LABS: ALB/GLOB RATIO 1.2 (1.1-1.8); ALBUMIN 3.8 g/dL (3.0-4.8); CALCIUM 9.9 mg/dL (8.4-10.5)
[2019-02-23] MEDS: methIMAzole 5 MG TAB PO SCH (08:04)
[2019-02-23] MEDS: Multivitamin Vitamin B Complex (Nephro-Vite) Tab PO SCH (08:05)
[2019-02-23] MEDS: Budesonide 0.5 mg/2 ml Inhal Susp UD IH SCH ×2 (08:57→20:25)
[2019-02-23] MEDS: Arformoterol 15 mcg/2 ml Inh Sol IH SCH ×2 (08:57→20:25)
[2019-02-23] MEDS ORDERED: Darbepoetin Alfa 40 mcg/ml Inj SC ONE (09:36)
[2019-02-23] MEDS: diltiaZEM 240 mg/24 Hours CD Cap PO SCH (10:07)
--- NOTE | 2019-02-23 13:20 | CP.PCM.PN ---
<Anibal Bhatt - Last Filed: 02/23/19 13:15> Subjective - Date & Time of Evaluation Date of Evaluation: 02/23/19 Time of Evaluation: 09:00 - Subjective Subjective: Anibal Bhatt, PGY-1 Progress Note for Hospitalist Service Patient seen and evaluated at bedside. Episodes of intermittent nausea with meals. Patient reports improved pain of the R hip with ambulation. Blood pressures have remained stable. Patient denies other complaints at this time, including chest pain, shortness of breath, palpitations and headache. Objective - Vital Signs/Intake and Output Vital Signs (last 24 hours): Temp Pulse Resp BP Pulse Ox 98.1 F 69 16 133/72 98 02/23/19 10:59 02/23/19 10:59 02/23/19 10:59 02/23/19 10:59 02/23/19 10:59 Intake and Output: 02/23/19 02/23/19 06:59 18:59 Intake Total 120 Balance 120 - Medications Medications: Current Medications Alprazolam (Xanax) 0.25 mg PO DAILY [facility]; Protocol Last Admin: 02/23/19 10:08 Dose: 0.25 mg Arformoterol Tartrate (Brovana) 15 mcg IH [id number] [facility] Last Admin: 02/23/19 08:57 Dose: 15 mcg Aspirin (Ecotrin) 81 mg PO 0800 [facility] Last Admin: 02/23/19 08:05 Dose: 81 mg Atorvastatin Calcium (Lipitor) 20 mg PO DIN [facility] Last Admin: 02/22/19 17:29 Dose: 20 mg Bisacodyl (Dulcolax) 5 mg PO DAILY PRN PRN Reason: Constipation Last Admin: 02/23/19 06:16 Dose: 5 mg Budesonide (Pulmicort Respules) 0.5 mg IH [id number] [facility] Last Admin: 02/23/19 08:57 Dose: 0.5 mg Carvedilol (Coreg) 25 mg PO 0800,1800 [facility]; Protocol Last Admin: 02/23/19 08:05 Dose: 25 mg Diltiazem HCl (Cardizem Cd) 240 mg PO DAILY [facility] Last Admin: 02/23/19 10:07 Dose: 240 mg Ezetimibe (Zetia) 10 mg PO DAILY [facility] Last Admin: 04/17/19 10:07 Dose: 10 mg Enoxaparin Sodium (Lovenox) 30 mg SC 0600 [facility]; Protocol Last Admin: 02/23/19 06:04 Dose: 30 mg Insulin Human Lispro (Humalog Med) 0 units SC ACHS [facility]; Protocol Last Admin: 02/23/19 11:42 Dose: 1 units Isosorbide Mononitrate (Imdur) 60 mg PO 1400 [facility] Last Admin: 02/22/19 13:42 Dose: 60 mg Latanoprost (Xalatan Opht) 0 ml OU HS [facility] Last Admin: 02/22/19 21:58 Dose: 2.5 ml Methimazole (Tapazole) 5 mg PO 0730 [facility]; Protocol Last Admin: 02/23/19 08:04 Dose: 5 mg Minoxidil (Minoxidil) 2.5 mg PO DAILY [facility] Last Admin: 02/23/19 10:07 Dose: 2.5 mg Ondansetron HCl (Zofran Tab) 4 mg PO Q6H PRN PRN Reason: Nausea/Vomiting Last Admin: 02/23/19 08:06 Dose: 4 mg Pantoprazole Sodium (Protonix Ec Tab) 20 mg PO 0600 [facility] Spironolactone (Aldactone) 25 mg PO DAILY [facility] Last Admin: 02/23/19 10:07 Dose: 25 mg Sucralfate (Carafate Oral Susp) 1 gm PO 0600,1600 [facility] Last Admin: 02/23/19 06:04 Dose: 1 gm Tramadol HCl (Ultram) 50 mg PO TID PRN PRN Reason: Pain, moderate (4-7) Last Admin: 02/22/19 21:59 Dose: 50 mg Vitamin B Complex/Vit C/Folic Acid (Nephro-Yousuf) 1 tab PO 0800 [facility] Last Admin: 02/23/19 08:05 Dose: 1 tab - Labs Labs: 02/23/19 06:20 02/23/19 06:20 - Additional Findings Additional findings: - Constitutional Appears: Well, Non-toxic, No Acute Distress - Head Exam Head Exam: ATRAUMATIC, NORMAL INSPECTION, NORMOCEPHALIC - Eye Exam Eye Exam: EOMI, PERRL Pupil Exam: NORMAL ACCOMODATION - ENT Exam ENT Exam: Mucous Membranes Moist - Respiratory Exam Respiratory Exam: Clear to Auscultation Bilateral, NORMAL BREATHING PATTERN, negative for rales or wheezes. Chest tender to palpation - Cardiovascular Exam Cardiovascular Exam: REGULAR RHYTHM, RRR, +S1, +S2, Systolic Murmur (systolic ejection murmur) - GI/Abdominal Exam GI & Abdominal Exam: Normal Bowel Sounds, Soft. absent: Tenderness - Extremities Exam Extremities exam: Positive for: full ROM, pedal pulses present. Negative for: tenderness - Neurological Exam Neurological exam: Alert, CN II-XII Intact, Oriented x3 - Skin Skin Exam: Dry, Intact, Normal Color Assessment and Plan - Assessment and Plan (Free Text) Assessment: 83 year old female with past medical history of hypertension, hyperlipidemia, diabetes mellitus type II, anemia, CKD, hepatic steatosis presents with uncontrolled hypertension and chest pain. Patient currently in TCU for further rehab. Plan: Hypertensive Emergency - improved -Recent BP controlled -Stress test results: negative Lexiscan, david apical defect not visualized -Echocardiogram shows LVEF 64%, RVSP 35, trace AR and mild MR. -Follow up metanephrine to evaluate for etiology of pheochromocytoma -Renal artery duplex shows tortuous main renal arteries, no evidence of stenosis, multiple moderate large cysts bilaterally -Continue home coreg, cardizem -Losartan and HCTZ on hold. C/W Imdur -Continue home hydralazine PRN with holding parameters of <160/110 -C/w minoxidil per Nephrology Acute on Chronic kidney disease -BUN/Cr: 20/1.6 -Random urine sodium 42 and creatinine 51 -Improving Hyponatremia 131 today. S/p 1 dose of Aransep today. -Renal artery duplex shows tortuous main renal arteries, no evidence of stenosis, multiple moderate large cysts bilaterally -F/u metanephrines and further urine studies and SPEP -Dr. Madai tolentino appreciated -Cysts to be followed up as outpatient Transaminitis - Possibly 2/2 Protonix - Will decrease dose to once daily Nausea/Vomiting -May be 2/2 Tramadol -C/w Protonix and Sucralfate -C/W Zofran 4 mg PO q6 -Continue to monitor R hip pain -R hip Xray negative for acute process, past fixation -C/W Tramadol 50 TID. Please give along with food. Hyperkalemia -K: 4.4 today, improved -Patiromer Calcium Sorbitex -HCTZ and Lisinopril was on hold due to hyperkalemia -Dr Madai tolentino appreciated Chest pain-resolved -EKG: NSR with HR: 87 -Trop x4: unremarkable -Continue aspirin 81 mg daily, statin, coreg. ASA changed to enteric coated. Diabetes mellitus type II -HgbA1c: 6.8 -Accucheck ACHS -Will continue sliding scale insulin Hyperthyroidism -TSH: 3.61 -T4: 8.3 -Free T4: 0.99 -Continue home methimazole Hyperlipidemia -Lipid panel unremarkable -Continue home statin and zetia Dispo: plan for discharge 02/24 per TCU GI prophylaxis: PTX DVT prophylaxis: Lovenox Patient seen, case reviewed and plan approved by Dr. Puri. Anibal Bhatt, PGY-1 <Isidro Puri - Last Filed: 02/24/19 16:33> Objective - Vital Signs/Intake and Output Vital Signs (last 24 hours): Temp Pulse Resp BP Pulse Ox 98 F 60 18 131/70 95 02/23/19 17:01 02/24/19 09:22 02/23/19 17:01 02/24/19 09:22 02/23/19 17:01 - Labs Labs: 02/23/19 06:20 02/24/19 07:55 Attending/Attestation - Attestation I have personally seen and examined this patient.: Yes I have fully participated in the care of the patient.: Yes I have reviewed all pertinent clinical information, including history, physical exam and plan: Yes Notes (Text): 02/24/19 16:33 Medical record note made by the resident after discussion with my direction and input after the patient was personally seen and examined by me. I have reviewed the chart and agree that the record accurately reflects by personal performance of the history, physical exam, data review, and medical decision-making, in the course for the patient. I have also personally directed the plan of care.
--- NOTE | 2019-02-23 15:22 | CP.PCM.PN ---
Subjective - Date & Time of Evaluation Date of Evaluation: 02/23/19 Time of Evaluation: 15:21 - Subjective Subjective: Nephrology Consultation Note: Assessment: Stable uncontrolled HTN: improved chest pain resolved. 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 mild fluctuation in serum cr likely hemodynamic, now stable Hypertension control with meds as ordered. Maintain hemodynamics stable. Avoid h ypotension. Patient on aldactone 25 mg/d, also on coreg, CCB, nirates. [off thiazid due to hyponatremia). Also will continue with minoxidil 2.5 mg /day for better HTN control Monitor Input/Output, daily weights and Na. avoid correction in serum Na >6-8 meq/24 hrs. no need for samsca or hypertonic saline at present oral fluid restriction 1200 mL/day reinforced with pt. sent SPEP/MIKEY and serum FLC assay Secondary HTN work up with plasma metanephrine and renal artery doppler neg. didn't check bo level as already on aldactone. Dose meds/antibiotics for reduced GFR. Avoid fleets enema/magnesium based laxatives. Avoid nephrotoxins/NSAIDs/ iodinated contrast (unless needed emergently) Glycemic control Further work up/management as per primary team Thanks for allowing me to participate in care of your patient. Will follow patient with you. Please call if any Qs. had d/w team Dr Leoncio Aj Office: [phone] Reason for consult: HTN management HPI: Pt is a 83 F with hx of diabetes Mellitus (20 years), hypertension (>20 years) obesity hyperlipidemia hyperthyroidism admitted to hospital initially with complaints of high BP and chest pain with SOB which are better now Denies OTC/herbal meds or NSAIDs No recent iodinated contrast exposure. denies smoking/etoh/licorice/decongestants says BP usually okay (on many meds) but gets high intermittently without any known reasons not aware about CKD. baseline cr 1.4 pt got d/c to [facility] and seen for HTN and CKD management ROS: c/o heartburn Cardiovascular: No chest pain. improved Pulmonary: No shortness of breath now. improved Gastrointestinal: denies abdominal pain No nausea. No vomiting. Genitourinary: No pain while urinating. Denies blood in urine. All other negative except as mentioned in HPI Physical Examination: General Appearance: Comfortable, in no acute respiratory distress, co-operative . Vitals reviewed and noted as below Head; Atraumatic, normocephalic ENT: no ulcers no thrush. Tongue is midline. Oropharynx: no rash or ulcers. EYES: Pupils are equal, round and reactive to light accommodation. Eye muscles and extraocular movement intact. Sclera is anicteric. Neck; supple no lymphadenopathy, noted thyromegaly Lungs: Normal respiratory rate/effort. Breath sounds bilateral clear Heart: Normal rate. s1s2 normal. No rub or gallop. Extremities: no edema. No varicose veins Neurological: Patient is alert, awake and oriented to person, place and time. No focal deficit. Strength bilateral appropriate and equal Skin: Warm and dry. Normal turgor. No rash. Palpitation: Normal elasticity for age Abdomen: Abdomen is soft. Bowel sounds +. There is no abdominal tenderness, no guarding/rigidity no organomegaly Psych: normal insight and normal affect/mood MSK: no joint tenderness or swelling. Digits and nails normal, no deformity : kidney or bladder not palpable Labs/imaging reviewed. Past medical history, past surgical history, family history, social history, allergy reviewed and noted as below Family hx: no hx of CKD. Rest non-contributory renal imaging: b/l cysts. doppler neg for SHERIF adrenal wnl TSH 3.6 Objective - Vital Signs/Intake and Output Vital Signs (last 24 hours): Temp Pulse Resp BP Pulse Ox 98.1 F 69 16 133/72 98 02/23/19 10:59 02/23/19 10:59 02/23/19 10:59 02/23/19 10:59 02/23/19 10:59 Intake and Output: 02/23/19 02/23/19 06:59 18:59 Intake Total 120 Balance 120 - Medications Medications: Current Medications Alprazolam (Xanax) 0.25 mg PO DAILY [facility]; Protocol Last Admin: 02/23/19 10:08 Dose: 0.25 mg Arformoterol Tartrate (Brovana) 15 mcg IH [id number] [facility] Last Admin: 02/23/19 08:57 Dose: 15 mcg Aspirin (Ecotrin) 81 mg PO 0800 [facility] Last Admin: 02/23/19 08:05 Dose: 81 mg Atorvastatin Calcium (Lipitor) 20 mg PO DIN [facility] Last Admin: 02/22/19 17:29 Dose: 20 mg Bisacodyl (Dulcolax) 5 mg PO DAILY PRN PRN Reason: Constipation Last Admin: 02/23/19 06:16 Dose: 5 mg Budesonide (Pulmicort Respules) 0.5 mg IH [id number] [facility] Last Admin: 02/23/19 08:57 Dose: 0.5 mg Carvedilol (Coreg) 25 mg PO 0800,1800 [facility]; Protocol Last Admin: 02/23/19 08:05 Dose: 25 mg Diltiazem HCl (Cardizem Cd) 240 mg PO DAILY [facility] Last Admin: 02/23/19 10:07 Dose: 240 mg Ezetimibe (Zetia) 10 mg PO DAILY [facility] Last Admin: 02/23/19 10:07 Dose: 10 mg Enoxaparin Sodium (Lovenox) 30 mg SC 0600 [facility]; Protocol Last Admin: 02/23/19 06:04 Dose: 30 mg Insulin Human Lispro (Humalog Med) 0 units SC ACHS [facility]; Protocol Last Admin: 02/23/19 11:42 Dose: 1 units Isosorbide Mononitrate (Imdur) 60 mg PO 1400 [facility] Last Admin: 02/23/19 13:25 Dose: 60 mg Latanoprost (Xalatan Opht) 0 ml OU HS [facility] Last Admin: 02/22/19 21:58 Dose: 2.5 ml Methimazole (Tapazole) 5 mg PO 0730 [facility]; Protocol Last Admin: 02/23/19 08:04 Dose: 5 mg Minoxidil (Minoxidil) 2.5 mg PO DAILY [facility] Last Admin: 02/23/19 10:07 Dose: 2.5 mg Ondansetron HCl (Zofran Tab) 4 mg PO Q6H PRN PRN Reason: Nausea/Vomiting Last Admin: 02/23/19 08:06 Dose: 4 mg Pantoprazole Sodium (Protonix Ec Tab) 20 mg PO 0600 [facility] Spironolactone (Aldactone) 25 mg PO DAILY [facility] Last Admin: 02/23/19 10:07 Dose: 25 mg Sucralfate (Carafate Oral Susp) 1 gm PO 0600,1600 [facility] Last Admin: 02/23/19 06:04 Dose: 1 gm Tramadol HCl (Ultram) 50 mg PO TID PRN PRN Reason: Pain, moderate (4-7) Last Admin: 02/22/19 21:59 Dose: 50 mg Vitamin B Complex/Vit C/Folic Acid (Nephro-Yousuf) 1 tab PO 0800 [facility] Last Admin: 02/23/19 08:05 Dose: 1 tab - Labs Labs: 02/23/19 06:20 02/23/19 06:20
[2019-02-23 16:53] VITALS: TEMP 98
[2019-02-23 17:02] VITALS: RESP 18; O2SAT 95
[2019-02-23] MEDS: Latanoprost 2.5 ml Opht Soln OU SCH (21:32)
[2019-02-24] MEDS: Sucralfate 1 gm/10 ml Oral Susp UD PO SCH (05:29)
[2019-02-24] MEDS: Enoxaparin 30 mg Syringe SC SCH (05:29)
[2019-02-24] MEDS: Bisacodyl 5mg EC Tab PO PRN (05:30)
[2019-02-24 05:41] LABS: ALBUMIN (PEP) 3.3 g/dL (3.8-4.8); ALPHA-1-GLOBULIN (PEP) 0.3 g/dL (0.2-0.3)
[2019-02-24] MEDS ORDERED: Pantoprazole 20 mg EC Tab PO SCH ×2 (06:00→10:26)
[2019-02-24] MEDS: Insulin Lispro (humaLOG) MEDIUM Coverage SC SCH ×2 (06:53→13:57)
[2019-02-24] MEDS: Budesonide 0.5 mg/2 ml Inhal Susp UD IH SCH (07:34)
[2019-02-24] MEDS: Arformoterol 15 mcg/2 ml Inh Sol IH SCH (07:34)
[2019-02-24] MEDS: Multivitamin Vitamin B Complex (Nephro-Vite) Tab PO SCH (08:17)
[2019-02-24] MEDS: methIMAzole 5 MG TAB PO SCH (08:17)
[2019-02-24 08:39] LABS: ALB/GLOB RATIO 1.2 (1.1-1.8); ALBUMIN 4.1 g/dL (3.0-4.8); CALCIUM 9.9 mg/dL (8.4-10.5)
[2019-02-24] MEDS: diltiaZEM 240 mg/24 Hours CD Cap PO SCH (09:22)
[2019-02-24 09:26] VITALS: BP 131/70; PULSE 60
[2019-02-24] MEDS ORDERED: POLYETHYLENE GLYCOL 3350 17 GM/Dose PACKET PO ONE (10:19)
[2019-02-24] MEDS ORDERED: POLYETHYLENE GLYCOL 3350 17 GM/Dose PACKET PO SCH (10:30)
[2019-02-24] MEDS ORDERED: Pantoprazole 40 mg EC Tab PO ONE (10:45)
--- NOTE | 2019-02-24 13:16 | CP.PCM.DIS ---
<Mary Martinez - Last Filed: 02/24/19 13:18> Provider - Provider Date of Admission: 02/16/19 14:29 Attending physician: Isidro Puri MD Primary care physician: Nelsy Giles MD Consults: 02/16/19 16:09 Nephrology Consult Routine Comment: Consulting Provider: Leoncio Aj Consulting Physician: Leoncio Aj Reason for Consult: ckd 02/16/19 18:30 Social Work Referral Routine Comment: natalia Aquino Physician Instructions: Reason For Exam: discharge planning 02/16/19 19:02 Inpatient [employer] Core Measures Referral Routine Comment: cp/deconditioning Physician Instructions: Reason For Exam: assess Transition In Care/Readmission Reduction Routine Comment: cp/deconditioning Physician Instructions: Reason For Exam: assess Time Spent in preparation of Discharge (in minutes): 70 Diagnosis - Discharge Diagnosis (1) Chest pain Status: Resolved (2) Near syncope Status: Resolved (3) Uncontrolled hypertension Status: Resolved (4) Anemia in chronic kidney disease Status: Chronic (5) Diabetes mellitus Status: Chronic (6) Gastritis Status: Chronic (7) Hypertension, benign Status: Chronic (8) Hyperthyroidism Status: Chronic (9) Reflux Status: Chronic (10) 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 Status: Chronic Hospital Course - Lab Results Lab Results: Most Recent Lab Values WBC 5.3 10^3/uL (4.5-11.0) 02/23/19 06:20 RBC 3.12 10^6/uL (3.5-6.1) L 02/23/19 06:20 Hgb 9.6 g/dL (12.0-16.0) L 02/23/19 06:20 Hct 27.5 % (36.0-48.0) L 02/23/19 06:20 MCV 88.1 fl (80.0-105.0) 02/23/19 06:20 MCH 30.8 pg (25.0-35.0) 02/23/19 06:20 MCHC 34.9 g/dl (31.0-37.0) 02/23/19 06:20 RDW 12.2 % (11.5-14.5) 02/23/19 06:20 Plt Count 292 10^3/uL (120.0-450.0) 02/23/19 06:20 MPV 8.6 fl (7.0-11.0) 02/23/19 06:20 Neut % (Auto) 46.3 % (50.0-68.0) L 02/23/19 06:20 Lymph % (Auto) 39.2 % (22.0-35.0) H 02/23/19 06:20 Davis % (Auto) 12.4 % (1.0-6.0) H 02/23/19 06:20 Eos % (Auto) 1.9 % (1.5-5.0) 02/23/19 06:20 Baso % (Auto) 0.2 % (0.0-3.0) 02/23/19 06:20 Lymph # (Auto) 2.1 (1.2-3.4) 02/23/19 06:20 Davis # (Auto) 0.7 (0.1-0.6) H 02/23/19 06:20 Eos # (Auto) 0.1 (0.0-0.7) 02/23/19 06:20 Baso # (Auto) 0.01 K/mm3 (0.0-2.0) 02/23/19 06:20 Absolute Neuts (auto) 2.43 (1.4-6.5) 02/23/19 06:20 Sodium 131 mmol/L (132-148) L 02/24/19 07:55 Potassium 4.2 mmol/L (3.6-5.0) 02/24/19 07:55 Chloride 94 mmol/L (98-107) L 02/24/19 07:55 Carbon Dioxide 28 mmol/L (21-33) 02/24/19 07:55 Anion Gap 13 (10-20) 02/24/19 07:55 BUN 18 mg/dL (7-21) 02/24/19 07:55 Creatinine 1.7 mg/dl (0.7-1.2) H 02/24/19 07:55 Est GFR ( Amer) 35 02/24/19 07:55 Est GFR (Non-Af Amer) 29 02/24/19 07:55 POC Glucose (mg/dL) 208 mg/dL (65-110) H 02/24/19 11:54 Random Glucose 197 mg/dL (70-110) H 02/24/19 07:55 Serum Osmolality 274 mosm/kg (272-300) 02/21/19 11:00 Uric Acid 7.6 mg/dL (2.5-6.2) H 02/21/19 10:58 Calcium 9.9 mg/dL (8.4-10.5) 02/24/19 07:55 Total Bilirubin 0.5 mg/dL (0.2-1.3) 02/24/19 07:55 AST 84 U/L (14-36) H 02/24/19 07:55 ALT 95 U/L (7-56) H 02/24/19 07:55 Alkaline Phosphatase 55 U/L (38-126) 02/24/19 07:55 Total Protein 7.6 g/dL (5.8-8.3) 02/24/19 07:55 Total Protein (PEP) 6.4 g/dL (6.1-8.1) 02/22/19 06:20 Albumin 4.1 g/dL (3.0-4.8) 02/24/19 07:55 Albumin (PEP) 3.3 g/dL (3.8-4.8) L 02/22/19 06:20 Globulin 3.5 gm/dL 02/24/19 07:55 Albumin/Globulin Ratio 1.2 (1.1-1.8) 02/24/19 07:55 Igngh-4-Vhpnnuioq 0.3 g/dL (0.2-0.3) 02/22/19 06:20 Kmqgh-9-Ythvlsmvf 0.9 g/dL (0.5-0.9) 02/22/19 06:20 Jmrq-1-Ogerguwn 0.5 g/dL (0.4-0.6) 02/22/19 06:20 Qrdj-0-Qydqndqw 0.4 g/dL (0.2-0.5) 02/22/19 06:20 Gamma Globulins 1.0 g/dL (0.8-1.7) 02/22/19 06:20 Abnorm Protein Band 1 TEST NOT PERFORMED 02/22/19 06:20 Abnorm Protein Band 2 TEST NOT PERFORMED 02/22/19 06:20 Abnorm Protein Band 3 TEST NOT PERFORMED 02/22/19 06:20 Urine Color Yellow (YELLOW) 02/21/19 13:30 Urine Appearance Clear (CLEAR) 02/21/19 13:30 Urine pH 6.0 (4.7-8.0) 02/21/19 13:30 Ur Specific [place] 1.015 (1.005-1.035) 02/21/19 13:30 Urine Protein Negative mg/dL (<30 mg/dL) 02/21/19 13:30 Urine Glucose (UA) Negative mg/dL (NEGATIVE) 02/21/19 13:30 Urine Ketones Negative mg/dL (NEGATIVE) 02/21/19 13:30 Urine Blood Negative (NEGATIVE) 02/21/19 13:30 Urine Nitrate Negative (NEGATIVE) 02/21/19 13:30 Urine Bilirubin Negative (NEGATIVE) 02/21/19 13:30 Urine Urobilinogen 0.2 E.U./dL (<1 E.U./dL) 02/21/19 13:30 Ur Leukocyte Esterase Small Pb/uL (NEGATIVE) H 02/21/19 13:30 Urine RBC 1 - 3 /hpf (0-2) H 02/21/19 13:30 Urine WBC 10 - 15 /hpf (0-6) H 02/21/19 13:30 Ur Epithelial Cells 6 - 8 /hpf (0-5) H 02/21/19 13:30 Amorphous Sediment Few /hpf (NONE) 02/21/19 13:30 Urine Bacteria Many /hpf (NONE) 02/21/19 13:30 Urine Other Uyeast /hpf 02/21/19 13:30 Urine Osmolality 180 mosm/kg (300-1000) L 02/21/19 16:09 Ur Random Creatinine 61 mg/dL 02/21/19 16:09 Ur Random Sodium 20 meq/L 02/21/19 16:09 MIKEY & SPEP Interp See note 02/22/19 06:20 Serum Immunofixation Not detected (Not Detected) 02/22/19 06:20 - Hospital Course Hospital Course: 83 year old female with past medical history of hypertension, diabetes, hyperthyroidism and CKD presented to the ED with complaint of chest pain and elevated blood pressure. Cardiology - Dr. Kirkpatrick - was consulted. Serial cardiac enzymes have been negative. Stress test was negative. Previous apical defect was not visualized. Chest pain has resolved without further palpitations or shortness of breath. Cardiology recommended continuing patient on Carvedilol, ASA, Lipitor, Cardizem, Imdur. Nephrology was consulted - Dr. Aj - for poorly controlled hypertension on multiple medications, including HCTZ, Aldactone, Hydralazine, Losartan. BP improved after beginning Minoxidil 2.5 mg BID, which was decreased to daily. Creatinine initially trended up but returned to baseline. Patient had hyperkalemia at 5.2, but resolved when Losartan was held and Patiromer Calcium Sorbitex was started. Nephrology recommended discontinuing hydralazine, HCTZ, clonidine and Losartan at time of transfer to TCU. Patient also complained of chronic hip pain. Xray was negative for acute findings. She was started on lidoderm patch and Tramadol for pain. Physical therapy recommended TCU, which the patient initially refused, but eventually agreed. Blood pressure was controlled and patient stated Ultram has helped RLE pain. Patient received PT and reported improved R hip pain with ambulation. Large renal cysts were located bilaterally on renal artery duplex and Nephrology advised following up outpatient. Blood pressures remained stable. Patient rep orted Nausea and vomiting and was given Zofran 4mg q6, Protonix and sucralfate. ASA was changed to enteric coated. Patient was deemed stable for discharge to home after TCU stay. She was given instructions to follow up with her primary doctor, gastroenterology, and nephrology. She was advised to multiple small meals throughout the day and to use stool softeners as needed. She understood instructions and agreed. Discharge Exam - Additional Findings Additional findings: - Constitutional Appears: Well, Non-toxic, No Acute Distress - Head Exam Head Exam: ATRAUMATIC, NORMAL INSPECTION, NORMOCEPHALIC - Eye Exam Eye Exam: EOMI, PERRL Pupil Exam: NORMAL ACCOMODATION - ENT Exam ENT Exam: Mucous Membranes Moist - Respiratory Exam Respiratory Exam: Clear to Auscultation Bilateral, NORMAL BREATHING PATTERN, negative for rales or wheezes. Chest tender to palpation - Cardiovascular Exam Cardiovascular Exam: REGULAR RHYTHM, RRR, +S1, +S2, Systolic Murmur (systolic ejection murmur) - GI/Abdominal Exam GI & Abdominal Exam: Normal Bowel Sounds, Soft. absent: Tenderness - Extremities Exam Extremities exam: Positive for: full ROM, pedal pulses present. Negative for: tenderness - Neurological Exam Neurological exam: Alert, CN II-XII Intact, Oriented x3 - Skin Skin Exam: Dry, Intact, Normal Color Discharge Plan - Discharge Medications Prescriptions: Aspirin [Ecotrin] 81 mg PO 0800 #14 tabec Docusate Sodium [Colace] 100 mg PO DAILY #14 capsule Ezetimibe [Zetia] 10 mg PO DAILY #15 tab Minoxidil 2.5 mg PO DAILY #15 tab Pantoprazole [Protonix EC Tab] 40 mg PO ACB #14 ect Sucralfate [Carafate Oral Susp] 1 gm PO 0600,1600 #28 udc Vitamin B Complex/Vit C/Folic [Nephro-Yousuf] 1 tab PO 0800 #15 tab - Follow Up Plan Condition: GOOD Disposition: HOME/ ROUTINE Instructions: Chest Pain (DC), Coronary Heart Disease (DC), Chest Pain (DC), Chest Pain (GEN), Renal Failure Diet (DC), Hyponatremia (DC), Hyponatremia (GEN), Hypertension (DC), Hypertension (GEN) Additional Instructions: Follow up with Dr. Giles within 3-5 days of discharge to repeat liver function tests blood work. Follow up with Dr. Morrow, advanced developer within 1 week of discharge. follow up with nephrology eat multiple small meals, sleep with elevated head of bed take stool softener as needed for constipations. Please resume medications as indicated on your discharge instructions. Please discontinue hydrochlorothiazide. Return to ED if symptoms return. Referrals: Nelsy Cyr MD [Primary Care Provider] - <Isidro Puri - Last Filed: 02/24/19 16:32> Provider - Provider Date of Admission: 02/16/19 14:29 Attending physician: Isidro Puri MD Primary care physician: Nelsy Giles MD Consults: 02/16/19 16:09 Nephrology Consult Routine Comment: Consulting Provider: Leoncio Aj Consulting Physician: Leoncio Aj Reason for Consult: ckd 02/16/19 18:30 Social Work Referral Routine Comment: natalia Aquino Physician Instructions: Reason For Exam: discharge planning 02/16/19 19:02 Inpatient [employer]INE [employer]ER Core Measures Referral Routine Comment: cp/deconditioning Physician Instructions: Reason For Exam: assess Transition In Care/Readmission Reduction Routine Comment: cp/deconditioning Physician Instructions: Reason For Exam: assess Hospital Course - Lab Results Lab Results: Most Recent Lab Values WBC 5.3 10^3/uL (4.5-11.0) 02/23/19 06:20 RBC 3.12 10^6/uL (3.5-6.1) L 02/23/19 06:20 Hgb 9.6 g/dL (12.0-16.0) L 02/23/19 06:20 Hct 27.5 % (36.0-48.0) L 02/23/19 06:20 MCV 88.1 fl (80.0-105.0) 02/23/19 06:20 MCH 30.8 pg (25.0-35.0) 02/23/19 06:20 MCHC 34.9 g/dl (31.0-37.0) 02/23/19 06:20 RDW 12.2 % (11.5-14.5) 02/23/19 06:20 Plt Count 292 10^3/uL (120.0-450.0) 02/23/19 06:20 MPV 8.6 fl (7.0-11.0) 02/23/19 06:20 Neut % (Auto) 46.3 % (50.0-68.0) L 02/23/19 06:20 Lymph % (Auto) 39.2 % (22.0-35.0) H 02/23/19 06:20 Davis % (Auto) 12.4 % (1.0-6.0) H 02/23/19 06:20 Eos % (Auto) 1.9 % (1.5-5.0) 02/23/19 06:20 Baso % (Auto) 0.2 % (0.0-3.0) 02/23/19 06:20 Lymph # (Auto) 2.1 (1.2-3.4) 02/23/19 06:20 Davis # (Auto) 0.7 (0.1-0.6) H 02/23/19 06:20 Eos # (Auto) 0.1 (0.0-0.7) 02/23/19 06:20 Baso # (Auto) 0.01 K/mm3 (0.0-2.0) 02/23/19 06:20 Absolute Neuts (auto) 2.43 (1.4-6.5) 02/23/19 06:20 Sodium 131 mmol/L (132-148) L 02/24/19 07:55 Potassium 4.2 mmol/L (3.6-5.0) 02/24/19 07:55 Chloride 94 mmol/L (98-107) L 02/24/19 07:55 Carbon Dioxide 28 mmol/L (21-33) 02/24/19 07:55 Anion Gap 13 (10-20) 02/24/19 07:55 BUN 18 mg/dL (7-21) 02/24/19 07:55 Creatinine 1.7 mg/dl (0.7-1.2) H 02/24/19 07:55 Est GFR ( Amer) 35 02/24/19 07:55 Est GFR (Non-Af Amer) 29 02/24/19 07:55 POC Glucose (mg/dL) 208 mg/dL (65-110) H 02/24/19 11:54 Random Glucose 197 mg/dL (70-110) H 02/24/19 07:55 Serum Osmolality 274 mosm/kg (272-300) 02/21/19 11:00 Uric Acid 7.6 mg/dL (2.5-6.2) H 02/21/19 10:58 Calcium 9.9 mg/dL (8.4-10.5) 02/24/19 07:55 Total Bilirubin 0.5 mg/dL (0.2-1.3) 02/24/19 07:55 AST 84 U/L (14-36) H 02/24/19 07:55 ALT 95 U/L (7-56) H 02/24/19 07:55 Alkaline Phosphatase 55 U/L (38-126) 02/24/19 07:55 Total Protein 7.6 g/dL (5.8-8.3) 02/24/19 07:55 Total Protein (PEP) 6.4 g/dL (6.1-8.1) 02/22/19 06:20 Albumin 4.1 g/dL (3.0-4.8) 02/24/19 07:55 Albumin (PEP) 3.3 g/dL (3.8-4.8) L 02/22/19 06:20 Globulin 3.5 gm/dL 02/24/19 07:55 Albumin/Globulin Ratio 1.2 (1.1-1.8) 02/24/19 07:55 Iogho-6-Fcqmimgkf 0.3 g/dL (0.2-0.3) 02/22/19 06:20 Hckic-6-Pgegziqma 0.9 g/dL (0.5-0.9) 02/22/19 06:20 Zhgx-2-Fatrzpra 0.5 g/dL (0.4-0.6) 02/22/19 06:20 Goxj-4-Rbdnpoem 0.4 g/dL (0.2-0.5) 02/22/19 06:20 Gamma Globulins 1.0 g/dL (0.8-1.7) 02/22/19 06:20 Abnorm Protein Band 1 TEST NOT PERFORMED 02/22/19 06:20 Abnorm Protein Band 2 TEST NOT PERFORMED 02/22/19 06:20 Abnorm Protein Band 3 TEST NOT PERFORMED 02/22/19 06:20 Urine Color Yellow (YELLOW) 02/21/19 13:30 Urine Appearance Clear (CLEAR) 02/21/19 13:30 Urine pH 6.0 (4.7-8.0) 02/21/19 13:30 Ur Specific [place] 1.015 (1.005-1.035) 02/21/19 13:30 Urine Protein Negative mg/dL (<30 mg/dL) 02/21/19 13:30 Urine Glucose (UA) Negative mg/dL (NEGATIVE) 02/21/19 13:30 Urine Ketones Negative mg/dL (NEGATIVE) 02/21/19 13:30 Urine Blood Negative (NEGATIVE) 02/21/19 13:30 Urine Nitrate Negative (NEGATIVE) 02/21/19 13:30 Urine Bilirubin Negative (NEGATIVE) 02/21/19 13:30 Urine Urobilinogen 0.2 E.U./dL (<1 E.U./dL) 02/21/19 13:30 Ur Leukocyte Esterase Small Pb/uL (NEGATIVE) H 02/21/19 13:30 Urine RBC 1 - 3 /hpf (0-2) H 02/21/19 13:30 Urine WBC 10 - 15 /hpf (0-6) H 02/21/19 13:30 Ur Epithelial Cells 6 - 8 /hpf (0-5) H 02/21/19 13:30 Amorphous Sediment Few /hpf (NONE) 02/21/19 13:30 Urine Bacteria Many /hpf (NONE) 02/21/19 13:30 Urine Other Uyeast /hpf 02/21/19 13:30 Urine Osmolality 180 mosm/kg (300-1000) L 02/21/19 16:09 Ur Random Creatinine 61 mg/dL 02/21/19 16:09 Ur Random Sodium 20 meq/L 02/21/19 16:09 MIKEY & SPEP Interp See note 02/22/19 06:20 Serum Immunofixation Not detected (Not Detected) 02/22/19 06:20 Attending/Attestation - Attestation I have personally seen and examined this patient.: Yes I have fully participated in the care of the patient.: Yes I have reviewed all pertinent clinical information, including history, physical exam and plan: Yes Notes (Text): 02/24/19 16:27 Medical record note made by the resident after discussion with my direction and input after the patient was personally seen and examined by me. I have reviewed the chart and agree that the record accurately reflects by personal performance of the history, physical exam, data review, and medical decision-making, in the course for the patient. I have also personally directed the plan of care. 83 year old female with past medical history of hypertension, diabetes, hyperthyroidism and CKD was initially admitted to [facility] [place] Inpatient with H/O of chest pain and elevated blood pressure. Serial cardiac enzymes were negative. Stress test was done which was negative. Chest pain has resolved. She also had poorly controlled hypertension on multiple medications. BP improved after minoxidil was added. Hyponatremia is improved.Renal functions are stable. Patient has been started on Protonix, and Karafate for Peptic ulcer disease. AST and ALT increased two days back likely due to medications.AST and ALT are stable at the time of discharge.Protonix dose is reduced. Patient has advised to avoid NSAID and Tylenol. Her constipation has resolved. She is tolerating diet. She will follow up with PMD and GI as out patient. She will need repeat LFT in one week. Management plan was discussed in detail with patient. Education was provided.
--- NOTE | 2019-02-24 14:07 | CP.PCM.PN ---
Subjective - Date & Time of Evaluation Date of Evaluation: 02/24/19 Time of Evaluation: 14:06 - Subjective Subjective: Nephrology Consultation Note: Assessment: Stable uncontrolled HTN: improved chest pain resolved. 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 mild fluctuation in serum cr likely hemodynamic, now stable Hypertension control with meds as ordered. Maintain hemodynamics stable. Avoid h ypotension. Patient on aldactone 25 mg/d, also on coreg, CCB, nirates. [off thiazid due to hyponatremia). Also will continue with minoxidil 2.5 mg /day for better HTN control Monitor Input/Output, daily weights and Na. avoid correction in serum Na >6-8 meq/24 hrs. no need for samsca or hypertonic saline at present oral fluid restriction 1200 mL/day reinforced with pt. sent SPEP/MIKEY and serum FLC assay: neg Secondary HTN work up with plasma metanephrine and renal artery doppler neg. didn't check bo level as already on aldactone. Dose meds/antibiotics for reduced GFR. Avoid fleets enema/magnesium based laxatives. Avoid nephrotoxins/NSAIDs/ iodinated contrast (unless needed emergently) Glycemic control Further work up/management as per primary team stable for d/c from renal perspective when planned Thanks for allowing me to participate in care of your patient. Will follow patient with you. Please call if any Qs. had d/w team Dr Leoncio Aj Office: [phone] Reason for consult: HTN management HPI: Pt is a 83 F with hx of diabetes Mellitus (20 years), hypertension (>20 years) obesity hyperlipidemia hyperthyroidism admitted to hospital initially with complaints of high BP and chest pain with SOB which are better now Denies OTC/herbal meds or NSAIDs No recent iodinated contrast exposure. denies smoking/etoh/licorice/decongestants says BP usually okay (on many meds) but gets high intermittently without any known reasons not aware about CKD. baseline cr 1.4 pt got d/c to [facility] and seen for HTN and CKD management ROS: Cardiovascular: No chest pain. improved Pulmonary: No shortness of breath now. improved Gastrointestinal: denies abdominal pain No nausea. No vomiting. Genitourinary: No pain while urinating. Denies blood in urine. All other negative except as mentioned in HPI Physical Examination: General Appearance: Comfortable, in no acute respiratory distress, co-operative . Vitals reviewed and noted as below Head; Atraumatic, normocephalic ENT: no ulcers no thrush. Tongue is midline. Oropharynx: no rash or ulcers. EYES: Pupils are equal, round and reactive to light accommodation. Eye muscles and extraocular movement intact. Sclera is anicteric. Neck; supple no lymphadenopathy, noted thyromegaly Lungs: Normal respiratory rate/effort. Breath sounds bilateral clear Heart: Normal rate. s1s2 normal. No rub or gallop. Extremities: no edema. No varicose veins Neurological: Patient is alert, awake and oriented to person, place and time. No focal deficit. Strength bilateral appropriate and equal Skin: Warm and dry. Normal turgor. No rash. Palpitation: Normal elasticity for age Abdomen: Abdomen is soft. Bowel sounds +. There is no abdominal tenderness, no guarding/rigidity no organomegaly Psych: normal insight and normal affect/mood MSK: no joint tenderness or swelling. Digits and nails normal, no deformity : kidney or bladder not palpable Labs/imaging reviewed. Past medical history, past surgical history, family history, social history, allergy reviewed and noted as below Family hx: no hx of CKD. Rest non-contributory renal imaging: b/l cysts. doppler neg for SHERIF adrenal wnl TSH 3.6 Objective - Vital Signs/Intake and Output Vital Signs (last 24 hours): Temp Pulse Resp BP Pulse Ox 98 F 60 18 131/70 95 02/23/19 17:01 02/24/19 09:22 02/23/19 17:01 02/24/19 09:22 02/23/19 17:01 - Medications Medications: Current Medications Alprazolam (Xanax) 0.25 mg PO DAILY [facility]; Protocol Last Admin: 02/24/19 09:24 Dose: 0.25 mg Arformoterol Tartrate (Brovana) 15 mcg IH [id number] [facility] Last Admin: 02/24/19 07:34 Dose: 15 mcg Aspirin (Ecotrin) 81 mg PO 0800 [facility] Last Admin: 02/24/19 08:17 Dose: 81 mg Atorvastatin Calcium (Lipitor) 20 mg PO DIN [facility] Last Admin: 02/22/19 17:29 Dose: 20 mg Bisacodyl (Dulcolax) 5 mg PO DAILY PRN PRN Reason: Constipation Last Admin: 02/24/19 05:30 Dose: 5 mg Budesonide (Pulmicort Respules) 0.5 mg IH [id number] [facility] Last Admin: 02/24/19 07:34 Dose: 0.5 mg Carvedilol (Coreg) 25 mg PO 0800,1800 [facility]; Protocol Last Admin: 02/24/19 08:16 Dose: 25 mg Diltiazem HCl (Cardizem Cd) 240 mg PO DAILY [facility] Last Admin: 02/24/19 09:22 Dose: 240 mg Ezetimibe (Zetia) 10 mg PO DAILY [facility] Last Admin: 02/24/19 09:23 Dose: 10 mg Enoxaparin Sodium (Lovenox) 30 mg SC 0600 [facility]; Protocol Last Admin: 02/24/19 05:29 Dose: 30 mg Insulin Human Lispro (Humalog Med) 0 units SC ACHS [facility]; Protocol Last Admin: 02/24/19 13:57 Dose: 3 units Isosorbide Mononitrate (Imdur) 60 mg PO 1400 [facility] Last Admin: 02/24/19 13:58 Dose: 60 mg Latanoprost (Xalatan Opht) 0 ml OU HS [facility] Last Admin: 02/23/19 21:32 Dose: 2.5 ml Methimazole (Tapazole) 5 mg PO 0730 [facility]; Protocol Last Admin: 02/24/19 08:17 Dose: 5 mg Minoxidil (Minoxidil) 2.5 mg PO DAILY [facility] Last Admin: 02/24/19 09:22 Dose: 2.5 mg Ondansetron HCl (Zofran Tab) 4 mg PO Q6H PRN PRN Reason: Nausea/Vomiting Last Admin: 02/23/19 21:32 Dose: 4 mg Pantoprazole Sodium (Protonix Ec Tab) 40 mg PO ACB [facility] Spironolactone (Aldactone) 25 mg PO DAILY [facility] Last Admin: 02/24/19 09:21 Dose: 25 mg Sucralfate (Carafate Oral Susp) 1 gm PO 0600,1600 [facility] Last Admin: 02/24/19 05:29 Dose: 1 gm Tramadol HCl (Ultram) 50 mg PO TID PRN PRN Reason: Pain, moderate (4-7) Last Admin: 02/24/19 09:24 Dose: 50 mg Vitamin B Complex/Vit C/Folic Acid (Nephro-Yousuf) 1 tab PO 0800 [facility] Last Admin: 02/24/19 08:17 Dose: 1 tab - Labs Labs: 02/23/19 06:20 02/24/19 07:55
[2019-02-25] MEDS ORDERED: Pantoprazole 40 mg EC Tab PO SCH (07:30)
== END 2019-02-24 15:39 | disposition home or self-care (01) | DRG 683 ==
LOC: TRCU 14:29
PROVIDERS: ADMIT Internal Medicine; ATTEND Internal Medicine
PROC: 3E0F7GC Introduction of Other Therapeutic Substance into Respiratory Tract, Via Natural or Artificial Opening (ICD-10-PCS; 2019-02-16)
PROC: F07Z9ZZ Gait Training/Functional Ambulation Treatment (ICD-10-PCS; principal; 2019-02-17)
PROC: F08Z4ZZ Home Management Treatment (ICD-10-PCS; 2019-02-17)
DX: I12.9 Hypertensive chronic kidney disease with stage 1 through stage 4 chronic kidney disease, or unspecified chronic kidney disease (principal); N18.3 Chronic kidney disease, stage 3 (moderate); E87.1 Hypo-osmolality and hyponatremia; D63.1 Anemia in chronic kidney disease; E11.22 Type 2 diabetes mellitus with diabetic chronic kidney disease; E87.5 Hyperkalemia; E78.00 Pure hypercholesterolemia, unspecified; E05.90 Thyrotoxicosis, unspecified without thyrotoxic crisis or storm; K21.9 Gastro-esophageal reflux disease without esophagitis; M25.551 Pain in right hip; E78.5 Hyperlipidemia, unspecified; E66.9 Obesity, unspecified; Z68.31 Body mass index [BMI] 31.0-31.9, adult; G89.29 Other chronic pain; K29.70 Gastritis, unspecified, without bleeding; K27.9 Peptic ulcer, site unspecified, unspecified as acute or chronic, without hemorrhage or perforation; N28.1 Cyst of kidney, acquired; Z87.891 Personal history of nicotine dependence